=== PATIENT | male | born 1965 | race African-American/Black ===

== ENCOUNTER 2017-04-07 10:07 | Inpatient (IN) | payer OTHER ==
[2017-04-07 11:23] VITALS: BMI 19.6
--- NOTE | 2017-04-07 14:20 | HP ---
CIWA Score - CIWA Score Nausea/Vomitin Muscle Tremors: 3 Anxiety: 4-Mod. Anxious/Guarded Agitation: 2 Paroxysmal Sweats: 3 Orientation: 0-Oriented Tacttile Disturbances: 0-None Auditory Disturbances: 0-None Visual Disturbances: 0-None Headache: 2-Mild CIWA-Ar Total Score: 19 Admission ROS S - HPI Chief Complaint: "I've had 35 years of alcohol abuse." Patient is here to Detox from Alcohol. Allergies/Adverse Reactions: Allergies Allergy/AdvReac Type Severity Reaction Status Date / Time shellfish derived Allergy Severe Verified 04/07/17 11:39 History of Present Illness: Patient is a 51 YO male with long history of Alcohol use here to Detox from Alcohol. Patient had 1 previous Detox admission at [facility] in 2009. Patient had a Detox admission at [facility] in 03/2017 (Completed). Patient reports that he completed that Detox admission, however, he relapsed 1 day after discharge from the Detox. Longest period of sobriety in recent years: approx. 3 weeks (12/2016) . Exam Limitations: No Limitations - Ebola screening Have you traveled outside of the country in the last 21 days: No (N) Have you had contact with anyone from an Ebola affected area: No Have you been sick,other than usual withdrawal symptoms: No Do you have a fever: No - Review of Systems Constitutional: Diaphoresis, Loss of Appetite, Malaise, Night Sweats, Changes in sleep, Unintentional Wgt. Loss (Lost approx. 10 lbs. over last 1 month.) EENT: reports: No Symptoms Reported Respiratory: reports: No Symptoms reported Cardiac: reports: No Symptoms Reported GI: reports: Diarrhea, Nausea, Poor Appetite, Vomiting, Indigestion, Abdominal cramping : reports: No Symptoms Reported Musculoskeletal: reports: No Symptoms Reported Integumentary: reports: No Symptoms Reported Neuro: reports: Headache, Tremors, Other (Patient had a "Blackout" due to Alcohol use approx. 4 days ago, Was evaluated at ER.) Endocrine: reports: No Symptoms Reported Hematology: reports: No Symptoms Reported Psychiatric: reports: Judgement Intact, Mood/Affect Appropiate, Orientated x3, Anxious Other Systems: Reviewed and Negative Patient History - Patient Medical History Hx Anemia: No Hx Asthma: Yes (Pt is on MDI.) Hx Chronic Obstructive Pulmonary Disease (COPD): Yes Hx Cancer: Yes (Prostate, Completed round of treatment approx. 8 weeks ago.) Hx Cardiac Disorders: No Hx Congestive Heart Failure: No Hx Hypertension: No Hx Hypercholesterolemia: No Hx Pacemaker: No HX Cerebrovascular Accident: No Hx Seizures: No Hx Dementia: No Hx Diabetes: No Hx Gastrointestinal Disorders: No Hx Liver Disease: No Hx Genitourinary Disorders: No Hx Sexually Transmitted Disorders: No Hx Renal Disease (ESRD): No Hx Thyroid Disease: No Hx Human Immunodeficiency Virus (HIV): No (Last Tested approx. 90 days ago: NEGATIVE.) Hx Hepatitis C: No (Last Tested approx. 90 days ago: NEGATIVE.) Hx Depression: No (Anxiety,Klonopin, stopped under Med.Provider's guidance approx. 1 month ago) Hx Suicide Attempt: No (PATIENT DENIES CURRENT SI / HI.) Hx Bipolar Disorder: No Hx Schizophrenia: No Other Medical History: DENIES. - Patient Surgical History Past Surgical History: No Hx Neurologic Surgery: No Hx Cataract Extraction: No Hx Cardiac Surgery: No Hx Lung Surgery: No Hx Breast Surgery: No Hx Breast Biopsy: No Hx Abdominal Surgery: No Hx Appendectomy: No Hx Cholecystectomy: No Hx Genitourinary Surgery: No Hx Orthopedic Surgery: No Other Surgical History: DENIES. Anesthesia Reaction: No - PPD History Previous Implant?: Yes Documented Results: Positive w/o proof (Completed Full Course of Antibiotic Treatment approx. 32 years ago.) Implanted On Prior [facility] Admission?: No PPD to be Administered?: No - Reproductive History Patient is a Female of Child Bearing Age (11 -55 yrs old): No (PATIENT IS MALE.) - Smoking Cessation Smoking history: Current every day smoker Have you smoked in the past 12 months: Yes Aproximately how many cigarettes per day: 4 Cigars Per Day: 0 Hx Chewing Tobacco Use: No Initiated information on smoking cessation: Yes 'Breaking Loose' booklet given: 04/07/17 (GIVEN ON UNIT.) - Substance & Tx. History Hx Alcohol Use: Yes Hx Substance Use: Yes Substance Use Type: Alcohol, Cocaine Hx Substance Use Treatment: Yes (1 Detox at [facility] (2009). 1 previous detox at [facility] approx. 2 weeks ago) - Substances Abused Alcohol Route: Oral Frequency: Daily Amount used: 1 QT VODKA/ SIX BEERS (12 OZ.) Age of first use: 16 Date of Last Use: 04/07/17 Cocaine Route: Inhalation Frequency: Daily Amount used: $20 Age of first use: 43 Date of Last Use: 04/05/17 Family Disease History - Family Disease History Family Disease History: Diabetes: Father (, Prostate Ca.), Heart Disease : Mother (, Breast Ca.; HTN), CA: Father, Mother, Sister (Breast.) Admission Physical Exam [facility] - Vital Signs Vital Signs: Vital Signs - 24 hr 04/07/17 11:20 Temperature 98.0 F Pulse Rate 79 Respiratory 18 Rate Blood Pressure 118/74 - Physical General Appearance: Yes: No Apparent Distress, Nourished, Appropriately Dressed , Thin, Tremorous, Anxious HEENTM: Yes: Hearing grossly Normal, Normocephalic, Normal Voice, GUSTABO, Pharynx Normal Respiratory: Yes: Chest Non-Tender, Lungs Clear, No Respiratory Distress, No Accessory Muscle Use Neck: Yes: No masses,lesions,Nodules, Supple, Trachea in good position Breast: Yes: Breast Exam Deferred Cardiology: Yes: Regular Rhythm, Regular Rate, S1, S2 Abdominal: Yes: Normal Bowel Sounds, Non Tender, Flat, Soft Genitourinary: Yes: Within Normal Limits Back: Yes: Normal Inspection Musculoskeletal: Yes: full range of Motion, Gait Steady Extremities: Yes: Normal Capillary Refill, Normal Range of Motion, Non-Tender, Tremors Neurological: Yes: Fully Oriented, Alert, Normal Mood/Affect, Normal Response Integumentary: Yes: Normal Color, Dry, Warm Lymphatic: Yes: Within Normal Limits - Diagnostic (1) Alcohol dependence with uncomplicated withdrawal Current Visit: Yes Status: Acute (2) Cocaine dependence, uncomplicated Current Visit: Yes Status: Acute (3) Asthma Current Visit: Yes Status: Chronic Qualifiers: Asthma severity: mild Asthma persistence: intermittent Asthma complication type: uncomplicated Qualified Code(s): J45.20 - Mild intermittent asthma, uncomplicated (4) Nicotine dependence Current Visit: Yes Status: Chronic Qualifiers: Nicotine product type: cigarettes Substance use status: uncomplicated Qualified Code(s): F17.210 - Nicotine dependence, cigarettes, uncomplicated (5) History of prostate cancer Current Visit: Yes Status: Chronic Comment: Currently Undergoing Treatment. Cleared for Admission [facility] - Detox or Rehab [facility] Level of Care: Medically Managed Detox Regimen/Protocol: Valium (PATIENT REQUESTS VALIUM DETOX REGIMEN.) BHS Breath Alcohol Content Breath Alcohol Content: 0.048 Urine Drug Screen - Results Drug Screen Negative: No Urine Drug Screen Results: RASHID-Cocaine, BZO-Benzodiazepines
[2017-04-07] MEDS ORDERED: NICOTINE POLACRILEX 2 MG GUM BC PRN (15:02)
[2017-04-07] MEDS ORDERED: MENTHOL/PHENOL 1 EACH UD MM PRN (15:02)
[2017-04-07] MEDS ORDERED: MAG HYDROX/AL HYDROX/SIMETH 30 ML UNIT-DOSE CUP PO PRN (15:02)
[2017-04-07] MEDS ORDERED: diazePAM 5 MG TABLET PO PRN (15:02)
[2017-04-07] MEDS ORDERED: MAGNESIUM CITRATE 300 ML BOTTLE PO PRN (15:02)
[2017-04-07] MEDS ORDERED: LOPERAMIDE HCL 2 MG CAPSULE PO PRN (15:02)
[2017-04-07] MEDS ORDERED: P-EPHED 60MG/TRIPROLIDI 2.5MG TABLET PO PRN (15:02)
[2017-04-07] MEDS ORDERED: MAGNESIUM HYDROX 2400MG/30ML ORAL SUSPENSION 30 ML CUP PO PRN (15:02)
[2017-04-07] MEDS ORDERED: ALBUTEROL SO4 18 GM HFA INHALER IH PRN (15:06)
[2017-04-07 16:34] LABS: HEMATOCRIT 43.1 % (35.4-49); HEMOGLOBIN 14.2 GM/dL (11.7-16.9); MEAN CELL VOLUME 97.2 fl (80-96); MEAN PLT VOLUME 7.7 fl (7.5-11.1); PLATELET COUNT 241 K/MM3 (134-434); RBC 4.44 M/mm3 (4.00-5.60); WHITE BLOOD COUNT 8.5 K/mm3 (4.0-10.0)
[2017-04-07 16:41] LABS: URINE APPEARANCE CLEAR; URINE BILIRUBIN NEGATIVE (NEGATIVE); URINE BLOOD NEGATIVE (NEGATIVE); URINE COLOR YELLOW; URINE GLUCOSE (UA) NEGATIVE (NEGATIVE); URINE KETONE NEGATIVE (NEGATIVE); URINE LEUK ESTERASE NEGATIVE (NEGATIVE); URINE NITRITE NEGATIVE (NEGATIVE); URINE PROTEIN NEGATIVE (NEGATIVE)
[2017-04-07] MEDS ORDERED: diazePAM 5 MG TABLET PO ONE (17:00)
[2017-04-07 17:05] LABS: ALBUMIN 3.9 g/dl (3.4-5.0); ANION GAP 7 (8-16); BLOOD UREA NITROGEN 11 mg/dL (7-18); CALCIUM 8.8 mg/dL (8.5-10.1); CHLORIDE 104 mmol/L (98-107); CO2 29 mmol/L (21-32); GLUCOSE,RANDOM 67 mg/dL (74-106); POTASSIUM 3.6 mmol/L (3.5-5.1); SGOT/AST 10 U/L (15-37); SODIUM 140 mmol/L (136-145)
[2017-04-07 17:07] LABS: ALK PHOS 42 U/L (45-117); BILIRUBIN,TOTAL 0.4 mg/dL (0.2-1.0); SGPT/ALT 22 U/L (12-78); TOT PROT 7.8 g/dl (6.4-8.2)
[2017-04-07] MEDS: NICOTINE 21 MG/24 HOURS TOPICAL PATCH TD SCH (17:11)
--- NOTE | 2017-04-07 19:48 | CONSULT ---
[facility] Psychiatric Consult - Data Date of interview: 04/07/17 Admission source: [facility] Identifying data: Pt. is a 51 year old male, who is a and father of two. This is patient's first admission to [facility]. Pt. admitted to for detox from Alcohol and cocaine dependence. Substance Abuse History: Following information confirmed by Mr. Pitt: Smoking Cessation. Smoking history: Current every day smoker. Have you smoked in the past 12 months: Yes. Aproximately how many cigarettes per day: 4. Cigars Per Day: 0. Hx Chewing Tobacco Use: No. Initiated information on smoking cessation : Yes. 'Breaking Loose' booklet given: 04/07/17 (GIVEN ON UNIT.). - Substance & Tx. History. Hx Alcohol Use: Yes. Hx Substance Use: Yes. Substance Use Type : Alcohol, Cocaine. Hx Substance Use Treatment: Yes (1 Detox at [facility] (2009). 1 previous detox at [facility] approx. 2 weeks ago). Alcohol: Route: Oral Frequency: Daily. Amount used: 1 QT VODKA/ SIX BEERS (12 OZ.). Age of first use: 16. Date of Last Use: 04/07/17. Cocaine: Route: Inhalation Frequency : Daily. Amount used: $20 Age of first use: 43. Date of Last Use: 04/05/17 Medical History: Asthma, COPD, Prostate cancer ( in remission) Psychiatric History: Pt. denies. Pt. also denies h/o suicide attempt. Pt. states he see's a therapist ( and Son were murdered a few years ago) and his primary care physician prescribes him trazdone 50mg for sleep. Pt. denies suicidal and homicial ideation. Physical/Sexual Abuse/Trauma History: Pt. denies. Mental Status Exam - Mental Status Exam Alert and Oriented to: Time, Place, Person Cognitive Function: Fair Patient Appearance: Well Groomed Mood: Sad Affect: Mood Congruent Patient Behavior: Appropriate, Cooperative Speech Pattern: Clear, Appropriate Voice Loudness: Normal Thought Process: Goal Oriented Thought Disorder: Not Present Hallucinations: Denies Suicidal Ideation: Denies Homicidal Ideation: Denies Insight/Judgement: Poor Sleep: Poorly Appetite: Fair Muscle strength/Tone: Normal Gait/Station: Normal Psychiatric Findings - Problem List ([place] 1, 2,3) (1) Alcohol dependence with uncomplicated withdrawal Current Visit: Yes Status: Acute (2) Cocaine dependence, uncomplicated Current Visit: Yes Status: Acute (3) Nicotine dependence Current Visit: Yes Status: Chronic Qualifiers: Nicotine product type: cigarettes Substance use status: uncomplicated Qualified Code(s): F17.210 - Nicotine dependence, cigarettes, uncomplicated (4) Substance induced mood disorder Current Visit: Yes Status: Suspected - Initial Treatment Plan Initial Treatment Plan: Psychoeducation provided. Detox in progress. Trazodone 50mg qhs ordered for insomnia. Pharmacy claims reviewed. Benefits and side effects (priapism) discussed with patient. Verbal consent given. Pt. agreeable with plan. Will continue to monitor.
[2017-04-07] MEDS: THIAMINE HCL 100 MG TABLET (FP) PO SCH (22:21)
[2017-04-07] MEDS: diazePAM 5 MG TABLET PO SCH (22:21)
[2017-04-07] MEDS: traZODone HCL 50 MG TABLET (FP) PO SCH (22:21)
[2017-04-08] MEDS: diazePAM 5 MG TABLET PO SCH ×3 (06:27→22:12)
[2017-04-08] MEDS: PRENATAL VITAMINS W/ FOLIC ACID TABLET (FP) PO SCH (10:30)
[2017-04-08] MEDS: NICOTINE 21 MG/24 HOURS TOPICAL PATCH TD SCH (10:32)
--- NOTE | 2017-04-08 11:06 | PN ---
S CIWA - CIWA Score Nausea/Vomitin Muscle Tremors: 3 Anxiety: 3 Agitation: 2 Paroxysmal Sweats: 1-Minimal Palms Moist Orientation: 0-Oriented Tacttile Disturbances: 1-Very Mild Itch/Numbness Auditory Disturbances: 1-Very Mild Visual Disturbances: 0-None Headache: 2-Mild CIWA-Ar Total Score: 16 BHS Progress Note (SOAP) Subjective: alert,irritable,anxious,interrupted sleep,tremor,pain in the body,tremor Objective: 04/08/17 11:03 Vital Signs Temperature 97.7 F 04/08/17 09:44 Pulse Rate 83 04/08/17 09:44 Respiratory Rate 18 04/08/17 09:44 Blood Pressure 97/59 04/08/17 09:44 O2 Sat by Pulse Oximetry (%) ekg nsr,normal Laboratory Last Values WBC 8.5 K/mm3 (4.0-10.0) 04/07/17 15:00 RBC 4.44 M/mm3 (4.00-5.60) 04/07/17 15:00 Hgb 14.2 GM/dL (11.7-16.9) 04/07/17 15:00 Hct 43.1 % (35.4-49) 04/07/17 15:00 MCV 97.2 fl (80-96) H 04/07/17 15:00 MCH 32.0 pg (25.7-33.7) 04/07/17 15:00 MCHC 33.0 g/dl (32.0-35.9) 04/07/17 15:00 RDW 14.0 % (11.9-15.9) 04/07/17 15:00 Plt Count 241 K/MM3 (134-434) 04/07/17 15:00 MPV 7.7 fl (7.5-11.1) 04/07/17 15:00 Sodium 140 mmol/L (136-145) 04/07/17 15:00 Potassium 3.6 mmol/L (3.5-5.1) 04/07/17 15:00 Chloride 104 mmol/L (98-107) 04/07/17 15:00 Carbon Dioxide 29 mmol/L (21-32) 04/07/17 15:00 Anion Gap 7 (8-16) L 04/07/17 15:00 BUN 11 mg/dL (7-18) 04/07/17 15:00 Creatinine 1.0 mg/dL (0.7-1.3) 04/07/17 15:00 Creat Clearance w eGFR > 60 (>60) 04/07/17 15:00 Random Glucose 67 mg/dL (74-106) L 04/07/17 15:00 Calcium 8.8 mg/dL (8.5-10.1) 04/07/17 15:00 Total Bilirubin 0.4 mg/dL (0.2-1.0) 04/07/17 15:00 AST 10 U/L (15-37) L 04/07/17 15:00 ALT 22 U/L (12-78) 04/07/17 15:00 Alkaline Phosphatase 42 U/L (45-117) L 04/07/17 15:00 Total Protein 7.8 g/dl (6.4-8.2) 04/07/17 15:00 Albumin 3.9 g/dl (3.4-5.0) 04/07/17 15:00 Urine Color Yellow 04/07/17 15:12 Urine Appearance Clear 04/07/17 15:12 Urine pH 5.0 (5.0-8.0) 04/07/17 15:12 Ur Specific [place] 1.021 (1.001-1.035) 04/07/17 15:12 Urine Protein Negative (NEGATIVE) 04/07/17 15:12 Urine Glucose (UA) Negative (NEGATIVE) 04/07/17 15:12 Urine Ketones Negative (NEGATIVE) 04/07/17 15:12 Urine Blood Negative (NEGATIVE) 04/07/17 15:12 Urine Nitrite Negative (NEGATIVE) 04/07/17 15:12 Urine Bilirubin Negative (NEGATIVE) 04/07/17 15:12 Urine Urobilinogen 2.0 mg/dL (0.2-1.0) 04/07/17 15:12 Ur Leukocyte Esterase Negative (NEGATIVE) 04/07/17 15:12 RPR Titer Nonreactive (NONREACTIVE) 04/07/17 15:00 Assessment: 04/08/17 11:04 withdrawal symptom Plan: continue detox,bgm monitoring,initial glucose is 67
[2017-04-08] MEDS: guaiFENesin/D-METHORPHAN HB 10 ML UNIT-DOSE CUPS PO PRN (13:56)
[2017-04-08] MEDS: THIAMINE HCL 100 MG TABLET (FP) PO SCH (22:12)
[2017-04-08] MEDS: traZODone HCL 50 MG TABLET (FP) PO SCH (22:12)
[2017-04-09] MEDS: guaiFENesin/D-METHORPHAN HB 10 ML UNIT-DOSE CUPS PO PRN ×3 (05:24→17:43)
--- NOTE | 2017-04-09 08:57 | PN ---
[facility] CIWA - CIWA Score Nausea/Vomitin-No Nausea/No Vomiting Muscle Tremors: 3 Anxiety: 3 Agitation: 3 Paroxysmal Sweats: 1-Minimal Palms Moist Orientation: 0-Oriented Tacttile Disturbances: 0-None Auditory Disturbances: 0-None Visual Disturbances: 0-None Headache: 0-None Present CIWA-Ar Total Score: 10 S Progress Note (SOAP) Subjective: tremor anxiety sweat Objective: 04/09/17 08:56 Vital Signs Temperature 97.7 F 04/09/17 06:00 Pulse Rate 80 04/09/17 06:00 Respiratory Rate 18 04/09/17 06:00 Blood Pressure 118/58 04/09/17 06:00 O2 Sat by Pulse Oximetry (%) Laboratory Last Values WBC 8.5 K/mm3 (4.0-10.0) 04/07/17 15:00 RBC 4.44 M/mm3 (4.00-5.60) 04/07/17 15:00 Hgb 14.2 GM/dL (11.7-16.9) 04/07/17 15:00 Hct 43.1 % (35.4-49) 04/07/17 15:00 MCV 97.2 fl (80-96) H 04/07/17 15:00 MCH 32.0 pg (25.7-33.7) 04/07/17 15:00 MCHC 33.0 g/dl (32.0-35.9) 04/07/17 15:00 RDW 14.0 % (11.9-15.9) 04/07/17 15:00 Plt Count 241 K/MM3 (134-434) 04/07/17 15:00 MPV 7.7 fl (7.5-11.1) 04/07/17 15:00 Sodium 140 mmol/L (136-145) 04/07/17 15:00 Potassium 3.6 mmol/L (3.5-5.1) 04/07/17 15:00 Chloride 104 mmol/L (98-107) 04/07/17 15:00 Carbon Dioxide 29 mmol/L (21-32) 04/07/17 15:00 Anion Gap 7 (8-16) L 04/07/17 15:00 BUN 11 mg/dL (7-18) 04/07/17 15:00 Creatinine 1.0 mg/dL (0.7-1.3) 04/07/17 15:00 Creat Clearance w eGFR > 60 (>60) 04/07/17 15:00 POC Glucometer 101 UNITS (80-120) 04/09/17 05:24 Random Glucose 67 mg/dL (74-106) L 04/07/17 15:00 Calcium 8.8 mg/dL (8.5-10.1) 04/07/17 15:00 Total Bilirubin 0.4 mg/dL (0.2-1.0) 04/07/17 15:00 AST 10 U/L (15-37) L 04/07/17 15:00 ALT 22 U/L (12-78) 04/07/17 15:00 Alkaline Phosphatase 42 U/L (45-117) L 04/07/17 15:00 Total Protein 7.8 g/dl (6.4-8.2) 04/07/17 15:00 Albumin 3.9 g/dl (3.4-5.0) 04/07/17 15:00 Urine Color Yellow 04/07/17 15:12 Urine Appearance Clear 04/07/17 15:12 Urine pH 5.0 (5.0-8.0) 04/07/17 15:12 Ur Specific [place] 1.021 (1.001-1.035) 04/07/17 15:12 Urine Protein Negative (NEGATIVE) 04/07/17 15:12 Urine Glucose (UA) Negative (NEGATIVE) 04/07/17 15:12 Urine Ketones Negative (NEGATIVE) 04/07/17 15:12 Urine Blood Negative (NEGATIVE) 04/07/17 15:12 Urine Nitrite Negative (NEGATIVE) 04/07/17 15:12 Urine Bilirubin Negative (NEGATIVE) 04/07/17 15:12 Urine Urobilinogen 2.0 mg/dL (0.2-1.0) 04/07/17 15:12 Ur Leukocyte Esterase Negative (NEGATIVE) 04/07/17 15:12 RPR Titer Nonreactive (NONREACTIVE) 04/07/17 15:00 lab noted Assessment: 04/09/17 08:56 withdrawal sx Plan: continue detox
[2017-04-09] MEDS: PRENATAL VITAMINS W/ FOLIC ACID TABLET (FP) PO SCH (10:43)
[2017-04-09] MEDS: diazePAM 5 MG TABLET PO SCH ×2 (10:43→22:06)
[2017-04-09] MEDS: NICOTINE 21 MG/24 HOURS TOPICAL PATCH TD SCH (10:43)
[2017-04-09] MEDS: IBUPROFEN 400 MG TABLET (FP) PO PRN (20:35)
[2017-04-09] MEDS: THIAMINE HCL 100 MG TABLET (FP) PO SCH (22:06)
[2017-04-09] MEDS: traZODone HCL 50 MG TABLET (FP) PO SCH (22:06)
--- NOTE | 2017-04-10 09:48 | PN ---
BHS Progress Note (SOAP) Subjective: nausea, sweats, interrupted sleep, anxiety, tremors - does not like medication he is recieving Objective: 04/10/17 09:47 Vital Signs - 24 hr 04/09/17 04/09/17 04/09/17 10:00 14:23 17:01 Temperature 98.1 F 98.2 F 98.2 F Pulse Rate 81 80 89 Respiratory 18 18 18 Rate Blood Pressure 109/62 119/67 98/51 04/09/17 04/10/17 04/10/17 22:24 00:30 03:30 Temperature 98.6 F Pulse Rate 92 H Respiratory 18 18 18 Rate Blood Pressure 106/71 04/10/17 06:13 Temperature 97.4 F L Pulse Rate 76 Respiratory 18 Rate Blood Pressure 103/57 Laboratory Tests 04/07/17 04/07/17 04/07/17 15:00 15:00 15:00 WBC 8.5 RBC 4.44 Hgb 14.2 Hct 43.1 MCV 97.2 H MCH 32.0 MCHC 33.0 RDW 14.0 Plt Count 241 MPV 7.7 Sodium 140 Potassium 3.6 Chloride 104 Carbon Dioxide 29 Anion Gap 7 L BUN 11 Creatinine 1.0 Creat Clearance w eGFR > 60 POC Glucometer Random Glucose 67 L Calcium 8.8 Total Bilirubin 0.4 AST 10 L ALT 22 Alkaline Phosphatase 42 L Total Protein 7.8 Albumin 3.9 Urine Color Urine Appearance Urine pH Ur Specific [place] Urine Protein Urine Glucose (UA) Urine Ketones Urine Blood Urine Nitrite Urine Bilirubin Urine Urobilinogen Ur Leukocyte Esterase RPR Titer Nonreactive 04/07/17 04/09/17 15:12 05:24 WBC RBC Hgb Hct MCV MCH MCHC RDW Plt Count MPV Sodium Potassium Chloride Carbon Dioxide Anion Gap BUN Creatinine Creat Clearance w eGFR POC Glucometer 101 Random Glucose Calcium Total Bilirubin AST ALT Alkaline Phosphatase Total Protein Albumin Urine Color Yellow Urine Appearance Clear Urine pH 5.0 Ur Specific [place] 1.021 Urine Protein Negative Urine Glucose (UA) Negative Urine Ketones Negative Urine Blood Negative Urine Nitrite Negative Urine Bilirubin Negative Urine Urobilinogen 2.0 Ur Leukocyte Esterase Negative RPR Titer Assessment: 04/10/17 09:47 withdrawawl sx, cont detox, prn libirum ordered for today.
[2017-04-10] MEDS: diazePAM 5 MG TABLET PO SCH ×2 (10:32→22:15)
[2017-04-10] MEDS: PRENATAL VITAMINS W/ FOLIC ACID TABLET (FP) PO SCH (10:32)
[2017-04-10] MEDS: NICOTINE 21 MG/24 HOURS TOPICAL PATCH TD SCH (10:32)
[2017-04-10] MEDS ORDERED: chlordiazePOXIDE HCL 25 MG CAPSULE PO ONE (13:00)
[2017-04-10] MEDS: guaiFENesin/D-METHORPHAN HB 10 ML UNIT-DOSE CUPS PO PRN (14:21)
[2017-04-10] MEDS: ACETAMINOPHEN 325 MG TABLET (FP) PO PRN (17:37)
[2017-04-10] MEDS: traZODone HCL 50 MG TABLET (FP) PO SCH (22:15)
[2017-04-10] MEDS: THIAMINE HCL 100 MG TABLET (FP) PO SCH (22:15)
--- NOTE | 2017-04-11 01:58 | EKG ---
Test Reason : Blood Pressure : / mmHG Vent. Rate : 074 BPM Atrial Rate : 074 BPM P-R Int : 168 ms QRS Dur : 096 ms QT Int : 380 ms P-R-T Axes : 069 044 037 degrees QTc Int : 421 ms NORMAL SINUS RHYTHM NORMAL ECG NO PREVIOUS ECGS AVAILABLE Confirmed by MISTI SALAZAR, JAKE ([id number]) on 04/11/2017 1:57:48 AM Referred By: Apolonia WINCHESTER Confirmed By:JAKE CHAPPELL MD
--- NOTE | 2017-04-11 08:44 | DS ---
[facility] Detox Discharge Summary Admission Date: 04/07/17 Discharge Date: 04/11/17 - History Present History: Alcohol Dependence, Cocaine Dependence - Physical Exam Results Vital Signs: Vital Signs Temperature 98.3 F 04/11/17 06:09 Pulse Rate 68 04/11/17 06:09 Respiratory Rate 16 04/11/17 06:09 Blood Pressure 106/61 04/11/17 06:09 O2 Sat by Pulse Oximetry (%) - Treatment Hospital Course: Detox Protocol Followed, Detoxed Safely, Responded well, Discharged Condition Good, Rehab Referral Accepted - Medication Discharge Medications: Ambulatory Orders Albuterol Sulfate Inhaler - [Ventolin HFA Inhaler -] 2 inh PO Q4H PRN #1 inhaler 04/10/17 - Diagnosis (1) Alcohol dependence with uncomplicated withdrawal Current Visit: Yes Status: Chronic (2) Cocaine dependence, uncomplicated Current Visit: Yes Status: Chronic (3) Asthma Current Visit: Yes Status: Chronic Qualifiers: Asthma severity: mild Asthma persistence: intermittent Asthma complication type: uncomplicated Qualified Code(s): J45.20 - Mild intermittent asthma, uncomplicated (4) History of prostate cancer Current Visit: Yes Status: Chronic (5) Nicotine dependence Current Visit: Yes Status: Chronic Qualifiers: Nicotine product type: cigarettes Substance use status: uncomplicated Qualified Code(s): F17.210 - Nicotine dependence, cigarettes, uncomplicated (6) Substance induced mood disorder Current Visit: Yes Status: Suspected - AMA Did Patient Leave Against Medical Advice: No
[2017-04-11] MEDS: PRENATAL VITAMINS W/ FOLIC ACID TABLET (FP) PO SCH (09:50)
[2017-04-11] MEDS: NICOTINE 21 MG/24 HOURS TOPICAL PATCH TD SCH (09:50)
[2017-04-11] MEDS ORDERED: diazePAM 5 MG TABLET PO SCH (10:00)
[2017-04-11] MEDS: guaiFENesin/D-METHORPHAN HB 10 ML UNIT-DOSE CUPS PO PRN (20:40)
[2017-04-11] MEDS: ACETAMINOPHEN 325 MG TABLET (FP) PO PRN (20:40)
[2017-04-11] MEDS: THIAMINE HCL 100 MG TABLET (FP) PO SCH (21:27)
[2017-04-11] MEDS: traZODone HCL 50 MG TABLET (FP) PO SCH (21:27)
[2017-04-12] MEDS: NICOTINE 21 MG/24 HOURS TOPICAL PATCH TD SCH (10:30)
[2017-04-12] MEDS: PRENATAL VITAMINS W/ FOLIC ACID TABLET (FP) PO SCH (10:30)
--- NOTE | 2017-04-12 11:47 | HP ---
Psychiatrist Admission - Data Date of interview: 04/12/17 Admission source: 6N Identifying data: This is the first 5N inpatient rehabilitation admission for this 51 year AA/Azeri male who is unemployed on SSI, residing alone in [facility]. Medical History: Asthma,COPD, h/o Prostate CA -in remission, +ppd- treated years ago. Smokes cigarettes 5 cigarettes a day. Psychiatric History: Patient reports first psychiatric contact as a child, was diagnosed as ADHD, reports later was diagnosed anxiety and depression, treated with different medications (paxil, seroquel,klonopin,buspar, remeron, adderall) , states he see's a therapist ( and Son were murdered a few years ago) and his primary care physician prescribes him trazodone 50mg for sleep. Patient denies suicidal and homicial ideation. Physical/Sexual Abuse/Trauma History: Denies Vital Signs: Vital Signs - 24 hr 04/11/17 04/11/17 04/12/17 11:48 19:15 00:41 Temperature 97.4 F L 97.3 F L Pulse Rate 97 H 85 Respiratory 18 18 18 Rate Blood Pressure 109/64 105/70 04/12/17 04/12/17 03:30 07:12 Temperature 97.3 F L Pulse Rate 86 Respiratory 18 18 Rate Blood Pressure 124/66 Allergies/Adverse Reactions: Allergies Allergy/AdvReac Type Severity Reaction Status Date / Time shellfish derived Allergy Severe Verified 04/11/17 11:47 No Known Drug Allergies Allergy Verified 04/11/17 11:47 Concur with the findings of this exam: Yes - Substance Abuse/Tx History Hx Alcohol Use: Yes Hx Substance Use: Yes Substance Use Type: Alcohol (1qt of vodka,), Cocaine ($20 daily) Hx Substance Use Treatment: Yes ([facility]) Mental Status Exam - Mental Status Exam Alert and Oriented to: Time, Place, Person Cognitive Function: Good Patient Appearance: Well Groomed Mood: Sad, Anxious Affect: Appropriate, Mood Congruent Patient Behavior: Appropriate, Cooperative Speech Pattern: Clear, Appropriate Voice Loudness: Normal Thought Process: Intact, Goal Oriented Thought Disorder: Not Present Hallucinations: Denies Suicidal Ideation: Denies Homicidal Ideation: Denies Insight/Judgement: Fair Sleep: Poorly, Difficulty falling asleep Appetite: Good Muscle strength/Tone: Normal Psychiatric Findings - Problem List ([place] 1, 2,3) (1) Alcohol dependence Current Visit: Yes Status: Acute (2) Cocaine dependence Current Visit: Yes Status: Acute (3) MDD (major depressive disorder) Current Visit: Yes Status: Acute (4) Anxiety disorder Current Visit: Yes Status: Acute (5) Nicotine dependence Current Visit: Yes Status: Chronic Qualifiers: Nicotine product type: cigarettes Substance use status: uncomplicated Qualified Code(s): F17.210 - Nicotine dependence, cigarettes, uncomplicated - Initial Treatment Plan Initial Treatment Plan: will increase Trazodone 100 mg po hs, add Buspar 10 mg po bid(patient had a good response in the past), continue to monitor progress as needed.
[2017-04-12] MEDS: THIAMINE HCL 100 MG TABLET (FP) PO SCH (21:34)
[2017-04-12] MEDS: busPIRone HCL 10 MG TABLET (FP) PO SCH (21:34)
[2017-04-12] MEDS: traZODone HCL 100 MG TABLET (FP) PO SCH (21:34)
[2017-04-12] MEDS: ACETAMINOPHEN 325 MG TABLET (FP) PO PRN (21:35)
[2017-04-12] MEDS: guaiFENesin/D-METHORPHAN HB 10 ML UNIT-DOSE CUPS PO PRN (21:36)
[2017-04-13] MEDS: guaiFENesin/D-METHORPHAN HB 10 ML UNIT-DOSE CUPS PO PRN ×2 (06:16→22:08)
[2017-04-13] MEDS: ACETAMINOPHEN 325 MG TABLET (FP) PO PRN (09:34)
[2017-04-13] MEDS: PRENATAL VITAMINS W/ FOLIC ACID TABLET (FP) PO SCH (10:27)
[2017-04-13] MEDS: NICOTINE 21 MG/24 HOURS TOPICAL PATCH TD SCH (10:27)
[2017-04-13] MEDS: busPIRone HCL 10 MG TABLET (FP) PO SCH ×2 (10:27→22:06)
[2017-04-13] MEDS: traZODone HCL 100 MG TABLET (FP) PO SCH (22:06)
[2017-04-13] MEDS: THIAMINE HCL 100 MG TABLET (FP) PO SCH (22:06)
[2017-04-14] MEDS: busPIRone HCL 10 MG TABLET (FP) PO SCH ×2 (10:30→21:37)
[2017-04-14] MEDS: PRENATAL VITAMINS W/ FOLIC ACID TABLET (FP) PO SCH (10:30)
[2017-04-14] MEDS: NICOTINE 21 MG/24 HOURS TOPICAL PATCH TD SCH (10:31)
[2017-04-14] MEDS: guaiFENesin/D-METHORPHAN HB 10 ML UNIT-DOSE CUPS PO PRN ×2 (10:32→21:39)
[2017-04-14] MEDS: THIAMINE HCL 100 MG TABLET (FP) PO SCH (21:37)
[2017-04-14] MEDS: traZODone HCL 100 MG TABLET (FP) PO SCH (21:37)
[2017-04-15] MEDS: guaiFENesin/D-METHORPHAN HB 10 ML UNIT-DOSE CUPS PO PRN ×3 (00:30→13:19)
[2017-04-15] MEDS: ACETAMINOPHEN 325 MG TABLET (FP) PO PRN ×2 (06:48→14:48)
[2017-04-15] MEDS: NICOTINE 21 MG/24 HOURS TOPICAL PATCH TD SCH (10:36)
[2017-04-15] MEDS: busPIRone HCL 10 MG TABLET (FP) PO SCH ×2 (10:37→21:31)
[2017-04-15] MEDS: PRENATAL VITAMINS W/ FOLIC ACID TABLET (FP) PO SCH (10:37)
[2017-04-15] MEDS: IBUPROFEN 400 MG TABLET (FP) PO PRN (10:38)
[2017-04-15] MEDS: THIAMINE HCL 100 MG TABLET (FP) PO SCH (21:31)
[2017-04-15] MEDS: traZODone HCL 100 MG TABLET (FP) PO SCH (21:31)
[2017-04-16] MEDS: busPIRone HCL 10 MG TABLET (FP) PO SCH ×2 (10:10→21:34)
[2017-04-16] MEDS: PRENATAL VITAMINS W/ FOLIC ACID TABLET (FP) PO SCH (10:11)
[2017-04-16] MEDS: NICOTINE 21 MG/24 HOURS TOPICAL PATCH TD SCH (10:11)
[2017-04-16] MEDS: ACETAMINOPHEN 325 MG TABLET (FP) PO PRN (14:25)
[2017-04-16] MEDS: guaiFENesin/D-METHORPHAN HB 10 ML UNIT-DOSE CUPS PO PRN ×2 (14:26→21:35)
[2017-04-16] MEDS: THIAMINE HCL 100 MG TABLET (FP) PO SCH (21:34)
[2017-04-16] MEDS: traZODone HCL 100 MG TABLET (FP) PO SCH (21:34)
[2017-04-17] MEDS: busPIRone HCL 10 MG TABLET (FP) PO SCH ×2 (10:30→21:42)
[2017-04-17] MEDS: PRENATAL VITAMINS W/ FOLIC ACID TABLET (FP) PO SCH (10:30)
[2017-04-17] MEDS: NICOTINE 21 MG/24 HOURS TOPICAL PATCH TD SCH (10:30)
[2017-04-17] MEDS ORDERED: ALBUTEROL SO4 0.083% IH SOL 2.5 MG/3 ML VIAL.NEB. NEB ONE (13:50)
[2017-04-17] MEDS ORDERED: AZITHROMYCIN 250 MG TABLET PO ONE (14:03)
--- NOTE | 2017-04-17 14:11 | PN ---
BHS Progress Note (SOAP) Subjective: cough , greenish, h/o bullous emphysema thick phelgm Objective: 04/17/17 14:08 Vital Signs Temperature 97.2 F L 04/17/17 07:15 Pulse Rate 78 04/17/17 07:15 Respiratory Rate 16 04/17/17 07:15 Blood Pressure 109/59 04/17/17 07:15 O2 Sat by Pulse Oximetry (%) pt aox3 in nad cough rhonchi Assessment: 04/17/17 14:09 bronchitis in pt with bullous emphysema Plan: z-pack x 5 days cont b 2 agonist f/u sputum cx. increase fluids
[2017-04-17] MEDS: traZODone HCL 100 MG TABLET (FP) PO SCH (21:42)
[2017-04-17] MEDS: THIAMINE HCL 100 MG TABLET (FP) PO SCH (21:42)
[2017-04-18 09:51] LABS: BASO % 0.7 % (0-2.0); EOS % 1.9 % (0-4.5); HEMATOCRIT 42.5 % (35.4-49); HEMOGLOBIN 13.7 GM/dL (11.7-16.9); LYMPH % 27.4 % (8-40); MCH 30.9 pg (25.7-33.7); MCHC 32.3 g/dl (32.0-35.9); MEAN CELL VOLUME 95.9 fl (80-96); MEAN PLT VOLUME 7.7 fl (7.5-11.1); MONO % 11.1 % (3.8-10.2); NEUT % 58.9 % (42.8-82.8); PLATELET COUNT 251 K/MM3 (134-434); RBC 4.43 M/mm3 (4.00-5.60); RDW 13.3 % (11.9-15.9); WHITE BLOOD COUNT 7.7 K/mm3 (4.0-10.0)
[2017-04-18 09:57] LABS: ALBUMIN 3.3 g/dl (3.4-5.0); ANION GAP 9 (8-16); BILIRUBIN,TOTAL 0.6 mg/dL (0.2-1.0); BLOOD UREA NITROGEN 14 mg/dL (7-18); CALCIUM 8.4 mg/dL (8.5-10.1); CHLORIDE 105 mmol/L (98-107); CO2 26 mmol/L (21-32); CREATININE 1.1 mg/dL (0.7-1.3); GLUCOSE,RANDOM 103 mg/dL (74-106); POTASSIUM 3.7 mmol/L (3.5-5.1); SGOT/AST 9 U/L (15-37); SGPT/ALT 19 U/L (12-78); SODIUM 140 mmol/L (136-145); TOT PROT 7.3 g/dl (6.4-8.2)
[2017-04-18 09:58] LABS: ALK PHOS 42 U/L (45-117)
[2017-04-18] MEDS ORDERED: AZITHROMYCIN 250 MG TABLET PO ONE (10:00)
[2017-04-18] MEDS: busPIRone HCL 10 MG TABLET (FP) PO SCH ×2 (10:19→21:49)
[2017-04-18] MEDS: PRENATAL VITAMINS W/ FOLIC ACID TABLET (FP) PO SCH (10:19)
[2017-04-18] MEDS: NICOTINE 21 MG/24 HOURS TOPICAL PATCH TD SCH (10:19)
[2017-04-18] MEDS: AZITHROMYCIN 250 MG TABLET PO SCH (10:19)
[2017-04-18] MEDS: THIAMINE HCL 100 MG TABLET (FP) PO SCH (21:49)
[2017-04-18] MEDS: traZODone HCL 100 MG TABLET (FP) PO SCH (21:49)
[2017-04-19] MEDS: NICOTINE 21 MG/24 HOURS TOPICAL PATCH TD SCH (10:25)
[2017-04-19] MEDS: busPIRone HCL 10 MG TABLET (FP) PO SCH ×2 (10:25→21:36)
[2017-04-19] MEDS: PRENATAL VITAMINS W/ FOLIC ACID TABLET (FP) PO SCH (10:25)
[2017-04-19] MEDS: AZITHROMYCIN 250 MG TABLET PO SCH (10:26)
[2017-04-19] MEDS: THIAMINE HCL 100 MG TABLET (FP) PO SCH (21:36)
[2017-04-19] MEDS: traZODone HCL 100 MG TABLET (FP) PO SCH (21:36)
[2017-04-20] MEDS: PRENATAL VITAMINS W/ FOLIC ACID TABLET (FP) PO SCH (11:06)
[2017-04-20] MEDS: NICOTINE 21 MG/24 HOURS TOPICAL PATCH TD SCH (11:06)
[2017-04-20] MEDS: busPIRone HCL 10 MG TABLET (FP) PO SCH ×2 (11:06→21:36)
[2017-04-20] MEDS: AZITHROMYCIN 250 MG TABLET PO SCH (11:07)
[2017-04-20] MEDS: THIAMINE HCL 100 MG TABLET (FP) PO SCH (21:36)
[2017-04-20] MEDS: traZODone HCL 100 MG TABLET (FP) PO SCH (21:36)
[2017-04-21] MEDS: NICOTINE 21 MG/24 HOURS TOPICAL PATCH TD SCH (10:09)
[2017-04-21] MEDS: busPIRone HCL 10 MG TABLET (FP) PO SCH ×2 (10:09→21:31)
[2017-04-21] MEDS: PRENATAL VITAMINS W/ FOLIC ACID TABLET (FP) PO SCH (10:09)
[2017-04-21] MEDS: AZITHROMYCIN 250 MG TABLET PO SCH (10:11)
[2017-04-21] MEDS: THIAMINE HCL 100 MG TABLET (FP) PO SCH (21:31)
[2017-04-21] MEDS: traZODone HCL 100 MG TABLET (FP) PO SCH (21:31)
[2017-04-22] MEDS: busPIRone HCL 10 MG TABLET (FP) PO SCH ×2 (10:15→21:33)
[2017-04-22] MEDS: PRENATAL VITAMINS W/ FOLIC ACID TABLET (FP) PO SCH (10:15)
[2017-04-22] MEDS: NICOTINE 21 MG/24 HOURS TOPICAL PATCH TD SCH (10:16)
[2017-04-22] MEDS: THIAMINE HCL 100 MG TABLET (FP) PO SCH (21:33)
[2017-04-22] MEDS: traZODone HCL 100 MG TABLET (FP) PO SCH (21:33)
[2017-04-23] MEDS: busPIRone HCL 10 MG TABLET (FP) PO SCH ×2 (09:49→21:43)
[2017-04-23] MEDS: NICOTINE 21 MG/24 HOURS TOPICAL PATCH TD SCH (09:49)
[2017-04-23] MEDS: PRENATAL VITAMINS W/ FOLIC ACID TABLET (FP) PO SCH (09:49)
[2017-04-23] MEDS: traZODone HCL 100 MG TABLET (FP) PO SCH (21:43)
[2017-04-23] MEDS: THIAMINE HCL 100 MG TABLET (FP) PO SCH (21:43)
[2017-04-24] MEDS: PRENATAL VITAMINS W/ FOLIC ACID TABLET (FP) PO SCH (10:08)
[2017-04-24] MEDS: busPIRone HCL 10 MG TABLET (FP) PO SCH ×2 (10:08→21:33)
[2017-04-24] MEDS: NICOTINE 21 MG/24 HOURS TOPICAL PATCH TD SCH (10:08)
[2017-04-24] MEDS: THIAMINE HCL 100 MG TABLET (FP) PO SCH (21:33)
[2017-04-24] MEDS: ACETAMINOPHEN 325 MG TABLET (FP) PO PRN (21:33)
[2017-04-24] MEDS: traZODone HCL 100 MG TABLET (FP) PO SCH (21:33)
[2017-04-24] MEDS: guaiFENesin/D-METHORPHAN HB 10 ML UNIT-DOSE CUPS PO PRN (21:34)
[2017-04-25] MEDS: ACETAMINOPHEN 325 MG TABLET (FP) PO PRN ×3 (06:16→19:42)
[2017-04-25] MEDS: PRENATAL VITAMINS W/ FOLIC ACID TABLET (FP) PO SCH (10:12)
[2017-04-25] MEDS: NICOTINE 21 MG/24 HOURS TOPICAL PATCH TD SCH (10:12)
[2017-04-25] MEDS: busPIRone HCL 10 MG TABLET (FP) PO SCH ×2 (10:12→21:44)
--- NOTE | 2017-04-25 15:59 | PN ---
Psychiatric Progress Note Vital Signs: Vital Signs Period Temp Pulse Resp BP Sys/Fonseca Pulse Ox Last 24 Hr 97.2 F 68 16-16 101/52 Date of Session: 04/25/17 Chief Complaint:: discharge visit HPI: Patient is addressing alcohol, cocaine, nicotine dependence comorbid anxiety, MDD. ROS: WNL Current Medications: Active Medications Generic Name Dose Route Start Last Admin Trade Name Freq PRN Reason Stop Dose Admin Acetaminophen 650 mg 04/07/17 15:02 04/25/17 10:14 Tylenol - PO 650 mg Q4H PRN Administration FEVER OR PAIN Al Hydroxide/Mg Hydroxide 30 ml 04/07/17 15:02 Mylanta Oral Suspension - PO Q6H PRN DYSPEPSIA Albuterol Sulfate 2 puff 04/07/17 15:06 04/09/17 14:37 Ventolin Hfa Inhaler - IH 2 puff Q4H PRN Administration ASTHMA Buspirone HCl 10 mg 04/12/17 22:00 04/25/17 10:12 Buspar - PO 10 mg BID CHERYL Administration Eucalyptus/Menthol/Phenol/Sorbitol 1 each 04/07/17 15:02 Cepastat Lozenge - MM Q4H PRN SORE THROAT Guaifenesin 10 ml 04/07/17 15:02 04/24/17 21:34 Robitussin Dm - PO 10 ml Q6H PRN Administration COUGH Ibuprofen 400 mg 04/07/17 15:02 04/15/17 10:38 Motrin - PO 400 mg Q6H PRN Administration SEVERE PAIN Loperamide HCl 4 mg 04/07/17 15:02 Imodium - PO Q6H PRN DIARRHEA Magnesium Citrate 300 ml 04/07/17 15:02 Citroma - PO Q48H PRN CONSTIPATION Magnesium Hydroxide 30 ml 04/07/17 15:02 Milk Of Magnesia - PO DAILY PRN CONSTIPATION Nicotine 21 mg 04/07/17 17:00 04/25/17 10:12 Nicoderm Patch - TD 21 mg DAILY CHERYL Administration Nicotine Polacrilex 2 mg 04/07/17 15:02 Nicorette Gum - BC Q2H PRN NICOTINE REPLACEMENT RX Multivit/Folic Acid/Iron 1 tab 04/08/17 10:00 04/25/17 10:12 Vitamins (Sjr) - PO 1 tab DAILY CHERYL Administration Pseudoephedrine/Triprolidine 1 combo 04/07/17 15:02 04/15/17 00:30 Actifed - PO 1 combo TID PRN Administration NASAL CONGESTION Thiamine HCl 100 mg 04/07/17 22:00 04/24/17 21:33 Vitamin B1 - PO 100 mg HS CHERYL Administration Trazodone HCl 100 mg 04/12/17 22:00 04/24/17 21:33 Desyrel - PO 100 mg HS CHERYL Administration Current Side Effect: No Lab tests ordered: No Lab tests reviewed: Yes Provider note:: Patient will completed this treatment on 04/26/17 and meet his goals, will continue to address his issues at athe next level of care(patient reports he's going directly to [place], [place] then to [place]). Patient understands the negative outcome of his addiction and motivated to maintain his abstinence. Patient reports that Trazodone and Buspar effective, he feels better, he is hopefull and less anxious, scripts provided for 30 days. He was encouraged to utilize all supports available to prevent relapses. Patient is stable for discharge on 04/26/17. Total face to face time:: 20 Mental Status Exam - Mental Status Exam Alert and Oriented to: Time, Place, Person Cognitive Function: Good Patient Appearance: Well Groomed Mood: Hopeful Affect: Appropriate, Mood Congruent Patient Behavior: Appropriate, Cooperative Speech Pattern: Clear, Appropriate Voice Loudness: Normal Thought Process: Intact, Goal Oriented Thought Disorder: Not Present Hallucinations: Denies Suicidal Ideation: Denies Homicidal Ideation: Denies Insight/Judgement: Fair Sleep: Fair Appetite: Fair Muscle strength/Tone: Normal Gait/Station: Normal Psychiatric Treatment Plan - Problem List (2) Cocaine dependence Qualifiers: Substance use status: uncomplicated Qualified Code(s): F14.20 - Cocaine dependence, uncomplicated (5) Nicotine dependence Qualifiers: Nicotine product type: cigarettes Substance use status: uncomplicated Qualified Code(s): F17.210 - Nicotine dependence, cigarettes, uncomplicated
[2017-04-25] MEDS: THIAMINE HCL 100 MG TABLET (FP) PO SCH (21:44)
[2017-04-25] MEDS: traZODone HCL 100 MG TABLET (FP) PO SCH (21:44)
[2017-04-25] MEDS: guaiFENesin/D-METHORPHAN HB 10 ML UNIT-DOSE CUPS PO PRN (21:45)
[2017-04-26 06:49] VITALS: BP 146/68; PULSE 74; TEMP 97.9
[2017-04-26] MEDS: PRENATAL VITAMINS W/ FOLIC ACID TABLET (FP) PO SCH (09:09)
[2017-04-26] MEDS: busPIRone HCL 10 MG TABLET (FP) PO SCH (09:09)
[2017-04-26] MEDS: NICOTINE 21 MG/24 HOURS TOPICAL PATCH TD SCH (09:10)
== END 2017-04-26 09:15 | disposition home or self-care (01) | DRG 895 ==
LOC: YASAS 10:07 → Y6N 14:01 → Y5N 04-11 11:26
PROVIDERS: ADMIT Internal Medicine; ATTEND Psychiatry & Neurology Psychiatry
PROC: HZ2ZZZZ Detoxification Services for Substance Abuse Treatment (ICD-10-PCS; principal; 2017-04-07)
PROC: HZ42ZZZ Group Counseling for Substance Abuse Treatment, Cognitive-Behavioral (ICD-10-PCS; 2017-04-11)
DX: F10.230 Alcohol dependence with withdrawal, uncomplicated (principal); F14.20 Cocaine dependence, uncomplicated; F33.9 Major depressive disorder, recurrent, unspecified; F17.210 Nicotine dependence, cigarettes, uncomplicated; F41.9 Anxiety disorder, unspecified; F19.24 Other psychoactive substance dependence with psychoactive substance-induced mood disorder; J43.8 Other emphysema; J45.20 Mild intermittent asthma, uncomplicated; J20.9 Acute bronchitis, unspecified; Z85.46 Personal history of malignant neoplasm of prostate; Z91.013 Allergy to seafood
CPT/HCPCS: 36415; 71020-TC; 80053; 81003; 85025; 85027; 86593; 93005; 93010

== ENCOUNTER 2017-06-11 12:48 | Inpatient (IN) | payer OTHER ==
[2017-06-11 13:14] VITALS: BMI 18.7
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
[2017-06-11] MEDS ORDERED: IBUPROFEN 400 MG TABLET (FP) PO PRN (17:48)
[2017-06-11] MEDS ORDERED: hydrOXYzine PAMOATE 25 MG CAPSULE (FP) PO PRN (17:48)
[2017-06-11] MEDS ORDERED: LOPERAMIDE HCL 2 MG CAPSULE PO PRN (17:48)
[2017-06-11] MEDS ORDERED: P-EPHED 60MG/TRIPROLIDI 2.5MG TABLET PO PRN (17:48)
[2017-06-11] MEDS ORDERED: NICOTINE POLACRILEX 2 MG GUM BC PRN (17:48)
[2017-06-11] MEDS ORDERED: chlordiazePOXIDE HCL 25 MG CAPSULE PO PRN (17:48)
[2017-06-11] MEDS ORDERED: MENTHOL/PHENOL 1 EACH UD MM PRN (17:48)
[2017-06-11] MEDS ORDERED: MAG HYDROX/AL HYDROX/SIMETH 30 ML UNIT-DOSE CUP PO PRN (17:48)
[2017-06-11] MEDS ORDERED: MAGNESIUM HYDROX 2400MG/30ML ORAL SUSPENSION 30 ML CUP PO PRN (17:48)
[2017-06-11] MEDS ORDERED: guaiFENesin/D-METHORPHAN HB 10 ML UNIT-DOSE CUPS PO PRN (17:48)
[2017-06-11] MEDS ORDERED: chlordiazePOXIDE HCL 25 MG CAPSULE PO ONE (17:48)
[2017-06-11] MEDS ORDERED: MAGNESIUM CITRATE 300 ML BOTTLE PO PRN (17:48)
[2017-06-11] MEDS ORDERED: ALBUTEROL SO4 18 GM HFA INHALER IH PRN (17:55)
[2017-06-11] MEDS ORDERED: ALBUTEROL SO4 0.083% IH SOL 2.5 MG/3 ML VIAL.NEB. NEB PRN (17:55)
[2017-06-11] MEDS: NICOTINE 21 MG/24 HOURS TOPICAL PATCH TD SCH (19:12)
[2017-06-11] MEDS: chlordiazePOXIDE HCL 25 MG CAPSULE PO SCH (22:51)
[2017-06-11] MEDS: THIAMINE HCL 100 MG TABLET (FP) PO SCH (22:51)
[2017-06-11 23:40] LABS: URINE APPEARANCE CLOUDY; URINE BILIRUBIN NEGATIVE (NEGATIVE); URINE BLOOD NEGATIVE (NEGATIVE); URINE COLOR DKYELLOW; URINE GLUCOSE (UA) NEGATIVE (NEGATIVE); URINE KETONE NEGATIVE (NEGATIVE); URINE LEUK ESTERASE NEGATIVE (NEGATIVE); URINE NITRITE NEGATIVE (NEGATIVE); URINE PROTEIN NEGATIVE (NEGATIVE); URINE UROBILINOGEN NEGATIVE mg/dL (0.2-1.0)
[2017-06-12] MEDS: chlordiazePOXIDE HCL 25 MG CAPSULE PO SCH ×5 (05:39→23:17)
[2017-06-12 10:39] LABS: HEMATOCRIT 38.2 % (35.4-49); HEMOGLOBIN 12.5 GM/dL (11.7-16.9); MCH 31.7 pg (25.7-33.7); MCHC 32.9 g/dl (32.0-35.9); MEAN CELL VOLUME 96.5 fl (80-96); MEAN PLT VOLUME 7.6 fl (7.5-11.1); PLATELET COUNT 207 K/MM3 (134-434); RBC 3.95 M/mm3 (4.00-5.60); RDW 13.4 % (11.9-15.9); WHITE BLOOD COUNT 5.4 K/mm3 (4.0-10.0)
[2017-06-12 10:52] LABS: CHLORIDE 108 mmol/L (98-107); SODIUM 141 mmol/L (136-145)
[2017-06-12] MEDS: NICOTINE 21 MG/24 HOURS TOPICAL PATCH TD SCH (10:55)
[2017-06-12] MEDS: PRENATAL VITAMINS W/ FOLIC ACID TABLET (FP) PO SCH (10:55)
[2017-06-12 11:03] LABS: ALBUMIN 3.4 g/dl (3.4-5.0); ALK PHOS 37 U/L (45-117); ANION GAP 7 (8-16); BILIRUBIN,TOTAL 0.5 mg/dL (0.2-1.0); BLOOD UREA NITROGEN 15 mg/dL (7-18); CALCIUM 7.6 mg/dL (8.5-10.1); CO2 26 mmol/L (21-32); GLUCOSE,RANDOM 75 mg/dL (74-106); SGOT/AST 13 U/L (15-37); SGPT/ALT 22 U/L (12-78); TOT PROT 6.7 g/dl (6.4-8.2)
[2017-06-12] MEDS ORDERED: ONDANSETRON *ODT* 4 MG TABLET SL PRN (11:52)
--- NOTE | 2017-06-12 12:05 | CONSULT ---
[facility] Psychiatric Consult - Data Date of interview: 06/12/17 Admission source: [facility] Identifying data: Pt. is a 51 year old male, , Father of two and currently unemployed. This is one of multiple admissions for patient. Pt admitted to for benzodiazepine, alcohol, and cocaine dependence. Substance Abuse History: Following information confirmed with Mr. Pitt: Smoking Cessation. Smoking history: Current every day smoker. Have you smoked in the past 12 months: Yes. Aproximately how many cigarettes per day: 20. Cigars Per Day: 0. Hx Chewing Tobacco Use: No. Initiated information on smoking cessation: Yes. 'Breaking Loose' booklet given: 06/11/17. - Substance & Tx. History. Substance Use Type: Alcohol, Cocaine, Tranquilizers. - Substances Abused. Alcohol. Route: Oral. Frequency: Daily. Amount used: Chen(3 pints)/vodka(3-1/2 pints). Age of first use: 16. Date of Last Use: . Cocaine. Route: Inhalation. Frequency: 1-3 times last 30 days. Amount used: $20. Age of first use: 44. Date of Last Use: 06/07/17. Benzodiazepine (Klonopin). Route: Oral. Frequency: Daily. Age of first use: 45 (8mg/day Medical History: Prostate Cancer- Completed round of treatment approx. 8 weeks ago. Asthma Psychiatric History: Pt. denies h/o psychiatric hospitalizations, outpatient psychiatric care and suicide attempt. Pt. states his primary care physician prescribes him trazodone 100mg qhs and buspar 10mg BID. Physical/Sexual Abuse/Trauma History: Denies. Mental Status Exam - Mental Status Exam Alert and Oriented to: Time, Place, Person Cognitive Function: Good Patient Appearance: Well Groomed Mood: Hopeful Affect: Appropriate Patient Behavior: Appropriate, Cooperative Speech Pattern: Clear, Appropriate Voice Loudness: Normal Thought Process: Goal Oriented Thought Disorder: Not Present Hallucinations: Denies Homicidal Ideation: Denies Insight/Judgement: Poor Sleep: Poorly Appetite: Fair Muscle strength/Tone: Normal Gait/Station: Normal Psychiatric Findings - Problem List ([place] 1, 2,3) (1) Anxiety Current Visit: Yes Status: Chronic (2) Alcohol dependence with uncomplicated withdrawal Current Visit: Yes Status: Acute (3) Sedative, 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 Detoxification in progress. Trazodone 100mg qhs + Buspar 10mg BID ordered. Benefits and side effects ( priapism) discussed. Verbal consent given. Will continue to monitior patient.
--- NOTE | 2017-06-12 15:02 | PN ---
[facility] CIWA - CIWA Score Nausea/Vomitin Muscle Tremors: 3 Anxiety: 4-Mod. Anxious/Guarded Agitation: 2 Paroxysmal Sweats: No Perspiration Orientation: 0-Oriented Tacttile Disturbances: 3-Moderate Itch/Numb/Burn Auditory Disturbances: 0-None Visual Disturbances: 2-Mild Sensitivity Headache: 0-None Present CIWA-Ar Total Score: 17 [facility] COWS - Scale Resting Pulse: 1= ID [id number] Sweatin= Chills/Flushing Restless Observation: 1= Difficult to Sit Still Pupil Size: 0= Normal to Room Light Bone or Joint Aches: 0= None Runny Nose/ Eye Tearin= None GI Upset > 30mins: 2= Nausea/Diarrhea Tremor Observation of Outstretched Hands: 2= Slight Tremor Visible Yawning Observation: 1= 1-2x During Session Anxiety or Irritability: 2=Irritable/Anxious Goose Flesh Skin: 3=Piloerection COWS Score: 13 [facility] Progress Note (SOAP) Subjective: Nausea, Anxious, Fatigue, Tremors. Objective: PT. A & O X 3, OBSERVED AMBULATING ON UNIT. NO ACUTE DISTRESS. 06/12/17 15:01 Vital Signs Temperature 96.5 F L 06/12/17 13:56 Pulse Rate 84 06/12/17 13:56 Respiratory Rate 20 06/12/17 13:56 Blood Pressure 101/65 06/12/17 13:56 O2 Sat by Pulse Oximetry (%) Laboratory Tests 06/11/17 06/12/17 06/12/17 23:25 08:10 08:10 WBC 5.4 RBC 3.95 L Hgb 12.5 Hct 38.2 MCV 96.5 H MCH 31.7 MCHC 32.9 RDW 13.4 Plt Count 207 MPV 7.6 Sodium 141 Potassium 4.0 Chloride 108 H Carbon Dioxide 26 Anion Gap 7 L BUN 15 Creatinine 1.0 Creat Clearance w eGFR > 60 Random Glucose 75 D Calcium 7.6 L Total Bilirubin 0.5 AST 13 L D ALT 22 Alkaline Phosphatase 37 L Total Protein 6.7 Albumin 3.4 Urine Color Dkyellow Urine Appearance Cloudy Urine pH 5.0 Ur Specific [place] 1.024 Urine Protein Negative Urine Glucose (UA) Negative Urine Ketones Negative Urine Blood Negative Urine Nitrite Negative Urine Bilirubin Negative Urine Urobilinogen Negative Ur Leukocyte Esterase Negative RPR Titer 06/12/17 08:10 WBC RBC Hgb Hct MCV MCH MCHC RDW Plt Count MPV Sodium Potassium Chloride Carbon Dioxide Anion Gap BUN Creatinine Creat Clearance w eGFR Random Glucose Calcium Total Bilirubin AST ALT Alkaline Phosphatase Total Protein Albumin Urine Color Urine Appearance Urine pH Ur Specific [place] Urine Protein Urine Glucose (UA) Urine Ketones Urine Blood Urine Nitrite Urine Bilirubin Urine Urobilinogen Ur Leukocyte Esterase RPR Titer Nonreactive LABS NOTED. Assessment: 06/12/17 15:01 WITHDRAWAL SYMPTOMS. Plan: CONTINUE DETOX.
[2017-06-12] MEDS: traZODone HCL 100 MG TABLET (FP) PO SCH ×2 (22:43→23:17)
[2017-06-12] MEDS: busPIRone HCL 10 MG TABLET (FP) PO SCH (22:43)
[2017-06-12] MEDS: THIAMINE HCL 100 MG TABLET (FP) PO SCH (22:43)
--- NOTE | 2017-06-12 23:29 | EKG ---
Test Reason : Blood Pressure : / mmHG Vent. Rate : 068 BPM Atrial Rate : 068 BPM P-R Int : 150 ms QRS Dur : 088 ms QT Int : 372 ms P-R-T Axes : 074 063 051 degrees QTc Int : 395 ms NORMAL SINUS RHYTHM WITH SINUS ARRHYTHMIA NORMAL ECG WHEN COMPARED WITH ECG OF 07-APR-2017 17:23, NO SIGNIFICANT CHANGE WAS FOUND Confirmed by JAKE CHAPPELL MD ([id number]) on 06/12/2017 11:28:46 PM Referred By: Dedrick Mchugh Confirmed By:JAKE CHAPPELL MD
[2017-06-13] MEDS: chlordiazePOXIDE HCL 25 MG CAPSULE PO SCH ×3 (06:26→17:16)
[2017-06-13] MEDS: NICOTINE 21 MG/24 HOURS TOPICAL PATCH TD SCH (10:21)
[2017-06-13] MEDS: busPIRone HCL 10 MG TABLET (FP) PO SCH ×2 (10:21→23:06)
[2017-06-13] MEDS: PRENATAL VITAMINS W/ FOLIC ACID TABLET (FP) PO SCH (10:21)
--- NOTE | 2017-06-13 12:23 | PN ---
S CIWA - CIWA Score Nausea/Vomitin Muscle Tremors: 3 Anxiety: 4-Mod. Anxious/Guarded Agitation: 3 Paroxysmal Sweats: No Perspiration Orientation: 0-Oriented Tacttile Disturbances: 2-Mild Itch/Numbness/Burn Auditory Disturbances: 0-None Visual Disturbances: 1-Very Mild Sensitivity Headache: 0-None Present CIWA-Ar Total Score: 16 [facility] COWS - Scale Resting Pulse: 0= [place] 80 or Below Sweatin= Chills/Flushing Restless Observation: 1= Difficult to Sit Still Pupil Size: 0= Normal to Room Light Bone or Joint Aches: 1= Mild Discomfort Runny Nose/ Eye Tearin= None GI Upset > 30mins: 2= Nausea/Diarrhea Tremor Observation of Outstretched Hands: 2= Slight Tremor Visible Yawning Observation: 1= 1-2x During Session Anxiety or Irritability: 2=Irritable/Anxious Goose Flesh Skin: 3=Piloerection COWS Score: 13 S Progress Note (SOAP) Subjective: Nausea, Anxious, Fatigue, Tremors. Objective: PT. A & O X 3, OBSERVED AMBULATING ON UNIT. NO ACUTE DISTRESS. 06/13/17 12:24 Vital Signs Temperature 97.5 F L 06/13/17 09:25 Pulse Rate 73 06/13/17 09:25 Respiratory Rate 18 06/13/17 09:25 Blood Pressure 97/58 06/13/17 09:25 O2 Sat by Pulse Oximetry (%) Laboratory Tests 06/11/17 06/12/17 06/12/17 23:25 08:10 08:10 WBC 5.4 RBC 3.95 L Hgb 12.5 Hct 38.2 MCV 96.5 H MCH 31.7 MCHC 32.9 RDW 13.4 Plt Count 207 MPV 7.6 Sodium 141 Potassium 4.0 Chloride 108 H Carbon Dioxide 26 Anion Gap 7 L BUN 15 Creatinine 1.0 Creat Clearance w eGFR > 60 Random Glucose 75 D Calcium 7.6 L Total Bilirubin 0.5 AST 13 L D ALT 22 Alkaline Phosphatase 37 L Total Protein 6.7 Albumin 3.4 Urine Color Dkyellow Urine Appearance Cloudy Urine pH 5.0 Ur Specific [place] 1.024 Urine Protein Negative Urine Glucose (UA) Negative Urine Ketones Negative Urine Blood Negative Urine Nitrite Negative Urine Bilirubin Negative Urine Urobilinogen Negative Ur Leukocyte Esterase Negative RPR Titer 06/12/17 08:10 WBC RBC Hgb Hct MCV MCH MCHC RDW Plt Count MPV Sodium Potassium Chloride Carbon Dioxide Anion Gap BUN Creatinine Creat Clearance w eGFR Random Glucose Calcium Total Bilirubin AST ALT Alkaline Phosphatase Total Protein Albumin Urine Color Urine Appearance Urine pH Ur Specific [place] Urine Protein Urine Glucose (UA) Urine Ketones Urine Blood Urine Nitrite Urine Bilirubin Urine Urobilinogen Ur Leukocyte Esterase RPR Titer Nonreactive LABS NOTED. Assessment: 06/13/17 12:24 WITHDRAWAL SYMPTOMS. Plan: CONTINUE DETOX. INCREASE DAILY PO FLUID INTAKE.
[2017-06-13] MEDS: THIAMINE HCL 100 MG TABLET (FP) PO SCH (23:06)
[2017-06-13] MEDS: traZODone HCL 100 MG TABLET (FP) PO SCH (23:06)
[2017-06-13] MEDS: chlordiazePOXIDE 5 MG CAPSULE PO SCH (23:06)
[2017-06-14] MEDS: chlordiazePOXIDE 5 MG CAPSULE PO SCH ×3 (05:18→18:00)
[2017-06-14] MEDS: busPIRone HCL 10 MG TABLET (FP) PO SCH ×2 (10:36→22:14)
[2017-06-14] MEDS: NICOTINE 21 MG/24 HOURS TOPICAL PATCH TD SCH (10:36)
[2017-06-14] MEDS: PRENATAL VITAMINS W/ FOLIC ACID TABLET (FP) PO SCH (10:36)
--- NOTE | 2017-06-14 16:44 | PN ---
[facility] Progress Note (SOAP) Subjective: Sweating, Anxious, Fatigue. Objective: PT. A & O X 3, OBSERVED AMBULATING ON UNIT. NO ACUTE DISTRESS. 06/14/17 16:42 Vital Signs Temperature 98.5 F 06/14/17 13:25 Pulse Rate 64 06/14/17 13:25 Respiratory Rate 18 06/14/17 13:25 Blood Pressure 100/59 06/14/17 13:25 O2 Sat by Pulse Oximetry (%) Laboratory Tests 06/11/17 06/12/17 06/12/17 23:25 08:10 08:10 WBC 5.4 RBC 3.95 L Hgb 12.5 Hct 38.2 MCV 96.5 H MCH 31.7 MCHC 32.9 RDW 13.4 Plt Count 207 MPV 7.6 Sodium 141 Potassium 4.0 Chloride 108 H Carbon Dioxide 26 Anion Gap 7 L BUN 15 Creatinine 1.0 Creat Clearance w eGFR > 60 Random Glucose 75 D Calcium 7.6 L Total Bilirubin 0.5 AST 13 L D ALT 22 Alkaline Phosphatase 37 L Total Protein 6.7 Albumin 3.4 Urine Color Dkyellow Urine Appearance Cloudy Urine pH 5.0 Ur Specific [place] 1.024 Urine Protein Negative Urine Glucose (UA) Negative Urine Ketones Negative Urine Blood Negative Urine Nitrite Negative Urine Bilirubin Negative Urine Urobilinogen Negative Ur Leukocyte Esterase Negative RPR Titer 06/12/17 08:10 WBC RBC Hgb Hct MCV MCH MCHC RDW Plt Count MPV Sodium Potassium Chloride Carbon Dioxide Anion Gap BUN Creatinine Creat Clearance w eGFR Random Glucose Calcium Total Bilirubin AST ALT Alkaline Phosphatase Total Protein Albumin Urine Color Urine Appearance Urine pH Ur Specific [place] Urine Protein Urine Glucose (UA) Urine Ketones Urine Blood Urine Nitrite Urine Bilirubin Urine Urobilinogen Ur Leukocyte Esterase RPR Titer Nonreactive LABS NOTED. Assessment: 06/14/17 16:43 WITHDRAWAL SYMPTOMS. Plan: CONTINUE DETOX. INCREASE DAILY PO FLUID INTAKE.
[2017-06-14] MEDS: THIAMINE HCL 100 MG TABLET (FP) PO SCH (22:13)
[2017-06-14] MEDS: chlordiazePOXIDE HCL 10 MG CAPSULE PO SCH (22:13)
[2017-06-14] MEDS: traZODone HCL 100 MG TABLET (FP) PO SCH (22:13)
[2017-06-15] MEDS: chlordiazePOXIDE HCL 10 MG CAPSULE PO SCH ×2 (06:30→11:16)
[2017-06-15] MEDS: busPIRone HCL 10 MG TABLET (FP) PO SCH ×2 (11:16→21:49)
[2017-06-15] MEDS: NICOTINE 21 MG/24 HOURS TOPICAL PATCH TD SCH (11:16)
[2017-06-15] MEDS: PRENATAL VITAMINS W/ FOLIC ACID TABLET (FP) PO SCH (11:16)
--- NOTE | 2017-06-15 12:28 | DS ---
[facility] Summary Admission Date: 06/11/17 Discharge Date: 06/15/17 - History Present History: Alcohol Dependence, Cocaine Dependence, Sedative Dependence Additional Comments: DETOX COMPLETED, ALERT O X 3. NAD. PT REFERRED TO REHAB [address] [place] [address]. Pertinent Past History: SEE DX BELOW - Physical Exam Results Vital Signs: Vital Signs Temperature 97.2 F L 06/15/17 06:31 Pulse Rate 70 06/15/17 06:31 Respiratory Rate 18 06/15/17 06:31 Blood Pressure 107/60 06/15/17 06:31 O2 Sat by Pulse Oximetry (%) Pertinent Admission Physical Exam Findings: WITHDRAWAL SX Laboratory Last Values WBC 5.4 K/mm3 (4.0-10.0) 06/12/17 08:10 RBC 3.95 M/mm3 (4.00-5.60) L 06/12/17 08:10 Hgb 12.5 GM/dL (11.7-16.9) 06/12/17 08:10 Hct 38.2 % (35.4-49) 06/12/17 08:10 MCV 96.5 fl (80-96) H 06/12/17 08:10 MCH 31.7 pg (25.7-33.7) 06/12/17 08:10 MCHC 32.9 g/dl (32.0-35.9) 06/12/17 08:10 RDW 13.4 % (11.9-15.9) 06/12/17 08:10 Plt Count 207 K/MM3 (134-434) 06/12/17 08:10 MPV 7.6 fl (7.5-11.1) 06/12/17 08:10 Sodium 141 mmol/L (136-145) 06/12/17 08:10 Potassium 4.0 mmol/L (3.5-5.1) 06/12/17 08:10 Chloride 108 mmol/L (98-107) H 06/12/17 08:10 Carbon Dioxide 26 mmol/L (21-32) 06/12/17 08:10 Anion Gap 7 (8-16) L 06/12/17 08:10 BUN 15 mg/dL (7-18) 06/12/17 08:10 Creatinine 1.0 mg/dL (0.7-1.3) 06/12/17 08:10 Creat Clearance w eGFR > 60 (>60) 06/12/17 08:10 Random Glucose 75 mg/dL (74-106) D 06/12/17 08:10 Calcium 7.6 mg/dL (8.5-10.1) L 06/12/17 08:10 Total Bilirubin 0.5 mg/dL (0.2-1.0) 06/12/17 08:10 AST 13 U/L (15-37) L D 06/12/17 08:10 ALT 22 U/L (12-78) 06/12/17 08:10 Alkaline Phosphatase 37 U/L (45-117) L 06/12/17 08:10 Total Protein 6.7 g/dl (6.4-8.2) 06/12/17 08:10 Albumin 3.4 g/dl (3.4-5.0) 06/12/17 08:10 Urine Color Dkyellow 06/11/17 23:25 Urine Appearance Cloudy 06/11/17 23:25 Urine pH 5.0 (5.0-8.0) 06/11/17 23:25 Ur Specific Temperance 1.024 (1.001-1.035) 06/11/17 23:25 Urine Protein Negative (NEGATIVE) 06/11/17 23:25 Urine Glucose (UA) Negative (NEGATIVE) 06/11/17 23:25 Urine Ketones Negative (NEGATIVE) 06/11/17 23:25 Urine Blood Negative (NEGATIVE) 06/11/17 23:25 Urine Nitrite Negative (NEGATIVE) 06/11/17 23:25 Urine Bilirubin Negative (NEGATIVE) 06/11/17 23:25 Urine Urobilinogen Negative mg/dL (0.2-1.0) 06/11/17 23:25 Ur Leukocyte Esterase Negative (NEGATIVE) 06/11/17 23:25 RPR Titer Nonreactive (NONREACTIVE) 06/12/17 08:10 - Treatment Hospital Course: Detox Protocol Followed, Detoxed Safely, Responded well, Discharged Condition Good, Rehab Referral Accepted Patient has Accepted a Rehab Referral to: [address] [place] [address] Medication Discharge Medications: Ambulatory Orders Albuterol Sulfate Inhaler - [Ventolin HFA Inhaler -] 2 inh PO Q4H PRN #1 inhaler 04/10/17 Buspirone HCl [Buspar -] 10 mg PO BID #60 tablet 01/02/18 traZODone HCL [Desyrel -] 100 mg PO HS #30 tablet 04/25/17 - Diagnosis (1) Alcohol dependence with uncomplicated withdrawal Current Visit: Yes Status: Acute (2) Asthma Current Visit: Yes Status: Chronic Qualifiers: Asthma severity: mild Asthma persistence: intermittent Asthma complication type: uncomplicated Qualified Code(s): J45.20 - Mild intermittent asthma, uncomplicated (3) COPD (chronic obstructive pulmonary disease) Current Visit: Yes Status: Chronic (4) Cocaine dependence, uncomplicated Current Visit: Yes Status: Acute (5) History of prostate cancer Current Visit: Yes Status: Chronic (6) Nicotine dependence Current Visit: Yes Status: Acute Qualifiers: Nicotine product type: cigarettes Substance use status: in withdrawal Qualified Code(s): F17.213 - Nicotine dependence, cigarettes, with withdrawal (7) Sedative, 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 Current Visit: Yes Status: Acute - AMA Did Patient Leave Against Medical Advice: No
[2017-06-15] MEDS: traZODone HCL 100 MG TABLET (FP) PO SCH (21:49)
[2017-06-15] MEDS: THIAMINE HCL 100 MG TABLET (FP) PO SCH (21:49)
[2017-06-16] MEDS: busPIRone HCL 10 MG TABLET (FP) PO SCH ×2 (10:15→21:36)
[2017-06-16] MEDS: PRENATAL VITAMINS W/ FOLIC ACID TABLET (FP) PO SCH (10:15)
[2017-06-16] MEDS: NICOTINE 21 MG/24 HOURS TOPICAL PATCH TD SCH (10:15)
--- NOTE | 2017-06-16 13:18 | HP ---
Psychiatrist Admission - Data Date of interview: 06/16/17 Admission source: 3N Identifying data: THis us the second 5N rehabilitation admisison for this 51 year old single AA male unemployed on SSI residing in [place] with his sid'e family. Medical History: COPD, asthma,emphysema and partial prostatectomy on 09/07/15 and had chemotherapy.Smokes cigarettes 5 cigarettes a day. Physical/Sexual Abuse/Trauma History: Patient denies history of psychiatric hospitalizations, reports first psychiatric contact in his childhood, states was diagnosed as ADHD, later diagnosed with anxiety and depression, treated with different psychotropics (paxil, seroquel,klonopin,buspar, remeron, adderall), states he saw the therapist to address his loss ( and son were murdered a few years ago) and his primary care physician prescribes him trazodone 100mg for sleep and Buspar 10 mg po bid for anxiety. Patient denies suicidal and homicial ideation. States he can't sleep well and wants Trazodone to be increased to 150 mh o hs, he reports no side-effects from Trazodone. Vital Signs: Vital Signs - 24 hr 06/15/17 06/16/17 06/16/17 14:48 00:30 03:30 Temperature 98.0 F Pulse Rate 78 Respiratory 18 18 18 Rate Blood Pressure 111/53 06/16/17 07:14 Temperature 97.9 F Pulse Rate 65 Respiratory 16 Rate Blood Pressure 122/62 Allergies/Adverse Reactions: Allergies Allergy/AdvReac Type Severity Reaction Status Date / Time shellfish derived Allergy Severe Verified 06/15/17 14:51 No Known Drug Allergies Allergy Verified 06/15/17 14:51 Date of last physical exam: 06/11/17 Concur with the findings of this exam: Yes - Substance Abuse/Tx History Hx Alcohol Use: Yes Hx Substance Use: Yes Substance Use Type: Alcohol (3 pints of vodka), Cocaine ($20 daily ), Tranquilizers (klonopin 2 mg daily ) Hx Substance Use Treatment: Yes (5N) Mental Status Exam - Mental Status Exam Alert and Oriented to: Time, Place, Person Cognitive Function: Fair Patient Appearance: Well Groomed Mood: Sad, Anxious Affect: Appropriate, Mood Congruent Patient Behavior: Appropriate, Cooperative Speech Pattern: Clear, Appropriate Voice Loudness: Normal Thought Process: Goal Oriented Thought Disorder: Not Present Hallucinations: Denies Suicidal Ideation: Denies Homicidal Ideation: Denies Insight/Judgement: Fair Sleep: Difficulty falling asleep Appetite: Poor, Weight loss Muscle strength/Tone: Normal Gait/Station: Normal Psychiatric Findings - Problem List ([place] 1, 2,3) (1) Alcohol dependence Current Visit: Yes Status: Acute (2) Sedative dependence Current Visit: Yes Status: Acute (3) Substance induced mood disorder Current Visit: Yes Status: Chronic (4) Anxiety disorder Current Visit: No Status: Acute (5) Cocaine dependence Current Visit: No Status: Chronic Qualifiers: Substance use status: uncomplicated Qualified Code(s): F14.20 - Cocaine dependence, uncomplicated (6) Nicotine dependence Current Visit: Yes Status: Acute Qualifiers: Nicotine product type: cigarettes Substance use status: in withdrawal Qualified Code(s): F17.213 - Nicotine dependence, cigarettes, with withdrawal - Initial Treatment Plan Initial Treatment Plan: will continue Buspar 10 mg po bid, increase Trazodone 150 mg po hs, continue to monitor progress as needed.
[2017-06-16] MEDS: traZODone HCL 50 MG TABLET (FP) PO SCH (21:36)
[2017-06-16] MEDS: THIAMINE HCL 100 MG TABLET (FP) PO SCH (21:36)
[2017-06-17] MEDS: busPIRone HCL 10 MG TABLET (FP) PO SCH ×2 (10:24→21:39)
[2017-06-17] MEDS: NICOTINE 21 MG/24 HOURS TOPICAL PATCH TD SCH (10:24)
[2017-06-17] MEDS: PRENATAL VITAMINS W/ FOLIC ACID TABLET (FP) PO SCH (10:24)
[2017-06-17] MEDS: traZODone HCL 50 MG TABLET (FP) PO SCH (21:39)
[2017-06-17] MEDS: THIAMINE HCL 100 MG TABLET (FP) PO SCH (21:40)
[2017-06-18] MEDS: NICOTINE 21 MG/24 HOURS TOPICAL PATCH TD SCH (10:36)
[2017-06-18] MEDS: PRENATAL VITAMINS W/ FOLIC ACID TABLET (FP) PO SCH (10:36)
[2017-06-18] MEDS: busPIRone HCL 10 MG TABLET (FP) PO SCH ×2 (10:36→21:39)
[2017-06-18] MEDS: THIAMINE HCL 100 MG TABLET (FP) PO SCH (21:39)
[2017-06-18] MEDS: traZODone HCL 50 MG TABLET (FP) PO SCH (21:39)
[2017-06-19] MEDS: PRENATAL VITAMINS W/ FOLIC ACID TABLET (FP) PO SCH (10:28)
[2017-06-19] MEDS: busPIRone HCL 10 MG TABLET (FP) PO SCH ×2 (10:28→21:38)
[2017-06-19] MEDS: NICOTINE 21 MG/24 HOURS TOPICAL PATCH TD SCH (10:29)
[2017-06-19] MEDS: ACETAMINOPHEN 325 MG TABLET (FP) PO PRN (21:38)
[2017-06-19] MEDS: traZODone HCL 50 MG TABLET (FP) PO SCH (21:39)
[2017-06-19] MEDS: THIAMINE HCL 100 MG TABLET (FP) PO SCH (21:40)
[2017-06-20] MEDS: NICOTINE 21 MG/24 HOURS TOPICAL PATCH TD SCH (10:22)
[2017-06-20] MEDS: PRENATAL VITAMINS W/ FOLIC ACID TABLET (FP) PO SCH (10:22)
[2017-06-20] MEDS: busPIRone HCL 10 MG TABLET (FP) PO SCH ×2 (10:22→21:52)
[2017-06-20] MEDS: ACETAMINOPHEN 325 MG TABLET (FP) PO PRN (10:23)
[2017-06-20] MEDS ORDERED: TRIMETHOBENZAMIDE HCL 200MG/2ML INJ IM PRN (20:10)
[2017-06-20] MEDS: THIAMINE HCL 100 MG TABLET (FP) PO SCH (21:52)
[2017-06-20] MEDS: traZODone HCL 50 MG TABLET (FP) PO SCH (21:52)
[2017-06-21] MEDS: busPIRone HCL 10 MG TABLET (FP) PO SCH ×2 (10:30→21:35)
[2017-06-21] MEDS: PRENATAL VITAMINS W/ FOLIC ACID TABLET (FP) PO SCH (10:30)
[2017-06-21] MEDS: NICOTINE 21 MG/24 HOURS TOPICAL PATCH TD SCH (10:31)
[2017-06-21] MEDS: THIAMINE HCL 100 MG TABLET (FP) PO SCH (21:35)
[2017-06-21] MEDS: traZODone HCL 50 MG TABLET (FP) PO SCH (21:35)
[2017-06-22 07:09] VITALS: BP 112/64; PULSE 81; TEMP 97.7
[2017-06-22] MEDS: busPIRone HCL 10 MG TABLET (FP) PO SCH (10:22)
[2017-06-22] MEDS: NICOTINE 21 MG/24 HOURS TOPICAL PATCH TD SCH (10:22)
[2017-06-22] MEDS: PRENATAL VITAMINS W/ FOLIC ACID TABLET (FP) PO SCH (10:22)
--- NOTE | 2017-06-22 11:48 | PN ---
Psychiatric Progress Note Vital Signs: Vital Signs Period Temp Pulse Resp BP Sys/Fonseca Pulse Ox Last 24 Hr 97.7 F 81 18-18 112/64 Date of Session: 06/22/17 Chief Complaint:: discharge visit HPI: Patient is addressing alcohol, cocaine, sedative-hypnotic , nicotine dependence comobid anxiety and substance induced mood disorder. ROS: COPD, asthma, emphysema medically managed. Current Medications: Active Medications Generic Name Dose Route Start Last Admin Trade Name Freq PRN Reason Stop Dose Admin Acetaminophen 650 mg 06/11/17 17:48 06/20/17 10:23 Tylenol - PO 650 mg Q4H PRN Administration FEVER Al Hydroxide/Mg Hydroxide 30 ml 06/11/17 17:48 Mylanta Oral Suspension - PO Q6H PRN DYSPEPSIA Albuterol Sulfate 2 puff 06/11/17 17:55 Ventolin Hfa Inhaler - IH Q4H PRN SHORT OF BREATH/WHEEZING Buspirone HCl 10 mg 06/12/17 22:00 06/22/17 10:22 Buspar - PO 10 mg BID CHERYL Administration Eucalyptus/Menthol/Phenol/Sorbitol 1 each 06/11/17 17:48 Cepastat Lozenge - MM Q4H PRN SORE THROAT Guaifenesin 10 ml 06/11/17 17:48 Robitussin Dm - PO Q6H PRN COUGH Hydroxyzine Pamoate 25 mg 06/11/17 17:48 06/11/17 22:51 Vistaril - PO 25 mg Q4H PRN Administration AGITATION Ibuprofen 400 mg 06/11/17 17:48 Motrin - PO Q6H PRN PAIN LEVEL 4-6 Loperamide HCl 4 mg 06/11/17 17:48 Imodium - PO Q6H PRN DIARRHEA Magnesium Citrate 300 ml 06/11/17 17:48 Citroma - PO Q48H PRN CONSTIPATION Magnesium Hydroxide 30 ml 06/11/17 17:48 Milk Of Magnesia - PO DAILY PRN CONSTIPATION Nicotine 21 mg 06/11/17 18:00 06/22/17 10:22 Nicoderm Patch - TD 21 mg DAILY CHERYL Administration Nicotine Polacrilex 2 mg 06/11/17 17:48 Nicorette Gum - BC Q2H PRN NICOTINE REPLACEMENT RX Ondansetron HCl 4 mg 06/12/17 11:52 06/20/17 20:32 Zofran Odt - SL 4 mg Q8H PRN Administration NAUSEA AND/OR VOMITING Multivit/Folic Acid/Iron 1 tab 06/12/17 10:00 06/22/17 10:22 Vitamins (Sjr) - PO 1 tab DAILY CHERYL Administration Pseudoephedrine/Triprolidine 1 combo 06/11/17 17:48 Actifed - PO TID PRN NASAL CONGESTION Thiamine HCl 100 mg 06/11/17 22:00 06/21/17 21:35 Vitamin B1 - PO 100 mg HS CHERYL Administration Trazodone HCl 150 mg 06/16/17 22:00 06/21/17 21:35 Desyrel - PO 150 mg HS CHERYL Administration Trimethobenzamide HCl 200 mg 06/20/17 20:10 Tigan Injection - IM Q8H PRN NAUSEA Current Side Effect: No Lab tests ordered: No Lab tests reviewed: Yes Provider note:: Patient requested to be discharged today, he met his identified goals, will continue to address his issues at the next level of care. Patient focused on negative outcome of his addiction and was encouraged to utilize all supports available to prevent relapses. Patient is motivated to maintain his abstinence. He reports that Trazodone and Buspar effective, he feels better, less anxious, scripts provided for 30 days. Patient is stable for discharge. Patient was discharged early at his request. Total face to face time:: 15 Mental Status Exam - Mental Status Exam Alert and Oriented to: Time, Place, Person Cognitive Function: Good Patient Appearance: Well Groomed Mood: Hopeful Affect: Appropriate, Mood Congruent Patient Behavior: Appropriate, Cooperative Speech Pattern: Clear, Appropriate Voice Loudness: Normal Thought Process: Intact, Goal Oriented Thought Disorder: Not Present Hallucinations: Denies Suicidal Ideation: Denies Homicidal Ideation: Denies Insight/Judgement: Fair Sleep: Fair Appetite: Fair Muscle strength/Tone: Normal Psychiatric Treatment Plan - Problem List (5) Cocaine dependence Qualifiers: Substance use status: uncomplicated Qualified Code(s): F14.20 - Cocaine dependence, uncomplicated (6) Nicotine dependence Qualifiers: Nicotine product type: cigarettes Substance use status: in withdrawal Qualified Code(s): F17.213 - Nicotine dependence, cigarettes, with withdrawal
== END 2017-06-22 11:30 | disposition home or self-care (01) | DRG 895 ==
LOC: YASAS 12:48 → Y3N 16:42 → UNDOADMIN 16:42 → Y3N 18:24 → Y5N 06-15 12:36
PROVIDERS: ADMIT Internal Medicine; ATTEND Psychiatry & Neurology Psychiatry
PROC: HZ2ZZZZ Detoxification Services for Substance Abuse Treatment (ICD-10-PCS; principal; 2017-06-11)
PROC: HZ42ZZZ Group Counseling for Substance Abuse Treatment, Cognitive-Behavioral (ICD-10-PCS; 2017-06-15)
DX: F10.230 Alcohol dependence with withdrawal, uncomplicated (principal); F13.20 Sedative, hypnotic or anxiolytic dependence, uncomplicated; F14.20 Cocaine dependence, uncomplicated; F17.213 Nicotine dependence, cigarettes, with withdrawal; F19.24 Other psychoactive substance dependence with psychoactive substance-induced mood disorder; F41.9 Anxiety disorder, unspecified; J45.20 Mild intermittent asthma, uncomplicated; J43.9 Emphysema, unspecified; Z85.46 Personal history of malignant neoplasm of prostate; R76.11 Nonspecific reaction to tuberculin skin test without active tuberculosis; G47.00 Insomnia, unspecified; Z91.013 Allergy to seafood
CPT/HCPCS: 36415; 71046-TC-FY; 80053; 81003; 85027; 86593; 93005; 93010

== ENCOUNTER 2017-07-08 11:13 | Inpatient (IN) | payer OTHER ==
[2017-07-08 14:10] VITALS: BMI 18.7
--- NOTE | 2017-07-08 14:32 | HP ---
CIWA Score - CIWA Score Nausea/Vomitin-Mild Nausea/No Vomiting Muscle Tremors: 4-Moderate,w/Arms Extend Anxiety: 4-Mod. Anxious/Guarded Agitation: 1-Slight > Activity Paroxysmal Sweats: No Perspiration Orientation: 1-Uncertain about Date Tacttile Disturbances: 0-None Auditory Disturbances: 0-None Visual Disturbances: 1-Very Mild Sensitivity Headache: 2-Mild CIWA-Ar Total Score: 14 Admission ROS BHS - HPI Chief Complaint: I want to live, my chemo won't work as well if I keep drinking, I love my kids Allergies/Adverse Reactions: Allergies Allergy/AdvReac Type Severity Reaction Status Date / Time shellfish derived Allergy Severe Swelling Verified 07/08/17 14:24 No Known Drug Allergies Allergy Verified 07/08/17 14:24 History of Present Illness: 51 yo gentleman here for detox from alcohol - also using cocaine, no seizures but does have black outs. Previously in rehab here 06/22/17 - also history of detox at [facility] several month ago, Lives alone, states he started drinking after his was murdered 2010. Exam Limitations: Clinical Condition - Ebola screening Have you traveled outside of the country in the last 21 days: No (N) Have you had contact with anyone from an Ebola affected area: No Have you been sick,other than usual withdrawal symptoms: No Do you have a fever: No - Review of Systems Constitutional: Malaise, Changes in sleep, Weakness, Unintentional Wgt. Loss EENT: reports: No Symptoms Reported Respiratory: reports: SOB with Exertion Cardiac: reports: No Symptoms Reported GI: reports: Poor Appetite, Poor Fluid Intake : reports: Dysuria Musculoskeletal: reports: No Symptoms Reported Integumentary: reports: Dryness Neuro: reports: Headache Endocrine: reports: No Symptoms Reported Hematology: reports: No Symptoms Reported Psychiatric: reports: Judgement Intact, Mood/Affect Appropiate, Orientated x3, Anxious Other Systems: Reviewed and Negative Patient History - Patient Medical History Hx Anemia: No Hx Asthma: Yes Hx Chronic Obstructive Pulmonary Disease (COPD): Yes Hx Cancer: Yes (Prostate, Completed round of treatment approx. 8 weeks ago.) Hx Cardiac Disorders: No Hx Congestive Heart Failure: No Hx Hypertension: No Hx Hypercholesterolemia: No Hx Pacemaker: No HX Cerebrovascular Accident: No Hx Seizures: No Hx Dementia: No Hx Diabetes: No Hx Gastrointestinal Disorders: No Hx Liver Disease: No Hx Genitourinary Disorders: No Hx Sexually Transmitted Disorders: No Hx Renal Disease (ESRD): No Hx Thyroid Disease: No Hx Human Immunodeficiency Virus (HIV): No (Last Tested approx. 90 days ago: NEGATIVE.) Hx Hepatitis C: No (Last Tested approx. 90 days ago: NEGATIVE.) Hx Depression: No Hx Suicide Attempt: No Hx Bipolar Disorder: No Hx Schizophrenia: No Other Medical History: anxiety - Patient Surgical History Past Surgical History: Yes Hx Neurologic Surgery: No Hx Cataract Extraction: No Hx Cardiac Surgery: No Hx Lung Surgery: No Hx Breast Surgery: No Hx Breast Biopsy: No Hx Abdominal Surgery: No Hx Appendectomy: No Hx Cholecystectomy: No Hx Genitourinary Surgery: No Hx Orthopedic Surgery: No Other Surgical History: PARTIAL PROSTATECTOMY 09/07/15 Anesthesia Reaction: No - PPD History Previous Implant?: Yes Documented Results: Positive w/o proof Date: 06/12/17 (cxr done) Results: +PPD PPD to be Administered?: No - Reproductive History Patient : No - Smoking Cessation Smoking history: Current every day smoker Have you smoked in the past 12 months: Yes Aproximately how many cigarettes per day: 10 Cigars Per Day: 0 Hx Chewing Tobacco Use: No Initiated information on smoking cessation: Yes 'Breaking Loose' booklet given: 07/08/17 (give on floor) - Substance & Tx. History Hx Alcohol Use: Yes Hx Substance Use: Yes Substance Use Type: Alcohol, Cocaine Hx Substance Use Treatment: Yes (detox, in and outpatient) - Substances Abused Cocaine Route: Inhalation Frequency: 3-6 times per week Amount used: $100 Age of first use: 46 Date of Last Use: 07/07/17 ETOH Route: Oral Frequency: Daily Amount used: 2 PINT SALMA, 6PK 24OZ BEER Age of first use: 16 Date of Last Use: 07/08/17 Family Disease History - Family Disease History Family Disease History: Diabetes: Father (, Prostate Ca., hx etoh), Heart Disease: Mother (, Breast Ca.; HTN), CA: Father, Mother, Sister ( Breast., living), Other: Brother (one living hx etoh (in recovery)), Daughter ( age 21 - twins - healthy) Admission Physical Exam BHS - Vital Signs Vital Signs: Vital Signs - 24 hr 07/08/17 14:07 Temperature 98.6 F Pulse Rate 95 H Respiratory 20 Rate Blood Pressure 130/75 - Physical General Appearance: Yes: Nourished, Appropriately Dressed, Mild Distress, Thin HEENTM: Yes: Hearing grossly Normal, Normocephalic, Normal Voice, Pharynx Normal Respiratory: Yes: No Respiratory Distress Neck: Yes: No masses,lesions,Nodules, Supple Breast: Yes: Breast Exam Deferred Cardiology: Yes: Regular Rhythm, Regular Rate Abdominal: Yes: Non Tender, Flat Genitourinary: Yes: Frequency Back: Yes: Normal Inspection Musculoskeletal: Yes: full range of Motion, Gait Steady Extremities: Yes: Normal Inspection Neurological: Yes: Alert, Normal Mood/Affect, Normal Response Integumentary: Yes: Normal Color, Warm Lymphatic: Yes: Within Normal Limits - Diagnostic (1) Alcohol dependence with uncomplicated withdrawal Current Visit: Yes Status: Chronic (2) Cocaine dependence, uncomplicated Current Visit: Yes Status: Acute (3) Asthma Current Visit: Yes Status: Chronic Qualifiers: Asthma severity: mild Asthma persistence: intermittent Asthma complication type: uncomplicated Qualified Code(s): J45.20 - Mild intermittent asthma, uncomplicated (4) Nicotine dependence Current Visit: Yes Status: Acute Qualifiers: Nicotine product type: cigarettes Substance use status: in withdrawal Qualified Code(s): F17.213 - Nicotine dependence, cigarettes, with withdrawal (5) History of prostate cancer Current Visit: Yes Status: Chronic Comment: Currently Undergoing Treatment. (6) Bullous emphysema Current Visit: Yes Status: Chronic (7) PPD positive, treated Current Visit: Yes Status: Chronic Cleared for Admission [facility] - Detox or Rehab [facility] Level of Care: Medically Managed Detox Regimen/Protocol: Librium [facility] Breath Alcohol Content Breath Alcohol Content: 0 Urine Drug Screen - Results Drug Screen Negative: No Urine Drug Screen Results: RASHID-Cocaine
[2017-07-08] MEDS ORDERED: IBUPROFEN 400 MG TABLET (FP) PO PRN (14:48)
[2017-07-08] MEDS ORDERED: chlordiazePOXIDE HCL 25 MG CAPSULE PO PRN (14:48)
[2017-07-08] MEDS ORDERED: chlordiazePOXIDE HCL 25 MG CAPSULE PO ONE (14:48)
[2017-07-08] MEDS ORDERED: hydrOXYzine PAMOATE 50 MG CAPSULE (FP) PO PRN (14:48)
[2017-07-08] MEDS ORDERED: P-EPHED 60MG/TRIPROLIDI 2.5MG TABLET PO PRN (14:48)
[2017-07-08] MEDS ORDERED: MAG HYDROX/AL HYDROX/SIMETH 30 ML UNIT-DOSE CUP PO PRN (14:48)
[2017-07-08] MEDS ORDERED: LOPERAMIDE HCL 2 MG CAPSULE PO PRN (14:48)
[2017-07-08] MEDS ORDERED: MAGNESIUM CITRATE 300 ML BOTTLE PO PRN (14:48)
[2017-07-08] MEDS ORDERED: MAGNESIUM HYDROX 2400MG/30ML ORAL SUSPENSION 30 ML CUP PO PRN (14:48)
[2017-07-08] MEDS ORDERED: ALBUTEROL SO4 18 GM HFA INHALER IH PRN (15:04)
[2017-07-08] MEDS: chlordiazePOXIDE HCL 25 MG CAPSULE PO SCH ×2 (17:03→23:10)
[2017-07-08] MEDS: NICOTINE 21 MG/24 HOURS TOPICAL PATCH TD SCH (18:27)
[2017-07-08] MEDS: THIAMINE HCL 100 MG TABLET (FP) PO SCH (23:10)
[2017-07-08] MEDS: ACETAMINOPHEN 325 MG TABLET (FP) PO PRN (23:12)
[2017-07-08] MEDS: guaiFENesin/D-METHORPHAN HB 10 ML UNIT-DOSE CUPS PO PRN (23:12)
[2017-07-09] MEDS: guaiFENesin/D-METHORPHAN HB 10 ML UNIT-DOSE CUPS PO PRN ×2 (06:52→15:03)
[2017-07-09] MEDS: ACETAMINOPHEN 325 MG TABLET (FP) PO PRN ×2 (06:52→15:02)
[2017-07-09] MEDS: chlordiazePOXIDE HCL 25 MG CAPSULE PO SCH ×4 (06:52→22:19)
--- NOTE | 2017-07-09 10:11 | CONSULT ---
[facility] Psychiatric Consult - Data Date of interview: 07/09/17 Admission source: Self-referred Identifying data: Mr Plasencia is a 51 years old single Black male, unemployed on SSI , domiciled living with family seeking detox treatment for alcohol, cocaine and cannabis Substance Abuse History: Reports history of alcohol, cocaine and marijuana use. Refer to addiction counselor's note for further detailed information Medical History: Significant for asthma/emphysema, PPD+ and history of partial prostatectomy/chemotherapy for prostate cancer. Smokes cigarettes 5 cigarettes a day. Psychiatric History: Reports that his first psychiatric contact in his childhood when he was diagnosed with ADHD. Reports that he was later diagnosed with anxiety and treated with different psychotropics (paxil, seroquel,klonopin ,buspar, remeron, adderall). Told sports book writer that he saw the therapist to address his loss ( and son were murdered October 2010) and his primary care physician prescribes him trazodone 150mg for sleep and Buspar 10 mg po bid for anxiety. Patient denies history of psychiatric hospitalization or suicidal attempt. He recently saw Dr Jaramillo on 06/16/17 while in rehab in this facility and was prescribed Buspar 10 mg po BID and Trazadone 150 mg po HS Reports feeling fine but sleeping poorly at present Physical/Sexual Abuse/Trauma History: Denies history of emotional, physical or sexual abuse as well as DV relationship. No service Additional Comment: Denies criminal history Mental Status Exam - Mental Status Exam Alert and Oriented to: Time, Place, Person Cognitive Function: Fair Patient Appearance: Well Groomed Mood: Hopeful, Euthymic Patient Behavior: Cooperative Speech Pattern: Clear Voice Loudness: Normal Thought Process: Intact, Goal Oriented Hallucinations: Denies Suicidal Ideation: Denies Homicidal Ideation: Denies Insight/Judgement: Poor Sleep: Poorly Appetite: Poor Muscle strength/Tone: Normal Gait/Station: Normal Psychiatric Findings - Problem List ([place] 1, 2,3) (1) ADHD (attention deficit hyperactivity disorder) Current Visit: Yes Status: Chronic (2) Anxiety disorder Current Visit: Yes Status: Chronic (3) Alcohol dependence with uncomplicated withdrawal Current Visit: Yes Status: Acute (4) Cocaine dependence, uncomplicated Current Visit: Yes Status: Acute (5) Nicotine dependence Current Visit: Yes Status: Chronic Qualifiers: Nicotine product type: cigarettes Substance use status: in withdrawal Qualified Code(s): F17.213 - Nicotine dependence, cigarettes, with withdrawal (6) Asthma Current Visit: Yes Status: Chronic Qualifiers: Asthma severity: mild Asthma persistence: intermittent Asthma complication type: uncomplicated Qualified Code(s): J45.20 - Mild intermittent asthma, uncomplicated (7) Bullous emphysema Current Visit: Yes Status: Chronic (8) History of prostate cancer Current Visit: Yes Status: Chronic Comment: Currently Undergoing Treatment. (9) PPD positive, treated Current Visit: Yes Status: Chronic - Initial Treatment Plan Initial Treatment Plan: 1) Continue Buspar 10 mg po BID and Trazadone 150 mg po HS. 2) Continue inpatient detoxification
[2017-07-09] MEDS: PRENATAL VITAMINS W/ FOLIC ACID TABLET (FP) PO SCH (10:27)
[2017-07-09] MEDS: NICOTINE 21 MG/24 HOURS TOPICAL PATCH TD SCH (10:27)
[2017-07-09] MEDS: MENTHOL/PHENOL 1 EACH UD MM PRN (10:30)
[2017-07-09 10:51] LABS: BASO % 0.6 % (0-2.0); EOS % 3.1 % (0-4.5); HEMATOCRIT 38.1 % (35.4-49); HEMOGLOBIN 12.7 GM/dL (11.7-16.9); LYMPH % 24.6 % (8-40); MCH 32.3 pg (25.7-33.7); MCHC 33.4 g/dl (32.0-35.9); MEAN CELL VOLUME 96.7 fl (80-96); MEAN PLT VOLUME 7.9 fl (7.5-11.1); MONO % 18.3 % (3.8-10.2); NEUT % 53.4 % (42.8-82.8); PLATELET COUNT 144 K/MM3 (134-434); RBC 3.94 M/mm3 (4.00-5.60); RDW 12.9 % (11.9-15.9); WHITE BLOOD COUNT 5.2 K/mm3 (4.0-10.0)
[2017-07-09 10:59] LABS: ALBUMIN 3.2 g/dl (3.4-5.0); ANION GAP 8 (8-16); BLOOD UREA NITROGEN 12 mg/dL (7-18); CALCIUM 7.6 mg/dL (8.5-10.1); CHLORIDE 108 mmol/L (98-107); CO2 27 mmol/L (21-32); CREATININE 1.1 mg/dL (0.7-1.3); GLUCOSE,RANDOM 105 mg/dL (74-106); POTASSIUM 3.4 mmol/L (3.5-5.1); SGOT/AST 8 U/L (15-37); SGPT/ALT 13 U/L (12-78); SODIUM 143 mmol/L (136-145)
[2017-07-09 11:09] LABS: ALK PHOS 41 U/L (45-117); BILIRUBIN,TOTAL 0.3 mg/dL (0.2-1.0); TOT PROT 6.5 g/dl (6.4-8.2)
--- NOTE | 2017-07-09 13:46 | PN ---
S CIWA - CIWA Score Nausea/Vomitin-Mild Nausea/No Vomiting Muscle Tremors: 4-Moderate,w/Arms Extend Anxiety: 3 Agitation: 3 Paroxysmal Sweats: 1-Minimal Palms Moist Orientation: 0-Oriented Tacttile Disturbances: 0-None Auditory Disturbances: 0-None Visual Disturbances: 0-None Headache: 0-None Present CIWA-Ar Total Score: 12 BHS Progress Note (SOAP) Subjective: sweat tremor anxiety restlessness sleeplessness irritable Objective: 07/09/17 13:44 Vital Signs Temperature 97.7 F 07/09/17 09:57 Pulse Rate 63 07/09/17 09:57 Respiratory Rate 18 07/09/17 09:57 Blood Pressure 104/61 07/09/17 09:57 O2 Sat by Pulse Oximetry (%) Laboratory Last Values WBC 5.2 K/mm3 (4.0-10.0) 07/09/17 08:00 RBC 3.94 M/mm3 (4.00-5.60) L 07/09/17 08:00 Hgb 12.7 GM/dL (11.7-16.9) 07/09/17 08:00 Hct 38.1 % (35.4-49) 07/09/17 08:00 MCV 96.7 fl (80-96) H 07/09/17 08:00 MCH 32.3 pg (25.7-33.7) 07/09/17 08:00 MCHC 33.4 g/dl (32.0-35.9) 07/09/17 08:00 RDW 12.9 % (11.9-15.9) 07/09/17 08:00 Plt Count 144 K/MM3 (134-434) D 07/09/17 08:00 MPV 7.9 fl (7.5-11.1) 07/09/17 08:00 Neutrophils % 53.4 % (42.8-82.8) 07/09/17 08:00 Lymphocytes % 24.6 % (8-40) 07/09/17 08:00 Monocytes % 18.3 % (3.8-10.2) H 07/09/17 08:00 Eosinophils % 3.1 % (0-4.5) 07/09/17 08:00 Basophils % 0.6 % (0-2.0) 07/09/17 08:00 Sodium 143 mmol/L (136-145) 07/09/17 08:00 Potassium 3.4 mmol/L (3.5-5.1) L 07/09/17 08:00 Chloride 108 mmol/L (98-107) H 07/09/17 08:00 Carbon Dioxide 27 mmol/L (21-32) 07/09/17 08:00 Anion Gap 8 (8-16) 07/09/17 08:00 BUN 12 mg/dL (7-18) 07/09/17 08:00 Creatinine 1.1 mg/dL (0.7-1.3) 07/09/17 08:00 Creat Clearance w eGFR > 60 (>60) 07/09/17 08:00 Random Glucose 105 mg/dL (74-106) D 07/09/17 08:00 Calcium 7.6 mg/dL (8.5-10.1) L 07/09/17 08:00 Total Bilirubin 0.3 mg/dL (0.2-1.0) D 07/09/17 08:00 AST 8 U/L (15-37) L D 07/09/17 08:00 ALT 13 U/L (12-78) D 07/09/17 08:00 Alkaline Phosphatase 41 U/L (45-117) L 07/09/17 08:00 Total Protein 6.5 g/dl (6.4-8.2) 07/09/17 08:00 Albumin 3.2 g/dl (3.4-5.0) L 07/09/17 08:00 RPR Titer Nonreactive (NONREACTIVE) 07/09/17 08:00 lab noted 07/09/17 13:45 begin calcium supplement Assessment: 07/09/17 13:45 withdrawal sx Plan: continue detox
[2017-07-09] MEDS: busPIRone HCL 10 MG TABLET (FP) PO SCH ×2 (14:59→22:19)
[2017-07-09] MEDS: CALCIUM (OYSTER SHELL) 500 MG TABLET (FP) PO SCH (20:15)
[2017-07-09] MEDS ORDERED: traZODone HCL 150 MG TABLET PO SCH (22:00)
[2017-07-09] MEDS: THIAMINE HCL 100 MG TABLET (FP) PO SCH (22:19)
--- NOTE | 2017-07-10 00:11 | EKG ---
Test Reason : Blood Pressure : / mmHG Vent. Rate : 067 BPM Atrial Rate : 067 BPM P-R Int : 158 ms QRS Dur : 084 ms QT Int : 368 ms P-R-T Axes : 074 067 054 degrees QTc Int : 388 ms SINUS RHYTHM WITH MARKED SINUS ARRHYTHMIA MINIMAL VOLTAGE CRITERIA FOR LVH, MAY BE NORMAL VARIANT BORDERLINE ECG WHEN COMPARED WITH ECG OF 11-JUN-2017 18:54, NO SIGNIFICANT CHANGE WAS FOUND Confirmed by HANK BENEDICT MD ([id number]) on 07/10/2017 12:11:38 AM Referred By: Confirmed By:HANK BENEDICT MD
[2017-07-10] MEDS: chlordiazePOXIDE HCL 25 MG CAPSULE PO SCH ×2 (06:40→10:30)
[2017-07-10] MEDS: PRENATAL VITAMINS W/ FOLIC ACID TABLET (FP) PO SCH (10:30)
[2017-07-10] MEDS: busPIRone HCL 10 MG TABLET (FP) PO SCH ×2 (10:30→22:33)
[2017-07-10] MEDS: CALCIUM (OYSTER SHELL) 500 MG TABLET (FP) PO SCH (10:30)
[2017-07-10] MEDS: POTASSIUM CHLORIDE TABS 20 MEQ TABLET.ER (FP) PO SCH (10:30)
[2017-07-10] MEDS: NICOTINE 21 MG/24 HOURS TOPICAL PATCH TD SCH (10:30)
[2017-07-10] MEDS: guaiFENesin/D-METHORPHAN HB 10 ML UNIT-DOSE CUPS PO PRN (10:39)
[2017-07-10] MEDS: MENTHOL/PHENOL 1 EACH UD MM PRN (10:40)
--- NOTE | 2017-07-10 11:10 | PN ---
S CIWA - CIWA Score Nausea/Vomitin-No Nausea/No Vomiting Muscle Tremors: 3 Anxiety: 3 Agitation: 3 Paroxysmal Sweats: 1-Minimal Palms Moist Orientation: 0-Oriented Tacttile Disturbances: 0-None Auditory Disturbances: 0-None Visual Disturbances: 0-None Headache: 0-None Present CIWA-Ar Total Score: 10 BHS Progress Note (SOAP) Subjective: sweat tremor anxiety restlessness irritable c/o coughing Objective: 07/10/17 11:08 Vital Signs Temperature 96.4 F L 07/10/17 07:07 Pulse Rate 69 07/10/17 07:07 Respiratory Rate 19 07/10/17 07:07 Blood Pressure 109/53 07/10/17 07:07 O2 Sat by Pulse Oximetry (%) Laboratory Last Values WBC 5.2 K/mm3 (4.0-10.0) 07/09/17 08:00 RBC 3.94 M/mm3 (4.00-5.60) L 07/09/17 08:00 Hgb 12.7 GM/dL (11.7-16.9) 07/09/17 08:00 Hct 38.1 % (35.4-49) 07/09/17 08:00 MCV 96.7 fl (80-96) H 07/09/17 08:00 MCH 32.3 pg (25.7-33.7) 07/09/17 08:00 MCHC 33.4 g/dl (32.0-35.9) 07/09/17 08:00 RDW 12.9 % (11.9-15.9) 07/09/17 08:00 Plt Count 144 K/MM3 (134-434) D 07/09/17 08:00 MPV 7.9 fl (7.5-11.1) 07/09/17 08:00 Neutrophils % 53.4 % (42.8-82.8) 07/09/17 08:00 Lymphocytes % 24.6 % (8-40) 07/09/17 08:00 Monocytes % 18.3 % (3.8-10.2) H 07/09/17 08:00 Eosinophils % 3.1 % (0-4.5) 07/09/17 08:00 Basophils % 0.6 % (0-2.0) 07/09/17 08:00 Sodium 143 mmol/L (136-145) 07/09/17 08:00 Potassium 3.4 mmol/L (3.5-5.1) L 07/09/17 08:00 Chloride 108 mmol/L (98-107) H 07/09/17 08:00 Carbon Dioxide 27 mmol/L (21-32) 07/09/17 08:00 Anion Gap 8 (8-16) 07/09/17 08:00 BUN 12 mg/dL (7-18) 07/09/17 08:00 Creatinine 1.1 mg/dL (0.7-1.3) 07/09/17 08:00 Creat Clearance w eGFR > 60 (>60) 07/09/17 08:00 Random Glucose 105 mg/dL (74-106) D 07/09/17 08:00 Calcium 7.6 mg/dL (8.5-10.1) L 07/09/17 08:00 Total Bilirubin 0.3 mg/dL (0.2-1.0) D 07/09/17 08:00 AST 8 U/L (15-37) L D 07/09/17 08:00 ALT 13 U/L (12-78) D 07/09/17 08:00 Alkaline Phosphatase 41 U/L (45-117) L 07/09/17 08:00 Total Protein 6.5 g/dl (6.4-8.2) 07/09/17 08:00 Albumin 3.2 g/dl (3.4-5.0) L 07/09/17 08:00 RPR Titer Nonreactive (NONREACTIVE) 07/09/17 08:00 lab noted clear lungs bilaterally oropharangeal no swelling no eythema denies trouble swallowing Assessment: 07/10/17 11:09 withdrawal sx mild coughing Plan: continue detox continue coughing medication prn
[2017-07-10] MEDS: ACETAMINOPHEN 325 MG TABLET (FP) PO PRN (16:01)
[2017-07-10] MEDS: chlordiazePOXIDE 5 MG CAPSULE PO SCH ×2 (18:55→22:32)
[2017-07-10] MEDS: THIAMINE HCL 100 MG TABLET (FP) PO SCH (22:32)
[2017-07-10] MEDS: traZODone HCL 50 MG TABLET (FP) PO SCH (22:33)
[2017-07-11] MEDS: chlordiazePOXIDE 5 MG CAPSULE PO SCH ×2 (06:21→10:24)
[2017-07-11] MEDS: busPIRone HCL 10 MG TABLET (FP) PO SCH ×2 (10:24→22:31)
[2017-07-11] MEDS: NICOTINE 21 MG/24 HOURS TOPICAL PATCH TD SCH (10:24)
[2017-07-11] MEDS: POTASSIUM CHLORIDE TABS 20 MEQ TABLET.ER (FP) PO SCH (10:24)
[2017-07-11] MEDS: PRENATAL VITAMINS W/ FOLIC ACID TABLET (FP) PO SCH (10:24)
[2017-07-11] MEDS: CALCIUM (OYSTER SHELL) 500 MG TABLET (FP) PO SCH (10:24)
--- NOTE | 2017-07-11 10:45 | PN ---
BHS Progress Note (SOAP) Subjective: feeling better less sweat no tremor tolerates food and fluid well Objective: 07/11/17 10:44 Vital Signs Temperature 97.2 F L 07/11/17 09:47 Pulse Rate 70 07/11/17 09:47 Respiratory Rate 20 03 09:47 Blood Pressure 108/56 07/11/17 09:47 O2 Sat by Pulse Oximetry (%) Laboratory Last Values WBC 5.2 K/mm3 (4.0-10.0) 07/09/17 08:00 RBC 3.94 M/mm3 (4.00-5.60) L 07/09/17 08:00 Hgb 12.7 GM/dL (11.7-16.9) 07/09/17 08:00 Hct 38.1 % (35.4-49) 07/09/17 08:00 MCV 96.7 fl (80-96) H 07/09/17 08:00 MCH 32.3 pg (25.7-33.7) 07/09/17 08:00 MCHC 33.4 g/dl (32.0-35.9) 07/09/17 08:00 RDW 12.9 % (11.9-15.9) 07/09/17 08:00 Plt Count 144 K/MM3 (134-434) D 07/09/17 08:00 MPV 7.9 fl (7.5-11.1) 07/09/17 08:00 Neutrophils % 53.4 % (42.8-82.8) 07/09/17 08:00 Lymphocytes % 24.6 % (8-40) 07/09/17 08:00 Monocytes % 18.3 % (3.8-10.2) H 07/09/17 08:00 Eosinophils % 3.1 % (0-4.5) 07/09/17 08:00 Basophils % 0.6 % (0-2.0) 07/09/17 08:00 Sodium 143 mmol/L (136-145) 07/09/17 08:00 Potassium 3.4 mmol/L (3.5-5.1) L 07/09/17 08:00 Chloride 108 mmol/L (98-107) H 07/09/17 08:00 Carbon Dioxide 27 mmol/L (21-32) 07/09/17 08:00 Anion Gap 8 (8-16) 07/09/17 08:00 BUN 12 mg/dL (7-18) 07/09/17 08:00 Creatinine 1.1 mg/dL (0.7-1.3) 07/09/17 08:00 Creat Clearance w eGFR > 60 (>60) 07/09/17 08:00 Random Glucose 105 mg/dL (74-106) D 07/09/17 08:00 Calcium 7.6 mg/dL (8.5-10.1) L 07/09/17 08:00 Total Bilirubin 0.3 mg/dL (0.2-1.0) D 07/09/17 08:00 AST 8 U/L (15-37) L D 07/09/17 08:00 ALT 13 U/L (12-78) D 07/09/17 08:00 Alkaline Phosphatase 41 U/L (45-117) L 07/09/17 08:00 Total Protein 6.5 g/dl (6.4-8.2) 07/09/17 08:00 Albumin 3.2 g/dl (3.4-5.0) L 07/09/17 08:00 RPR Titer Nonreactive (NONREACTIVE) 07/09/17 08:00 Hep C Ab Diagnostic 0.2 s/co ratio (0.0-0.9) 07/09/17 08:00 lab noted Assessment: 07/11/17 10:45 mild withdrawal sx Plan: medically supervised detox encourage citric fluid and banana
[2017-07-11] MEDS: MENTHOL/PHENOL 1 EACH UD MM PRN (15:29)
[2017-07-11 15:52] LABS: URINE APPEARANCE CLEAR; URINE BILIRUBIN NEGATIVE (NEGATIVE); URINE BLOOD NEGATIVE (NEGATIVE); URINE COLOR LTYELLOW; URINE GLUCOSE (UA) NEGATIVE (NEGATIVE); URINE KETONE NEGATIVE (NEGATIVE); URINE LEUK ESTERASE NEGATIVE (NEGATIVE); URINE NITRITE NEGATIVE (NEGATIVE); URINE PROTEIN NEGATIVE (NEGATIVE); URINE UROBILINOGEN NEGATIVE mg/dL (0.2-1.0)
[2017-07-11] MEDS: chlordiazePOXIDE HCL 10 MG CAPSULE PO SCH ×2 (18:00→22:31)
[2017-07-11] MEDS: traZODone HCL 50 MG TABLET (FP) PO SCH (22:31)
[2017-07-11] MEDS: THIAMINE HCL 100 MG TABLET (FP) PO SCH (22:31)
[2017-07-12] MEDS: chlordiazePOXIDE HCL 10 MG CAPSULE PO SCH ×2 (05:29→11:06)
--- NOTE | 2017-07-12 08:44 | PN ---
MARY BETHS Progress Note Note: patient reports had history of rectum bleeding discontinue motrin
[2017-07-12 10:30] VITALS: BP 101/65; PULSE 77; TEMP 97.9
[2017-07-12] MEDS: busPIRone HCL 10 MG TABLET (FP) PO SCH (11:05)
[2017-07-12] MEDS: POTASSIUM CHLORIDE TABS 20 MEQ TABLET.ER (FP) PO SCH (11:05)
[2017-07-12] MEDS: PRENATAL VITAMINS W/ FOLIC ACID TABLET (FP) PO SCH (11:06)
[2017-07-12] MEDS: CALCIUM (OYSTER SHELL) 500 MG TABLET (FP) PO SCH (11:06)
[2017-07-12] MEDS: NICOTINE 21 MG/24 HOURS TOPICAL PATCH TD SCH (11:06)
--- NOTE | 2017-07-12 11:11 | DS ---
[facility] Detox Discharge Summary Admission Date: 07/08/17 Discharge Date: 07/12/17 - History Present History: Alcohol Dependence Additional Comments: patient is alert oriented x 3 steady gait no acute distress, no tremor slept throughout the night cardiac s1 s2 lung clear bilaterally abdomen soft non e tenderness - Physical Exam Results Vital Signs: Vital Signs Temperature 97.9 F 07/12/17 10:00 Pulse Rate 77 07/12/17 10:00 Respiratory Rate 20 07/12/17 10:00 Blood Pressure 101/65 07/12/17 10:00 O2 Sat by Pulse Oximetry (%) Pertinent Admission Physical Exam Findings: withdrawal sx Laboratory Last Values WBC 5.2 K/mm3 (4.0-10.0) 07/09/17 08:00 RBC 3.94 M/mm3 (4.00-5.60) L 07/09/17 08:00 Hgb 12.7 GM/dL (11.7-16.9) 07/09/17 08:00 Hct 38.1 % (35.4-49) 07/09/17 08:00 MCV 96.7 fl (80-96) H 07/09/17 08:00 MCH 32.3 pg (25.7-33.7) 07/09/17 08:00 MCHC 33.4 g/dl (32.0-35.9) 07/09/17 08:00 RDW 12.9 % (11.9-15.9) 07/09/17 08:00 Plt Count 144 K/MM3 (134-434) D 07/09/17 08:00 MPV 7.9 fl (7.5-11.1) 07/09/17 08:00 Neutrophils % 53.4 % (42.8-82.8) 07/09/17 08:00 Lymphocytes % 24.6 % (8-40) 07/09/17 08:00 Monocytes % 18.3 % (3.8-10.2) H 07/09/17 08:00 Eosinophils % 3.1 % (0-4.5) 07/09/17 08:00 Basophils % 0.6 % (0-2.0) 07/09/17 08:00 Sodium 143 mmol/L (136-145) 07/09/17 08:00 Potassium 3.4 mmol/L (3.5-5.1) L 07/09/17 08:00 Chloride 108 mmol/L (98-107) H 07/09/17 08:00 Carbon Dioxide 27 mmol/L (21-32) 07/09/17 08:00 Anion Gap 8 (8-16) 07/09/17 08:00 BUN 12 mg/dL (7-18) 07/09/17 08:00 Creatinine 1.1 mg/dL (0.7-1.3) 07/09/17 08:00 Creat Clearance w eGFR > 60 (>60) 07/09/17 08:00 Random Glucose 105 mg/dL (74-106) D 07/09/17 08:00 Calcium 7.6 mg/dL (8.5-10.1) L 07/09/17 08:00 Total Bilirubin 0.3 mg/dL (0.2-1.0) D 07/09/17 08:00 AST 8 U/L (15-37) L D 07/09/17 08:00 ALT 13 U/L (12-78) D 07/09/17 08:00 Alkaline Phosphatase 41 U/L (45-117) L 07/09/17 08:00 Total Protein 6.5 g/dl (6.4-8.2) 07/09/17 08:00 Albumin 3.2 g/dl (3.4-5.0) L 07/09/17 08:00 Urine Color Ltyellow 07/11/17 11:00 Urine Appearance Clear 07/11/17 11:00 Urine pH 6.0 (5.0-8.0) 07/11/17 11:00 Ur Specific [place] 1.015 (1.001-1.035) 07/11/17 11:00 Urine Protein Negative (NEGATIVE) 07/11/17 11:00 Urine Glucose (UA) Negative (NEGATIVE) 07/11/17 11:00 Urine Ketones Negative (NEGATIVE) 07/11/17 11:00 Urine Blood Negative (NEGATIVE) 07/11/17 11:00 Urine Nitrite Negative (NEGATIVE) 07/11/17 11:00 Urine Bilirubin Negative (NEGATIVE) 07/11/17 11:00 Urine Urobilinogen Negative mg/dL (0.2-1.0) 07/11/17 11:00 Ur Leukocyte Esterase Negative (NEGATIVE) 07/11/17 11:00 RPR Titer Nonreactive (NONREACTIVE) 07/09/17 08:00 Hep C Ab Diagnostic 0.2 s/co ratio (0.0-0.9) 07/09/17 08:00 lab noted - Treatment Hospital Course: Detox Protocol Followed, Detoxed Safely, Responded well, Discharged Condition Good, Rehab Referral Accepted Patient has Accepted a Rehab Referral to: [facility] - Medication Discharge Medications: Ambulatory Orders Buspirone HCl [Buspar -] 10 mg PO BID #60 tablet 07/09/17 traZODone HCL [Desyrel -] 150 mg PO HS #30 tablet 07/09/17 Albuterol Sulfate Inhaler - [Ventolin HFA Inhaler -] 2 inh PO Q4H PRN #1 inhaler 07/12/17 - Diagnosis (1) Alcohol dependence with uncomplicated withdrawal Current Visit: Yes Status: Acute (2) Asthma Current Visit: Yes Status: Chronic Qualifiers: Asthma severity: mild Asthma persistence: intermittent Asthma complication type: uncomplicated Qualified Code(s): J45.20 - Mild intermittent asthma, uncomplicated (3) Nicotine dependence Current Visit: Yes Status: Acute Qualifiers: Nicotine product type: cigarettes Substance use status: in withdrawal Qualified Code(s): F17.213 - Nicotine dependence, cigarettes, with withdrawal (4) PPD positive, treated Current Visit: Yes Status: Resolved - AMA Did Patient Leave Against Medical Advice: No
== END 2017-07-12 13:30 | disposition home or self-care (01) | DRG 897 ==
LOC: YASAS 11:13 → Y6N 14:45
PROVIDERS: ADMIT Internal Medicine; ATTEND Internal Medicine
PROC: HZ2ZZZZ Detoxification Services for Substance Abuse Treatment (ICD-10-PCS; principal; 2017-07-08)
DX: F10.230 Alcohol dependence with withdrawal, uncomplicated (principal); F14.20 Cocaine dependence, uncomplicated; F17.213 Nicotine dependence, cigarettes, with withdrawal; F90.9 Attention-deficit hyperactivity disorder, unspecified type; F41.9 Anxiety disorder, unspecified; J43.9 Emphysema, unspecified; R76.11 Nonspecific reaction to tuberculin skin test without active tuberculosis; Z85.46 Personal history of malignant neoplasm of prostate; Z90.79 Acquired absence of other genital organ(s)
CPT/HCPCS: 36415; 80053; 81003; 85025; 86593; 93005; 93010

== ENCOUNTER 2018-03-30 08:56 | Inpatient (IN) | payer OTHER ==
[2018-03-30 09:35] VITALS: BMI 18.7
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
[2018-03-30] MEDS ORDERED: MAGNESIUM CITRATE 300 ML BOTTLE PO PRN (11:22)
[2018-03-30] MEDS ORDERED: P-EPHED 60MG/TRIPROLIDI 2.5MG TABLET PO PRN (11:22)
[2018-03-30] MEDS ORDERED: MAGNESIUM HYDROX 2400MG/30ML ORAL SUSPENSION 30 ML CUP PO PRN (11:22)
[2018-03-30] MEDS ORDERED: MENTHOL/PHENOL 1 EACH UD MM PRN (11:22)
[2018-03-30] MEDS ORDERED: MAG HYDROX/AL HYDROX/SIMETH 30 ML UNIT-DOSE CUP PO PRN (11:22)
[2018-03-30] MEDS ORDERED: guaiFENesin/D-METHORPHAN HB 10 ML UNIT-DOSE CUPS PO PRN (11:22)
[2018-03-30] MEDS ORDERED: ALBUTEROL SO4 0.083% IH SOL 2.5 MG/3 ML VIAL.NEB. NEB PRN (11:24)
[2018-03-30] MEDS ORDERED: ALBUTEROL SO4 8 GM HFA INHALER IH PRN (11:24)
[2018-03-30] MEDS: chlordiazePOXIDE HCL 25 MG CAPSULE PO PRN (13:15)
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
[2018-03-30] MEDS: chlordiazePOXIDE HCL 25 MG CAPSULE PO SCH ×2 (17:21→22:15)
[2018-03-30] MEDS: ACETAMINOPHEN 325 MG TABLET (FP) PO PRN (17:22)
[2018-03-30] MEDS: IBUPROFEN 400 MG TABLET (FP) PO PRN (21:07)
[2018-03-30] MEDS: traZODone HCL 50 MG TABLET (FP) PO SCH (22:15)
[2018-03-30] MEDS: busPIRone HCL 5 MG TABLET PO SCH (22:15)
[2018-03-30] MEDS: THIAMINE HCL 100 MG TABLET (FP) PO SCH (22:15)
[2018-03-30] MEDS: MELATONIN 5 MG TABLETS PO PRN (23:47)
[2018-03-31] MEDS: busPIRone HCL 5 MG TABLET PO SCH ×3 (06:05→22:31)
[2018-03-31] MEDS: chlordiazePOXIDE HCL 25 MG CAPSULE PO SCH ×4 (06:05→22:31)
[2018-03-31] MEDS: PRENATAL VITAMINS W/ FOLIC ACID TABLET (FP) PO SCH (10:33)
[2018-03-31] MEDS: NICOTINE 21 MG/24 HOURS TOPICAL PATCH TD SCH (10:33)
[2018-03-31 11:09] LABS: HEMATOCRIT 41.9 % (35.4-49); HEMOGLOBIN 13.6 GM/dL (11.7-16.9); MCH 31.8 pg (25.7-33.7); MCHC 32.5 g/dl (32.0-35.9); MEAN CELL VOLUME 97.8 fl (80-96); MEAN PLT VOLUME 7.6 fl (7.5-11.1); PLATELET COUNT 302 K/MM3 (134-434); RBC 4.29 M/mm3 (4.00-5.60); RDW 13.8 % (11.9-15.9); WHITE BLOOD COUNT 12.3 K/mm3 (4.0-10.0)
--- NOTE | 2018-03-31 11:22 | PN ---
S CIWA - CIWA Score Nausea/Vomitin-No Nausea/No Vomiting Muscle Tremors: 4-Moderate,w/Arms Extend Anxiety: 4-Mod. Anxious/Guarded Agitation: 4-Moderately Restless Paroxysmal Sweats: 1-Minimal Palms Moist Orientation: 0-Oriented Tacttile Disturbances: 0-None Auditory Disturbances: 0-None Visual Disturbances: 0-None Headache: 0-None Present CIWA-Ar Total Score: 13 BHS Progress Note (SOAP) Subjective: C/O CHRONIC BODY ACHES, ANXIETY. Objective: 03/31/18 12:43 Vital Signs 03/31/18 03/31/18 06:18 09:51 Temperature 98.7 F 98.5 F Pulse Rate 69 86 Respiratory 16 20 Rate Blood Pressure 100/60 102/71 Laboratory Tests 03/31/18 03/31/18 03/31/18 05:35 05:35 05:35 WBC 12.3 H RBC 4.29 Hgb 13.6 Hct 41.9 MCV 97.8 H MCH 31.8 MCHC 32.5 RDW 13.8 Plt Count 302 D MPV 7.6 Sodium 136 Potassium 4.3 Chloride 103 Carbon Dioxide 22 Anion Gap 11 BUN 19 H Creatinine 1.0 Creat Clearance w eGFR > 60 Random Glucose 93 Calcium 9.0 Total Bilirubin 0.5 AST 19 ALT 30 Alkaline Phosphatase 53 Total Protein 8.9 H Albumin 3.9 RPR Titer Nonreactive Assessment: 03/31/18 12:43 WITHDRAWAL SX Plan: CONTINUE DETOX
[2018-03-31 11:58] LABS: ALBUMIN 3.9 g/dl (3.4-5.0); ALK PHOS 53 U/L (45-117); ANION GAP 11 MMOL/L (8-16); BILIRUBIN,TOTAL 0.5 mg/dL (0.2-1); BLOOD UREA NITROGEN 19 mg/dL (7-18); CHLORIDE 103 mmol/L (98-107); CO2 22 mmol/L (21-32); GLUCOSE,RANDOM 93 mg/dL (74-106); POTASSIUM 4.3 mmol/L (3.5-5.1); SGOT/AST 19 U/L (15-37); SGPT/ALT 30 U/L (13-61); SODIUM 136 mmol/L (136-145); TOT PROT 8.9 g/dl (6.4-8.2)
[2018-03-31] MEDS: THIAMINE HCL 100 MG TABLET (FP) PO SCH (22:30)
[2018-03-31] MEDS: traZODone HCL 50 MG TABLET (FP) PO SCH (22:31)
[2018-04-01] MEDS: MELATONIN 5 MG TABLETS PO PRN (00:35)
[2018-04-01] MEDS: chlordiazePOXIDE HCL 25 MG CAPSULE PO PRN (00:36)
[2018-04-01] MEDS: chlordiazePOXIDE HCL 25 MG CAPSULE PO SCH ×2 (06:10→10:16)
[2018-04-01] MEDS: busPIRone HCL 5 MG TABLET PO SCH ×3 (06:10→22:27)
[2018-04-01] MEDS: NICOTINE 21 MG/24 HOURS TOPICAL PATCH TD SCH (10:16)
[2018-04-01] MEDS: PRENATAL VITAMINS W/ FOLIC ACID TABLET (FP) PO SCH (10:16)
--- NOTE | 2018-04-01 16:21 | PN ---
S CIWA - CIWA Score Nausea/Vomitin-Mild Nausea/No Vomiting Muscle Tremors: 3 Anxiety: 3 Agitation: 3 Paroxysmal Sweats: 2 Orientation: 0-Oriented Tacttile Disturbances: 0-None Auditory Disturbances: 0-None Visual Disturbances: 0-None Headache: 1-Very Mild CIWA-Ar Total Score: 13 S Progress Note (SOAP) Subjective: Tremor, sweating Objective: 04/01/18 16:19 Last Vital Signs Temp Pulse Resp BP Pulse Ox 97.4 F L 85 18 107/68 04/01/18 14:46 04/01/18 14:46 04/01/18 14:46 04/01/18 14:46 Laboratory Tests 03/31/18 03/31/18 03/31/18 05:35 05:35 05:35 WBC 12.3 H RBC 4.29 Hgb 13.6 Hct 41.9 MCV 97.8 H MCH 31.8 MCHC 32.5 RDW 13.8 Plt Count 302 D MPV 7.6 Sodium 136 Potassium 4.3 Chloride 103 Carbon Dioxide 22 Anion Gap 11 BUN 19 H Creatinine 1.0 Creat Clearance w eGFR > 60 Random Glucose 93 Calcium 9.0 Total Bilirubin 0.5 AST 19 ALT 30 Alkaline Phosphatase 53 Total Protein 8.9 H Albumin 3.9 RPR Titer Nonreactive Labs reviewed: wbc 12.3 Assessment: 04/01/18 16:20 Withdrawal symptoms Leukocytosis noted Plan: Continue detox Leukocytosis: asymptomatic, repeat CBC
[2018-04-01] MEDS: IBUPROFEN 400 MG TABLET (FP) PO PRN (16:57)
[2018-04-01] MEDS: chlordiazePOXIDE 5 MG CAPSULE PO SCH ×2 (17:43→22:28)
[2018-04-01] MEDS: traZODone HCL 100 MG TABLET (FP) PO SCH (22:27)
[2018-04-01] MEDS: THIAMINE HCL 100 MG TABLET (FP) PO SCH (22:28)
[2018-04-02] MEDS: chlordiazePOXIDE 5 MG CAPSULE PO SCH ×2 (05:59→10:12)
[2018-04-02] MEDS: busPIRone HCL 5 MG TABLET PO SCH ×3 (06:59→22:19)
[2018-04-02] MEDS: PRENATAL VITAMINS W/ FOLIC ACID TABLET (FP) PO SCH (10:11)
[2018-04-02] MEDS: NICOTINE 21 MG/24 HOURS TOPICAL PATCH TD SCH (10:12)
[2018-04-02 10:24] LABS: BASO % 0.2 % (0-2.0); EOS % 0.7 % (0-4.5); HEMATOCRIT 35.7 % (35.4-49); HEMOGLOBIN 11.6 GM/dL (11.7-16.9); LYMPH % 14.2 % (8-40); MCHC 32.4 g/dl (32.0-35.9); MEAN CELL VOLUME 98.8 fl (80-96); MEAN PLT VOLUME 7.6 fl (7.5-11.1); MONO % 7.5 % (3.8-10.2); NEUT % 77.4 % (42.8-82.8); PLATELET COUNT 226 K/MM3 (134-434); RBC 3.62 M/mm3 (4.00-5.60); RDW 13.7 % (11.9-15.9); WHITE BLOOD COUNT 10.1 K/mm3 (4.0-10.0)
--- NOTE | 2018-04-02 12:43 | PN ---
S Progress Note (SOAP) Subjective: feeling better no tremor no gi distress social with peers in day room less sweat Objective: 04/02/18 12:42 Vital Signs Temperature 97.5 F L 04/02/18 09:03 Pulse Rate 99 H 04/02/18 09:03 Respiratory Rate 16 04/02/18 09:03 Blood Pressure 111/71 04/02/18 09:03 O2 Sat by Pulse Oximetry (%) Laboratory Last Values WBC 10.1 K/mm3 (4.0-10.0) H 04/02/18 07:00 RBC 3.62 M/mm3 (4.00-5.60) L 04/02/18 07:00 Hgb 11.6 GM/dL (11.7-16.9) L 04/02/18 07:00 Hct 35.7 % (35.4-49) 04/02/18 07:00 MCV 98.8 fl (80-96) H 04/02/18 07:00 MCH 32.0 pg (25.7-33.7) 04/02/18 07:00 MCHC 32.4 g/dl (32.0-35.9) 04/02/18 07:00 RDW 13.7 % (11.9-15.9) 04/02/18 07:00 Plt Count 226 K/MM3 (134-434) D 04/02/18 07:00 MPV 7.6 fl (7.5-11.1) 04/02/18 07:00 Absolute Neuts (auto) 7.8 K/mm3 (1.5-8.0) 04/02/18 07:00 Neutrophils % 77.4 % (42.8-82.8) D 04/02/18 07:00 Lymphocytes % 14.2 % (8-40) D 04/02/18 07:00 Monocytes % 7.5 % (3.8-10.2) 04/02/18 07:00 Eosinophils % 0.7 % (0-4.5) 04/02/18 07:00 Basophils % 0.2 % (0-2.0) 04/02/18 07:00 Nucleated RBC % 0 % (0-0) 04/02/18 07:00 Sodium 136 mmol/L (136-145) 03/31/18 05:35 Potassium 4.3 mmol/L (3.5-5.1) 03/31/18 05:35 Chloride 103 mmol/L (98-107) 03/31/18 05:35 Carbon Dioxide 22 mmol/L (21-32) 03/31/18 05:35 Anion Gap 11 MMOL/L (8-16) 03/31/18 05:35 BUN 19 mg/dL (7-18) H 03/31/18 05:35 Creatinine 1.0 mg/dL (0.55-1.3) 03/31/18 05:35 Creat Clearance w eGFR > 60 (>60) 03/31/18 05:35 Random Glucose 93 mg/dL (74-106) 03/31/18 05:35 Calcium 9.0 mg/dL (8.5-10.1) 03/31/18 05:35 Total Bilirubin 0.5 mg/dL (0.2-1) 03/31/18 05:35 AST 19 U/L (15-37) 03/31/18 05:35 ALT 30 U/L (13-61) 03/31/18 05:35 Alkaline Phosphatase 53 U/L (45-117) 03/31/18 05:35 Total Protein 8.9 g/dl (6.4-8.2) H 03/31/18 05:35 Albumin 3.9 g/dl (3.4-5.0) 03/31/18 05:35 RPR Titer Nonreactive (NONREACTIVE) 03/31/18 05:35 lab noted Assessment: 04/02/18 12:42 mild withdrawal sx Plan: medically supervised detox
[2018-04-02] MEDS: chlordiazePOXIDE HCL 10 MG CAPSULE PO SCH ×2 (17:14→22:17)
[2018-04-02] MEDS: ACETAMINOPHEN 325 MG TABLET (FP) PO PRN (21:47)
[2018-04-02] MEDS: traZODone HCL 100 MG TABLET (FP) PO SCH (22:17)
[2018-04-02] MEDS: THIAMINE HCL 100 MG TABLET (FP) PO SCH (22:17)
[2018-04-03] MEDS: busPIRone HCL 5 MG TABLET PO SCH ×3 (06:24→22:06)
[2018-04-03] MEDS: chlordiazePOXIDE HCL 10 MG CAPSULE PO SCH ×2 (06:24→10:16)
--- NOTE | 2018-04-03 08:49 | DS ---
[facility] Detox Discharge Summary Admission Date: 03/30/18 Discharge Date: 04/03/18 - History Present History: Alcohol Dependence - Physical Exam Results Vital Signs: Vital Signs Temperature 97.4 F L 04/03/18 06:25 Pulse Rate 87 04/03/18 06:25 Respiratory Rate 18 04/03/18 06:25 Blood Pressure 101/66 04/03/18 06:25 O2 Sat by Pulse Oximetry (%) - Treatment Hospital Course: Detox Protocol Followed, Detoxed Safely, Responded well, Discharged Condition Good, Rehab Referral Accepted - Medication Discharge Medications: Ambulatory Orders Buspirone HCl [Buspar -] 10 mg PO BID #60 tablet 07/09/17 Buprenorphine/Naloxone [Suboxone 8Mg/2Mg Sl Film -] 1 each SL TID 03/30/18 Albuterol Sulfate Inhaler - [Ventolin HFA Inhaler -] 2 inh PO Q4H PRN #1 inhaler 04/02/18 - AMA Did Patient Leave Against Medical Advice: No
[2018-04-03] MEDS: PRENATAL VITAMINS W/ FOLIC ACID TABLET (FP) PO SCH (10:14)
[2018-04-03] MEDS: NICOTINE 21 MG/24 HOURS TOPICAL PATCH TD SCH (10:14)
--- NOTE | 2018-04-03 11:22 | HP ---
KHURRAM SALAZAR Rehab Assess/Revision - Admission History Admitted to Rehab from: [facility] Date of Admission to Rehab: 04/03/18 - Vital signs Vital Signs: Vital Signs Period Temp Pulse Resp BP Sys/Fonseca Pulse Ox Last 24 Hr 96.7 F-100.2 F 68-124 -18 101-124/66-78 - Findings Detox History & Physical reviewed: Yes Concur with findings: Yes Comments/Additional Findings: transferred from detox to rehab admission as per protocol Inpatient Rehab Admission - Initial Determination Are CD services needed?: Yes Free of communicable disease: Yes Not in need of hospitalization: Yes - Rehab Admission Criteria Previous failed treatment: Yes Poor recovery environment: Yes Comorbidities: Yes Lacks judgement: No Patient is meeting Inpatient Rehab admission criteria:: Yes
[2018-04-03] MEDS ORDERED: ONDANSETRON *ODT* 4 MG TABLET SL PRN (14:13)
[2018-04-03] MEDS: IBUPROFEN 400 MG TABLET (FP) PO PRN (17:41)
[2018-04-03] MEDS: THIAMINE HCL 100 MG TABLET (FP) PO SCH (22:05)
[2018-04-03] MEDS: traZODone HCL 100 MG TABLET (FP) PO SCH (22:06)
[2018-04-04] MEDS: busPIRone HCL 5 MG TABLET PO SCH (06:28)
[2018-04-04 07:13] VITALS: BP 103/66; PULSE 79; TEMP 97.8
== END 2018-04-04 09:30 | disposition left against medical advice (07) | DRG 894 ==
LOC: YASAS 08:56 → Y3N 12:23 → Y3W 04-03 11:18
PROVIDERS: ATTEND Psychiatry & Neurology Psychiatry
PROC: HZ2ZZZZ Detoxification Services for Substance Abuse Treatment (ICD-10-PCS; 2018-03-30)
PROC: HZ42ZZZ Group Counseling for Substance Abuse Treatment, Cognitive-Behavioral (ICD-10-PCS; principal; 2018-04-03)
DX: F10.230 Alcohol dependence with withdrawal, uncomplicated (principal); F14.20 Cocaine dependence, uncomplicated; F17.213 Nicotine dependence, cigarettes, with withdrawal; D72.829 Elevated white blood cell count, unspecified; Z85.46 Personal history of malignant neoplasm of prostate; Z90.79 Acquired absence of other genital organ(s); Z87.09 Personal history of other diseases of the respiratory system; R26.89 Other abnormalities of gait and mobility; Z99.89 Dependence on other enabling machines and devices; Z91.013 Allergy to seafood
CPT/HCPCS: 36415; 80053; 85025; 85027; 86593

== ENCOUNTER 2018-07-02 09:09 | Inpatient (IN) | payer OTHER ==
[2018-07-02 09:41] VITALS: BMI 18.8
--- NOTE | 2018-07-02 11:35 | HP ---
CIWA Score Nausea/Vomitin Muscle Tremors: 2 Anxiety: 2 Agitation: 2 Paroxysmal Sweats: 1-Minimal Palms Moist Orientation: 0-Oriented Tacttile Disturbances: 1-Very Mild Itch/Numbness Auditory Disturbances: 1-Very Mild Visual Disturbances: 0-None Headache: 2-Mild CIWA-Ar Total Score: 13 - Admission Criteria OASAS Guidelines: Admission for Medically Managed Detox: Requires at least one of the followin. CIWA greater than 12 2. Seizures within the past 24 hours 3. Delirium tremens within the past 24 hours 4. Hallucinations within the past 24 hours 5. Acute intervention needed for co occurring medical disorder 6. Acute intervention needed for co occurring psychiatric disorder 7. Severe withdrawal that cannot be handled at a lower level of care (continued vomiting, continued diarrhea, abnormal vital signs) requiring intravenous medication and/or fluids 8. Patient presents the following: CIWA greater than 12 Admission Criteria Met: Admission criteria met Admission ROS S - HPI Chief Complaint: i nee help to stop drinking alcohol Allergies/Adverse Reactions: Allergies Allergy/AdvReac Type Severity Reaction Status Date / Time shellfish derived Allergy Severe Swelling Verified 07/02/18 10:52 No Known Drug Allergies Allergy Verified 07/02/18 10:52 History of Present Illness: this 52 years old male with alcohol dependence seeking detox,withdrawal symptom, multiple admissions but keep relapsing, last treatment in rehab at [facility] 03/30/18 to 02/02/18 nicotine dependence 5 cigarette weight loss positive ppd longest period of sobriety 14 years Exam Limitations: No Limitations - Ebola screening Have you traveled outside of the country in the last 21 days: No Have you had contact with anyone from an Ebola affected area: No Have you been sick,other than usual withdrawal symptoms: No Do you have a fever: No - Review of Systems Constitutional: Loss of Appetite, Malaise, Night Sweats, Changes in sleep, Weakness, Unintentional Wgt. Loss EENT: reports: Tearing, Nose Congestion Respiratory: reports: Other (asthma) Cardiac: reports: No Symptoms Reported GI: reports: Diarrhea, Nausea, Abdominal cramping : reports: No Symptoms Reported Musculoskeletal: reports: Back Pain, Muscle Pain Integumentary: reports: Dryness Neuro: reports: Headache, Tremors Endocrine: reports: No Symptoms Reported Hematology: reports: No Symptoms Reported Psychiatric: reports: No Sypmtoms Reported, Judgement Intact, Mood/Affect Appropiate, Orientated x3 Other Systems: Reviewed and Negative Patient History - Patient Medical History Hx Anemia: No Hx Asthma: Yes Hx Chronic Obstructive Pulmonary Disease (COPD): No Hx Cancer: Yes (Prostate, Completed round of treatment approx. 8 weeks ago.) Hx Cardiac Disorders: No Hx Congestive Heart Failure: No Hx Hypertension: No Hx Hypercholesterolemia: No Hx Pacemaker: No HX Cerebrovascular Accident: No Hx Seizures: No Hx Dementia: No Hx Diabetes: No Hx Gastrointestinal Disorders: No Hx Liver Disease: No Hx Genitourinary Disorders: No Hx Sexually Transmitted Disorders: No Hx Renal Disease (ESRD): No Hx Thyroid Disease: No Hx Human Immunodeficiency Virus (HIV): No (Last Tested approx. 90 days ago: NEGATIVE.) Hx Hepatitis C: No (Last Tested approx. 90 days ago: NEGATIVE.) Hx Depression: No Hx Suicide Attempt: No Hx Bipolar Disorder: No Hx Schizophrenia: No Other Medical History: no sucidal,no homicidal - Patient Surgical History Past Surgical History: Yes Hx Neurologic Surgery: No Hx Cataract Extraction: No Hx Cardiac Surgery: No Hx Lung Surgery: No Hx Breast Surgery: No Hx Breast Biopsy: No Hx Abdominal Surgery: No Hx Appendectomy: No Hx Cholecystectomy: No Hx Genitourinary Surgery: No Hx Orthopedic Surgery: No Other Surgical History: PARTIAL PROSTATECTOMY 09/07/15 (ca)/biopsy (malignant), lump, right side of Anesthesia Reaction: No - PPD History Previous Implant?: Yes Documented Results: Positive w/o proof Implanted On Prior [facility] Admission?: No Date: 06/12/17 Results: CXR(-)06/12/17 PPD to be Administered?: No - Smoking Cessation Smoking history: Current every day smoker Have you smoked in the past 12 months: Yes Aproximately how many cigarettes per day: 5 Cigars Per Day: 0 Hx Chewing Tobacco Use: No Initiated information on smoking cessation: Yes 'Breaking Loose' booklet given: 07/02/18 - Substance & Tx. History Hx Alcohol Use: Yes Hx Substance Use: Yes Substance Use Type: Alcohol Hx Substance Use Treatment: Yes ([facility] rehab 03/30/18 to 04/04/18) - Substances Abused Alcohol-vodka/beer Route: Oral Frequency: Daily Amount used: 3 pts./2-6 pks. Age of first use: 15 Date of Last Use: 07/02/18 Family Disease History - Family Disease History Family Disease History: Diabetes: Father (, Prostate Ca., hx etoh), Heart Disease: Mother (, Breast Ca.; HTN), CA: Father, Mother, Sister ( Breast., living), Other: Brother (one living hx etoh (in recovery)), Daughter ( age 21 - twins - healthy) Admission Physical Exam S - Vital Signs Vital Signs: Vital Signs - 24 hr 07/02/18 09:40 Temperature 96.8 F L Pulse Rate 91 H Respiratory 18 Rate Blood Pressure 98/60 - Physical General Appearance: Yes: Moderate Distress, Tremorous, Irritable, Sweating, Anxious HEENTM: Yes: Normal ENT Inspection, GUSTABO, Pharynx Normal Respiratory: Yes: Lungs Clear, Normal Breath Sounds, No Respiratory Distress Neck: Yes: Within Normal Limits, Supple, Trachea in good position Breast: Yes: Within Normal Limits Cardiology: Yes: Within Normal Limits, Regular Rhythm, Regular Rate, S1, S2 Abdominal: Yes: Within Normal Limits, Normal Bowel Sounds, Non Tender, Flat, Soft Genitourinary: Yes: Other (cancer of prostate completed treatment) Back: Yes: Muscle Spasm Extremities: Yes: Within Normal Limits, Normal Range of Motion, Tremors Neurological: Yes: mail deliverer II-XII NML intact, Fully Oriented, Alert, Motor Strength 5/5 Integumentary: Yes: Dry Lymphatic: Yes: Within Normal Limits - Diagnostic (1) Alcohol dependence with uncomplicated withdrawal Current Visit: No Status: Acute (2) Anxiety Current Visit: Yes Status: Acute (3) Insomnia Current Visit: No Status: Acute (4) ADHD (attention deficit hyperactivity disorder) Current Visit: No Status: Chronic Comment: As per self-report + records. On psychostimulant medication (according to pharmacy claims). (5) Asthma Current Visit: No Status: Chronic Qualifiers: Asthma severity: unspecified severity Asthma persistence: unspecified Asthma complication type: uncomplicated Qualified Code(s): J45.909 - Unspecified asthma, uncomplicated (6) History of prostate cancer Current Visit: No Status: Resolved Comment: Currently Undergoing Treatment. (7) Nicotine dependence Current Visit: No Status: Chronic Qualifiers: Nicotine product type: cigarettes Substance use status: in withdrawal Qualified Code(s): F17.213 - Nicotine dependence, cigarettes, with withdrawal (8) PPD positive, treated Current Visit: No Status: Resolved (9) Weight loss Current Visit: Yes Status: Acute Cleared for Admission [facility] - Detox or Rehab [facility] Level of Care: Medically Managed Detox Regimen/Protocol: Librium [facility] Breath Alcohol Content Breath Alcohol Content: 0.018 Urine Drug Screen - Results Drug Screen Negative: No Urine Drug Screen Results: BZO-Benzodiazepines Inpatient Rehab Admission - Rehab Decision to Admit Inpatient rehab admission?: No
[2018-07-02] MEDS ORDERED: MAGNESIUM HYDROX 2400MG/30ML ORAL SUSPENSION 30 ML CUP PO PRN (11:46)
[2018-07-02] MEDS ORDERED: MAGNESIUM CITRATE 300 ML BOTTLE PO PRN (11:46)
[2018-07-02] MEDS ORDERED: MELATONIN 5 MG TABLETS PO PRN (11:46)
[2018-07-02] MEDS ORDERED: IBUPROFEN 400 MG TABLET (FP) PO PRN (11:46)
[2018-07-02] MEDS ORDERED: BISMUTH SUBSALICYLATE 262 MG/15 ML BTL PO PRN (11:46)
[2018-07-02] MEDS ORDERED: MENTHOL/PHENOL 1 EACH UD MM PRN (11:46)
[2018-07-02] MEDS ORDERED: ACETAMINOPHEN 325 MG TABLET (FP) PO PRN ×2 (11:46)
[2018-07-02] MEDS ORDERED: METHOCARBAMOL 500 MG TABLET PO PRN (11:46)
[2018-07-02] MEDS ORDERED: chlordiazePOXIDE HCL 25 MG CAPSULE PO PRN (11:46)
[2018-07-02] MEDS ORDERED: hydrOXYzine PAMOATE 25 MG CAPSULE (FP) PO PRN (11:46)
[2018-07-02] MEDS ORDERED: MAG HYDROX/AL HYDROX/SIMETH 30 ML UNIT-DOSE CUP PO PRN (11:46)
[2018-07-02] MEDS ORDERED: ALBUTEROL SO4 8 GM HFA INHALER IH PRN (11:51)
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
[2018-07-02] MEDS: chlordiazePOXIDE HCL 25 MG CAPSULE PO SCH ×2 (17:33→22:28)
[2018-07-02] MEDS: THIAMINE HCL 100 MG TABLET (FP) PO SCH (22:28)
[2018-07-02] MEDS: traZODone HCL 50 MG TABLET (FP) PO SCH (22:28)
[2018-07-02] MEDS: busPIRone HCL 10 MG TABLET (FP) PO SCH (22:28)
[2018-07-03] MEDS: chlordiazePOXIDE HCL 25 MG CAPSULE PO SCH ×4 (05:29→22:15)
[2018-07-03] MEDS ORDERED: PRENATAL VITAMINS W/ FOLIC ACID TABLET (FP) PO SCH (10:00)
[2018-07-03 10:24] LABS: HEMATOCRIT 37.6 % (35.4-49); HEMOGLOBIN 12.6 GM/dL (11.7-16.9); MCH 32.6 pg (25.7-33.7); MCHC 33.5 g/dl (32.0-35.9); MEAN CELL VOLUME 97.1 fl (80-96); MEAN PLT VOLUME 8.2 fl (7.5-11.1); PLATELET COUNT 175 K/MM3 (134-434); RBC 3.87 M/mm3 (4.00-5.60); WHITE BLOOD COUNT 4.5 K/mm3 (4.0-10.0)
[2018-07-03 10:39] LABS: ALBUMIN 3.9 g/dl (3.4-5.0); ALK PHOS 49 U/L (45-117); ANION GAP 7 MMOL/L (8-16); BILIRUBIN,TOTAL 0.3 mg/dL (0.2-1); BLOOD UREA NITROGEN 10 mg/dL (7-18); CALCIUM 8.5 mg/dL (8.5-10.1); CHLORIDE 110 mmol/L (98-107); CO2 24 mmol/L (21-32); CREATININE 0.9 mg/dL (0.55-1.3); GLUCOSE,RANDOM 82 mg/dL (74-106); POTASSIUM 3.7 mmol/L (3.5-5.1); SGOT/AST 12 U/L (15-37); SGPT/ALT 18 U/L (13-61); SODIUM 141 mmol/L (136-145); TOT PROT 7.3 g/dl (6.4-8.2)
[2018-07-03] MEDS: busPIRone HCL 10 MG TABLET (FP) PO SCH ×2 (10:45→22:15)
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
[2018-07-03] MEDS: THIAMINE HCL 100 MG TABLET (FP) PO SCH (22:14)
[2018-07-03] MEDS: traZODone HCL 50 MG TABLET (FP) PO SCH (22:15)
[2018-07-04] MEDS: chlordiazePOXIDE HCL 25 MG CAPSULE PO SCH (06:06)
[2018-07-04 06:25] VITALS: BP 111/61; PULSE 57; TEMP 96.3
--- NOTE | 2018-07-04 07:39 | DS ---
[facility] Detox Discharge Summary Admission Date: 07/02/18 Discharge Date: 07/04/18 - History Additional Comments: Patient is leaving against medical advice. He reports that he has a bed for Rehab in [place] and wants to leave. Patient encouraged tro complete his detox but he refused Pertinent Past History: Alcohol withdrawal symptoms, Proststa Ca, nicotine dependence - Physical Exam Results Vital Signs: Vital Signs Temperature 96.3 F L 07/04/18 06:25 Pulse Rate 57 L 07/04/18 06:25 Respiratory Rate 18 07/04/18 06:25 Blood Pressure 111/61 07/04/18 06:25 O2 Sat by Pulse Oximetry (%) Laboratory Last Values WBC 4.5 K/mm3 (4.0-10.0) 07/03/18 06:00 RBC 3.87 M/mm3 (4.00-5.60) L 07/03/18 06:00 Hgb 12.6 GM/dL (11.7-16.9) 07/03/18 06:00 Hct 37.6 % (35.4-49) 07/03/18 06:00 MCV 97.1 fl (80-96) H 07/03/18 06:00 MCH 32.6 pg (25.7-33.7) 07/03/18 06:00 MCHC 33.5 g/dl (32.0-35.9) 07/03/18 06:00 RDW 14.0 % (11.9-15.9) 07/03/18 06:00 Plt Count 175 K/MM3 (134-434) D 07/03/18 06:00 MPV 8.2 fl (7.5-11.1) 07/03/18 06:00 Sodium 141 mmol/L (136-145) 07/03/18 06:00 Potassium 3.7 mmol/L (3.5-5.1) 07/03/18 06:00 Chloride 110 mmol/L (98-107) H 07/03/18 06:00 Carbon Dioxide 24 mmol/L (21-32) 07/03/18 06:00 Anion Gap 7 MMOL/L (8-16) L 07/03/18 06:00 BUN 10 mg/dL (7-18) 07/03/18 06:00 Creatinine 0.9 mg/dL (0.55-1.3) 07/03/18 06:00 Creat Clearance w eGFR > 60 (>60) 07/03/18 06:00 Random Glucose 82 mg/dL (74-106) 07/03/18 06:00 Calcium 8.5 mg/dL (8.5-10.1) 07/03/18 06:00 Total Bilirubin 0.3 mg/dL (0.2-1) 07/03/18 06:00 AST 12 U/L (15-37) L 07/03/18 06:00 ALT 18 U/L (13-61) 07/03/18 06:00 Alkaline Phosphatase 49 U/L (45-117) 07/03/18 06:00 Total Protein 7.3 g/dl (6.4-8.2) 07/03/18 06:00 Albumin 3.9 g/dl (3.4-5.0) 07/03/18 06:00 RPR Titer Nonreactive (NONREACTIVE) 07/03/18 06:00 Pertinent Admission Physical Exam Findings: Alcohol withdrawal symptoms - Medication Discharge Medications: Ambulatory Orders Buspirone HCl [Buspar -] 10 mg PO BID #60 tablet 07/09/17 Albuterol Sulfate Inhaler - [Ventolin HFA Inhaler -] 2 inh PO Q4H PRN #1 inhaler 04/02/18 - Diagnosis (1) Anxiety Current Visit: Yes Status: Chronic (2) Sedative, 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 Current Visit: Yes Status: Chronic (3) Anxiety Current Visit: Yes Status: Chronic (4) Asthma Current Visit: Yes Status: Chronic Qualifiers: Asthma severity: unspecified severity Asthma persistence: unspecified Asthma complication type: uncomplicated Qualified Code(s): J45.909 - Unspecified asthma, uncomplicated (5) COPD (chronic obstructive pulmonary disease) Current Visit: Yes Status: Chronic Qualifiers: COPD type: unspecified COPD Qualified Code(s): J44.9 - Chronic obstructive pulmonary disease, unspecified (6) Cocaine dependence, uncomplicated Current Visit: Yes Status: Chronic (7) MDD (major depressive disorder) Current Visit: Yes Status: Chronic (8) Nicotine dependence Current Visit: Yes Status: Chronic Qualifiers: Nicotine product type: cigarettes Substance use status: in withdrawal Qualified Code(s): F17.213 - Nicotine dependence, cigarettes, with withdrawal (9) Alcohol related seizure Current Visit: Yes Status: Resolved (10) History of prostate cancer Current Visit: Yes Status: Resolved (11) PPD positive, treated Current Visit: Yes Status: Resolved - AMA Did Patient Leave Against Medical Advice: Yes
[2018-07-04] MEDS ORDERED: chlordiazePOXIDE HCL 10 MG CAPSULE PO PRN (17:00)
[2018-07-04] MEDS ORDERED: chlordiazePOXIDE HCL 10 MG CAPSULE PO SCH (17:00)
[2018-07-05] MEDS ORDERED: chlordiazePOXIDE HCL 10 MG CAPSULE PO SCH (17:00)
== END 2018-07-04 06:45 | disposition left against medical advice (07) | DRG 894 ==
LOC: YASAS 09:09 → Y6N 12:00 → Y3N 07-03 13:57
PROVIDERS: ADMIT Surgery; ATTEND Surgery
PROC: HZ2ZZZZ Detoxification Services for Substance Abuse Treatment (ICD-10-PCS; principal; 2018-07-02)
DX: F10.230 Alcohol dependence with withdrawal, uncomplicated (principal); F13.20 Sedative, hypnotic or anxiolytic dependence, uncomplicated; F14.20 Cocaine dependence, uncomplicated; F19.282 Other psychoactive substance dependence with psychoactive substance-induced sleep disorder; Z68.1 Body mass index [BMI] 19.9 or less, adult; F17.213 Nicotine dependence, cigarettes, with withdrawal; F41.9 Anxiety disorder, unspecified; F32.9 Major depressive disorder, single episode, unspecified; F90.9 Attention-deficit hyperactivity disorder, unspecified type; J43.9 Emphysema, unspecified; R76.11 Nonspecific reaction to tuberculin skin test without active tuberculosis; R63.4 Abnormal weight loss; Z91.013 Allergy to seafood; Z86.69 Personal history of other diseases of the nervous system and sense organs; Z85.46 Personal history of malignant neoplasm of prostate
CPT/HCPCS: 36415; 80053; 85027; 86593

== ENCOUNTER 2018-07-19 09:53 | Inpatient (IN) | payer OTHER ==
[2018-07-19 10:21] VITALS: BMI 18.3
--- NOTE | 2018-07-19 12:41 | HP ---
CIWA Score Nausea/Vomitin-Mild Nausea/No Vomiting Muscle Tremors: None Anxiety: 2 Agitation: 1-Slight > Activity Paroxysmal Sweats: No Perspiration Orientation: 0-Oriented Tacttile Disturbances: 0-None Auditory Disturbances: 0-None Visual Disturbances: 2-Mild Sensitivity Headache: 0-None Present CIWA-Ar Total Score: 6 - Admission Criteria OASAS Guidelines: Admission for Medically Managed Detox: Requires at least one of the followin. CIWA greater than 12 2. Seizures within the past 24 hours 3. Delirium tremens within the past 24 hours 4. Hallucinations within the past 24 hours 5. Acute intervention needed for co occurring medical disorder 6. Acute intervention needed for co occurring psychiatric disorder 7. Severe withdrawal that cannot be handled at a lower level of care (continued vomiting, continued diarrhea, abnormal vital signs) requiring intravenous medication and/or fluids 8. Admission ROS [facility] Allergies/Adverse Reactions: Allergies Allergy/AdvReac Type Severity Reaction Status Date / Time shellfish derived Allergy Severe Swelling Verified 07/19/18 14:00 No Known Drug Allergies Allergy Verified 07/19/18 14:00 History of Present Illness: 52 y.o. male with cocaine and alcohol dependence , reports 2 -3 pints vodka/ day , latest use 45 minutes ago went to the corner store and got a beer , current RAKEL 0.007 , reports he starts drinking in the mornings , first age of use 15 , progressively worsened since 2010 relapse after family murdered 2010, prior sobriety x 22 years. Current symptoms as above. cocaine : 25 $ day PMHx: asthma ( since childhood, intubated as a child ), metastatic prostate cancer, R femur , R hip , lymph node , had chemotherapy completed x 11 week course , goes to [facility] , next appt April 2018 missed , planning to go August 19 , has tx starting 08/25/18 . PSHx: left inguinal hernia , partial prostatectomy 2015 Allergies : shellfish meds : Buspar , DENIES ANY OTHER MEDS " I DON'T TAKE ANYTHING, JUST THE BUSPAR " SHX : lives w/ twin daughter , unemployed SSD for prostate cancer Search Terms: danyelle palomino, 1965 Search Date: 07/19/2018 12:44:06 PM The Drug Utilization Report below displays all of the controlled substance prescriptions, if any, that your patient has filled in the last twelve months. The information displayed on this report is compiled from pharmacy submissions to the Department, and accurately reflects the information as submitted by the pharmacies. This report was requested by: Anna Aguilera | Reference #: [id number] Others' Prescriptions Patient Name: Danyelle Pitt Date: 1965 Address: [address] [place] [address] Sex: Male Rx Written Rx Dispensed Drug Quantity Days Supply Prescriber Name 07/04/2018 07/05/2018 suboxone 8 mg-2 mg sl film 90 30 Kenya Garcia MD 07/05/2018 07/05/2018 clonazepam 2 mg tablet 60 30 Kenya Garcia MD 06/12/2018 06/12/2018 suboxone 8 mg-2 mg sl film 90 30 Kenya Garcia MD 06/12/2018 06/12/2018 clonazepam 2 mg tablet 60 30 Kenya Garcia MD 05/16/2018 05/16/2018 clonazepam 2 mg tablet 60 30 Kenya Garcia MD 05/16/2018 05/16/2018 suboxone 8 mg-2 mg sl film 90 30 Kenya Garcia MD 05/02/2018 05/04/2018 dextroamp-amphetamin 20 mg tab 30 15 Kelley Nolana 03/29/2018 03/29/2018 clonazepam 2 mg tablet 60 30 Kenya Garcia MD 03/29/2018 03/29/2018 suboxone 8 mg-2 mg sl film 90 30 Kenya Garcia MD 02/27/2018 02/27/2018 suboxone 8 mg-2 mg sl film 90 30 Kenya Garcia MD 02/27/2018 02/27/2018 clonazepam 2 mg tablet 60 30 Kenya Garcia MD 01/30/2018 01/30/2018 suboxone 8 mg-2 mg sl film 90 30 Kenya Garcia MD 01/30/2018 01/30/2018 clonazepam 2 mg tablet 60 30 Kenya Garcia MD 01/02/2018 01/02/2018 suboxone 8 mg-2 mg sl film 90 30 Kenya Garcia MD 01/02/2018 01/02/2018 clonazepam 2 mg tablet 60 30 Kenya Garcia MD 11/28/2017 11/28/2017 suboxone 8 mg-2 mg sl film 90 30 Kenya Garcia MD 11/28/2017 11/28/2017 clonazepam 2 mg tablet 60 30 Kenya Garcia MD 10/31/2017 10/31/2017 clonazepam 2 mg tablet 60 30 Kenya Garcia MD 10/31/2017 10/31/2017 suboxone 8 mg-2 mg sl film 90 30 Kenya Garcia MD Patient Name: Danyelle Pitt Date: 1965 Address: [address] [place] [address] [place] [address] Sex: Male Rx Written Rx Dispensed Drug Quantity Days Supply Prescriber Name 06/27/2018 06/27/2018 dextroamp-amphetamin 20 mg tab 60 30 [facility] Patient Name: Danyelle Pitt Date: 1965 Address: [address] [facility] [address] [place] [address] Sex: Male Rx Written Rx Dispensed Drug Quantity Days Supply Prescriber Name 05/30/2018 05/30/2018 dextroamp-amphetamin 20 mg tab 60 30 Nina Hannah 03/12/2018 03/16/2018 dextroamp-amphetamin 20 mg tab 60 30 Mahato , Tristan S 02/13/2018 02/13/2018 dextroamp-amphetamin 20 mg tab 60 30 Mahato , Tristan S 01/17/2018 01/17/2018 dextroamp-amphetamin 20 mg tab 60 30 Cassidy Cantu) 12/29/2017 12/29/2017 dextroamp-amphetamin 20 mg tab 42 21 Mahato , Tristan 12/11/2017 12/11/2017 dextroamp-amphetamin 20 mg tab 42 21 Melvi Tapia MD Patient Name: Danyelle Pitt Date: 1965 Address: [address] [place] [id number] Sex: Male Rx Written Rx Dispensed Drug Quantity Days Supply Prescriber Name 04/30/2018 05/01/2018 buprenorphine-naloxone 8-2 mg sl film 45 15 NolanHortensia blackmancia 04/30/2018 05/01/2018 dextroamp-amphetamin 20 mg tab 30 15 Nolan, Perla Patient Name: Danyelle Pitt Date: 1965 Address: [address] [address] Sex: Male Rx Written Rx Dispensed Drug Quantity Days Supply Prescriber Name 11/13/2017 11/13/2017 dextroamp-amphetamin 20 mg tab 60 30 Melvi Tapia MD Patient Name: Danyelle Pitt Date: 1965 Address: [address] [place] [address] Sex: Male Rx Written Rx Dispensed Drug Quantity Days Supply Prescriber Name 10/10/2017 10/11/2017 dextroamp-amphetamin 20 mg tab 60 30 John Bedolla MD 10/02/2017 10/02/2017 clonazepam 2 mg tablet 60 30 John Bedolla MD 10/02/2017 10/02/2017 suboxone 8 mg-2 mg sl film 90 30 John Bedolla MD 09/13/2017 09/14/2017 dextroamp-amphetamin 20 mg tab 60 30 John Bedolla MD Patient Name: Danyelle Pitt Date: 1965 Address: [address] [place] [id number] Sex: Male Rx Written Rx Dispensed Drug Quantity Days Supply Prescriber Name 09/07/2017 09/07/2017 clonazepam 2 mg tablet 60 30 Kenya Garcia MD 09/07/2017 09/07/2017 suboxone 8 mg-2 mg sl film 90 30 Kenya Garcia MD 08/01/2017 08/01/2017 clonazepam 2 mg tablet 60 30 Kenya Garcia MD 08/01/2017 08/01/2017 suboxone 8 mg-2 mg sl film 90 30 Kenya Garcia MD * - Drugs marked with an asterisk are compound drugs. If the compound drug is made up of more than one controlled substance, then each controlled substance will be a separate row in the table. Exam Limitations: No Limitations - Ebola screening Have you traveled outside of the country in the last 21 days: No Have you had contact with anyone from an Ebola affected area: No Have you been sick,other than usual withdrawal symptoms: No - Review of Systems Constitutional: See HPI, Unintentional Wgt. Loss EENT: reports: See HPI Respiratory: reports: No Symptoms reported Cardiac: reports: No Symptoms Reported GI: reports: Nausea : reports: No Symptoms Reported Musculoskeletal: reports: No Symptoms Reported Integumentary: reports: No Symptoms Reported Neuro: reports: No Symptoms reported Endocrine: reports: No Symptoms Reported Psychiatric: reports: Orientated x3 Patient History - Patient Medical History Hx Anemia: No Hx Asthma: Yes Hx Chronic Obstructive Pulmonary Disease (COPD): No Hx Cancer: Yes (Prostate, Completed round of treatment approx. 8 weeks ago.) Hx Cardiac Disorders: No Hx Congestive Heart Failure: No Hx Hypertension: No Hx Hypercholesterolemia: No Hx Pacemaker: No HX Cerebrovascular Accident: No Hx Seizures: No Hx Dementia: No Hx Diabetes: No Hx Gastrointestinal Disorders: No Hx Liver Disease: No Hx Genitourinary Disorders: No Hx Sexually Transmitted Disorders: No Hx Renal Disease (ESRD): No Hx Thyroid Disease: No Hx Human Immunodeficiency Virus (HIV): No (Last Tested approx. 90 days ago: NEGATIVE.) Hx Hepatitis C: No (Last Tested approx. 90 days ago: NEGATIVE.) Hx Depression: No Hx Suicide Attempt: No Hx Bipolar Disorder: No Hx Schizophrenia: No - Patient Surgical History Past Surgical History: Yes Hx Neurologic Surgery: No Hx Cataract Extraction: No Hx Cardiac Surgery: No Hx Lung Surgery: No Hx Breast Surgery: No Hx Breast Biopsy: No Hx Abdominal Surgery: No Hx Appendectomy: No Hx Cholecystectomy: No Hx Genitourinary Surgery: No Hx Orthopedic Surgery: No Other Surgical History: PARTIAL PROSTATECTOMY 09/07/15 (ca)/biopsy (malignant), lump, right side of Anesthesia Reaction: No - PPD History Date: 06/12/17 Results: CXR(-)06/12/17 - Smoking Cessation Smoking history: Current every day smoker Have you smoked in the past 12 months: Yes Aproximately how many cigarettes per day: 5 Cigars Per Day: 0 Hx Chewing Tobacco Use: No Initiated information on smoking cessation: No - Substances Abused Alcohol Route: Oral Frequency: Daily Amount used: 3 pts. dorcas/rum/vodka, 2 six packs beer (24 oz cans) Age of first use: 15 Date of Last Use: 07/19/18 Family Disease History - Family Disease History Family Disease History: Diabetes: Father (, Prostate Ca., hx etoh), Heart Disease: Mother (, Breast Ca.; HTN), CA: Father, Mother, Sister ( Breast., living), Other: Brother (one living hx etoh (in recovery)), Daughter ( age 21 - twins - healthy) Admission Physical Exam S - Vital Signs Vital Signs: Vital Signs - 24 hr 07/19/18 10:19 Temperature 96.9 F L Pulse Rate 87 Respiratory 18 Rate Blood Pressure 100/60 - Physical General Appearance: Yes: No Apparent Distress, Thin HEENTM: Yes: EOMI, Hearing grossly Normal, Normocephalic, Normal Voice Respiratory: Yes: Chest Non-Tender, Lungs Clear, Normal Breath Sounds Neck: Yes: No masses,lesions,Nodules, Trachea in good position Cardiology: Yes: Regular Rhythm, Regular Rate, S1, S2 Abdominal: Yes: Normal Bowel Sounds, Non Tender, Soft Genitourinary: Yes: Within Normal Limits Back: Yes: Normal Inspection Musculoskeletal: Yes: full range of Motion, Gait Steady Extremities: Yes: Normal Range of Motion, Non-Tender Neurological: Yes: Motor Strength 5/5, Normal Mood/Affect Integumentary: Yes: Warm - Diagnostic (1) Cocaine use disorder Current Visit: Yes Status: Chronic (2) Alcohol dependence Current Visit: Yes Status: Acute Qualifiers: Substance use status: uncomplicated Qualified Code(s): F10.20 - Alcohol dependence, uncomplicated (3) Nicotine dependence Current Visit: Yes Status: Chronic Qualifiers: Nicotine product type: cigarettes [facility] Breath Alcohol Content Breath Alcohol Content: 0.007 Urine Drug Screen - Results Drug Screen Negative: No Urine Drug Screen Results: RASHID-Cocaine, BZO-Benzodiazepines Inpatient Rehab Admission - Rehab Decision to Admit Inpatient rehab admission?: Yes - Initial Determination Are CD services needed?: Yes Free of communicable disease: Yes Not in need of hospitalization: Yes - Rehab Admission Criteria Previous failed treatment: Yes Poor recovery environment: Yes Comorbidities: Yes Lacks judgement: Yes Patient is meeting Inpatient Rehab admission criteria:: Yes
[2018-07-19] MEDS ORDERED: MAG HYDROX/AL HYDROX/SIMETH 30 ML UNIT-DOSE CUP PO PRN (12:50)
[2018-07-19] MEDS ORDERED: NICOTINE POLACRILEX 2 MG GUM BC PRN (12:50)
[2018-07-19] MEDS ORDERED: IBUPROFEN 400 MG TABLET (FP) PO PRN (12:50)
[2018-07-19] MEDS ORDERED: MAGNESIUM CITRATE 300 ML BOTTLE PO PRN (12:50)
[2018-07-19] MEDS ORDERED: ACETAMINOPHEN 325 MG TABLET (FP) PO PRN (12:50)
[2018-07-19] MEDS ORDERED: MENTHOL/PHENOL 1 EACH UD MM PRN (12:50)
[2018-07-19] MEDS ORDERED: MAGNESIUM HYDROX 2400MG/30ML ORAL SUSPENSION 30 ML CUP PO PRN (12:50)
[2018-07-19] MEDS ORDERED: guaiFENesin 200 MG/10 ML 10 ML UNIT-DOSE CUPS PO PRN (12:50)
[2018-07-19] MEDS ORDERED: P-EPHED 60MG/TRIPROLIDI 2.5MG TABLET PO PRN (12:50)
[2018-07-19] MEDS ORDERED: LOPERAMIDE HCL 2 MG CAPSULE PO PRN (12:50)
[2018-07-19] MEDS ORDERED: hydrOXYzine PAMOATE 25 MG CAPSULE (FP) PO PRN (12:50)
[2018-07-19] MEDS ORDERED: ALBUTEROL SO4 0.083% IH SOL 2.5 MG/3 ML VIAL.NEB. NEB PRN (12:51)
[2018-07-19] MEDS ORDERED: NICOTINE 14 MG/24 HOURS TOPICAL PATCH TD SCH (13:00)
[2018-07-19] MEDS: NICOTINE 21 MG/24 HOURS TOPICAL PATCH TD SCH (18:01)
--- NOTE | 2018-07-19 18:01 | CONSULT ---
[facility] Psychiatric Consult - Data Date of interview: 07/19/18 Admission source: [facility] Identifying data: Patient is a 52 year old male, father of three (one ), unemployed, domiciled, and is suppported by [employer] [facility] (father was a ) . This is one of multiple admissions for patient. Patient admitted to for alcohol and cocaine dependence. Substance Abuse History: Reports history of alcohol and cocaine use. Medical History: Significant for bronchial asthma(childhood), emphysema, history of treatment for PPD+,partial prostatectomy in 2016 for cancer along with recent chemotherapy(metastases to right femur, right hip, submandibular lymphadenopathy) and left inguinal herniorraphy Psychiatric History: Patient's first psychiatric contact was at 10 years of age when he was diagnosed with ADHD and treated with psychostimulants. In 2010, following the murder of his and son, he was diagnosed with MDD and anxiety and started on medications. Througout the years he has been tried on several psychotropic medications that include but not limited to Paroxetine, Quetiapine , Clonazepam, Mirtazapine, Buspirone and Trazodone. Mr. Pitt denies h/o psychiatric hospitalizations and suicide attempts. He is currently receiving outpatient psychiatric care +psychotherapy at [facility] and is prescribed buspar 10mg BID + Trazodone 50mg HS + Klonopin 2mg BID (he last took klonopin four days ago. States he is weaning himself off and is fine without it) + Suboxone 8-2mg +Adderall 20mg BID (reports taking adderall it as needed. states he does not need it while in rehab). At present he reports stable mood but has difficulty sleeping. Physical/Sexual Abuse/Trauma History: Severe trauma : + son murdered in 2010 Mental Status Exam - Mental Status Exam Alert and Oriented to: Time, Place, Person Cognitive Function: Good Patient Appearance: Well Groomed Mood: Sad Affect: Appropriate Patient Behavior: Appropriate, Cooperative Speech Pattern: Clear, Appropriate Voice Loudness: Normal Thought Process: Intact, Goal Oriented Thought Disorder: Not Present Hallucinations: Denies Suicidal Ideation: Denies Homicidal Ideation: Denies Insight/Judgement: Poor Sleep: Poorly Appetite: Fair Muscle strength/Tone: Normal Gait/Station: Normal Psychiatric Findings - Problem List ([place] 1, 2,3) (1) Alcohol dependence with uncomplicated withdrawal Current Visit: Yes Status: Acute (2) Substance-induced sleep disorder Current Visit: Yes Status: Acute (3) ADHD (attention deficit hyperactivity disorder) Current Visit: No Status: Chronic (4) MDD (major depressive disorder) Current Visit: Yes Status: Chronic (5) Cocaine use disorder Current Visit: Yes Status: Chronic - Initial Treatment Plan Initial Treatment Plan: Psychoeducation provided. Detoxification in progress. Will order Buspar 10mg BID + Trazodone 50mg HS. Benefits and side effects discussed. Verbal consent given.
[2018-07-19] MEDS: busPIRone HCL 10 MG TABLET (FP) PO SCH (21:27)
[2018-07-19] MEDS: traZODone HCL 50 MG TABLET (FP) PO SCH (21:27)
[2018-07-19] MEDS: THIAMINE HCL 100 MG TABLET (FP) PO SCH (21:27)
[2018-07-19] MEDS ORDERED: MELATONIN 5 MG TABLETS PO PRN (22:00)
[2018-07-20] MEDS: PRENATAL VITAMINS W/ FOLIC ACID TABLET (FP) PO SCH (10:34)
[2018-07-20] MEDS: NICOTINE 21 MG/24 HOURS TOPICAL PATCH TD SCH (10:35)
[2018-07-20] MEDS: busPIRone HCL 10 MG TABLET (FP) PO SCH ×2 (10:35→21:22)
--- NOTE | 2018-07-20 16:33 | PN ---
[facility] Progress Note Note: C/O PAIN AND BUMP ON LEFT NOSTRIL. Vital Signs (72 hours) 07/19/18 07/20/18 07/20/18 10:19 00:30 06:38 Temperature 96.9 F L 98.2 F Pulse Rate 87 70 Respiratory 18 18 18 Rate Blood Pressure 100/60 103/57 L Laboratory Tests 07/19/18 15:00 HIV 1&2 Antibody Screen Negative HIV P24 Antigen Negative NOSE EXAM:REDNESS AND A SMALL BUMP ON UPPER WALL OF LEFT NOSTRIL. PLAN:BACITRACIN OINTMENT TO LEFT NOSTRIL BID WARM COMPRESS TO AFFECTED NOSTRIL BID.
[2018-07-20] MEDS: THIAMINE HCL 100 MG TABLET (FP) PO SCH (21:22)
[2018-07-20] MEDS: traZODone HCL 50 MG TABLET (FP) PO SCH (21:22)
[2018-07-20] MEDS: BACITRACIN 0.9 GM PACKET TP SCH (21:22)
[2018-07-21 00:06] LABS: EPI CELLS 1.4 /HPF (0-5); URINE APPEARANCE CLEAR; URINE BACTERIA 1.7 /hpf (NEGATIVE); URINE BILIRUBIN NEGATIVE (NEGATIVE); URINE CASTS 1 /hpf (0-8); URINE GLUCOSE (UA) NEGATIVE (NEGATIVE); URINE KETONE TRACE (NEGATIVE); URINE LEUK ESTERASE TRACE (NEGATIVE); URINE NITRITE NEGATIVE (NEGATIVE); URINE PROTEIN NEGATIVE (NEGATIVE); URINE RBC 2 /hpf (0-4); URINE WBC 2 /hpf (0-5)
[2018-07-21] MEDS: NICOTINE 21 MG/24 HOURS TOPICAL PATCH TD SCH (09:48)
[2018-07-21] MEDS: BACITRACIN 0.9 GM PACKET TP SCH ×2 (09:48→21:59)
[2018-07-21] MEDS: busPIRone HCL 10 MG TABLET (FP) PO SCH ×2 (09:48→21:59)
[2018-07-21] MEDS: PRENATAL VITAMINS W/ FOLIC ACID TABLET (FP) PO SCH (09:48)
[2018-07-21] MEDS: THIAMINE HCL 100 MG TABLET (FP) PO SCH (21:59)
[2018-07-21] MEDS: traZODone HCL 50 MG TABLET (FP) PO SCH (21:59)
[2018-07-22] MEDS: busPIRone HCL 10 MG TABLET (FP) PO SCH ×2 (09:51→21:28)
[2018-07-22] MEDS: NICOTINE 21 MG/24 HOURS TOPICAL PATCH TD SCH (09:52)
[2018-07-22] MEDS: PRENATAL VITAMINS W/ FOLIC ACID TABLET (FP) PO SCH (09:52)
[2018-07-22] MEDS: BACITRACIN 0.9 GM PACKET TP SCH ×2 (09:52→21:28)
[2018-07-22] MEDS: THIAMINE HCL 100 MG TABLET (FP) PO SCH (21:28)
[2018-07-22] MEDS: traZODone HCL 50 MG TABLET (FP) PO SCH (21:28)
[2018-07-23] MEDS: BACITRACIN 0.9 GM PACKET TP SCH ×2 (10:31→21:18)
[2018-07-23] MEDS: NICOTINE 21 MG/24 HOURS TOPICAL PATCH TD SCH (10:31)
[2018-07-23] MEDS: PRENATAL VITAMINS W/ FOLIC ACID TABLET (FP) PO SCH (10:31)
[2018-07-23] MEDS: busPIRone HCL 10 MG TABLET (FP) PO SCH ×2 (10:31→21:18)
[2018-07-23] MEDS: traZODone HCL 50 MG TABLET (FP) PO SCH (21:18)
[2018-07-23] MEDS: THIAMINE HCL 100 MG TABLET (FP) PO SCH (21:18)
[2018-07-24] MEDS: BACITRACIN 0.9 GM PACKET TP SCH ×2 (10:27→21:32)
[2018-07-24] MEDS: PRENATAL VITAMINS W/ FOLIC ACID TABLET (FP) PO SCH (10:27)
[2018-07-24] MEDS: busPIRone HCL 10 MG TABLET (FP) PO SCH ×2 (10:27→21:32)
[2018-07-24] MEDS: NICOTINE 21 MG/24 HOURS TOPICAL PATCH TD SCH (10:27)
--- NOTE | 2018-07-24 14:50 | PN ---
[facility] Progress Note Note: Patient is scheduled for discharge tomorrow. Script for 30 days supply of medications(Buspar, Trazadone) will be electronically transmitted to [facility] at [address] [place] [id number]
[2018-07-24] MEDS: THIAMINE HCL 100 MG TABLET (FP) PO SCH (21:32)
[2018-07-24] MEDS: traZODone HCL 50 MG TABLET (FP) PO SCH (21:32)
[2018-07-25 07:00] VITALS: BP 131/65; PULSE 68; TEMP 97.4
--- NOTE | 2018-07-25 10:53 | PN ---
[facility] Progress Note Note: PT COMPLETED REHAB AND DISCHARGED TODAY. PT HAS BEEN REFERRED TO Jazmin CRUZ [facility] FOR AFTERCARE. PT REPORTS HE HAS A COMPREHENSIVE MEDICAL TEAM AT [facility] [place], [place]. PT REPORTS HE HAS APPOINTMENT DATE TODAY 07/25/18 FOR A MEDICAL FOLLOW UP. Home Medications Medication Instructions Recorded Albuterol Sulfate Inhaler - 2 inh PO Q4H PRN #1 inhaler 04/02/18 [Ventolin HFA Inhaler -] Buspirone HCl [Buspar -] 10 mg PO BID #60 tablet 07/24/18 traZODone HCL [Trazodone HCl] 50 mg PO HS #30 tablet 07/24/18 Vital Signs - 24 hr 07/25/18 07/25/18 07/25/18 00:30 03:30 07:00 Temperature 97.4 F L Pulse Rate 68 Respiratory 18 18 18 Rate Blood Pressure 131/65 Laboratory Tests 07/19/18 07/19/18 15:00 20:42 Urine Color Urine Appearance Clear Urine pH 6.0 Ur Specific [place] 1.025 Urine Protein Negative Urine Glucose (UA) Negative Urine Ketones Trace H Urine Blood Negative Urine Nitrite Negative Urine Bilirubin Negative Urine Urobilinogen 1.0 Ur Leukocyte Esterase Trace Urine WBC (Auto) 2 Urine RBC (Auto) 2 Urine Casts (Auto) 1 U Epithel Cells (Auto) 1.4 Urine Bacteria (Auto) 1.7 HIV 1&2 Antibody Screen Negative HIV P24 Antigen Negative MEDICALLY STABLE PLAN;FOLLOW UP WITH CD AFTERCARE RECOMMENDATION ON 07/25/18 AT 11:00 A.M FOLLOW UP WITH MEDICAL MANAGEMENT WITH PCP TODAY SCHEDULED. 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
== END 2018-07-25 07:10 | disposition home or self-care (01) | DRG 895 ==
LOC: YASAS 09:53 → Y5N 14:27
PROVIDERS: ADMIT Neuromusculoskeletal Medicine & OMM; ATTEND Neuromusculoskeletal Medicine & OMM
PROC: HZ42ZZZ Group Counseling for Substance Abuse Treatment, Cognitive-Behavioral (ICD-10-PCS; principal; 2018-07-20)
DX: F10.20 Alcohol dependence, uncomplicated (principal); F13.20 Sedative, hypnotic or anxiolytic dependence, uncomplicated; F14.20 Cocaine dependence, uncomplicated; Z68.1 Body mass index [BMI] 19.9 or less, adult; F17.210 Nicotine dependence, cigarettes, uncomplicated; J44.9 Chronic obstructive pulmonary disease, unspecified; J45.909 Unspecified asthma, uncomplicated; R63.4 Abnormal weight loss; Z85.46 Personal history of malignant neoplasm of prostate; Z86.69 Personal history of other diseases of the nervous system and sense organs
CPT/HCPCS: 36415; 81003; 87389

== ENCOUNTER 2018-12-21 08:37 | Inpatient (IN) | payer OTHER ==
[2018-12-21 09:27] VITALS: BMI 19.1
--- NOTE | 2018-12-21 10:57 | HP ---
CIWA Score Nausea/Vomitin-Mild Nausea/No Vomiting Muscle Tremors: 2 Anxiety: 2 Agitation: 1-Slight > Activity Paroxysmal Sweats: No Perspiration Orientation: 0-Oriented Tacttile Disturbances: 0-None Auditory Disturbances: 0-None Visual Disturbances: 2-Mild Sensitivity Headache: 0-None Present CIWA-Ar Total Score: 8 - Admission Criteria OASAS Guidelines: Admission for Medically Managed Detox: Requires at least one of the followin. CIWA greater than 12 2. Seizures within the past 24 hours 3. Delirium tremens within the past 24 hours 4. Hallucinations within the past 24 hours 5. Acute intervention needed for co occurring medical disorder 6. Acute intervention needed for co occurring psychiatric disorder 7. Severe withdrawal that cannot be handled at a lower level of care (continued vomiting, continued diarrhea, abnormal vital signs) requiring intravenous medication and/or fluids 8. Admission ROS [facility] Allergies/Adverse Reactions: Allergies Allergy/AdvReac Type Severity Reaction Status Date / Time shellfish derived Allergy Severe Swelling Verified 12/21/18 09:21 No Known Drug Allergies Allergy Verified 12/21/18 09:21 History of Present Illness: 52 y.o. male with cocaine and alcohol dependence , reports relapse October 2018 around the anniversary of the of his and son , currently dorcas 1/2 pint - 3 pints /day , latest use this morning to stop tremors , current RAKEL 0.000 , reports he starts drinking in the mornings, every other day or every day first age of use 15 , progressively worsened since 2010 relapse after family murdered 2010, prior sobriety x 22 years. Current symptoms as above. GOes to [facility] outpt in [place] 2 x/week and counselling 1 x/week , did not disclose etoh relapse . cocaine : 1/2 gram / day PMHx: asthma ( since childhood, intubated as a child ), metastatic prostate cancer, R femur , R hip , lymph node , had chemotherapy completed x 11 week course , goes to [facility] , next appt January 10, 2019 , for right lymph node enlargement . PSHx: left inguinal hernia, partial prostatectomy 2015 Allergies : shellfish meds : Buspar ( anxiety ) , DENIES ANY OTHER MEDS " I DON'T TAKE ANYTHING, JUST THE BUSPAR " SHX : lives w/ and twin daughters age 23 , unemployed SSD for prostate cancer . Legal : denies . This report was requested by: Anna Aguilera | Reference #: [id number] Others' Prescriptions Patient Name: Amando Pitt Date: 1965 Address: [address] [address] Sex: Male Rx Written Rx Dispensed Drug Quantity Days Supply Prescriber Name 12/03/2018 12/20/2018 dextroamp-amphetamin 20 mg tab 60 30 BunRudy de león MD 12/03/2018 12/06/2018 clonazepam 1 mg tablet 90 30 BunRudy de león MD 11/28/2018 11/28/2018 suboxone 8 mg-2 mg sl film 90 30 Tirso Chery (AURY) 11/08/2018 11/22/2018 dextroamp-amphetamin 20 mg tab 60 30 SimpsonGenet patel MD 11/08/2018 11/08/2018 clonazepam 1 mg tablet 90 30 SimpsonGenet daigle MD 10/31/2018 10/31/2018 suboxone 8 mg-2 mg sl film 90 30 Colantonio , Miguel Angel 10/11/2018 10/22/2018 dextroamp-amphetamin 20 mg tab 60 30 Simpson Genet MD 10/11/2018 10/11/2018 clonazepam 1 mg tablet 90 30 SimpsonGenet daigle MD 09/13/2018 09/24/2018 dextroamp-amphetamin 20 mg tab 60 30 SimpsonGenet daigle MD 09/13/2018 09/13/2018 clonazepam 1 mg tablet 90 30 SimpsonGenet daigle MD 08/29/2018 08/29/2018 buprenorphine-naloxone 8-2 mg sl film 90 30 Colantonio, Miguel Angel 08/01/2018 08/01/2018 buprenorphine-naloxone 8-2 mg sl film 90 30 Kenya Garcia MD 08/01/2018 08/01/2018 clonazepam 2 mg tablet 60 30 Kenya Garcia MD 07/04/2018 07/05/2018 suboxone 8 mg-2 mg sl film 90 30 Kenya Garcia MD 07/05/2018 07/05/2018 clonazepam 2 mg tablet 60 30 Kenya Garcia MD 06/12/2018 06/12/2018 suboxone 8 mg-2 mg sl film 90 30 Kenya Garcia MD 06/12/2018 06/12/2018 clonazepam 2 mg tablet 60 30 Kenya Garcia MD 05/16/2018 05/16/2018 clonazepam 2 mg tablet 60 30 Kenya Garcia MD 05/16/2018 05/16/2018 suboxone 8 mg-2 mg sl film 90 30 Kenya Garcia MD 05/02/2018 05/04/2018 dextroamp-amphetamin 20 mg tab 30 15 Perla Nolan 03/29/2018 03/29/2018 clonazepam 2 mg tablet 60 30 Kenya Garcia MD 03/29/2018 03/29/2018 suboxone 8 mg-2 mg sl film 90 30 Kenya Garcia MD 02/27/2018 02/27/2018 suboxone 8 mg-2 mg sl film 90 30 Kenya Garcia MD 02/27/2018 02/27/2018 clonazepam 2 mg tablet 60 30 Kenya Garcia MD 01/30/2018 01/30/2018 suboxone 8 mg-2 mg sl film 90 30 Kenya Garcia MD 01/30/2018 01/30/2018 clonazepam 2 mg tablet 60 30 Kenya Garcia MD 01/02/2018 01/02/2018 suboxone 8 mg-2 mg sl film 90 30 Kenya Garcia MD 01/02/2018 01/02/2018 clonazepam 2 mg tablet 60 30 Kenya Garcia MD Patient Name: Amando Pitt Date: 1965 Address: [address] [place] [address] Sex: Male Rx Written Rx Dispensed Drug Quantity Days Supply Prescriber Name 09/27/2018 10/01/2018 suboxone 8 mg-2 mg sl film 90 30 Issa Choudhary MD Patient Name: Amando Pitt Date: 1965 Address: [address] [place] [address] Sex: Male Rx Written Rx Dispensed Drug Quantity Days Supply Prescriber Name 08/27/2018 08/27/2018 dextroamp-amphetamin 20 mg tab 60 30 [facility] 07/27/2018 07/27/2018 dextroamp-amphetamin 20 mg tab 60 30 [facility] 06/27/2018 06/27/2018 dextroamp-amphetamin 20 mg tab 60 30 [facility] Patient Name: Amando Pitt Date: 1965 Address: [address] [facility] [address] [place], [place] [id number] Sex: Male Rx Written Rx Dispensed Drug Quantity Days Supply Prescriber Name 05/30/2018 05/30/2018 dextroamp-amphetamin 20 mg tab 60 30 Nina Hannah 03/12/2018 03/16/2018 dextroamp-amphetamin 20 mg tab 60 30 Tristan Gonzalez S 02/13/2018 02/13/2018 dextroamp-amphetamin 20 mg tab 60 30 Maggieato , Tristan S 01/17/2018 01/17/2018 dextroamp-amphetamin 20 mg tab 60 30 Cassidy Cantu () 12/29/2017 12/29/2017 dextroamp-amphetamin 20 mg tab 42 21 Tristan Gonzalez Patient Name: Amando Pitt Date: 1965 Address: [address] [place] [address] Sex: Male Rx Written Rx Dispensed Drug Quantity Days Supply Prescriber Name 04/30/2018 05/01/2018 buprenorphine-naloxone 8-2 mg sl film 45 15 Nolan, Perla 04/30/2018 05/01/2018 dextroamp-amphetamin 20 mg tab 30 15 Nolan, Perla Exam Limitations: Clinical Condition - Ebola screening Have you traveled outside of the country in the last 21 days: No (N) Have you had contact with anyone from an Ebola affected area: No Do you have a fever: No - Review of Systems Constitutional: Loss of Appetite EENT: reports: See HPI, Other (lymph node enlaregement - per pt has appt @ [facility] 01/10/19 ,) Respiratory: reports: No Symptoms reported Cardiac: reports: No Symptoms Reported GI: reports: Nausea, Poor Appetite : reports: No Symptoms Reported Musculoskeletal: reports: No Symptoms Reported Integumentary: reports: No Symptoms Reported Neuro: reports: Headache Endocrine: reports: No Symptoms Reported Psychiatric: reports: Orientated x3 Patient History - Patient Medical History Hx Anemia: No Hx Asthma: Yes Hx Chronic Obstructive Pulmonary Disease (COPD): No Hx Cancer: Yes (Prostate, Completed round of treatment approx. 8 weeks ago.) Hx Cardiac Disorders: No Hx Congestive Heart Failure: No Hx Hypertension: No Hx Hypercholesterolemia: No Hx Pacemaker: No HX Cerebrovascular Accident: No Hx Seizures: No Hx Dementia: No Hx Diabetes: No Hx Gastrointestinal Disorders: No Hx Liver Disease: No Hx Genitourinary Disorders: No Hx Sexually Transmitted Disorders: No Hx Renal Disease (ESRD): No Hx Thyroid Disease: No Hx Human Immunodeficiency Virus (HIV): No (Last Tested approx. 90 days ago: NEGATIVE.) Hx Hepatitis C: No (Last Tested approx. 90 days ago: NEGATIVE.) Hx Depression: No Hx Suicide Attempt: No Hx Bipolar Disorder: No Hx Schizophrenia: No - Patient Surgical History Past Surgical History: Yes Hx Neurologic Surgery: No Hx Cataract Extraction: No Hx Cardiac Surgery: No Hx Lung Surgery: No Hx Breast Surgery: No Hx Breast Biopsy: No Hx Abdominal Surgery: No Hx Appendectomy: No Hx Cholecystectomy: No Hx Genitourinary Surgery: No Hx Orthopedic Surgery: No Other Surgical History: PARTIAL PROSTATECTOMY 09/07/15 (ca)/biopsy (malignant), lump, right side of Anesthesia Reaction: No - PPD History Date: 06/12/17 Results: CXR(-)06/12/17 - Smoking Cessation Smoking history: Current every day smoker Have you smoked in the past 12 months: Yes Aproximately how many cigarettes per day: 5 Cigars Per Day: 0 Hx Chewing Tobacco Use: No Initiated information on smoking cessation: No - Substances abused Alcohol Substance route: Oral Frequency: Daily Amount used: 2 pint of dorcas, 6 pack of beer Age of first use: 16 Date of last use: 12/21/18 Family Disease History - Family Disease History Family Disease History: Diabetes: Father (, Prostate Ca., hx etoh), Heart Disease: Mother (, Breast Ca.; HTN), CA: Father, Mother, Sister ( Breast., living), Other: Brother (one living hx etoh (in recovery)), Daughter ( age 21 - twins - healthy) Admission Physical Exam BHS - Vital Signs Vital Signs: Vital Signs - 24 hr 12/21/18 09:17 Temperature 98.4 F Pulse Rate 102 H Respiratory 18 Rate Blood Pressure 125/75 - Physical General Appearance: Yes: Alcohol on Breath, Intoxicated HEENTM: Yes: EOMI, Hearing grossly Normal, Normocephalic, Normal Voice Respiratory: Yes: Lungs Clear, No Respiratory Distress, No Accessory Muscle Use Neck: Yes: No masses,lesions,Nodules, Trachea in good position Cardiology: Yes: Regular Rhythm, Regular Rate, S1, S2, Tachycardia Abdominal: Yes: Non Tender, Soft Musculoskeletal: Yes: Gait Steady Extremities: Yes: Normal Range of Motion, Non-Tender, Tremors Neurological: Yes: Fully Oriented, Alert, Motor Strength 5/5 Integumentary: Yes: Warm - Diagnostic (1) Alcohol dependence with uncomplicated withdrawal Current Visit: Yes Status: Acute (2) Cocaine dependence Current Visit: Yes Status: Chronic Qualifiers: Substance use status: uncomplicated Qualified Code(s): F14.20 - Cocaine dependence, uncomplicated (3) Nicotine dependence Current Visit: Yes Status: Chronic Qualifiers: Nicotine product type: cigarettes Substance use status: uncomplicated Qualified Code(s): F17.210 - Nicotine dependence, cigarettes, uncomplicated Urine Drug Screen - Control Is test valid?: Yes Inpatient Rehab Admission - Rehab Decision to Admit Inpatient rehab admission?: No
[2018-12-21] MEDS ORDERED: MAG HYDROX/AL HYDROX/SIMETH 30 ML UNIT-DOSE CUP PO PRN (11:21)
[2018-12-21] MEDS ORDERED: MAGNESIUM HYDROX 2400MG/30ML ORAL SUSPENSION 30 ML CUP PO PRN (11:21)
[2018-12-21] MEDS ORDERED: ACETAMINOPHEN 325 MG TABLET (FP) PO PRN ×2 (11:21)
[2018-12-21] MEDS ORDERED: MENTHOL/PHENOL 1 EACH UD MM PRN (11:21)
[2018-12-21] MEDS ORDERED: MELATONIN 5 MG TABLETS PO PRN (11:21)
[2018-12-21] MEDS ORDERED: BISMUTH SUBSALICYLATE 262 MG/15 ML BTL PO PRN (11:21)
[2018-12-21] MEDS ORDERED: NICOTINE POLACRILEX 2 MG GUM BUC PRN (11:21)
[2018-12-21] MEDS ORDERED: MAGNESIUM CITRATE 300 ML BOTTLE PO PRN (11:21)
[2018-12-21] MEDS ORDERED: hydrOXYzine PAMOATE 25 MG CAPSULE (FP) PO PRN (11:21)
[2018-12-21] MEDS ORDERED: IBUPROFEN 400 MG TABLET (FP) PO PRN (11:21)
[2018-12-21] MEDS ORDERED: ALBUTEROL SO4 0.083% IH SOL 2.5 MG/3 ML VIAL.NEB. NEB PRN (11:22)
[2018-12-21] MEDS ORDERED: ALBUTEROL SO4 8 GM HFA INHALER IH PRN ×2 (11:22→20:05)
[2018-12-21] MEDS ORDERED: diazePAM 5 MG TABLET PO PRN (11:25)
[2018-12-21] MEDS: diazePAM 5 MG TABLET PO SCH ×2 (13:30→22:38)
[2018-12-21] MEDS: THIAMINE HCL 100 MG TABLET (FP) PO SCH (22:38)
[2018-12-22] MEDS: diazePAM 5 MG TABLET PO SCH ×3 (05:52→22:06)
[2018-12-22 09:35] LABS: HEMOGLOBIN 13.7 GM/dL (11.7-16.9); MCH 33.3 pg (25.7-33.7); MCHC 33.6 g/dl (32.0-35.9); RDW 13.1 % (11.9-15.9)
[2018-12-22 09:36] LABS: ALBUMIN 3.7 g/dl (3.4-5.0); BILIRUBIN,TOTAL 0.4 mg/dL (0.2-1); BLOOD UREA NITROGEN 13.4 mg/dL (7-18); CREATININE 0.9 mg/dL (0.55-1.3); POTASSIUM 4.1 mmol/L (3.5-5.1); TOT PROT 7.6 g/dl (6.4-8.2)
[2018-12-22 10:26] LABS: HEMATOCRIT 40.8 % (35.4-49); MEAN CELL VOLUME 99.3 fl (80-96); MEAN PLT VOLUME 7.7 fl (7.5-11.1); PLATELET COUNT 245 K/MM3 (134-434); RBC 4.11 M/mm3 (4.00-5.60)
[2018-12-22] MEDS: PRENATAL VITAMINS W/ FOLIC ACID TABLET (FP) PO SCH (10:28)
--- NOTE | 2018-12-22 13:14 | PN ---
S CIWA - CIWA Score Nausea/Vomitin-Mild Nausea/No Vomiting Muscle Tremors: 3 Anxiety: 4-Mod. Anxious/Guarded Agitation: 3 Paroxysmal Sweats: 2 Orientation: 0-Oriented Tacttile Disturbances: 0-None Auditory Disturbances: 0-None Visual Disturbances: 0-None Headache: 0-None Present CIWA-Ar Total Score: 13 BHS Progress Note (SOAP) Subjective: Anxiety, sweats, nausea, no vomiting. Objective: 12/22/18 13:10 Vital Signs - 24 hr 12/21/18 12/21/18 12/21/18 13:48 17:44 21:40 Temperature 97.2 F L 98.7 F 98.0 F Pulse Rate 94 H 80 90 Respiratory 18 16 16 Rate Blood Pressure 123/77 108/62 110/64 12/22/18 12/22/18 12/22/18 00:30 05:56 09:26 Temperature 97.1 F L 98.4 F Pulse Rate 53 L 99 H Respiratory 18 18 18 Rate Blood Pressure 98/62 111/76 Laboratory Tests 12/22/18 12/22/18 12/22/18 07:30 07:30 07:30 WBC 7.0 RBC 4.11 Hgb 13.7 Hct 40.8 MCV 99.3 H MCH 33.3 MCHC 33.6 RDW 13.1 Plt Count 245 D MPV 7.7 Sodium 143 Potassium 4.1 Chloride 110 H Carbon Dioxide 27 Anion Gap 6 L BUN 13.4 Creatinine 0.9 Est GFR (CKD-EPI)AfAm 114.21 Est GFR (CKD-EPI)NonAf 98.54 Random Glucose 78 Calcium 9.0 Total Bilirubin 0.4 AST 29 ALT 31 Alkaline Phosphatase 47 Total Protein 7.6 Albumin 3.7 RPR Titer Nonreactive Assessment: 12/22/18 13:11 withdrawal sx Plan: continue valium detox taper zofran odt sl as directed increase po fluids as tolerated
[2018-12-22] MEDS ORDERED: ONDANSETRON *ODT* 4 MG TABLET SL PRN (15:56)
--- NOTE | 2018-12-22 17:56 | CONSULT ---
[facility] Psychiatric Consult - Data Date of interview: 12/22/18 Admission source: [facility] Identifying data: Multiple attempts made by this data analyst report writer to engage with this patient for the psychiatric evaluation (on request). Mr Pitt was approached in the dining room by . Explained the purpose of encounter. Patient promised that he will come to office. Never showed up. Examination NOT performed due to patient's uncooperativeness. Nursing staff is aware (called several times/no show).
[2018-12-22] MEDS: THIAMINE HCL 100 MG TABLET (FP) PO SCH (22:05)
[2018-12-23] MEDS ORDERED: diazePAM 5 MG TABLET PO SCH (06:00)
[2018-12-23 06:15] VITALS: BP 107/67; PULSE 67; TEMP 97.3
[2018-12-23] MEDS: PRENATAL VITAMINS W/ FOLIC ACID TABLET (FP) PO SCH (09:44)
--- NOTE | 2018-12-23 15:01 | DS ---
[facility] Detox Discharge Summary Admission Date: 12/21/18 Discharge Date: 12/23/18 - History Present History: Alcohol Dependence Additional Comments: 52 years old male multiple patient [facility] admission since 2017 was admitted on 12/21/18 for alcohol withdrawal sx doing well with valium detox regimen no complication through out the detox staty feelong better toda requests one day early discharged that he wants to return to [facility] where he going to x 4 months with good sucess Pertinent Past History: asthma nicotine - Physical Exam Results Vital Signs: Vital Signs Temperature 97.3 F L 12/23/18 06:15 Pulse Rate 67 12/23/18 06:15 Respiratory Rate 18 12/23/18 06:15 Blood Pressure 107/67 12/23/18 06:15 O2 Sat by Pulse Oximetry (%) Pertinent Admission Physical Exam Findings: alcohol withdrawal sx Laboratory Last Values WBC 7.0 K/mm3 (4.0-10.0) 12/22/18 07:30 RBC 4.11 M/mm3 (4.00-5.60) 12/22/18 07:30 Hgb 13.7 GM/dL (11.7-16.9) 12/22/18 07:30 Hct 40.8 % (35.4-49) 12/22/18 07:30 MCV 99.3 fl (80-96) H 12/22/18 07:30 MCH 33.3 pg (25.7-33.7) 12/22/18 07:30 MCHC 33.6 g/dl (32.0-35.9) 12/22/18 07:30 RDW 13.1 % (11.9-15.9) 12/22/18 07:30 Plt Count 245 K/MM3 (134-434) D 12/22/18 07:30 MPV 7.7 fl (7.5-11.1) 12/22/18 07:30 Sodium 143 mmol/L (136-145) 12/22/18 07:30 Potassium 4.1 mmol/L (3.5-5.1) 12/22/18 07:30 Chloride 110 mmol/L (98-107) H 12/22/18 07:30 Carbon Dioxide 27 mmol/L (21-32) 12/22/18 07:30 Anion Gap 6 MMOL/L (8-16) L 12/22/18 07:30 BUN 13.4 mg/dL (7-18) 12/22/18 07:30 Creatinine 0.9 mg/dL (0.55-1.3) 12/22/18 07:30 Est GFR (CKD-EPI)AfAm 114.21 12/22/18 07:30 Est GFR (CKD-EPI)NonAf 98.54 12/22/18 07:30 Random Glucose 78 mg/dL (74-106) 12/22/18 07:30 Calcium 9.0 mg/dL (8.5-10.1) 12/22/18 07:30 Total Bilirubin 0.4 mg/dL (0.2-1) 12/22/18 07:30 AST 29 U/L (15-37) 12/22/18 07:30 ALT 31 U/L (13-61) 12/22/18 07:30 Alkaline Phosphatase 47 U/L (45-117) 12/22/18 07:30 Total Protein 7.6 g/dl (6.4-8.2) 12/22/18 07:30 Albumin 3.7 g/dl (3.4-5.0) 12/22/18 07:30 RPR Titer Nonreactive (NONREACTIVE) 12/22/18 07:30 Vital Signs Temperature 97.3 F L 12/23/18 06:15 Pulse Rate 67 12/23/18 06:15 Respiratory Rate 18 12/23/18 06:15 Blood Pressure 107/67 12/23/18 06:15 O2 Sat by Pulse Oximetry (%) - Treatment Hospital Course: Detox Protocol Followed, Detoxed Safely, Responded well, Discharged Condition Good, Rehab Referral Accepted Patient has Accepted a Rehab Referral to: [facility] - Medication Discharge Medications: Ambulatory Orders Albuterol Sulfate Inhaler - [Ventolin HFA Inhaler -] 2 inh PO Q4H PRN #1 inhaler 04/02/18 Buspirone HCl [Buspar -] 10 mg PO BID #60 tablet 07/24/18 traZODone HCL [Trazodone HCl] 50 mg PO HS #30 tablet 07/24/18 - Diagnosis (1) Alcohol dependence with uncomplicated withdrawal Status: Acute (2) Asthma Status: Chronic Qualifiers: Asthma severity: mild Asthma persistence: intermittent Asthma complication type: with status asthmaticus Qualified Code(s): J45.22 - Mild intermittent asthma with status asthmaticus (3) Nicotine dependence Status: Acute Qualifiers: Nicotine product type: cigarettes Substance use status: in withdrawal Qualified Code(s): F17.213 - Nicotine dependence, cigarettes, with withdrawal (4) Substance induced mood disorder Status: Suspected (5) PPD positive, treated Status: Resolved (6) Weight loss Status: Acute - AMA Did Patient Leave Against Medical Advice: No CIWA Score - CIWA Score Nausea/Vomitin-No Nausea/No Vomiting Muscle Tremors: 2 Anxiety: 3 Agitation: 2 Paroxysmal Sweats: 1-Minimal Palms Moist Orientation: 0-Oriented Tacttile Disturbances: 0-None Auditory Disturbances: 0-None Visual Disturbances: 0-None Headache: 0-None Present CIWA-Ar Total Score: 8
[2018-12-24] MEDS ORDERED: diazePAM 5 MG TABLET PO ONE (06:00)
== END 2018-12-23 09:20 | disposition home or self-care (01) | DRG 897 ==
LOC: YASAS 08:37 → Y3N 11:44
PROVIDERS: ADMIT Surgery; ATTEND Surgery
PROC: HZ2ZZZZ Detoxification Services for Substance Abuse Treatment (ICD-10-PCS; principal; 2018-12-21)
DX: F10.230 Alcohol dependence with withdrawal, uncomplicated (principal); F14.20 Cocaine dependence, uncomplicated; F17.210 Nicotine dependence, cigarettes, uncomplicated; F41.9 Anxiety disorder, unspecified; J45.909 Unspecified asthma, uncomplicated; Z85.46 Personal history of malignant neoplasm of prostate
CPT/HCPCS: 36415; 80053; 85027; 86593

== ENCOUNTER 2019-03-27 08:30 | Inpatient (IN) | payer OTHER ==
[2019-03-27 09:00] VITALS: BMI 19.6
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
[2019-03-27] MEDS ORDERED: MAGNESIUM CITRATE 300 ML BOTTLE PO PRN (09:33)
[2019-03-27] MEDS ORDERED: BISMUTH SUBSALICYLATE 262 MG/15 ML BTL PO PRN (09:33)
[2019-03-27] MEDS ORDERED: IBUPROFEN 400 MG TABLET (FP) PO PRN (09:33)
[2019-03-27] MEDS ORDERED: MAGNESIUM HYDROX 2400MG/30ML ORAL SUSPENSION 30 ML CUP PO PRN (09:33)
[2019-03-27] MEDS ORDERED: ACETAMINOPHEN 325 MG TABLET (FP) PO PRN ×2 (09:33)
[2019-03-27] MEDS ORDERED: MENTHOL/PHENOL 1 EACH UD MM PRN (09:33)
[2019-03-27] MEDS ORDERED: LORazepam 1 MG TABLET PO PRN (09:33)
[2019-03-27] MEDS ORDERED: METHOCARBAMOL 500 MG TABLET PO PRN (09:33)
[2019-03-27] MEDS ORDERED: hydrOXYzine PAMOATE 25 MG CAPSULE (FP) PO PRN (09:33)
[2019-03-27] MEDS ORDERED: MELATONIN 5 MG TABLETS PO PRN (09:33)
[2019-03-27] MEDS ORDERED: MAG HYDROX/AL HYDROX/SIMETH 30 ML UNIT-DOSE CUP PO PRN (09:33)
[2019-03-27] MEDS ORDERED: ALBUTEROL SO4 8 GM HFA INHALER IH PRN (09:35)
[2019-03-27] MEDS: LORazepam 2 MG TABLET PO SCH ×3 (11:44→22:20)
[2019-03-27] MEDS: PRENATAL VITAMINS W/ FOLIC ACID TABLET (FP) PO SCH (11:44)
[2019-03-27] MEDS: busPIRone HCL 10 MG TABLET (FP) PO SCH ×2 (11:44→22:20)
[2019-03-27] MEDS: NICOTINE 21 MG/24 HOURS TOPICAL PATCH TD SCH (11:47)
[2019-03-27 17:44] LABS: HEMATOCRIT 39.4 % (35.4-49); MCH 32.4 pg (25.7-33.7); MCHC 33.1 g/dl (32.0-35.9); MEAN CELL VOLUME 98.1 fl (80-96); MEAN PLT VOLUME 7.4 fl (7.5-11.1); PLATELET COUNT 247 K/MM3 (134-434); RBC 4.02 M/mm3 (4.00-5.60); RDW 13.6 % (11.9-15.9)
[2019-03-27 18:05] LABS: ALBUMIN 3.8 g/dl (3.4-5.0); BILIRUBIN,TOTAL 0.6 mg/dL (0.2-1); BLOOD UREA NITROGEN 6.9 mg/dL (7-18); CALCIUM 8.6 mg/dL (8.5-10.1); POTASSIUM 3.5 mmol/L (3.5-5.1); TOT PROT 7.8 g/dl (6.4-8.2)
[2019-03-27] MEDS: THIAMINE HCL 100 MG TABLET (FP) PO SCH (22:19)
[2019-03-27] MEDS: traZODone HCL 50 MG TABLET (FP) PO SCH (22:20)
[2019-03-28] MEDS: LORazepam 2 MG TABLET PO SCH ×4 (06:02→22:24)
[2019-03-28] MEDS: PRENATAL VITAMINS W/ FOLIC ACID TABLET (FP) PO SCH (10:04)
[2019-03-28] MEDS: busPIRone HCL 10 MG TABLET (FP) PO SCH ×2 (10:04→23:07)
[2019-03-28] MEDS: NICOTINE 21 MG/24 HOURS TOPICAL PATCH TD SCH (10:05)
--- NOTE | 2019-03-28 11:43 | PN ---
S CIWA - CIWA Score Nausea/Vomitin-Mild Nausea/No Vomiting Muscle Tremors: 4-Moderate,w/Arms Extend Anxiety: 3 Agitation: 2 Paroxysmal Sweats: 2 Orientation: 0-Oriented Tacttile Disturbances: 1-Very Mild Itch/Numbness Auditory Disturbances: 0-None Visual Disturbances: 0-None Headache: 0-None Present CIWA-Ar Total Score: 13 [facility] Progress Note (SOAP) Subjective: 53 years old male admitted on 03/27/19 for alcohol withdrawal sx management treated with ativan detox reginen ate breakfast no trouble chewing swallowing resting on bed feeling tired Objective: 03/28/19 11:42 Vital Signs Temperature 97.6 F 03/28/19 09:07 Pulse Rate 81 03/28/19 09:07 Respiratory Rate 18 03/28/19 09:07 Blood Pressure 95/61 03/28/19 09:07 O2 Sat by Pulse Oximetry (%) Laboratory Last Values WBC 6.0 K/mm3 (4.0-10.0) 03/27/19 09:47 RBC 4.02 M/mm3 (4.00-5.60) 03/27/19 09:47 Hgb 13.0 GM/dL (11.7-16.9) 03/27/19 09:47 Hct 39.4 % (35.4-49) 03/27/19 09:47 MCV 98.1 fl (80-96) H 03/27/19 09:47 MCH 32.4 pg (25.7-33.7) 03/27/19 09:47 MCHC 33.1 g/dl (32.0-35.9) 03/27/19 09:47 RDW 13.6 % (11.9-15.9) 03/27/19 09:47 Plt Count 247 K/MM3 (134-434) 03/27/19 09:47 MPV 7.4 fl (7.5-11.1) L 03/27/19 09:47 Sodium 137 mmol/L (136-145) 03/27/19 09:47 Potassium 3.5 mmol/L (3.5-5.1) 03/27/19 09:47 Chloride 104 mmol/L (98-107) 03/27/19 09:47 Carbon Dioxide 26 mmol/L (21-32) 03/27/19 09:47 Anion Gap 8 MMOL/L (8-16) 03/27/19 09:47 BUN 6.9 mg/dL (7-18) L 03/27/19 09:47 Creatinine 1.0 mg/dL (0.55-1.3) 03/27/19 09:47 Est GFR (CKD-EPI)AfAm 99.85 03/27/19 09:47 Est GFR (CKD-EPI)NonAf 86.15 03/27/19 09:47 Random Glucose 67 mg/dL (74-106) L 03/27/19 09:47 Calcium 8.6 mg/dL (8.5-10.1) 03/27/19 09:47 Total Bilirubin 0.6 mg/dL (0.2-1) 03/27/19 09:47 AST 17 U/L (15-37) 03/27/19 09:47 ALT 24 U/L (13-61) 03/27/19 09:47 Alkaline Phosphatase 45 U/L (45-117) 03/27/19 09:47 Total Protein 7.8 g/dl (6.4-8.2) 03/27/19 09:47 Albumin 3.8 g/dl (3.4-5.0) 03/27/19 09:47 RPR Titer Nonreactive (NONREACTIVE) 03/27/19 09:47 lab noted Assessment: 03/28/19 11:43 alcohol withdrawal sx Plan: ativan detox regimen
--- NOTE | 2019-03-28 14:03 | CONSULT ---
[facility] Psychiatric Consult - Data Date of interview: 03/28/19 Admission source: [facility] Substance Abuse History: Doctor Of Veterinary Medicine approached patient bedside for psychiatric consultation. Patient in bed, fatigue and slightly sedated. Patient stated, " Not right now. Maybe another time." Psychiatric consultation refused.
[2019-03-28] MEDS: traZODone HCL 50 MG TABLET (FP) PO SCH (23:07)
[2019-03-28] MEDS: THIAMINE HCL 100 MG TABLET (FP) PO SCH (23:07)
[2019-03-29] MEDS: LORazepam 1 MG TABLET PO SCH ×2 (06:13→10:10)
[2019-03-29 09:19] VITALS: BP 106/66; PULSE 67; TEMP 96.4
[2019-03-29] MEDS: PRENATAL VITAMINS W/ FOLIC ACID TABLET (FP) PO SCH (10:10)
[2019-03-29] MEDS: NICOTINE 21 MG/24 HOURS TOPICAL PATCH TD SCH (10:10)
[2019-03-29] MEDS: busPIRone HCL 10 MG TABLET (FP) PO SCH (10:10)
--- NOTE | 2019-03-29 21:50 | PN ---
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 CASE CONFERENCE HELD AND PROFESSOR OF COMMUNICATION AND WRITING MADE AWARE (SEE NURSES NOTE). PATIENT STABLE. DENIES SI/HI, PATIENT WAS PROVIDED REFERRAL TO OUTPATIENT IF WORSENING SYMPTOMS ARE PRESENT TO SEEK MEDICAL ATTENTION. PATIENT WAS GIVEN HIS PROPERTY AND ESCORTED OF THE UNIT BY SECURITY. Vital Signs Temperature 96.4 F L 03/29/19 09:18 Pulse Rate 67 03/29/19 09:18 Respiratory Rate 18 03/29/19 09:18 Blood Pressure 106/66 03/29/19 09:18 O2 Sat by Pulse Oximetry (%) Laboratory Last Values WBC 6.0 K/mm3 (4.0-10.0) 03/27/19 09:47 RBC 4.02 M/mm3 (4.00-5.60) 03/27/19 09:47 Hgb 13.0 GM/dL (11.7-16.9) 03/27/19 09:47 Hct 39.4 % (35.4-49) 03/27/19 09:47 MCV 98.1 fl (80-96) H 03/27/19 09:47 MCH 32.4 pg (25.7-33.7) 03/27/19 09:47 MCHC 33.1 g/dl (32.0-35.9) 03/27/19 09:47 RDW 13.6 % (11.9-15.9) 03/27/19 09:47 Plt Count 247 K/MM3 (134-434) 03/27/19 09:47 MPV 7.4 fl (7.5-11.1) L 03/27/19 09:47 Sodium 137 mmol/L (136-145) 03/27/19 09:47 Potassium 3.5 mmol/L (3.5-5.1) 03/27/19 09:47 Chloride 104 mmol/L (98-107) 03/27/19 09:47 Carbon Dioxide 26 mmol/L (21-32) 03/27/19 09:47 Anion Gap 8 MMOL/L (8-16) 03/27/19 09:47 BUN 6.9 mg/dL (7-18) L 03/27/19 09:47 Creatinine 1.0 mg/dL (0.55-1.3) 03/27/19 09:47 Est GFR (CKD-EPI)AfAm 99.85 03/27/19 09:47 Est GFR (CKD-EPI)NonAf 86.15 03/27/19 09:47 Random Glucose 67 mg/dL (74-106) L 03/27/19 09:47 Calcium 8.6 mg/dL (8.5-10.1) 03/27/19 09:47 Total Bilirubin 0.6 mg/dL (0.2-1) 03/27/19 09:47 AST 17 U/L (15-37) 03/27/19 09:47 ALT 24 U/L (13-61) 03/27/19 09:47 Alkaline Phosphatase 45 U/L (45-117) 03/27/19 09:47 Total Protein 7.8 g/dl (6.4-8.2) 03/27/19 09:47 Albumin 3.8 g/dl (3.4-5.0) 03/27/19 09:47 RPR Titer Nonreactive (NONREACTIVE) 03/27/19 09:47
--- NOTE | 2019-03-29 21:56 | DS ---
[facility] Detox Discharge Summary Admission Date: 03/27/19 Discharge Date: 03/29/19 - History Present History: Alcohol Dependence Additional Comments: PATIENT ADMINISTRATIVELY DISCHARGE AT 11:59AM D/T BEHAVIOR, NO SO/HI . PATIENT GIVEN REFERRAL TO OUTPATIENT , IF WORSENING SYMPTOMS TO FOLLOW UP WITH LOCAL ED , Pertinent Past History: AOX3 NO ACUTE DISTRESS NO ADVENTITIOUS BREATH SOUNDS FULL ROM NO GAIT DISTURBANCE NO EDEMA OR ERYTHEMA - Physical Exam Results Vital Signs: Vital Signs Temperature 96.4 F L 03/29/19 09:18 Pulse Rate 67 03/29/19 09:18 Respiratory Rate 18 03/29/19 09:18 Blood Pressure 106/66 03/29/19 09:18 O2 Sat by Pulse Oximetry (%) Pertinent Admission Physical Exam Findings: Vital Signs Temp 96.4 F L 03/29/19 09:18 Pulse 67 03/29/19 09:18 Resp 18 03/29/19 09:18 BP 106/66 03/29/19 09:18 Pulse Ox Intake & Output 03/28/19 03/29/19 03/29/19 23:59 11:59 23:59 Other: Voiding Method Toilet Toilet Laboratory Last Values WBC 6.0 K/mm3 (4.0-10.0) 03/27/19 09:47 RBC 4.02 M/mm3 (4.00-5.60) 03/27/19 09:47 Hgb 13.0 GM/dL (11.7-16.9) 03/27/19 09:47 Hct 39.4 % (35.4-49) 03/27/19 09:47 MCV 98.1 fl (80-96) H 03/27/19 09:47 MCH 32.4 pg (25.7-33.7) 03/27/19 09:47 MCHC 33.1 g/dl (32.0-35.9) 03/27/19 09:47 RDW 13.6 % (11.9-15.9) 03/27/19 09:47 Plt Count 247 K/MM3 (134-434) 03/27/19 09:47 MPV 7.4 fl (7.5-11.1) L 03/27/19 09:47 Sodium 137 mmol/L (136-145) 03/27/19 09:47 Potassium 3.5 mmol/L (3.5-5.1) 03/27/19 09:47 Chloride 104 mmol/L (98-107) 03/27/19 09:47 Carbon Dioxide 26 mmol/L (21-32) 03/27/19 09:47 Anion Gap 8 MMOL/L (8-16) 03/27/19 09:47 BUN 6.9 mg/dL (7-18) L 03/27/19 09:47 Creatinine 1.0 mg/dL (0.55-1.3) 03/27/19 09:47 Est GFR (CKD-EPI)AfAm 99.85 03/27/19 09:47 Est GFR (CKD-EPI)NonAf 86.15 03/27/19 09:47 Random Glucose 67 mg/dL (74-106) L 03/27/19 09:47 Calcium 8.6 mg/dL (8.5-10.1) 03/27/19 09:47 Total Bilirubin 0.6 mg/dL (0.2-1) 03/27/19 09:47 AST 17 U/L (15-37) 03/27/19 09:47 ALT 24 U/L (13-61) 03/27/19 09:47 Alkaline Phosphatase 45 U/L (45-117) 03/27/19 09:47 Total Protein 7.8 g/dl (6.4-8.2) 03/27/19 09:47 Albumin 3.8 g/dl (3.4-5.0) 03/27/19 09:47 RPR Titer Nonreactive (NONREACTIVE) 03/27/19 09:47 - Treatment Hospital Course: Detox Protocol Followed, Responded well, Discharged Condition Good Patient has Accepted a Rehab Referral to: OUTPATIENT - Medication Discharge Medications: Ambulatory Orders Albuterol Sulfate Inhaler - [Ventolin HFA Inhaler -] 2 inh PO Q4H PRN #1 inhaler 04/02/18 Buspirone HCl [Buspar -] 10 mg PO BID #60 tablet 07/24/18 traZODone HCL [Trazodone HCl] 50 mg PO HS #30 tablet 07/24/18 Buprenorphine/Naloxone [Suboxone 8Mg/2Mg Sl Film -] 8 mg SL TID PRN MDD 24MG 08/10 - Diagnosis (1) Alcohol dependence with uncomplicated withdrawal Status: Acute (2) COPD (chronic obstructive pulmonary disease) Status: Chronic Qualifiers: COPD type: unspecified COPD Qualified Code(s): J44.9 - Chronic obstructive pulmonary disease, unspecified (3) Cocaine dependence Status: Chronic Qualifiers: Substance use status: uncomplicated Qualified Code(s): F14.20 - Cocaine dependence, uncomplicated (4) PPD positive, treated Status: Resolved - AMA Did Patient Leave Against Medical Advice: No (ADMINISTRATIVE D/C)
[2019-03-30] MEDS ORDERED: LORazepam 0.5 MG TABLET PO PRN
[2019-03-30] MEDS ORDERED: LORazepam 0.5 MG TABLET PO SCH (05:00)
[2019-03-31] MEDS ORDERED: LORazepam 0.5 MG TABLET PO ONE (05:00)
== END 2019-03-29 11:59 | disposition left against medical advice (07) | DRG 897 ==
LOC: YASAS 08:30 → Y3N 09:59
PROVIDERS: ADMIT Allergy & Immunology; ATTEND Allergy & Immunology
PROC: HZ2ZZZZ Detoxification Services for Substance Abuse Treatment (ICD-10-PCS; principal; 2019-03-27)
DX: F10.230 Alcohol dependence with withdrawal, uncomplicated (principal); F14.20 Cocaine dependence, uncomplicated; F17.210 Nicotine dependence, cigarettes, uncomplicated; F90.9 Attention-deficit hyperactivity disorder, unspecified type; J44.9 Chronic obstructive pulmonary disease, unspecified; G47.00 Insomnia, unspecified; R76.11 Nonspecific reaction to tuberculin skin test without active tuberculosis; Z85.46 Personal history of malignant neoplasm of prostate; Z90.79 Acquired absence of other genital organ(s); Z91.013 Allergy to seafood
CPT/HCPCS: 36415; 71046-TC-FY; 80053; 85027; 86593

== ENCOUNTER 2019-05-16 08:20 | Inpatient (IN) | payer OTHER ==
[2019-05-16 09:04] VITALS: BMI 19.6
--- NOTE | 2019-05-16 13:21 | HP ---
"CIWA Score Nausea/Vomitin Muscle Tremors: 1-None Visible, but [place] Anxiety: 3 Agitation: 2 Paroxysmal Sweats: 2 Orientation: 0-Oriented Tacttile Disturbances: 0-None Auditory Disturbances: 0-None Visual Disturbances: 2-Mild Sensitivity Headache: 0-None Present CIWA-Ar Total Score: 12 - Admission Criteria OASAS Guidelines: Admission for Medically Managed Detox: Requires at least one of the followin. CIWA greater than 12 2. Seizures within the past 24 hours 3. Delirium tremens within the past 24 hours 4. Hallucinations within the past 24 hours 5. Acute intervention needed for co occurring medical disorder 6. Acute intervention needed for co occurring psychiatric disorder 7. Severe withdrawal that cannot be handled at a lower level of care (continued vomiting, continued diarrhea, abnormal vital signs) requiring intravenous medication and/or fluids 8. 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 male with cocaine and alcohol dependence , reports 2 pints vodka/day & 6-pk of 24 oz beer /day and mixed drinks , reports he starts drinking in the mornings , first age of use 15 , progressively worsened since 2010 relapse after family murdered 2010, prior sobriety x 22 years. cocaine : 20 $ - 40 $ / month via inhalation , denies daily use PMHx: asthma ( since childhood, intubated as a child ), metastatic prostate cancer, R femur , R hip , lymph nodeplanning excision , chemotherapy scheduled for May , goes to [facility] , next appt May 2019 . PSHx: left inguinal hernia , partial prostatectomy 2015 Allergies : shellfish meds : proventil, Buspar, trazodone , megestrol Pt did not self-disclose meds listed below. SHX : unemployed, SSD for prostate cancer This report was requested by: Anna Aguilera | Reference #: [id number] Others' Prescriptions Patient Name: Amando Pitt Date: 1965 Address: [address] [address] Sex: Male Rx Written Rx Dispensed Drug Quantity Days Supply Prescriber Name 05/14/2019 05/14/2019 clonazepam 1 mg tablet 60 30 Angelita Thomas 05/14/2019 05/14/2019 suboxone 8 mg-2 mg sl film 90 30 WilliamAngelita liao 05/14/2019 05/14/2019 dextroamp-amphetamin 20 mg tab 90 30 Angelita Thomas 04/08/2019 04/15/2019 dextroamp-amphetamin 20 mg tab 90 30 Angelita Thomas 04/08/2019 04/15/2019 suboxone 8 mg-2 mg sl film 90 30 Angelita Thomas 04/08/2019 04/08/2019 clonazepam 1 mg tablet 90 30 WilliamAngelita liao 03/18/2019 03/20/2019 suboxone 8 mg-2 mg sl film 90 30 Angelita Thomas 03/18/2019 03/20/2019 dextroamp-amphetamin 20 mg tab 90 30 Angelita Thomas 02/18/2019 02/27/2019 clonazepam 1 mg tablet 90 30 Shahzad Sheikh MD 02/22/2019 02/23/2019 suboxone 8 mg-2 mg sl film 90 30 Angelita Thomas 01/28/2019 02/15/2019 dextroamp-amphetamin 20 mg tab 60 30 Shahzad Sheikh MD 01/28/2019 01/28/2019 clonazepam 1 mg tablet 90 30 Shahzad Sheikh MD 01/25/2019 01/25/2019 suboxone 8 mg-2 mg sl film 30 10 Tirso Chery (AURY) 12/31/2018 01/19/2019 dextroamp-amphetamin 20 mg tab 60 30 Shahzad Sheikh MD 12/31/2018 01/04/2019 clonazepam 1 mg tablet 90 30 Shahzad Sheikh MD 12/26/2018 12/26/2018 suboxone 8 mg-2 mg sl film 90 30 Colantonio , Miguel Angel 12/03/2018 12/20/2018 dextroamp-amphetamin 20 mg tab 60 30 Bunt, Rudy Barraza MD 12/03/2018 12/06/2018 clonazepam 1 mg tablet 90 30 BuntRudy MD 11/28/2018 11/28/2018 suboxone 8 mg-2 mg sl film 90 30 Chery Tirso (PA) 11/08/2018 11/22/2018 dextroamp-amphetamin 20 mg tab 60 30 Genet Simpson MD 11/08/2018 11/08/2018 clonazepam 1 mg tablet 90 30 SimpsonGenet daigel MD 10/31/2018 10/31/2018 suboxone 8 mg-2 mg sl film 90 30 Colantonio , Miguel Angel 10/11/2018 10/22/2018 dextroamp-amphetamin 20 mg tab 60 30 Genet Simpson MD 10/11/2018 10/11/2018 clonazepam 1 mg tablet 90 30 SimpsonGenet MD 09/13/2018 09/24/2018 dextroamp-amphetamin 20 mg tab 60 30 Genet Simpson MD 09/13/2018 09/13/2018 clonazepam 1 mg tablet 90 30 SimpsonGenet MD 08/29/2018 08/29/2018 buprenorphine-naloxone 8-2 mg sl film 90 30 Colantonio, Miguel Angel 08/01/2018 08/01/2018 buprenorphine-naloxone 8-2 mg sl film 90 30 Kenya Garcia MD 08/01/2018 08/01/2018 clonazepam 2 mg tablet 60 30 Kenya Garcia MD 07/04/2018 07/05/2018 suboxone 8 mg-2 mg sl film 90 30 Kenya Garcia MD 07/05/2018 07/05/2018 clonazepam 2 mg tablet 60 30 Kenay Garcia MD 06/12/2018 06/12/2018 suboxone 8 mg-2 mg sl film 90 30 Kenya Garcia MD 06/12/2018 06/12/2018 clonazepam 2 mg tablet 60 30 Kenya Garcia MD Patient Name: Amando Pitt Date: 1965 Address: [address] [place] [address] Sex: Male Rx Written Rx Dispensed Drug Quantity Days Supply Prescriber Name 02/05/2019 02/05/2019 buprenorphine-naloxone 8-2 mg sl film 60 20 Issa Choudhary MD 09/27/2018 10/01/2018 suboxone 8 mg-2 mg sl film 90 30 Issa Choudhary MD Patient Name: Amando Pitt Date: 1965 Address: [address] [place] [address] Sex: Male Rx Written Rx Dispensed Drug Quantity Days Supply Prescriber Name 08/27/2018 08/27/2018 dextroamp-amphetamin 20 mg tab 60 30 [facility] 07/27/2018 07/27/2018 dextroamp-amphetamin 20 mg tab 60 30 [facility] 06/27/2018 06/27/2018 dextroamp-amphetamin 20 mg tab 60 30 [facility] Patient Name: Amando Pitt Date: 1965 Address: [address] [place] [address] Sex: Male Rx Written Rx Dispensed Drug Quantity Days Supply Prescriber Name 05/30/2018 05/30/2018 dextroamp-amphetamin 20 mg tab 60 30 Nina Hannah Exam Limitations: No Limitations - Ebola screening Have you traveled outside of the country in the last 21 days: No Have you had contact with anyone from an Ebola affected area: No - Review of Systems Constitutional: Loss of Appetite, Malaise EENT: reports: Hearing Loss (deaf in the left ear since 2017), Other ( glasses , denies dysphagia) Respiratory: reports: No Symptoms reported Cardiac: reports: No Symptoms Reported GI: reports: Diarrhea, Nausea, Poor Appetite : reports: No Symptoms Reported Musculoskeletal: reports: No Symptoms Reported Integumentary: reports: No Symptoms Reported Neuro: reports: See HPI, Other (h/o migraine SEN since 2017) Endocrine: reports: No Symptoms Reported Hematology: reports: Lymph Node Abnormalities (known right anterior neck , known , plan for removal /cxt @ [place]) Psychiatric: reports: Orientated x3, Anxious Patient History - Patient Medical History Hx Anemia: No Hx Asthma: Yes Hx Chronic Obstructive Pulmonary Disease (COPD): No Hx Cancer: Yes (Prostate, Completed round of treatment approx. 8 weeks ago.) Hx Cardiac Disorders: No Hx Congestive Heart Failure: No Hx Hypertension: No Hx Hypercholesterolemia: No Hx Pacemaker: No HX Cerebrovascular Accident: No Hx Seizures: No Hx Dementia: No Hx Diabetes: No Hx Gastrointestinal Disorders: No Hx Liver Disease: No Hx Genitourinary Disorders: No Hx Sexually Transmitted Disorders: No Hx Renal Disease (ESRD): No Hx Thyroid Disease: No Hx Human Immunodeficiency Virus (HIV): No (Last Tested approx. 90 days ago: NEGATIVE.) Hx Hepatitis C: No (Last Tested approx. 90 days ago: NEGATIVE.) Hx Depression: No Hx Suicide Attempt: No Hx Bipolar Disorder: No Hx Schizophrenia: No - Patient Surgical History Past Surgical History: Yes Hx Neurologic Surgery: No Hx Cataract Extraction: No Hx Cardiac Surgery: No Hx Lung Surgery: No Hx Breast Surgery: No Hx Breast Biopsy: No Hx Abdominal Surgery: No Hx Appendectomy: No Hx Cholecystectomy: No Hx Genitourinary Surgery: No Hx Orthopedic Surgery: No Other Surgical History: PARTIAL PROSTATECTOMY 09/07/15 (ca)/biopsy (malignant), lump, right side of Anesthesia Reaction: No - PPD History Date: 06/12/17 Results: CXR(-)06/12/17 - Smoking Cessation Smoking history: Current every day smoker Have you smoked in the past 12 months: Yes Aproximately how many cigarettes per day: 5 Cigars Per Day: 0 Hx Chewing Tobacco Use: No Initiated information on smoking cessation: Yes 'Breaking Loose' booklet given: 05/16/19 - Substances abused Alcohol Substance route: Oral Frequency: Daily Amount used: 1 PINT SALMA/VODKA Age of first use: 47 Date of last use: 05/16/19 Cocaine Substance route: Inhalation Frequency: 1-3 times last 30 days Amount used: $20 Age of first use: 47 Date of last use: 05/15/19 Admission Physical Exam BHS - Vital Signs Vital Signs: Vital Signs - 24 hr 05/16/19 09:00 Temperature 98.1 F Pulse Rate 92 H Respiratory 18 Rate Blood Pressure 120/66 - Physical General Appearance: Yes: Mild Distress HEENTM: Yes: EOMI, Normocephalic, Normal Voice, Hearing Decreased (known left ear hearing loss) Respiratory: Yes: Chest Non-Tender, Lungs Clear, Normal Breath Sounds, No Respiratory Distress, No Accessory Muscle Use Neck: Yes: No masses,lesions,Nodules, Trachea in good position Cardiology: Yes: Regular Rhythm, Regular Rate, S1, S2 Abdominal: Yes: Non Tender, Soft Musculoskeletal: Yes: full range of Motion, Gait Steady Extremities: Yes: Normal Range of Motion, Non-Tender Neurological: Yes: Fully Oriented, Alert, Motor Strength 5/5, Depressed Affect Integumentary: Yes: Warm - Diagnostic (1) Alcohol dependence with uncomplicated withdrawal Current Visit: Yes Status: Chronic (2) Nicotine dependence Current Visit: Yes Status: Chronic Qualifiers: Nicotine product type: cigarettes (3) Cocaine use disorder Current Visit: Yes Status: Chronic Breathalyzer - Breathalyzer Breathalyzer: 0 Urine Drug Screen - Test Device Lot number: [id number] Expiration date: 11/21/20 - Control Is test valid?: Yes - Results Drug screen NEGATIVE: No Urine drug screen results: RASHID-Cocaine Inpatient Rehab Admission - Rehab Decision to Admit Inpatient rehab admission?: No"
[2019-05-16] MEDS ORDERED: MENTHOL/PHENOL 1 EACH UD MM PRN (13:40)
[2019-05-16] MEDS ORDERED: MAGNESIUM CITRATE 300 ML BOTTLE PO PRN (13:40)
[2019-05-16] MEDS ORDERED: hydrOXYzine PAMOATE 25 MG CAPSULE (FP) PO PRN (13:40)
[2019-05-16] MEDS ORDERED: METHOCARBAMOL 500 MG TABLET PO PRN (13:40)
[2019-05-16] MEDS ORDERED: IBUPROFEN 400 MG TABLET (FP) PO PRN (13:40)
[2019-05-16] MEDS ORDERED: BISMUTH SUBSALICYLATE 524 MG/30 ML UD PO PRN (13:40)
[2019-05-16] MEDS ORDERED: NICOTINE POLACRILEX 2 MG GUM BUC PRN (13:40)
[2019-05-16] MEDS ORDERED: MAGNESIUM HYDROX 2400MG/30ML ORAL SUSPENSION 30 ML CUP PO PRN (13:40)
[2019-05-16] MEDS ORDERED: ACETAMINOPHEN 325 MG TABLET (FP) PO PRN (13:40)
[2019-05-16] MEDS ORDERED: MAG HYDROX/AL HYDROX/SIMETH 30 ML UNIT-DOSE CUP PO PRN (13:40)
[2019-05-16] MEDS ORDERED: chlordiazePOXIDE HCL 10 MG CAPSULE PO PRN (13:44)
[2019-05-16] MEDS: chlordiazePOXIDE HCL 25 MG CAPSULE PO SCH ×2 (15:32→22:06)
[2019-05-16] MEDS: NICOTINE 21 MG/24 HOURS TOPICAL PATCH TD SCH (15:33)
[2019-05-16 17:02] LABS: HEMATOCRIT 37.5 % (35.4-49); HEMOGLOBIN 12.4 GM/dL (11.7-16.9); MCH 32.2 pg (25.7-33.7); MCHC 33.1 g/dl (32.0-35.9); MEAN CELL VOLUME 97.2 fl (80-96); MEAN PLT VOLUME 7.7 fl (7.5-11.1); PLATELET COUNT 260 K/MM3 (134-434); RBC 3.86 M/mm3 (4.00-5.60); RDW 13.6 % (11.9-15.9); WHITE BLOOD COUNT 7.2 K/mm3 (4.0-10.0)
[2019-05-16 17:40] LABS: ALBUMIN 3.8 g/dl (3.4-5.0); BILIRUBIN,TOTAL 0.8 mg/dL (0.2-1); BLOOD UREA NITROGEN 12.8 mg/dL (7-18); CALCIUM 9.2 mg/dL (8.5-10.1); POTASSIUM 3.7 mmol/L (3.5-5.1); TOT PROT 7.9 g/dl (6.4-8.2)
[2019-05-16] MEDS ORDERED: MEGESTROL ACETATE 40 MG TABLET PO SCH (18:00)
[2019-05-16] MEDS: traZODone HCL 50 MG TABLET (FP) PO SCH (22:06)
[2019-05-16] MEDS: THIAMINE HCL 100 MG TABLET (FP) PO SCH (22:06)
[2019-05-16] MEDS: ALBUTEROL SO4 8 GM HFA INHALER IH PRN (22:37)
[2019-05-17] MEDS: chlordiazePOXIDE HCL 25 MG CAPSULE PO SCH ×3 (06:41→22:10)
--- NOTE | 2019-05-17 10:30 | CONSULT ---
[facility] Psychiatric Consult - Data Date of interview: 05/17/19 Psychiatric History: Patient approached at bedside. Told loan underwriter:" Why do I have to talk to you. There is no reason for me to talk to you"
[2019-05-17] MEDS: PRENATAL VITAMINS W/ FOLIC ACID TABLET (FP) PO SCH (11:10)
[2019-05-17] MEDS: NICOTINE 21 MG/24 HOURS TOPICAL PATCH TD SCH (11:11)
--- NOTE | 2019-05-17 11:41 | PN ---
S CIWA - CIWA Score Nausea/Vomitin-No Nausea/No Vomiting Muscle Tremors: 3 Anxiety: 2 Agitation: 2 Paroxysmal Sweats: 2 Orientation: 0-Oriented Tacttile Disturbances: 0-None Auditory Disturbances: 0-None Visual Disturbances: 0-None Headache: 0-None Present CIWA-Ar Total Score: 9 S Progress Note (SOAP) Subjective: sweats restless body aches interrupted sleep Objective: 05/17/19 11:41 Vital Signs Temperature 98.2 F 05/17/19 09:44 Pulse Rate 89 05/17/19 09:44 Respiratory Rate 18 05/17/19 09:44 Blood Pressure 100/63 05/17/19 09:44 O2 Sat by Pulse Oximetry (%) Laboratory Tests 05/16/19 05/16/19 13:50 13:50 WBC 7.2 RBC 3.86 L Hgb 12.4 Hct 37.5 MCV 97.2 H MCH 32.2 MCHC 33.1 RDW 13.6 Plt Count 260 MPV 7.7 Sodium 136 Potassium 3.7 Chloride 103 Carbon Dioxide 26 Anion Gap 8 BUN 12.8 Creatinine 1.0 Est GFR (CKD-EPI)AfAm 99.85 Est GFR (CKD-EPI)NonAf 86.15 Random Glucose 92 Calcium 9.2 Total Bilirubin 0.8 AST 24 ALT 29 Alkaline Phosphatase 50 Total Protein 7.9 Albumin 3.8 aaox3 ambulating no acute distress Assessment: 05/17/19 12:28 withdrawals Plan: continue detox
[2019-05-17] MEDS: MEGESTROL ACETATE 40 MG TABLET PO SCH ×2 (17:05→23:42)
[2019-05-17] MEDS: ALBUTEROL SO4 8 GM HFA INHALER IH PRN (21:08)
[2019-05-17] MEDS: THIAMINE HCL 100 MG TABLET (FP) PO SCH (22:10)
[2019-05-17] MEDS: traZODone HCL 50 MG TABLET (FP) PO SCH (22:47)
[2019-05-18] MEDS: chlordiazePOXIDE HCL 10 MG CAPSULE PO SCH ×3 (06:04→22:06)
[2019-05-18] MEDS: MEGESTROL ACETATE 40 MG TABLET PO SCH ×4 (06:50→23:18)
[2019-05-18] MEDS: PRENATAL VITAMINS W/ FOLIC ACID TABLET (FP) PO SCH (10:21)
[2019-05-18] MEDS: NICOTINE 21 MG/24 HOURS TOPICAL PATCH TD SCH (10:22)
--- NOTE | 2019-05-18 14:22 | PN ---
S CIWA - CIWA Score Nausea/Vomitin-No Nausea/No Vomiting Muscle Tremors: None Anxiety: 2 Agitation: 2 Paroxysmal Sweats: 2 Orientation: 0-Oriented Tacttile Disturbances: 1-Very Mild Itch/Numbness Auditory Disturbances: 0-None Visual Disturbances: 0-None Headache: 0-None Present CIWA-Ar Total Score: 7 BHS Progress Note (SOAP) Subjective: Sweating, Interrupted Sleep, Poor Appetite. Patient reports that withdrawal symptoms are improving since time of Detox admission. Objective: PATIENT A & O X 3, OBSERVED AMBULATING ON DETOX UNIT UNASSISTED. IN NO ACUTE DISTRESS. 05/18/19 14:24 Vital Signs Temperature 98.4 F 05/18/19 10:00 Pulse Rate 89 05/18/19 10:00 Respiratory Rate 19 05/18/19 10:00 Blood Pressure 107/69 05/18/19 10:00 O2 Sat by Pulse Oximetry (%) Laboratory Tests 05/16/19 05/16/19 13:50 13:50 WBC 7.2 RBC 3.86 L Hgb 12.4 Hct 37.5 MCV 97.2 H MCH 32.2 MCHC 33.1 RDW 13.6 Plt Count 260 MPV 7.7 Sodium 136 Potassium 3.7 Chloride 103 Carbon Dioxide 26 Anion Gap 8 BUN 12.8 Creatinine 1.0 Est GFR (CKD-EPI)AfAm 99.85 Est GFR (CKD-EPI)NonAf 86.15 Random Glucose 92 Calcium 9.2 Total Bilirubin 0.8 AST 24 ALT 29 Alkaline Phosphatase 50 Total Protein 7.9 Albumin 3.8 LABS NOTED. Assessment: 05/18/19 14:25 WITHDRAWAL SYMPTOMS. Plan: CONTINUE DETOX. PATIENT SCHEDULED FOR D/C FROM DETOX UNIT TOMORROW.
[2019-05-18] MEDS: THIAMINE HCL 100 MG TABLET (FP) PO SCH (22:06)
[2019-05-18] MEDS: traZODone HCL 50 MG TABLET (FP) PO SCH (22:06)
[2019-05-19] MEDS ORDERED: chlordiazePOXIDE HCL 10 MG CAPSULE PO ONE (05:00)
[2019-05-19] MEDS: MEGESTROL ACETATE 40 MG TABLET PO SCH ×4 (06:30→23:21)
[2019-05-19] MEDS: NICOTINE 21 MG/24 HOURS TOPICAL PATCH TD SCH (10:26)
[2019-05-19] MEDS: PRENATAL VITAMINS W/ FOLIC ACID TABLET (FP) PO SCH (10:26)
--- NOTE | 2019-05-19 11:46 | PN ---
S CIWA - CIWA Score Nausea/Vomitin-No Nausea/No Vomiting Muscle Tremors: None Anxiety: 2 Agitation: 1-Slight > Activity Paroxysmal Sweats: 2 Orientation: 0-Oriented Tacttile Disturbances: 0-None Auditory Disturbances: 0-None Visual Disturbances: 0-None Headache: 0-None Present CIWA-Ar Total Score: 5 S Progress Note (SOAP) Subjective: Agitated; patient scheduled for discharge today but wants to be admitted to inpatient rehab stating he's afraid of relapse if goes home today instead of rehab. Objective: 05/19/19 11:41 Last Vital Signs Temp Pulse Resp BP Pulse Ox 97.9 F 82 18 107/62 05/19/19 09:50 05/19/19 09:50 05/19/19 09:50 05/19/19 09:50 Laboratory Tests 05/16/19 05/16/19 13:50 13:50 WBC 7.2 RBC 3.86 L Hgb 12.4 Hct 37.5 MCV 97.2 H MCH 32.2 MCHC 33.1 RDW 13.6 Plt Count 260 MPV 7.7 Sodium 136 Potassium 3.7 Chloride 103 Carbon Dioxide 26 Anion Gap 8 BUN 12.8 Creatinine 1.0 Est GFR (CKD-EPI)AfAm 99.85 Est GFR (CKD-EPI)NonAf 86.15 Random Glucose 92 Calcium 9.2 Total Bilirubin 0.8 AST 24 ALT 29 Alkaline Phosphatase 50 Total Protein 7.9 Albumin 3.8 Labs reviewed Assessment: 05/19/19 11:44 Withdrawal sxs Plan: Continue detox Encouraged PO water intake Discharge rescheduled to tomorrow, patient requesting inpatient admission to [facility] rehab as per Counselor and patient. Patient is at high risk for relapse if discharged today.
[2019-05-19] MEDS: ALBUTEROL SO4 8 GM HFA INHALER IH PRN (13:30)
[2019-05-19] MEDS: traZODone HCL 50 MG TABLET (FP) PO SCH (22:35)
[2019-05-19] MEDS: THIAMINE HCL 100 MG TABLET (FP) PO SCH (22:35)
[2019-05-20] MEDS: MEGESTROL ACETATE 40 MG TABLET PO SCH ×3 (06:24→19:00)
[2019-05-20] MEDS: PRENATAL VITAMINS W/ FOLIC ACID TABLET (FP) PO SCH (10:45)
[2019-05-20] MEDS: NICOTINE 21 MG/24 HOURS TOPICAL PATCH TD SCH (10:46)
--- NOTE | 2019-05-20 18:36 | PN ---
[facility] Progress Note Note: Psychiatry Attending's note : Called by on duty nurse to re-enter order for trazodone. Patient is admitted today to [address] [place] [address]. Medication verified and confirmed. Met with Mr Pitt. Informed of risk of priapism. Verbal consent secured from the patient. Trazodone 100 mg po hs. Re-ordered for continuity of care.
[2019-05-20] MEDS: traZODone HCL 100 MG TABLET (FP) PO SCH (22:14)
[2019-05-20] MEDS: THIAMINE HCL 100 MG TABLET (FP) PO SCH (22:14)
[2019-05-21] MEDS: MEGESTROL ACETATE 40 MG TABLET PO SCH ×4 (00:25→17:22)
[2019-05-21] MEDS: NICOTINE 21 MG/24 HOURS TOPICAL PATCH TD SCH (10:18)
[2019-05-21] MEDS: PRENATAL VITAMINS W/ FOLIC ACID TABLET (FP) PO SCH (10:18)
[2019-05-21] MEDS: ACETAMINOPHEN 325 MG TABLET (FP) PO PRN (15:49)
[2019-05-21] MEDS: MELATONIN 5 MG TABLETS PO PRN (21:16)
[2019-05-21] MEDS: THIAMINE HCL 100 MG TABLET (FP) PO SCH (21:16)
[2019-05-21] MEDS: traZODone HCL 100 MG TABLET (FP) PO SCH (21:16)
[2019-05-22] MEDS: MEGESTROL ACETATE 40 MG TABLET PO SCH ×4 (00:58→17:24)
[2019-05-22] MEDS: PRENATAL VITAMINS W/ FOLIC ACID TABLET (FP) PO SCH (10:25)
[2019-05-22] MEDS: NICOTINE 21 MG/24 HOURS TOPICAL PATCH TD SCH (10:25)
[2019-05-22] MEDS: THIAMINE HCL 100 MG TABLET (FP) PO SCH (21:27)
[2019-05-22] MEDS: MELATONIN 5 MG TABLETS PO PRN (21:27)
[2019-05-22] MEDS: traZODone HCL 100 MG TABLET (FP) PO SCH (21:27)
[2019-05-23] MEDS: MEGESTROL ACETATE 40 MG TABLET PO SCH ×4 (00:03→18:30)
[2019-05-23 06:53] VITALS: BP 126/70; PULSE 85; TEMP 98.1
[2019-05-23] MEDS: NICOTINE 21 MG/24 HOURS TOPICAL PATCH TD SCH (09:59)
[2019-05-23] MEDS: PRENATAL VITAMINS W/ FOLIC ACID TABLET (FP) PO SCH (09:59)
[2019-05-23] MEDS: ACETAMINOPHEN 325 MG TABLET (FP) PO PRN ×2 (12:03→19:48)
--- NOTE | 2019-05-23 12:23 | PN ---
[facility] Progress Note Note: S:Patient to be discharged tomorrow. PMHx: 52 y.o. male with cocaine and alcohol dependence; reports 2 pints vodka/day & 6 -pk of 24 oz beer /day and mixed drinks,reports he starts drinking in the mornings. first age of use 15;progressively worsened since 2010 relapse after family murdered 2010, prior sobriety x 22 years. cocaine : 20 $ - 40 $ / month via inhalation , denies daily use PMHx: asthma ( since childhood, intubated as a child ), metastatic prostate cancer, R femur , R hip , Right lymph node excision , chemotherapy scheduled for May , goes to [facility] , next appt May 2019 . PSHx: left inguinal hernia , partial prostatectomy 2015 Allergies : shellfish meds : proventil, Buspar, trazodone , megestrol COURSE: Patient attended groups, had 1:1 with counselor, was seen by psychiatric service. He had no significant medical issues while in rehab. O:P/E: General: no apparent distress HEENTM: normocephalic, PERRLA Lungs: clear Heart: s1 s2 ABD: +BS Neuro: CN 2-12 intact Lymph: one palpable lymph node, right submandibular A: Medically stable for discharge; Cocaine dependence, ETOH use P: Patient will go to [facility] for cancer treatment, aftercare at [facility]. Medications prescribed and transmitted to pharmacy Encouraged patient to keep aftercare appointment.
--- NOTE | 2019-05-23 14:00 | PN ---
[facility] Progress Note Note: Patient is scheduled for discharge tomorrow. Script for 30 days supply of Trazadone 100 mg/hs will be electronically transmitted to [facility] at [address] [place] [id number]
[2019-05-23] MEDS: THIAMINE HCL 100 MG TABLET (FP) PO SCH (21:21)
[2019-05-23] MEDS: MELATONIN 5 MG TABLETS PO PRN (21:21)
[2019-05-23] MEDS: traZODone HCL 100 MG TABLET (FP) PO SCH (21:21)
[2019-05-24] MEDS: MEGESTROL ACETATE 40 MG TABLET PO SCH ×2 (05:55)
--- NOTE | 2019-05-24 10:03 | DS ---
[facility] Discharge Summary - [facility] Discharge Summary Admission Date: 05/16/19 Discharge Date: 05/24/19 - History Present History: Alcohol dependence, Cocaine dependence - Discharge Physical Exam Vital Signs: Vital Signs Temperature 98.1 F 05/23/19 06:52 Pulse Rate 85 05/23/19 06:52 Respiratory Rate 18 05/24/19 03:30 Blood Pressure 126/70 05/23/19 06:52 O2 Sat by Pulse Oximetry (%) - Medication Discharge Medications: Ambulatory Orders Buspirone HCl [Buspar -] 10 mg PO BID #60 tablet 07/24/18 Buprenorphine/Naloxone [Suboxone 8Mg/2Mg Sl Film -] 8 mg SL TID PRN MDD 24MG 08/10 traZODone HCL [Trazodone HCl] 100 mg PO HS 05/16/19 Albuterol Sulfate Inhaler - [Ventolin HFA Inhaler -] 2 inh PO Q4H PRN #1 inhaler 05/23/19 Megestrol Acetate 40 mg PO Q6H #90 tablet 05/23/19 Nicotine Patch [Nicoderm Patch -] 21 mg TD DAILY #30 patch 05/23/19 traZODone HCL [Desyrel -] 100 mg PO HS #30 tablet 05/23/19 - Medication-Assisted Treatment (MAT) Medication-Assisted Treatment (MAT): No MAT Follow-up Referral: Patient discharged from unit at 6:00am prior to writers arrival. Aftercare arranged for [facility]. - Discharge Instructions Diet, activity, other medical instructions: Diet: reg as tolerated Activity: ad iris as tolerated Other medical instructions: to follow up with [facility] for cancer treatment, aftercare at [facility] - Follow-up Referral Minutes to complete discharge: 30 - AMA Did Patient Leave Against Medical Advice: No
== END 2019-05-24 06:35 | disposition home or self-care (01) | DRG 895 ==
LOC: YASAS 08:20 → Y6N 14:31 → Y3W 05-20 17:08
PROVIDERS: ADMIT Allergy & Immunology; ATTEND Allergy & Immunology
PROC: HZ42ZZZ Group Counseling for Substance Abuse Treatment, Cognitive-Behavioral (ICD-10-PCS; principal; 2019-05-16)
DX: F10.20 Alcohol dependence, uncomplicated (principal); F14.20 Cocaine dependence, uncomplicated; C79.51 Secondary malignant neoplasm of bone; F17.210 Nicotine dependence, cigarettes, uncomplicated; J45.909 Unspecified asthma, uncomplicated; K40.90 Unilateral inguinal hernia, without obstruction or gangrene, not specified as recurrent; C61 Malignant neoplasm of prostate
CPT/HCPCS: 36415; 80053; 85027; J8999

== ENCOUNTER 2019-07-10 10:07 | Inpatient (IN) | payer OTHER ==
--- NOTE | 2019-07-10 10:51 | BHS.RME ---
Substance Use & Tx History - Substance Use History Alcohol Substance amount: 2 pints vodka Frequency of use: Daily Substance route: Oral Date of Last Use: 07/10/19 (2am) Nicotine Substance amount: 5 ciggs Frequency of use: Daily Substance route: Smoking Date of Last Use: 07/10/19 Cocaine (Powder) Substance amount: $20 Frequency of use: Daily Substance route: Inhalation (ex: sniffing or snorting) Date of Last Use: 07/08/19 Physical/Psych/Mental Status - Behavior General Behavior: Increased activity (restlessness, agitation) Eye Contact: Normal - Cooperativeness Cooperativeness: Cooperative - Thinking Thought Processes: Tight, Logical, Goal Directed - Physical Health Problems Is patient presently having any pain?: No Does patient presently have any injuries (include location): No Does patient currently have a fever: No Is patient : No CIWA Nausea/Vomitin-Mild Nausea/No Vomiting Muscle Tremors: 2 Anxiety: 3 Agitation: 2 Paroxysmal Sweats: 1-Minimal Palms Moist Orientation: 0-Oriented Tacttile Disturbances: 0-None Auditory Disturbances: 0-None Visual Disturbances: 0-None Headache: 2-Mild (not yet in full withdrawals due to drinking 2AM but low alcohol content drink today) CIWA-Ar Total Score: 11
--- NOTE | 2019-07-10 11:10 | HP ---
CIWA Score Nausea/Vomitin Muscle Tremors: 2 Anxiety: 3 Agitation: 2 Paroxysmal Sweats: 1-Minimal Palms Moist Orientation: 0-Oriented Tacttile Disturbances: 1-Very Mild Itch/Numbness Auditory Disturbances: 0-None Visual Disturbances: 0-None Headache: 2-Mild (not yet in full withdrawals due to drinking 2AM but low alco hol content drink today) CIWA-Ar Total Score: 13 - Admission Criteria OASAS Guidelines: Admission for Medically Managed Detox: Requires at least one of the followin. CIWA greater than 12 2. Seizures within the past 24 hours 3. Delirium tremens within the past 24 hours 4. Hallucinations within the past 24 hours 5. Acute intervention needed for co occurring medical disorder 6. Acute intervention needed for co occurring psychiatric disorder 7. Severe withdrawal that cannot be handled at a lower level of care (continued vomiting, continued diarrhea, abnormal vital signs) requiring intravenous medication and/or fluids 8. 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 Pulmonary: Yes: COPD Psych: Yes: Anxiety, Depression (insomnia) Musculoskeletal: Yes: Chronic low back pain Additional Past Medical History: cancer of prostate in 2013 had surgery,chemo recurred 2016 completed chemo at [facility] - Past Surgical History Past Surgical History: Yes: Hernia Repair Additional Past Surgical History: left inguinal hernia at age of 11 yeras old partial prostatectomy in 2014 s/p surgery and chemotherapy - Smoking History Smoking history: Current every day smoker Have you smoked in the past 12 months: Yes Aproximately how many cigarettes per day: 5 - Alcohol/Substance Use Hx Alcohol Use: Yes History of Substance Use: reports: Cocaine - Social History Usual Living Arrangement: Yes: With Spouse ADL: Independent 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 History of Recent Travel: No Admission ROS S - HPI Chief Complaint: i need help to stop drinking alcohol Allergies/Adverse Reactions: Allergies Allergy/AdvReac Type Severity Reaction Status Date / Time shellfish derived Allergy Severe Swelling Verified 05/16/19 08:55 No Known Drug Allergies Allergy Verified 05/16/19 08:55 History of Present Illness: this 53 years old male with alcohol dependence seeking detox from alcohol,last detox [facility] 03/27/19 to 03/29/19,rehab 05/16/19 to 05/24/19 but relapsing denied seizure syncope positive eye medical officer psychiatry ,has to drink when get up in the [place] weight loss carcinoma of prostate had partial prostatectomy in 2013 and chemotherapy recurrent with metastasis to lymph of right neck and left axilla in 2016 comp leted chemotherapy at [facility] left inguinal hernia at age of [age] years old nicotine dependence longest sobriety 22 years copd ,anxiety,depression,insomnia plan to go to rehab after detox Exam Limitations: No Limitations - Ebola screening Have you traveled outside of the country in the last 21 days: No Have you had contact with anyone from an Ebola affected area: No Have you been sick,other than usual withdrawal symptoms: No Do you have a fever: No - Review of Systems Constitutional: Loss of Appetite, Malaise, Night Sweats, Changes in sleep, Weakness, Unintentional Wgt. Loss EENT: reports: Nose Congestion Respiratory: reports: Other (copd) Cardiac: reports: No Symptoms Reported GI: reports: Nausea, Poor Appetite, Poor Fluid Intake, Abdominal cramping : reports: Other (carcinoma of prostate) Musculoskeletal: reports: Back Pain, Muscle Pain Integumentary: reports: Dryness Neuro: reports: Tremors Endocrine: reports: No Symptoms Reported Hematology: reports: No Symptoms Reported Psychiatric: reports: No Sypmtoms Reported, Judgement Intact, Mood/Affect Appropiate, Orientated x3, Depressed (insomnia) Patient History - Patient Medical History Hx Anemia: No Hx Asthma: Yes Hx Chronic Obstructive Pulmonary Disease (COPD): No Hx Cancer: Yes (Prostate, Completed round of treatment approx. 8 weeks ago.) Hx Cardiac Disorders: No Hx Congestive Heart Failure: No Hx Hypertension: No Hx Hypercholesterolemia: No Hx Pacemaker: No HX Cerebrovascular Accident: No Hx Seizures: No Hx Dementia: No Hx Diabetes: No Hx Gastrointestinal Disorders: No Hx Liver Disease: No Hx Genitourinary Disorders: No Hx Sexually Transmitted Disorders: No Hx Renal Disease (ESRD): No Hx Thyroid Disease: No Hx Human Immunodeficiency Virus (HIV): No (Last Tested approx. 90 days ago: NEGATIVE.) Hx Hepatitis C: No (Last Tested approx. 90 days ago: NEGATIVE.) Hx Depression: Yes Hx Suicide Attempt: No Hx Bipolar Disorder: No Hx Schizophrenia: No Other Medical History: anxiety,insomnia,no suicidal,no homicidal - Patient Surgical History Past Surgical History: Yes Hx Neurologic Surgery: No Hx Cataract Extraction: No Hx Cardiac Surgery: No Hx Lung Surgery: No Hx Breast Surgery: No Hx Breast Biopsy: No Hx Abdominal Surgery: No Hx Appendectomy: No Hx Cholecystectomy: No Hx Genitourinary Surgery: Yes (partial prostatectomy,biopsy of lymph node of neck) Hx Orthopedic Surgery: No Other Surgical History: PARTIAL PROSTATECTOMY 09/07/15 ([facility])/biopsy (malignant), lump, right side of Anesthesia Reaction: No - PPD History Documented Results: Positive w/proof Implanted On Prior [facility] Admission?: No Date: 03/27/19 Results: CXR(-)03/27/19 PPD to be Administered?: No - Smoking Cessation Smoking history: Current every day smoker Have you smoked in the past 12 months: Yes Aproximately how many cigarettes per day: 5 Cigars Per Day: 0 Hx Chewing Tobacco Use: No Initiated information on smoking cessation: Yes 'Breaking Loose' booklet given: 07/10/19 - Substance & Tx. History Hx Alcohol Use: Yes Hx Substance Use: No Substance Use Type: Alcohol Hx Substance Use Treatment: Yes ([facility] 03/27/19 to 03/29/19,05/16/2019 to 05/24/2019) - Substances abused Alcohol Substance route: Oral Frequency: Daily Amount used: 2 pints of vodka/4 of 24 ozs of beer Age of first use: 16 Date of last use: 07/10/19 Admission Physical Exam BHS - Vital Signs Vital Signs: Vital Signs Temperature 97.0 F L 07/11/19 08:58 Pulse Rate 72 07/11/19 08:58 Respiratory Rate 18 07/11/19 08:58 Blood Pressure 102/61 07/11/19 08:58 O2 Sat by Pulse Oximetry (%) 95 07/11/19 06:12 - Physical General Appearance: Yes: Moderate Distress, Tremorous, Irritable, Sweating, Anxious HEENTM: Yes: Normal ENT Inspection, GUSTABO, Pharynx Normal, Other (enlarement of lymph node of right neck) Respiratory: Yes: Lungs Clear, Normal Breath Sounds, No Respiratory Distress Neck: Yes: Within Normal Limits, Supple, Trachea in good position Breast: Yes: Within Normal Limits Cardiology: Yes: Within Normal Limits, Regular Rhythm, Regular Rate, S1, S2 Abdominal: Yes: Within Normal Limits, Normal Bowel Sounds, Non Tender, Flat, Soft Genitourinary: Yes: Within Normal Limits (history of cancer of prostate) Back: Yes: Muscle Spasm Musculoskeletal: Yes: Back pain, Muscle Pain Extremities: Yes: Tremors 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, Fully Oriented, Alert, Motor Strength 5/5 Integumentary: Yes: Dry Lymphatic: Yes: Adenopathy (right neck and left axilla) - Diagnostic (1) Alcohol dependence with uncomplicated withdrawal Current Visit: Yes Status: Acute (2) Insomnia Current Visit: No Status: Acute (3) Weight loss Current Visit: No Status: Acute (4) ADHD (attention deficit hyperactivity disorder) Current Visit: No Status: Chronic (5) COPD (chronic obstructive pulmonary disease) Current Visit: No Status: Chronic Qualifiers: COPD type: unspecified COPD Qualified Code(s): J44.9 - Chronic obstructive pulmonary disease, unspecified (6) History of prostate cancer Current Visit: No Status: Resolved Comment: Currently Undergoing Treatment. (7) PPD positive, treated Current Visit: No Status: Resolved Cleared for Admission S - Detox or Rehab [facility] Level of Care: Medically Managed Detox Regimen/Protocol: Librium Breathalyzer - Breathalyzer Breathalyzer: 0 Urine Drug Screen - Test Device Lot number: [id number] Expiration date: 11/21/20 - Control Is test valid?: Yes - Results Drug screen NEGATIVE: No Urine drug screen results: RASHID-Cocaine Inpatient Rehab Admission - Rehab Decision to Admit Inpatient rehab admission?: No
[2019-07-10] MEDS ORDERED: ACETAMINOPHEN 325 MG TABLET (FP) PO PRN ×2 (11:40)
[2019-07-10] MEDS ORDERED: METHOCARBAMOL 500 MG TABLET PO PRN (11:40)
[2019-07-10] MEDS ORDERED: NICOTINE POLACRILEX 2 MG GUM BUC PRN (11:40)
[2019-07-10] MEDS ORDERED: BISMUTH SUBSALICYLATE 524 MG/30 ML UD PO PRN (11:40)
[2019-07-10] MEDS ORDERED: MAGNESIUM HYDROX 2400MG/30ML ORAL SUSPENSION 30 ML CUP PO PRN (11:40)
[2019-07-10] MEDS ORDERED: IBUPROFEN 400 MG TABLET (FP) PO PRN (11:40)
[2019-07-10] MEDS ORDERED: MAGNESIUM CITRATE 300 ML BOTTLE PO PRN (11:40)
[2019-07-10] MEDS ORDERED: ONDANSETRON *ODT* 4 MG TABLET SL ONE (11:40)
[2019-07-10] MEDS ORDERED: chlordiazePOXIDE HCL 25 MG CAPSULE PO PRN (11:40)
[2019-07-10] MEDS ORDERED: MAG HYDROX/AL HYDROX/SIMETH 30 ML UNIT-DOSE CUP PO PRN (11:40)
[2019-07-10] MEDS ORDERED: MENTHOL/PHENOL 1 EACH UD MM PRN (11:40)
[2019-07-10 12:26] VITALS: BMI 19.6
[2019-07-10] MEDS: NICOTINE 14 MG/24 HOURS TOPICAL PATCH TD SCH (13:07)
[2019-07-10] MEDS: hydrOXYzine PAMOATE 25 MG CAPSULE (FP) PO SCH ×3 (14:14→22:24)
[2019-07-10] MEDS: TIOTROPIUM BROMIDE 2.5 MCG (SPIRIVA) RESPIMAT INHALER IH SCH (15:10)
[2019-07-10 15:11] LABS: HEMATOCRIT 40.6 % (35.4-49); HEMOGLOBIN 13.7 GM/dL (11.7-16.9); MCHC 33.6 g/dl (32.0-35.9); MEAN CELL VOLUME 98.1 fl (80-96); MEAN PLT VOLUME 7.8 fl (7.5-11.1); PLATELET COUNT 271 K/MM3 (134-434); RBC 4.14 M/mm3 (4.00-5.60); RDW 13.8 % (11.9-15.9); WHITE BLOOD COUNT 10.6 K/mm3 (4.0-10.0)
[2019-07-10 15:30] LABS: ALBUMIN 4.1 g/dl (3.4-5.0); BILIRUBIN,TOTAL 0.7 mg/dL (0.2-1); BLOOD UREA NITROGEN 14.1 mg/dL (7-18); POTASSIUM 4.2 mmol/L (3.5-5.1); TOT PROT 8.4 g/dl (6.4-8.2)
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
[2019-07-10] MEDS: chlordiazePOXIDE HCL 25 MG CAPSULE PO SCH ×2 (18:17→22:23)
[2019-07-10] MEDS: MELATONIN 5 MG TABLETS PO SCH (22:22)
[2019-07-10] MEDS: traZODone HCL 100 MG TABLET (FP) PO SCH (22:23)
[2019-07-10] MEDS: busPIRone HCL 10 MG TABLET (FP) PO SCH (22:24)
[2019-07-10] MEDS: THIAMINE HCL 100 MG TABLET (FP) PO SCH (22:24)
[2019-07-11] MEDS ORDERED: BUPRENORPHINE/NALOXONE 8 MG/2 MG FILM PACKET SL PRN (06:00)
[2019-07-11] MEDS: chlordiazePOXIDE HCL 25 MG CAPSULE PO SCH ×4 (06:42→23:04)
[2019-07-11] MEDS: hydrOXYzine PAMOATE 25 MG CAPSULE (FP) PO SCH ×5 (06:42→23:04)
--- NOTE | 2019-07-11 10:24 | PN ---
S CIWA - CIWA Score Nausea/Vomitin-No Nausea/No Vomiting Muscle Tremors: 2 Anxiety: 3 Agitation: 1-Slight > Activity Paroxysmal Sweats: 2 Orientation: 0-Oriented Tacttile Disturbances: 0-None Auditory Disturbances: 0-None Visual Disturbances: 2-Mild Sensitivity Headache: 0-None Present CIWA-Ar Total Score: 10 BHS Progress Note (SOAP) Subjective: Others' Prescriptions Patient Name: Amando Pitt Date: 1965 Address: [address] [place] [address] [address] [address] Sex: Male Rx Written Rx Dispensed Drug Quantity Days Supply Prescriber Name Payment Method Dispenser clonazepam 1 mg tablet 60 30 Angelita Thomas Medicaid [facility] dextroamp-amphetamin 20 mg tab 90 30 Angelita Thomas Insurance [facility] buprenorphine-naloxone 8-2 mg sl film 90 30 Angelita Thomas [facility] dextroamp-amphetamin 20 mg tab 90 30 Angelita Thomas [facility] buprenorphine-naloxone 8-2 mg sl film 90 30 Angelita Thomas [facility] clonazepam 1 mg tablet 60 30 Angelita Thomas [facility] clonazepam 1 mg tablet 60 30 Angelita Thomas [facility] suboxone 8 mg-2 mg sl film 90 30 Angelita Thomas [facility] dextroamp-amphetamin 20 mg tab 90 30 Angelita Thomas [facility] dextroamp-amphetamin 20 mg tab 90 30 Angelita Thomas [facility] suboxone 8 mg-2 mg sl film 90 30 Angelita Thomas [facility] clonazepam 1 mg tablet 90 30 Angelita Thomas [facility] suboxone 8 mg-2 mg sl film 90 30 Angelita Thomas [facility] dextroamp-amphetamin 20 mg tab 90 30 Angelita Thomas [facility] clonazepam 1 mg tablet 90 30 Shahzad Sheikh MD Insurance [facility] suboxone 8 mg-2 mg sl film 90 30 Angelita Thomas [facility] dextroamp-amphetamin 20 mg tab 60 30 Shahzad Sheikh MD Insurance [facility] clonazepam 1 mg tablet 90 30 Shahzad Sheikh MD Insurance [facility] suboxone 8 mg-2 mg sl film 30 10 Tirso Chery ([place]) Insurance [facility] dextroamp-amphetamin 20 mg tab 60 30 Shahzad Sheikh MD Insurance [facility] clonazepam 1 mg tablet 90 30 Shahzad Sheikh MD Insurance [facility] suboxone 8 mg-2 mg sl film 90 30 Colantonio, Miguel Angel [facility] dextroamp-amphetamin 20 mg tab 60 30 Rudy Santiago MD Insurance [facility] clonazepam 1 mg tablet 90 30 Rudy Santiago MD Insurance [facility] suboxone 8 mg-2 mg sl film 90 30 Tirso Chery [place] Medicaid [facility] dextroamp-amphetamin 20 mg tab 60 30 Genet Simpson MD Medicaid [facility] clonazepam 1 mg tablet 90 30 Genet Simpson MD Medicaid [facility] suboxone 8 mg-2 mg sl film 90 30 Colantonio, Miguel Angel Medicaid [facility] dextroamp-amphetamin 20 mg tab 60 30 Genet Simpson MD Medicaid [facility] clonazepam 1 mg tablet 90 30 Genet Simpson MD Insurance [facility] dextroamp-amphetamin 20 mg tab 60 30 Genet Simpson MD Medicaid [facility] clonazepam 1 mg tablet 90 30 Genet Simpson MD Insurance [facility] buprenorphine-naloxone 8-2 mg sl film 90 30 Miguel Angel Schroeder Medicaid [facility] buprenorphine-naloxone 8-2 mg sl film 90 30 Kenya Garcia MD Medicaid [facility] clonazepam 2 mg tablet 60 30 Kenya Garcia MD Medicaid [facility] Date: 1965 Address: [place] [address] Sex: Male Rx Written Rx Dispensed Drug Quantity Days Supply Prescriber Name Payment Method Dispenser chlordiazepoxide 25 mg capsule 8 2 Claude Wiggins ([place]) Insurance [facility] Date: 1965 Address: [address] [place] [address] Sex: Male Rx Written Rx Dispensed Drug Quantity Days Supply Prescriber Name Payment Method Dispenser buprenorphine-naloxone 8-2 mg sl film 60 20 Issa Choudhary MD Insurance [facility] I suboxone 8 mg-2 mg sl film 90 30 Issa Choudhary MD Insurance [facility] Sabrina Date: 1965 Address: [address] [place] [address] Sex: Male Rx Written Rx Dispensed Drug Quantity Days Supply Prescriber Name Payment Method Dispenser dextroamp-amphetamin 20 mg tab 60 30 [id number] dextroamp-amphetamin 20 mg tab 60 30 [facility] Insurance [facility][id number] 53 years old male admitted on 07/10/19 for alcohol withdrawal sx management treating with librium detox regiment reports taking suboxone 8-2mg sl tid klonopin 1mg po bid adderall 20mg tid resume suboxone with psychiatric referral Objective: 07/11/19 10:34 Vital Signs Temperature 97.0 F L 07/11/19 08:58 Pulse Rate 72 07/11/19 08:58 Respiratory Rate 18 07/11/19 08:58 Blood Pressure 102/61 07/11/19 08:58 O2 Sat by Pulse Oximetry (%) 95 07/11/19 06:12 Laboratory Last Values WBC 10.6 K/mm3 (4.0-10.0) H 07/10/19 11:45 RBC 4.14 M/mm3 (4.00-5.60) 07/10/19 11:45 Hgb 13.7 GM/dL (11.7-16.9) 07/10/19 11:45 Hct 40.6 % (35.4-49) 07/10/19 11:45 MCV 98.1 fl (80-96) H 07/10/19 11:45 MCH 33.0 pg (25.7-33.7) 07/10/19 11:45 MCHC 33.6 g/dl (32.0-35.9) 07/10/19 11:45 RDW 13.8 % (11.9-15.9) 07/10/19 11:45 Plt Count 271 K/MM3 (134-434) 07/10/19 11:45 MPV 7.8 fl (7.5-11.1) 07/10/19 11:45 Sodium 141 mmol/L (136-145) 07/10/19 11:45 Potassium 4.2 mmol/L (3.5-5.1) 07/10/19 11:45 Chloride 108 mmol/L (98-107) H 07/10/19 11:45 Carbon Dioxide 26 mmol/L (21-32) 07/10/19 11:45 Anion Gap 7 MMOL/L (8-16) L 07/10/19 11:45 BUN 14.1 mg/dL (7-18) 07/10/19 11:45 Creatinine 1.0 mg/dL (0.55-1.3) 07/10/19 11:45 Est GFR (CKD-EPI)AfAm 99.85 07/10/19 11:45 Est GFR (CKD-EPI)NonAf 86.15 07/10/19 11:45 Random Glucose 99 mg/dL (74-106) 07/10/19 11:45 Calcium 9.0 mg/dL (8.5-10.1) 07/10/19 11:45 Total Bilirubin 0.7 mg/dL (0.2-1) 07/10/19 11:45 AST 30 U/L (15-37) 07/10/19 11:45 ALT 28 U/L (13-61) 07/10/19 11:45 Alkaline Phosphatase 47 U/L (45-117) 07/10/19 11:45 Total Protein 8.4 g/dl (6.4-8.2) H 07/10/19 11:45 Albumin 4.1 g/dl (3.4-5.0) 07/10/19 11:45 lab noted Assessment: 07/11/19 10:34 alcohol withdrawal Plan: librium regiment
[2019-07-11] MEDS: busPIRone HCL 10 MG TABLET (FP) PO SCH ×2 (10:25→23:03)
[2019-07-11] MEDS: PRENATAL VITAMINS W/ FOLIC ACID TABLET (FP) PO SCH (10:26)
[2019-07-11] MEDS: NICOTINE 7 MG/24 HOURS TOPICAL PATCH TD SCH (10:26)
[2019-07-11] MEDS: NICOTINE 14 MG/24 HOURS TOPICAL PATCH TD SCH (10:28)
[2019-07-11] MEDS: TIOTROPIUM BROMIDE 2.5 MCG (SPIRIVA) RESPIMAT INHALER IH SCH (10:29)
[2019-07-11] MEDS: BUPRENORPHINE/NALOXONE 8 MG/2 MG FILM PACKET SL SCH ×2 (14:11→23:04)
[2019-07-11 17:38] LABS: URINE APPEARANCE CLEAR; URINE BILIRUBIN NEGATIVE (NEGATIVE); URINE COLOR YELLOW; URINE GLUCOSE (UA) NEGATIVE (NEGATIVE); URINE KETONE TRACE (NEGATIVE); URINE LEUK ESTERASE NEGATIVE (NEGATIVE); URINE NITRITE NEGATIVE (NEGATIVE); URINE PROTEIN NEGATIVE (NEGATIVE)
[2019-07-11] MEDS: traZODone HCL 100 MG TABLET (FP) PO SCH (23:03)
[2019-07-11] MEDS: MELATONIN 5 MG TABLETS PO SCH (23:03)
[2019-07-11] MEDS: THIAMINE HCL 100 MG TABLET (FP) PO SCH (23:04)
[2019-07-12] MEDS: hydrOXYzine PAMOATE 25 MG CAPSULE (FP) PO SCH ×5 (06:40→22:26)
[2019-07-12] MEDS: chlordiazePOXIDE HCL 25 MG CAPSULE PO SCH ×5 (06:40→22:26)
[2019-07-12] MEDS: BUPRENORPHINE/NALOXONE 8 MG/2 MG FILM PACKET SL SCH ×3 (07:06→22:26)
[2019-07-12] MEDS: PRENATAL VITAMINS W/ FOLIC ACID TABLET (FP) PO SCH (10:59)
[2019-07-12] MEDS: TIOTROPIUM BROMIDE 2.5 MCG (SPIRIVA) RESPIMAT INHALER IH SCH (10:59)
[2019-07-12] MEDS: busPIRone HCL 10 MG TABLET (FP) PO SCH ×2 (10:59→22:26)
[2019-07-12] MEDS: NICOTINE 7 MG/24 HOURS TOPICAL PATCH TD SCH (10:59)
[2019-07-12] MEDS: NICOTINE 14 MG/24 HOURS TOPICAL PATCH TD SCH (11:00)
[2019-07-12] MEDS ORDERED: chlordiazePOXIDE HCL 25 MG CAPSULE PO PRN (13:20)
--- NOTE | 2019-07-12 13:31 | PN ---
S CIWA - CIWA Score Nausea/Vomitin-No Nausea/No Vomiting Muscle Tremors: 1-None Visible, but [place] Anxiety: 1-Mildly Anxious Agitation: 2 Paroxysmal Sweats: No Perspiration Orientation: 0-Oriented Tacttile Disturbances: 0-None Auditory Disturbances: 0-None Visual Disturbances: 0-None Headache: 0-None Present CIWA-Ar Total Score: 4 BHS Progress Note (SOAP) Subjective: Pt complains that the Librium when solubilized tastes bad Objective: 07/12/19 13:28 Laboratory Tests 07/10/19 07/10/19 07/10/19 10:32 11:45 11:45 WBC 10.6 H RBC 4.14 Hgb 13.7 Hct 40.6 MCV 98.1 H MCH 33.0 MCHC 33.6 RDW 13.8 Plt Count 271 MPV 7.8 Sodium 141 Potassium 4.2 Chloride 108 H Carbon Dioxide 26 Anion Gap 7 L BUN 14.1 Creatinine 1.0 Est GFR (CKD-EPI)AfAm 99.85 Est GFR (CKD-EPI)NonAf 86.15 Random Glucose 99 Calcium 9.0 Total Bilirubin 0.7 AST 30 ALT 28 Alkaline Phosphatase 47 Total Protein 8.4 H Albumin 4.1 Urine Color Yellow Urine Appearance Clear Urine pH 7.0 Ur Specific [place] 1.028 Urine Protein Negative Urine Glucose (UA) Negative Urine Ketones Trace H Urine Blood Negative Urine Nitrite Negative Urine Bilirubin Negative Urine Urobilinogen 1.0 Ur Leukocyte Esterase Negative RPR Titer 07/10/19 11:45 WBC RBC Hgb Hct MCV MCH MCHC RDW Plt Count MPV Sodium Potassium Chloride Carbon Dioxide Anion Gap BUN Creatinine Est GFR (CKD-EPI)AfAm Est GFR (CKD-EPI)NonAf Random Glucose Calcium Total Bilirubin AST ALT Alkaline Phosphatase Total Protein Albumin Urine Color Urine Appearance Urine pH Ur Specific [place] Urine Protein Urine Glucose (UA) Urine Ketones Urine Blood Urine Nitrite Urine Bilirubin Urine Urobilinogen Ur Leukocyte Esterase RPR Titer Nonreactive Vital Signs - 24 hr 07/11/19 07/12/19 07/12/19 21:12 03:39 08:12 Temperature 97.0 F L 97.8 F Pulse Rate 90 57 L Respiratory 18 18 18 Rate Blood Pressure 113/73 92/58 L O2 Sat by Pulse 97 Oximetry (%) 07/12/19 08:32 Temperature 97.6 F Pulse Rate 97 H Respiratory 18 Rate Blood Pressure 109/67 O2 Sat by Pulse Oximetry (%) PE Gnl: WDWN, in no distress Mental status: normal Gait: steady coordination: nl Assessment: 07/12/19 13:29 1. Alcohol use disorder 2. on Suboxone, refuses stating he wants it prn for pain 3. Hx of cancer Plan: 1. Librium detox protocol, will change orders to reflect pt is able to take whole pill of Librium
[2019-07-12] MEDS: MELATONIN 5 MG TABLETS PO SCH (22:26)
[2019-07-12] MEDS: THIAMINE HCL 100 MG TABLET (FP) PO SCH (22:26)
[2019-07-12] MEDS: traZODone HCL 100 MG TABLET (FP) PO SCH (22:26)
[2019-07-13] MEDS ORDERED: chlordiazePOXIDE HCL 10 MG CAPSULE PO PRN ×2
[2019-07-13] MEDS: chlordiazePOXIDE HCL 10 MG CAPSULE PO SCH ×4 (06:24→22:21)
[2019-07-13] MEDS: chlordiazePOXIDE HCL 25 MG CAPSULE PO SCH (06:27)
[2019-07-13] MEDS: hydrOXYzine PAMOATE 25 MG CAPSULE (FP) PO SCH ×5 (06:27→22:21)
[2019-07-13] MEDS: BUPRENORPHINE/NALOXONE 8 MG/2 MG FILM PACKET SL SCH ×3 (06:27→22:20)
--- NOTE | 2019-07-13 10:11 | PN ---
S CIWA - CIWA Score Nausea/Vomitin-No Nausea/No Vomiting Muscle Tremors: None Anxiety: 3 Agitation: 0-Normal Activity Paroxysmal Sweats: 3 Orientation: 0-Oriented Tacttile Disturbances: 0-None Auditory Disturbances: 0-None Visual Disturbances: 0-None Headache: 0-None Present CIWA-Ar Total Score: 6 BHS Progress Note (SOAP) Subjective: c/o sweats, anxiety, and headache. Objective: 07/13/19 10:12 Vital Signs 07/13/19 07/13/19 07/13/19 03:30 06:21 08:50 Temperature 98.1 F 97.9 F Pulse Rate 51 L 69 Respiratory 16 18 16 Rate Blood Pressure 99/56 L 92/66 O2 Sat by Pulse 95 Oximetry (%) Laboratory Last Values WBC 10.6 K/mm3 (4.0-10.0) H 07/10/19 11:45 RBC 4.14 M/mm3 (4.00-5.60) 07/10/19 11:45 Hgb 13.7 GM/dL (11.7-16.9) 07/10/19 11:45 Hct 40.6 % (35.4-49) 07/10/19 11:45 MCV 98.1 fl (80-96) H 07/10/19 11:45 MCH 33.0 pg (25.7-33.7) 07/10/19 11:45 MCHC 33.6 g/dl (32.0-35.9) 07/10/19 11:45 RDW 13.8 % (11.9-15.9) 07/10/19 11:45 Plt Count 271 K/MM3 (134-434) 07/10/19 11:45 MPV 7.8 fl (7.5-11.1) 07/10/19 11:45 Sodium 141 mmol/L (136-145) 07/10/19 11:45 Potassium 4.2 mmol/L (3.5-5.1) 07/10/19 11:45 Chloride 108 mmol/L (98-107) H 07/10/19 11:45 Carbon Dioxide 26 mmol/L (21-32) 07/10/19 11:45 Anion Gap 7 MMOL/L (8-16) L 07/10/19 11:45 BUN 14.1 mg/dL (7-18) 07/10/19 11:45 Creatinine 1.0 mg/dL (0.55-1.3) 07/10/19 11:45 Est GFR (CKD-EPI)AfAm 99.85 07/10/19 11:45 Est GFR (CKD-EPI)NonAf 86.15 07/10/19 11:45 Random Glucose 99 mg/dL (74-106) 07/10/19 11:45 Calcium 9.0 mg/dL (8.5-10.1) 07/10/19 11:45 Total Bilirubin 0.7 mg/dL (0.2-1) 07/10/19 11:45 AST 30 U/L (15-37) 07/10/19 11:45 ALT 28 U/L (13-61) 07/10/19 11:45 Alkaline Phosphatase 47 U/L (45-117) 07/10/19 11:45 Total Protein 8.4 g/dl (6.4-8.2) H 07/10/19 11:45 Albumin 4.1 g/dl (3.4-5.0) 07/10/19 11:45 Urine Color Yellow 07/10/19 10:32 Urine Appearance Clear 07/10/19 10:32 Urine pH 7.0 (5.0-8.0) 07/10/19 10:32 Ur Specific [place] 1.028 (1.010-1.035) 07/10/19 10:32 Urine Protein Negative (NEGATIVE) 07/10/19 10:32 Urine Glucose (UA) Negative (NEGATIVE) 07/10/19 10:32 Urine Ketones Trace (NEGATIVE) H 07/10/19 10:32 Urine Blood Negative (NEGATIVE) 07/10/19 10:32 Urine Nitrite Negative (NEGATIVE) 07/10/19 10:32 Urine Bilirubin Negative (NEGATIVE) 07/10/19 10:32 Urine Urobilinogen 1.0 mg/dL (0.2-1.0) 07/10/19 10:32 Ur Leukocyte Esterase Negative (NEGATIVE) 07/10/19 10:32 RPR Titer Nonreactive (NONREACTIVE) 07/10/19 11:45 Labs noted. Assessment: 07/13/19 10:13 AOX3, in no acute respiratory distress. Full ROM, ambulating in the unit. Withdrawal symptoms. Plan: continue detox.
[2019-07-13] MEDS: PRENATAL VITAMINS W/ FOLIC ACID TABLET (FP) PO SCH (10:24)
[2019-07-13] MEDS: busPIRone HCL 10 MG TABLET (FP) PO SCH ×2 (10:24→22:20)
[2019-07-13] MEDS: TIOTROPIUM BROMIDE 2.5 MCG (SPIRIVA) RESPIMAT INHALER IH SCH (10:25)
[2019-07-13] MEDS: NICOTINE 14 MG/24 HOURS TOPICAL PATCH TD SCH (10:26)
[2019-07-13] MEDS: NICOTINE 7 MG/24 HOURS TOPICAL PATCH TD SCH (10:53)
[2019-07-13] MEDS: traZODone HCL 100 MG TABLET (FP) PO SCH (22:20)
[2019-07-13] MEDS: MELATONIN 5 MG TABLETS PO SCH (22:20)
[2019-07-13] MEDS: THIAMINE HCL 100 MG TABLET (FP) PO SCH (22:21)
[2019-07-14] MEDS ORDERED: chlordiazePOXIDE HCL 10 MG CAPSULE PO SCH (05:00)
[2019-07-14] MEDS: chlordiazePOXIDE HCL 10 MG CAPSULE PO SCH ×2 (07:01→18:52)
[2019-07-14] MEDS: BUPRENORPHINE/NALOXONE 8 MG/2 MG FILM PACKET SL SCH ×3 (07:02→22:18)
[2019-07-14] MEDS: hydrOXYzine PAMOATE 25 MG CAPSULE (FP) PO SCH ×5 (07:02→22:18)
[2019-07-14] MEDS: PRENATAL VITAMINS W/ FOLIC ACID TABLET (FP) PO SCH (12:30)
[2019-07-14] MEDS: busPIRone HCL 10 MG TABLET (FP) PO SCH ×2 (12:30→22:18)
[2019-07-14] MEDS: NICOTINE 14 MG/24 HOURS TOPICAL PATCH TD SCH (12:31)
[2019-07-14] MEDS: TIOTROPIUM BROMIDE 2.5 MCG (SPIRIVA) RESPIMAT INHALER IH SCH (12:32)
[2019-07-14] MEDS: NICOTINE 7 MG/24 HOURS TOPICAL PATCH TD SCH (12:32)
--- NOTE | 2019-07-14 12:35 | PN ---
[facility] CIWA - CIWA Score Nausea/Vomitin-No Nausea/No Vomiting Muscle Tremors: 2 Anxiety: 2 Agitation: 0-Normal Activity Paroxysmal Sweats: 1-Minimal Palms Moist Orientation: 0-Oriented Tacttile Disturbances: 0-None Auditory Disturbances: 0-None Visual Disturbances: 0-None Headache: 0-None Present CIWA-Ar Total Score: 5 S Progress Note (SOAP) Subjective: 53 years old male admitted on 07/12/19 for alcohol withdrawal sx management treating with librium detox regiment feeling better today less tremor mild anxious no sweating Objective: 07/14/19 12:36 Vital Signs Temperature 97.8 F 07/14/19 08:33 Pulse Rate 87 07/14/19 08:33 Respiratory Rate 18 07/14/19 08:33 Blood Pressure 95/67 07/14/19 08:33 O2 Sat by Pulse Oximetry (%) 97 07/13/19 20:23 Laboratory Last Values WBC 10.6 K/mm3 (4.0-10.0) H 07/10/19 11:45 RBC 4.14 M/mm3 (4.00-5.60) 07/10/19 11:45 Hgb 13.7 GM/dL (11.7-16.9) 07/10/19 11:45 Hct 40.6 % (35.4-49) 07/10/19 11:45 MCV 98.1 fl (80-96) H 07/10/19 11:45 MCH 33.0 pg (25.7-33.7) 07/10/19 11:45 MCHC 33.6 g/dl (32.0-35.9) 07/10/19 11:45 RDW 13.8 % (11.9-15.9) 07/10/19 11:45 Plt Count 271 K/MM3 (134-434) 07/10/19 11:45 MPV 7.8 fl (7.5-11.1) 07/10/19 11:45 Sodium 141 mmol/L (136-145) 07/10/19 11:45 Potassium 4.2 mmol/L (3.5-5.1) 07/10/19 11:45 Chloride 108 mmol/L (98-107) H 07/10/19 11:45 Carbon Dioxide 26 mmol/L (21-32) 07/10/19 11:45 Anion Gap 7 MMOL/L (8-16) L 07/10/19 11:45 BUN 14.1 mg/dL (7-18) 07/10/19 11:45 Creatinine 1.0 mg/dL (0.55-1.3) 07/10/19 11:45 Est GFR (CKD-EPI)AfAm 99.85 07/10/19 11:45 Est GFR (CKD-EPI)NonAf 86.15 07/10/19 11:45 Random Glucose 99 mg/dL (74-106) 07/10/19 11:45 Calcium 9.0 mg/dL (8.5-10.1) 07/10/19 11:45 Total Bilirubin 0.7 mg/dL (0.2-1) 07/10/19 11:45 AST 30 U/L (15-37) 07/10/19 11:45 ALT 28 U/L (13-61) 07/10/19 11:45 Alkaline Phosphatase 47 U/L (45-117) 07/10/19 11:45 Total Protein 8.4 g/dl (6.4-8.2) H 07/10/19 11:45 Albumin 4.1 g/dl (3.4-5.0) 07/10/19 11:45 Urine Color Yellow 07/10/19 10:32 Urine Appearance Clear 07/10/19 10:32 Urine pH 7.0 (5.0-8.0) 07/10/19 10:32 Ur Specific [place] 1.028 (1.010-1.035) 07/10/19 10:32 Urine Protein Negative (NEGATIVE) 07/10/19 10:32 Urine Glucose (UA) Negative (NEGATIVE) 07/10/19 10:32 Urine Ketones Trace (NEGATIVE) H 07/10/19 10:32 Urine Blood Negative (NEGATIVE) 07/10/19 10:32 Urine Nitrite Negative (NEGATIVE) 07/10/19 10:32 Urine Bilirubin Negative (NEGATIVE) 07/10/19 10:32 Urine Urobilinogen 1.0 mg/dL (0.2-1.0) 07/10/19 10:32 Ur Leukocyte Esterase Negative (NEGATIVE) 07/10/19 10:32 RPR Titer Nonreactive (NONREACTIVE) 07/10/19 11:45 lab noted Assessment: 07/14/19 12:36 alcohol withdrawal Plan: librium regiment
[2019-07-14] MEDS: traZODone HCL 100 MG TABLET (FP) PO SCH (22:17)
[2019-07-14] MEDS: THIAMINE HCL 100 MG TABLET (FP) PO SCH (22:18)
[2019-07-14] MEDS: MELATONIN 5 MG TABLETS PO SCH (22:18)
[2019-07-15] MEDS ORDERED: chlordiazePOXIDE HCL 10 MG CAPSULE PO ONE ×2 (05:00)
[2019-07-15] MEDS: hydrOXYzine PAMOATE 25 MG CAPSULE (FP) PO SCH ×5 (07:38→22:19)
[2019-07-15] MEDS: BUPRENORPHINE/NALOXONE 8 MG/2 MG FILM PACKET SL SCH ×3 (07:38→22:19)
--- NOTE | 2019-07-15 08:56 | PN ---
S CIWA - CIWA Score Nausea/Vomitin-Mild Nausea/No Vomiting Muscle Tremors: 2 Anxiety: 2 Agitation: 2 Paroxysmal Sweats: No Perspiration Orientation: 0-Oriented Tacttile Disturbances: 1-Very Mild Itch/Numbness Auditory Disturbances: 0-None Visual Disturbances: 0-None Headache: 1-Very Mild CIWA-Ar Total Score: 9 BHS Progress Note (SOAP) Subjective: alert,irritable,anxious,interrupted sleep,ambulation with cane,dizziness on ambulation,mild wheezing Objective: 07/15/19 08:55 Vital Signs Temperature 97.0 F L 07/14/19 20:44 Pulse Rate 73 07/14/19 20:44 Respiratory Rate 18 07/15/19 03:30 Blood Pressure 108/67 07/14/19 20:44 O2 Sat by Pulse Oximetry (%) 100 07/14/19 20:44 Assessment: 07/15/19 08:55 withdrawal symptom Plan: receiving librium 10 mgs this morning,will observe patient breathing with vital signs monitoring, duoneb nebulizer treatment prn q 6 hrs,possible discharge in am
[2019-07-15] MEDS ORDERED: ALBUTEROL SO4 2.5/IPRATROPIUM 0.5 INH SOL 3 ML VIAL.NEB. NEB PRN (09:03)
[2019-07-15] MEDS ORDERED: ALBUTEROL SO4 0.083% IH SOL 2.5 MG/3 ML VIAL.NEB. NEB PRN (09:10)
--- NOTE | 2019-07-15 09:12 | PN ---
BHS Progress Note Note: to give albuterol nebulizer prn q 6 hrs for expiratory wheezing,close monitoring
[2019-07-15] MEDS: PRENATAL VITAMINS W/ FOLIC ACID TABLET (FP) PO SCH (10:26)
[2019-07-15] MEDS: busPIRone HCL 10 MG TABLET (FP) PO SCH ×2 (10:26→22:19)
[2019-07-15] MEDS: NICOTINE 14 MG/24 HOURS TOPICAL PATCH TD SCH (10:26)
[2019-07-15] MEDS: NICOTINE 7 MG/24 HOURS TOPICAL PATCH TD SCH (10:27)
[2019-07-15] MEDS: TIOTROPIUM BROMIDE 2.5 MCG (SPIRIVA) RESPIMAT INHALER IH SCH (10:27)
[2019-07-15 21:52] VITALS: TEMP 97.2
[2019-07-15] MEDS: traZODone HCL 100 MG TABLET (FP) PO SCH (22:18)
[2019-07-15] MEDS: THIAMINE HCL 100 MG TABLET (FP) PO SCH (22:19)
[2019-07-15] MEDS: MELATONIN 5 MG TABLETS PO SCH (22:19)
[2019-07-16] MEDS: hydrOXYzine PAMOATE 25 MG CAPSULE (FP) PO SCH ×2 (07:30→10:40)
[2019-07-16] MEDS: BUPRENORPHINE/NALOXONE 8 MG/2 MG FILM PACKET SL SCH (07:30)
[2019-07-16 09:58] VITALS: BP 101/64; PULSE 82
[2019-07-16] MEDS: busPIRone HCL 10 MG TABLET (FP) PO SCH (10:38)
[2019-07-16] MEDS: PRENATAL VITAMINS W/ FOLIC ACID TABLET (FP) PO SCH (10:39)
[2019-07-16] MEDS: TIOTROPIUM BROMIDE 2.5 MCG (SPIRIVA) RESPIMAT INHALER IH SCH (10:39)
[2019-07-16] MEDS: NICOTINE 7 MG/24 HOURS TOPICAL PATCH TD SCH (10:39)
[2019-07-16] MEDS: NICOTINE 14 MG/24 HOURS TOPICAL PATCH TD SCH (10:39)
--- NOTE | 2019-07-16 15:13 | DS ---
[facility] Detox Discharge Summary Admission Date: 07/10/19 Discharge Date: 07/16/19 - History Present History: Alcohol Dependence Additional Comments: 53 years old male admitted on 07/10/19 for alcohol withdrawal sx management treated with librium detox regiment Mr Pitt has completed the librium regiment and is tolerated well seen by psychiatrist resume trazodone alert oriented x 3 speech clearly coherently steady gait [id number] grossly intact skin warm and dry Pertinent Past History: tme for discharge 34 minutes - Physical Exam Results Vital Signs: Vital Signs Temperature 97.2 F L 07/16/19 09:39 Pulse Rate 82 07/16/19 09:39 Respiratory Rate 18 07/16/19 09:39 Blood Pressure 101/64 07/16/19 09:39 O2 Sat by Pulse Oximetry (%) 97 07/15/19 20:50 Pertinent Admission Physical Exam Findings: alcohol withdrawal Laboratory Last Values WBC 10.6 K/mm3 (4.0-10.0) H 07/10/19 11:45 RBC 4.14 M/mm3 (4.00-5.60) 07/10/19 11:45 Hgb 13.7 GM/dL (11.7-16.9) 07/10/19 11:45 Hct 40.6 % (35.4-49) 07/10/19 11:45 MCV 98.1 fl (80-96) H 07/10/19 11:45 MCH 33.0 pg (25.7-33.7) 07/10/19 11:45 MCHC 33.6 g/dl (32.0-35.9) 07/10/19 11:45 RDW 13.8 % (11.9-15.9) 07/10/19 11:45 Plt Count 271 K/MM3 (134-434) 07/10/19 11:45 MPV 7.8 fl (7.5-11.1) 07/10/19 11:45 Sodium 141 mmol/L (136-145) 07/10/19 11:45 Potassium 4.2 mmol/L (3.5-5.1) 07/10/19 11:45 Chloride 108 mmol/L (98-107) H 07/10/19 11:45 Carbon Dioxide 26 mmol/L (21-32) 07/10/19 11:45 Anion Gap 7 MMOL/L (8-16) L 07/10/19 11:45 BUN 14.1 mg/dL (7-18) 07/10/19 11:45 Creatinine 1.0 mg/dL (0.55-1.3) 07/10/19 11:45 Est GFR (CKD-EPI)AfAm 99.85 07/10/19 11:45 Est GFR (CKD-EPI)NonAf 86.15 07/10/19 11:45 Random Glucose 99 mg/dL (74-106) 07/10/19 11:45 Calcium 9.0 mg/dL (8.5-10.1) 07/10/19 11:45 Total Bilirubin 0.7 mg/dL (0.2-1) 07/10/19 11:45 AST 30 U/L (15-37) 07/10/19 11:45 ALT 28 U/L (13-61) 07/10/19 11:45 Alkaline Phosphatase 47 U/L (45-117) 07/10/19 11:45 Total Protein 8.4 g/dl (6.4-8.2) H 07/10/19 11:45 Albumin 4.1 g/dl (3.4-5.0) 07/10/19 11:45 Urine Color Yellow 07/10/19 10:32 Urine Appearance Clear 07/10/19 10:32 Urine pH 7.0 (5.0-8.0) 07/10/19 10:32 Ur Specific [place] 1.028 (1.010-1.035) 07/10/19 10:32 Urine Protein Negative (NEGATIVE) 07/10/19 10:32 Urine Glucose (UA) Negative (NEGATIVE) 07/10/19 10:32 Urine Ketones Trace (NEGATIVE) H 07/10/19 10:32 Urine Blood Negative (NEGATIVE) 07/10/19 10:32 Urine Nitrite Negative (NEGATIVE) 07/10/19 10:32 Urine Bilirubin Negative (NEGATIVE) 07/10/19 10:32 Urine Urobilinogen 1.0 mg/dL (0.2-1.0) 07/10/19 10:32 Ur Leukocyte Esterase Negative (NEGATIVE) 07/10/19 10:32 RPR Titer Nonreactive (NONREACTIVE) 07/10/19 11:45 lab noted - Treatment Hospital Course: Detox Protocol Followed, Detoxed Safely, Responded well, Discharged Condition Good, Rehab Referral Accepted Patient has Accepted a Rehab Referral to: [facility] - Medication Discharge Medications: Ambulatory Orders Buspirone HCl [Buspar -] 10 mg PO BID #60 tablet 07/24/18 Buprenorphine/Naloxone [Suboxone 8Mg/2Mg Sl Film -] 8 mg SL TID PRN MDD 24MG 03/27/19 traZODone HCL [Trazodone HCl] 100 mg PO HS 05/16/19 Albuterol Sulfate Inhaler - [Ventolin HFA Inhaler -] 2 inh PO Q4H PRN #1 inhaler 05/23/19 Megestrol Acetate 40 mg PO Q6H #90 tablet 05/23/19 Nicotine Patch [Nicoderm Patch -] 21 mg TD DAILY #30 patch 05/23/19 traZODone HCL [Desyrel -] 100 mg PO HS #30 tablet 05/23/19 Tiotropium [place] [Spiriva] 18 mcg IH DAILY 07/10/19 - Diagnosis (1) Alcohol dependence with uncomplicated withdrawal Status: Acute (2) Weight loss Status: Chronic (3) COPD (chronic obstructive pulmonary disease) Status: Chronic Qualifiers: COPD type: emphysema (4) Nicotine dependence Status: Acute Qualifiers: Nicotine product type: cigarettes Substance use status: in withdrawal Qualified Code(s): F17.213 - Nicotine dependence, cigarettes, with withdrawal (5) Substance induced mood disorder Status: Suspected (6) PPD positive, treated Status: Resolved - AMA Did Patient Leave Against Medical Advice: No CIWA Score - CIWA Score Nausea/Vomitin-No Nausea/No Vomiting Muscle Tremors: 1-None Visible, but [place] Anxiety: 1-Mildly Anxious Agitation: 1-Slight > Activity Paroxysmal Sweats: No Perspiration Orientation: 0-Oriented Tacttile Disturbances: 0-None Auditory Disturbances: 0-None Visual Disturbances: 0-None Headache: 1-Very Mild CIWA-Ar Total Score: 4
== END 2019-07-16 09:15 | disposition home or self-care (01) | DRG 897 ==
LOC: YASAS 10:07 → Y3N 11:54
PROVIDERS: ADMIT Allergy & Immunology; ATTEND Allergy & Immunology
PROC: HZ2ZZZZ Detoxification Services for Substance Abuse Treatment (ICD-10-PCS; principal; 2019-07-10)
DX: F10.230 Alcohol dependence with withdrawal, uncomplicated (principal); F14.20 Cocaine dependence, uncomplicated; F33.9 Major depressive disorder, recurrent, unspecified; Z68.1 Body mass index [BMI] 19.9 or less, adult; F17.213 Nicotine dependence, cigarettes, with withdrawal; F19.24 Other psychoactive substance dependence with psychoactive substance-induced mood disorder; F90.9 Attention-deficit hyperactivity disorder, unspecified type; F43.10 Post-traumatic stress disorder, unspecified; F41.8 Other specified anxiety disorders; J43.8 Other emphysema; G47.00 Insomnia, unspecified; M54.5 Low back pain; G89.29 Other chronic pain; R63.4 Abnormal weight loss; R76.11 Nonspecific reaction to tuberculin skin test without active tuberculosis; Z85.46 Personal history of malignant neoplasm of prostate; Z85.830 Personal history of malignant neoplasm of bone; Z91.013 Allergy to seafood
CPT/HCPCS: 36415; 80053; 81003; 85027; 86593; Q0162

== ENCOUNTER 2019-11-08 08:09 | Inpatient (IN) | payer OTHER ==
--- NOTE | 2019-11-08 08:34 | BHS.RME ---
Substance Use & Tx History - Substance Use History Alcohol Substance amount: 3 pints vodka + beers Frequency of use: Daily Substance route: Oral Date of Last Use: 11/08/19 (1:30AM) Cocaine- Powder Substance amount: $20 Frequency of use: Daily Substance route: Inhalation (ex: sniffing or snorting) Date of Last Use: 11/07/19 Physical/Psych/Mental Status - Behavior General Behavior: Increased activity (restlessness, agitation) Eye Contact: Normal - Cooperativeness Cooperativeness: Cooperative - Thinking Thought Processes: Tight, Logical, Goal Directed - Physical Health Problems Is patient presently having any pain?: No Does patient presently have any injuries (include location): No Does patient currently have a fever: No Is patient : No CIWA Nausea/Vomitin Muscle Tremors: 3 Anxiety: 3 Agitation: 3 Paroxysmal Sweats: 4-Forehead w/Sweat Beads Orientation: 0-Oriented Tacttile Disturbances: 0-None Auditory Disturbances: 0-None Visual Disturbances: 0-None Headache: 5-Severe CIWA-Ar Total Score: 21
--- NOTE | 2019-11-08 08:38 | HP ---
CIWA Score Nausea/Vomitin Muscle Tremors: 3 Anxiety: 3 Agitation: 3 Paroxysmal Sweats: 4-Forehead w/Sweat Beads Orientation: 0-Oriented Tacttile Disturbances: 0-None Auditory Disturbances: 0-None Visual Disturbances: 0-None Headache: 5-Severe CIWA-Ar Total Score: 21 - Admission Criteria OASAS Guidelines: Admission for Medically Managed Detox: Requires at least one of the followin. CIWA greater than 12 2. Seizures within the past 24 hours 3. Delirium tremens within the past 24 hours 4. Hallucinations within the past 24 hours 5. Acute intervention needed for co occurring medical disorder 6. Acute intervention needed for co occurring psychiatric disorder 7. Severe withdrawal that cannot be handled at a lower level of care (continued vomiting, continued diarrhea, abnormal vital signs) requiring intravenous medication and/or fluids 8. Admitting History and Physical - Admission Chief Complaint: " I have to stop drinking." History of Present Illness: 53 yo returns post-discharge from [facility] ED after alcohol withdrawal symptoms stablized in ED and then transferred to [facility] to continue detox due to a Left Hydrocoele which was removed. He also had PE and treated with anticoagulation and discharged on Lovenox. He immediately relapsed after being discharged from [facility]. Patient has had metastatic Prostate Cancer which he has not followed up with. Alcohol use since age 16. Restarted drinking about 1 month ago and now continues to drink 3 pints vodka + six pack beer daily, last drank early this morning at 1:30AM and passed out, has had multiple blackouts. Denies seizures. Cocaine use since began at age 45. Currently uses $20 - nasally, 1x/mth PMHx: COPD, Asthma, Prostate ca, DVT (2 yrs ago and not on meds) MHHx: Anxiety. Denies thoughts of harming self or others. SHx: Domiciles. Unemployed on Disability. He meets criteria for detox due to multiple medical problems and high risk for relapse due to his medical prognosis of metastatic Prostate Cancer. 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 Pulmonary: Yes: COPD Psych: Yes: Anxiety, Depression (insomnia) Musculoskeletal: Yes: Chronic low back pain - Past Surgical History Past Surgical History: Yes: Hernia Repair Additional Past Surgical History: Left Hydrocoele removal - Smoking History Smoking history: Current every day smoker Have you smoked in the past 12 months: Yes Aproximately how many cigarettes per day: 3 - Alcohol/Substance Use Hx Alcohol Use: Yes History of Substance Use: reports: Cocaine - Social History Usual Living Arrangement: Yes: With Spouse Do you think of yourself as: Straight/Heterosexual ADL: Independent 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 History of Recent Travel: No Admission ROS BHS - HPI Allergies/Adverse Reactions: Allergies Allergy/AdvReac Type Severity Reaction Status Date / Time shellfish derived Allergy Severe Swelling Verified 10/07/19 15:44 No Known Drug Allergies Allergy Verified 10/07/19 15:44 Exam Limitations: No Limitations - Ebola screening Have you traveled outside of the country in the last 21 days: No Have you had contact with anyone from an Ebola affected area: No Have you been sick,other than usual withdrawal symptoms: No Do you have a fever: No - Review of Systems Constitutional: Chills, Diaphoresis, Unintentional Wgt. Loss EENT: reports: No Symptoms Reported Respiratory: reports: No Symptoms reported Cardiac: reports: No Symptoms Reported GI: reports: No Symptoms Reported : reports: No Symptoms Reported Musculoskeletal: reports: No Symptoms Reported Integumentary: reports: No Symptoms Reported Neuro: reports: No Symptoms reported Endocrine: reports: No Symptoms Reported Hematology: reports: No Symptoms Reported Psychiatric: reports: Judgement Intact, Mood/Affect Appropiate, Orientated x3, Agitated, Anxious Other Systems: Reviewed and Negative Patient History - Patient Medical History Hx Anemia: No Hx Asthma: Yes Hx Chronic Obstructive Pulmonary Disease (COPD): Yes Hx Cancer: Yes (Prostate, Completed round of treatment 3 weeks ago @ [facility]) Hx Cardiac Disorders: No Hx Congestive Heart Failure: No Hx Hypertension: No Hx Hypercholesterolemia: No Hx Pacemaker: No HX Cerebrovascular Accident: No Hx Seizures: No Hx Dementia: No Hx Diabetes: No Hx Gastrointestinal Disorders: No Hx Liver Disease: No Hx Genitourinary Disorders: No Hx Sexually Transmitted Disorders: No Hx Renal Disease (ESRD): No Hx Thyroid Disease: No Hx Human Immunodeficiency Virus (HIV): No (Last Tested approx. 90 days ago: NEGATIVE.) Hx Hepatitis C: No (Last Tested approx. 90 days ago: NEGATIVE.) Hx Depression: No Hx Suicide Attempt: No Hx Bipolar Disorder: No Hx Schizophrenia: No - Patient Surgical History Past Surgical History: Yes Hx Neurologic Surgery: No Hx Cataract Extraction: No Hx Cardiac Surgery: No Hx Lung Surgery: No Hx Breast Surgery: No Hx Breast Biopsy: No Hx Abdominal Surgery: No Hx Appendectomy: No Hx Cholecystectomy: No Hx Genitourinary Surgery: Yes (partial prostatectomy,biopsy of lymph node of neck) Hx Orthopedic Surgery: No Other Surgical History: PARTIAL PROSTATECTOMY 09/07/15 (ca)/biopsy (malignant), lump, right side of Anesthesia Reaction: No - PPD History Previous Implant?: Yes Documented Results: Positive w/proof Date: 03/27/19 Results: positive PPD to be Administered?: No - Smoking Cessation Smoking history: Current every day smoker Have you smoked in the past 12 months: Yes Aproximately how many cigarettes per day: 3 Cigars Per Day: 0 Hx Chewing Tobacco Use: No Initiated information on smoking cessation: Yes 'Breaking Loose' booklet given: 11/08/19 - Substances abused Alcohol Substance route: Oral Frequency: Daily Amount used: 3 pints vodka Age of first use: 16 Date of last use: 11/08/19 (1:30AM) Cocaine Substance route: Inhalation Frequency: Daily Amount used: $20 Age of first use: 45 Date of last use: 11/07/19 Admission Physical Exam BHS - Physical General Appearance: Yes: Appropriately Dressed, Moderate Distress, Thin, Tremorous, Sweating, Anxious HEENTM: Yes: EOMI, Hearing grossly Normal, Normal ENT Inspection, Normocephalic, Normal Voice, GUSTABO, Pharynx Normal, Tm's normal, Other (right mass under right jaw) Respiratory: Yes: Chest Non-Tender, Lungs Clear, Normal Breath Sounds, No Respiratory Distress, No Accessory Muscle Use Neck: Yes: No masses,lesions,Nodules, Trachea in good position, Mass Breast: Yes: Within Normal Limits Cardiology: Yes: Regular Rhythm, Regular Rate, S1, S2 Abdominal: Yes: Normal Bowel Sounds, Non Tender, Flat, Soft Genitourinary: Yes: Within Normal Limits Back: Yes: Normal Inspection Musculoskeletal: Yes: full range of Motion, Gait Steady, Pelvis Stable Extremities: Yes: Normal Capillary Refill, Normal Inspection, Normal Range of Motion, Non-Tender Neurological: Yes: free lance model II-XII NML intact, Fully Oriented, Alert, Motor Strength 5/5, Normal Mood/Affect, Normal Response Integumentary: Yes: Normal Color, Dry, Warm Lymphatic: Yes: Within Normal Limits - Diagnostic (1) Metastatic malignant neoplasm to prostate Current Visit: Yes Status: Acute (2) Alcohol dependence with uncomplicated withdrawal Current Visit: Yes Status: Acute (3) Cocaine dependence, uncomplicated Current Visit: No Status: Acute (4) Insomnia Current Visit: Yes Status: Acute (5) ADHD (attention deficit hyperactivity disorder) Current Visit: Yes Status: Chronic (6) Anxiety disorder Current Visit: Yes Status: Chronic (7) History of positive PPD Current Visit: Yes Status: Chronic Comment: Last CXR @ [facility] 03/27/19 (8) Nicotine dependence Current Visit: Yes Status: Chronic Qualifiers: Nicotine product type: cigarettes Substance use status: uncomplicated Qualified Code(s): F17.210 - Nicotine dependence, cigarettes, uncomplicated Comment: Down to 2 cigarettes/day (9) Underweight Current Visit: Yes Status: Chronic (10) Weight loss Current Visit: Yes Status: Chronic Cleared for Admission S - Detox or Rehab [facility] Level of Care: Medically Managed Detox Regimen/Protocol: Librium Claeared for Rehab Admission: No Screened but not Admitted - Documentation of Visit Screened but not Admitted: No Breathalyzer - Breathalyzer Breathalyzer: 0 (due to drinking 1:30AM only one beer) Urine Drug Screen - Test Device Lot number: [id number] Expiration date: 12/22/20 - Control Is test valid?: Yes - Results Drug screen NEGATIVE: No Urine drug screen results: RASHID-Cocaine, BZO-Benzodiazepines Inpatient Rehab Admission - Rehab Decision to Admit Inpatient rehab admission?: No
[2019-11-08 09:17] VITALS: BMI 19.8
[2019-11-08] MEDS ORDERED: MENTHOL/PHENOL 1 EACH UD MM PRN (09:21)
[2019-11-08] MEDS ORDERED: MAGNESIUM HYDROX 2400MG/30ML ORAL SUSPENSION 30 ML CUP PO PRN (09:21)
[2019-11-08] MEDS ORDERED: ACETAMINOPHEN 325 MG TABLET (FP) PO PRN ×3 (09:21→10:12)
[2019-11-08] MEDS ORDERED: METHOCARBAMOL 500 MG TABLET PO PRN (09:21)
[2019-11-08] MEDS ORDERED: MAGNESIUM CITRATE 300 ML BOTTLE PO PRN (09:21)
[2019-11-08] MEDS ORDERED: IBUPROFEN 400 MG TABLET (FP) PO PRN (09:21)
[2019-11-08] MEDS ORDERED: MAG HYDROX/AL HYDROX/SIMETH 30 ML UNIT-DOSE CUP PO PRN (09:21)
[2019-11-08] MEDS ORDERED: chlordiazePOXIDE HCL 25 MG CAPSULE PO PRN (09:21)
[2019-11-08] MEDS ORDERED: NICOTINE POLACRILEX 2 MG GUM BUC PRN (09:21)
[2019-11-08] MEDS ORDERED: ONDANSETRON *ODT* 4 MG TABLET SL ONE (09:21)
[2019-11-08] MEDS ORDERED: BISMUTH SUBSALICYLATE 524 MG/30 ML UD PO PRN (09:21)
[2019-11-08] MEDS ORDERED: ALBUTEROL SO4 2.5/IPRATROPIUM 0.5 INH SOL 3 ML VIAL.NEB. NEB PRN (09:23)
[2019-11-08] MEDS ORDERED: ALBUTEROL SO4 0.083% IH SOL 2.5 MG/3 ML VIAL.NEB. NEB PRN (09:23)
[2019-11-08] MEDS ORDERED: chlordiazePOXIDE HCL 25 MG CAPSULE PO SCH (11:00)
--- NOTE | 2019-11-08 12:01 | CONSULT ---
[facility] Psychiatric Consult - Data Date of interview: 11/08/19 Admission source: Self-referred Identifying data: Mr Pitt is a 53 years old Black male, father of 2 children, unemployed receving SSD, domiciled living with spouse seeking detox treatment for alcohol and cocaine Substance Abuse History: Reports history of alcohol and cocaine use. Refer to addiction counselor's summary for further information Medical History: Significant for bronchial asthma/COPD, chornic low back pain, history of treatment for PPD+, deep venous thrombosis, left inguinal hernia repair and partial prostatectomy for prostate cancer. Smokes 3 cigarettes daily Psychiatric History: Patient is known for multiple previous admissions to this facility. His first psychiatric contact was at age 10 when he was diagnosed with ADHD and treated with psychostimulants. He reports taking medication till age 14. In 2010, following the murder of his and son, he was diagnosed with MDD, PTSD and anxiety and started on medications. Througout the years he has been tried on several psychotropic medications that include but not limited to Paroxetine, Quetiapine, Clonazepam, Mirtazapine, Buspirone and Trazodone. He de nies previous psychiatric hospitalization and suicide attempt. During his most recent admission to this facilty in September 2019, he was seen by press writer and he was prescribed Buspar 15 mg/bid and Trazadone 100 mg/hs. Reports that he now sees a psychiatrist at [facility] and he is prescribed Buspar 15 mg/bid and Trazadone 100 mg/hsHe reported that he was seeing both a therapist and a psychiatrist at [facility] and he is prescribed Adderal 20 mg/bid, Buspar 15 mg/tid, Trazodone 100 mg/hs. At present, denies experiencing depressive symptoms, S/H ideations. However, he is very irritable, uncoperative reports sleeping poorly. Requests resumption of Trazadone and Buspar Physical/Sexual Abuse/Trauma History: Denies history of abuse as a child or DV relationship as an adult. However, he has endured traumatic life event. his and son were both murdered in 2010 Mental Status Exam - Mental Status Exam Alert and Oriented to: Time, Place, Person Cognitive Function: Fair Patient Appearance: Disheveled Mood: Irritable Affect: Appropriate Patient Behavior: Uncooperative Speech Pattern: Clear Voice Loudness: Normal Thought Process: Intact, Goal Oriented Suicidal Ideation: Denies Homicidal Ideation: Denies Insight/Judgement: Poor Sleep: Poorly Appetite: Good Muscle strength/Tone: Normal Gait/Station: Normal Psychiatric Findings - Problem List ([place] 1, 2,3) (1) ADHD (attention deficit hyperactivity disorder) Current Visit: Yes Status: Chronic (2) History of posttraumatic stress disorder (PTSD) Current Visit: No Status: Chronic Comment: As per history. (3) MDD (major depressive disorder) Current Visit: No Status: Chronic (4) Substance induced mood disorder Current Visit: Yes Status: Acute (5) Substance-induced sleep disorder Current Visit: No Status: Acute (6) Alcohol dependence with uncomplicated withdrawal Current Visit: Yes Status: Acute (7) Cocaine dependence, uncomplicated Current Visit: No Status: Acute (8) Nicotine dependence Current Visit: Yes Status: Chronic Qualifiers: Nicotine product type: cigarettes Substance use status: uncomplicated Qualified Code(s): F17.210 - Nicotine dependence, cigarettes, uncomplicated Comment: Down to 2 cigarettes/day (9) History of positive PPD Current Visit: Yes Status: Resolved Comment: Last CXR @ [facility] 03/27/19 (10) Asthma Current Visit: No Status: Chronic Qualifiers: Asthma severity: mild Asthma persistence: intermittent Asthma complication type: with status asthmaticus Qualified Code(s): J45.22 - Mild intermittent asthma with status asthmaticus (11) COPD (chronic obstructive pulmonary disease) Current Visit: No Status: Chronic Qualifiers: COPD type: unspecified COPD Qualified Code(s): J44.9 - Chronic obstructive pulmonary disease, unspecified (12) Chronic low back pain Current Visit: Yes Status: Chronic (13) Metastatic malignant neoplasm to prostate Current Visit: Yes Status: Resolved (14) DVT (deep venous thrombosis) Current Visit: Yes Status: Resolved (15) GERD (gastroesophageal reflux disease) Current Visit: Yes Status: Chronic - Initial Treatment Plan Initial Treatment Plan: 1) Resume Buspar 15 mg po BID and Trazadone 100 mg po HS. 2) Continue inpatient detoxification
[2019-11-08] MEDS: PRENATAL VITAMINS W/ FOLIC ACID TABLET (FP) PO SCH (13:02)
[2019-11-08] MEDS: NICOTINE 7 MG/24 HOURS TOPICAL PATCH TD SCH (13:02)
[2019-11-08] MEDS: PANTOPRAZOLE 20 MG TABLET PO SCH (13:02)
[2019-11-08] MEDS: hydrOXYzine PAMOATE 25 MG CAPSULE (FP) PO SCH ×4 (13:03→23:10)
[2019-11-08 14:58] LABS: HEMATOCRIT 38.6 % (35.4-49); HEMOGLOBIN 12.5 GM/dL (11.7-16.9); MCH 32.4 pg (25.7-33.7); MCHC 32.5 g/dl (32.0-35.9); MEAN CELL VOLUME 99.7 fl (80-96); PLATELET COUNT 246 K/MM3 (134-434); RBC 3.87 M/mm3 (4.00-5.60); RDW 13.8 % (11.9-15.9); WHITE BLOOD COUNT 8.9 K/mm3 (4.0-10.0)
[2019-11-08 15:10] LABS: ALBUMIN 3.5 g/dl (3.4-5.0); BILIRUBIN,TOTAL 0.7 mg/dL (0.2-1); BLOOD UREA NITROGEN 11.5 mg/dL (7-18); CALCIUM 8.8 mg/dL (8.5-10.1); POTASSIUM 3.5 mmol/L (3.5-5.1); TOT PROT 7.3 g/dl (6.4-8.2)
[2019-11-08] MEDS: chlordiazePOXIDE HCL 25 MG CAPSULE PO SCH ×2 (17:55→23:11)
[2019-11-08] MEDS ORDERED: MELATONIN 5 MG TABLETS PO SCH (22:00)
[2019-11-08] MEDS ORDERED: THIAMINE HCL 100 MG TABLET (FP) PO SCH (22:00)
[2019-11-08] MEDS ORDERED: traZODone HCL 100 MG TABLET (FP) PO SCH (22:00)
[2019-11-08] MEDS: APIXABAN 5 MG TABLET PO SCH (23:10)
[2019-11-09] MEDS: chlordiazePOXIDE HCL 25 MG CAPSULE PO SCH ×2 (06:37→11:13)
[2019-11-09] MEDS: hydrOXYzine PAMOATE 25 MG CAPSULE (FP) PO SCH ×2 (06:37→11:13)
[2019-11-09 09:44] VITALS: BP 129/79; PULSE 71; TEMP 97.3
[2019-11-09] MEDS ORDERED: TIOTROPIUM BROMIDE 2.5 MCG (SPIRIVA) RESPIMAT INHALER IH SCH (10:00)
[2019-11-09] MEDS: PRENATAL VITAMINS W/ FOLIC ACID TABLET (FP) PO SCH (11:12)
[2019-11-09] MEDS: APIXABAN 5 MG TABLET PO SCH (11:12)
[2019-11-09] MEDS: NICOTINE 7 MG/24 HOURS TOPICAL PATCH TD SCH (11:12)
[2019-11-09] MEDS: PANTOPRAZOLE 20 MG TABLET PO SCH (11:13)
--- NOTE | 2019-11-09 11:56 | PN ---
[facility] CIWA - CIWA Score Nausea/Vomitin-No Nausea/No Vomiting Muscle Tremors: 2 Anxiety: 3 Agitation: 2 Paroxysmal Sweats: 1-Minimal Palms Moist Orientation: 0-Oriented Tacttile Disturbances: 0-None Auditory Disturbances: 2-Mild Harshness/Frighten Visual Disturbances: 2-Mild Sensitivity Headache: 0-None Present CIWA-Ar Total Score: 12 BHS Progress Note (SOAP) Subjective: Complaints of tremors, anxiety, sweats and agitation. Objective: 11/09/19 11:54 Vital Signs 11/09/19 11/09/19 05:07 09:03 Temperature 97.7 F 97.3 F L Pulse Rate 60 71 Respiratory 20 18 Rate Blood Pressure 127/74 129/79 O2 Sat by Pulse 97 99 Oximetry (%) Laboratory Last Values WBC 8.9 K/mm3 (4.0-10.0) 11/08/19 09:15 RBC 3.87 M/mm3 (4.00-5.60) L 11/08/19 09:15 Hgb 12.5 GM/dL (11.7-16.9) 11/08/19 09:15 Hct 38.6 % (35.4-49) 11/08/19 09:15 MCV 99.7 fl (80-96) H 11/08/19 09:15 MCH 32.4 pg (25.7-33.7) 11/08/19 09:15 MCHC 32.5 g/dl (32.0-35.9) 11/08/19 09:15 RDW 13.8 % (11.9-15.9) 11/08/19 09:15 Plt Count 246 K/MM3 (134-434) 11/08/19 09:15 MPV 8.0 fl (7.5-11.1) 11/08/19 09:15 Sodium 143 mmol/L (136-145) 11/08/19 09:15 Potassium 3.5 mmol/L (3.5-5.1) 11/08/19 09:15 Chloride 108 mmol/L (98-107) H 11/08/19 09:15 Carbon Dioxide 26 mmol/L (21-32) 11/08/19 09:15 Anion Gap 10 MMOL/L (8-16) 11/08/19 09:15 BUN 11.5 mg/dL (7-18) 11/08/19 09:15 Creatinine 1.0 mg/dL (0.55-1.3) 11/08/19 09:15 Est GFR (CKD-EPI)AfAm 99.85 11/08/19 09:15 Est GFR (CKD-EPI)NonAf 86.15 11/08/19 09:15 Random Glucose 83 mg/dL (74-106) 11/08/19 09:15 Calcium 8.8 mg/dL (8.5-10.1) 11/08/19 09:15 Total Bilirubin 0.7 mg/dL (0.2-1) 11/08/19 09:15 AST 26 U/L (15-37) 11/08/19 09:15 ALT 50 U/L (13-61) 11/08/19 09:15 Alkaline Phosphatase 49 U/L (45-117) 11/08/19 09:15 Total Protein 7.3 g/dl (6.4-8.2) 11/08/19 09:15 Albumin 3.5 g/dl (3.4-5.0) 11/08/19 09:15 Syphilis Serology Non-reactive (NONREACTIVE) 11/08/19 09:15 Labs noted. Assessment: 11/09/19 11:54 Alert and oriented x 3, in no acute respiratory distress. Full ROM, ambulating in the unit without assistance. Withdrawal symptoms. Plan: Left AMA
--- NOTE | 2019-11-09 12:01 | DS ---
[facility] Detox Discharge Summary Admission Date: 11/08/19 Discharge Date: 11/09/19 (Pt left AMA) - History Present History: Alcohol Dependence Additional Comments: Alert and oriented x 3, in no acute respiratory distress. Full ROM, ambulating in the unit without assistance. Withdrawal symptoms. Signed AMA, Stating "I just want to leave". Pertinent Past History: History of COPD, Asthma, Prostate CA, DVT, anxiety and depression. - Physical Exam Results Vital Signs: Vital Signs Temperature 97.3 F L 11/09/19 09:03 Pulse Rate 71 11/09/19 09:03 Respiratory Rate 18 11/09/19 09:03 Blood Pressure 129/79 11/09/19 09:03 O2 Sat by Pulse Oximetry (%) 99 11/09/19 09:03 Vital Signs 11/09/19 11/09/19 05:07 09:03 Temperature 97.7 F 97.3 F L Pulse Rate 60 71 Respiratory 20 18 Rate Blood Pressure 127/74 129/79 O2 Sat by Pulse 97 99 Oximetry (%) Laboratory Last Values WBC 8.9 K/mm3 (4.0-10.0) 11/08/19 09:15 RBC 3.87 M/mm3 (4.00-5.60) L 11/08/19 09:15 Hgb 12.5 GM/dL (11.7-16.9) 11/08/19 09:15 Hct 38.6 % (35.4-49) 11/08/19 09:15 MCV 99.7 fl (80-96) H 11/08/19 09:15 MCH 32.4 pg (25.7-33.7) 11/08/19 09:15 MCHC 32.5 g/dl (32.0-35.9) 11/08/19 09:15 RDW 13.8 % (11.9-15.9) 11/08/19 09:15 Plt Count 246 K/MM3 (134-434) 11/08/19 09:15 MPV 8.0 fl (7.5-11.1) 11/08/19 09:15 Sodium 143 mmol/L (136-145) 11/08/19 09:15 Potassium 3.5 mmol/L (3.5-5.1) 11/08/19 09:15 Chloride 108 mmol/L (98-107) H 11/08/19 09:15 Carbon Dioxide 26 mmol/L (21-32) 11/08/19 09:15 Anion Gap 10 MMOL/L (8-16) 11/08/19 09:15 BUN 11.5 mg/dL (7-18) 11/08/19 09:15 Creatinine 1.0 mg/dL (0.55-1.3) 11/08/19 09:15 Est GFR (CKD-EPI)AfAm 99.85 11/08/19 09:15 Est GFR (CKD-EPI)NonAf 86.15 11/08/19 09:15 Random Glucose 83 mg/dL (74-106) 11/08/19 09:15 Calcium 8.8 mg/dL (8.5-10.1) 11/08/19 09:15 Total Bilirubin 0.7 mg/dL (0.2-1) 11/08/19 09:15 AST 26 U/L (15-37) 11/08/19 09:15 ALT 50 U/L (13-61) 11/08/19 09:15 Alkaline Phosphatase 49 U/L (45-117) 11/08/19 09:15 Total Protein 7.3 g/dl (6.4-8.2) 11/08/19 09:15 Albumin 3.5 g/dl (3.4-5.0) 11/08/19 09:15 Syphilis Serology Non-reactive (NONREACTIVE) 11/08/19 09:15 Labs noted. Pertinent Admission Physical Exam Findings: Withdrawal symptoms. - Medication Discharge Medications: Ambulatory Orders Albuterol 0.083% Nebulizer Lakia [Ventolin 0.083% Nebulizer Soln -] 1 amp NEB Q6H PRN amp 10/10/19 Pantoprazole Sodium [Protonix -] 20 mg PO DAILY tablet.ec 10/10/19 Acetaminophen [Tylenol .Regular Strength -] 650 mg PO Q6H PRN #120 tablet 10/15/19 Albuterol 2.5/Ipratropium 0.5 [Duoneb -] 1 amp NEB RQID PRN #30 amp 10/15/19 Buspirone HCl [Buspar -] 15 mg PO BID #60 tablet 10/15/19 Ipratropium Burton [Atrovent Hfa] 12.9 gm IH PRN #1 inhaler 10/15/19 Nicotine Patch [Nicoderm Patch -] 21 mg TD DAILY #30 patch 10/15/19 traZODone HCL [Desyrel -] 100 mg PO HS #30 tablet 10/15/19 Albuterol Sulfate Inhaler - [Ventolin HFA Inhaler -] 2 puff IH Q4H PRN 11/08/19 Apixaban [Eliquis] 5 mg PO BID 11/08/19 - Diagnosis (1) Alcohol dependence with uncomplicated withdrawal Current Visit: Yes Status: Acute (2) Alcohol dependence Current Visit: No Status: Chronic Qualifiers: Substance use status: uncomplicated Qualified Code(s): F10.20 - Alcohol dependence, uncomplicated (3) Asthma Current Visit: No Status: Chronic Qualifiers: Asthma severity: mild Asthma persistence: intermittent Asthma complication type: with status asthmaticus Qualified Code(s): J45.22 - Mild intermittent asthma with status asthmaticus (4) COPD (chronic obstructive pulmonary disease) Current Visit: No Status: Chronic Qualifiers: COPD type: unspecified COPD Qualified Code(s): J44.9 - Chronic obstructive pulmonary disease, unspecified (5) Chronic low back pain Current Visit: Yes Status: Chronic (6) DVT (deep venous thrombosis) Current Visit: Yes Status: Resolved (7) Metastatic malignant neoplasm to prostate Current Visit: Yes Status: Resolved - AMA Did Patient Leave Against Medical Advice: Yes
[2019-11-10] MEDS ORDERED: chlordiazePOXIDE HCL 25 MG CAPSULE PO SCH (05:00)
[2019-11-11] MEDS ORDERED: chlordiazePOXIDE HCL 10 MG CAPSULE PO PRN
[2019-11-11] MEDS ORDERED: chlordiazePOXIDE HCL 10 MG CAPSULE PO SCH (05:00)
[2019-11-12] MEDS ORDERED: chlordiazePOXIDE HCL 10 MG CAPSULE PO SCH (05:00)
[2019-11-13] MEDS ORDERED: chlordiazePOXIDE HCL 10 MG CAPSULE PO ONE (05:00)
== END 2019-11-09 11:25 | disposition left against medical advice (07) | DRG 894 ==
LOC: YASAS 08:09 → Y5N DETOX 10:53 → Y6N 13:10
PROVIDERS: ADMIT Allergy & Immunology; ATTEND Allergy & Immunology
PROC: HZ2ZZZZ Detoxification Services for Substance Abuse Treatment (ICD-10-PCS; principal; 2019-11-08)
DX: F10.230 Alcohol dependence with withdrawal, uncomplicated (principal); F19.282 Other psychoactive substance dependence with psychoactive substance-induced sleep disorder; J45.22 Mild intermittent asthma with status asthmaticus; Z68.1 Body mass index [BMI] 19.9 or less, adult; F14.10 Cocaine abuse, uncomplicated; F17.210 Nicotine dependence, cigarettes, uncomplicated; F41.8 Other specified anxiety disorders; F32.9 Major depressive disorder, single episode, unspecified; F90.9 Attention-deficit hyperactivity disorder, unspecified type; F19.24 Other psychoactive substance dependence with psychoactive substance-induced mood disorder; J44.9 Chronic obstructive pulmonary disease, unspecified; M54.5 Low back pain; G89.29 Other chronic pain; R63.6 Underweight; Z85.46 Personal history of malignant neoplasm of prostate; Z86.718 Personal history of other venous thrombosis and embolism; Z79.01 Long term (current) use of anticoagulants; Z86.711 Personal history of pulmonary embolism; Z91.013 Allergy to seafood; Z90.79 Acquired absence of other genital organ(s); Z98.890 Other specified postprocedural states
CPT/HCPCS: 36415; 80053; 85027; 86780; Q0162; U0003

== ENCOUNTER 2020-01-12 13:51 | Inpatient (IN) | payer OTHER ==
--- OUTSIDE RECORDS SUMMARY | 2020-01-12 13:55 | XMS ---
:1965 Author Organization [facility] Care Team Providers Name Role Phone OUTREACH, ANA Unavailable Unavailable MARK GRAVES Unavailable Unavailable MIGUEL TANNER Unavailable Unavailable Re-disclosure Warning The records that you are about to access may contain information from federally- assisted alcohol or drug abuse programs. If such information is present, then the following federally mandated warning applies: This information has been disclosed to you from records protected by federal confidentiality rules (42 CFR part 2). The federal rules prohibit you from making any further disclosure of this information unless further disclosure is expressly permitted by the written consent of the person to whom it pertains or as otherwise permitted by 42 CFR part 2. A general authorization for the release of medical or other information is NOT sufficient for this purpose. The Federal rules restrict any use of the information to criminally investigate or prosecute any alcohol or drug abuse patient.The records that you are about to access may contain highly sensitive health information, the redisclosure of which is protected by Article 27-F of the [place] State Public Health law. If you continue you may haveaccess to information: Regarding HIV / AIDS; Provided by facilities licensed or operated by the [facility] Office of Mental Health; or Provided by the [facility] Office for People With Developmental Disabilities. If such information is present, then the following [facility] mandated warning applies: This information has been disclosed to you from confidential records which are protected by state law. State law prohibits you from making any further disclosure of this information without the specific written consent of the person to whom it pertains, or as otherwise permitted by law. Any unauthorized further disclosure in violation of state law may result in a fine or long term sentence or both. A general authorization for the release of medical or other information is NOT sufficient authorization for further disclosure. Encounters Encounter Providers Location Date Indications Data Source(s ) Outpatient Attender: MARK 10/10/2019 [facility] Manuel GRAVES 01:04:48 PM Family [facility] EDT Patient admitted. Outpatient Attender: ANA 09/04/2019 10:01:12 AM [facility] EDT [facility] Patient admitted. Outpatient Attender: ANA 08/27/2019 09:24:08 AM [facility] EDT [facility] Patient admitted. Outpatient Attender: MIGUEL TANNER 08/22/2019 10:20:19 AM [facility] Patient admitted. Insurance Providers Payer name Policy type Policy ID Covered Covered democrat's Policy P faby / Coverage democrat ID relationship to [place] Inf ormation type [place] MEDICARE [id number] SP [id number] MEDICAID [id number] SP [id number] MEDICAID [place] [id number] Self [id number] MEDICARE [id number] SP [id number] A Problems, Conditions, and Diagnoses Code Display Name Description Problem Type Effective Dates Data Source(s) Z76.5 Drug-seeking Drug-seeking [id number] 02/29/2016 [facility] [place] behavior behavior 12:00:00 AM EST [facility] Discharge Hospital Discharge Diagnosis 0 [facility] [place] [facility] 01:04:48 PM EDT [facility] Emergency Room Emergency Room Diagnosis 09/04/2019 The In stitute Visit Follow Up Visit Follow Up 10:01:12 AM EDT For [facility] Transitional Care Transitional Care Diagnosis 08/22/2019 The [place] Management Management 10:20:19 AM EDT [facility] Results ID Date Data Source [id number] 11/08/2019 10:10:00 AM EDT [facility] Name Value Range Interpretation Description Data Sup porting Code Source(s) Document(s ) SARS [facility] coronavirus 2 RNA This lab was ordered by [facility] and reported by [facility]. ID Date Data Source [id number] 10/31/2019 06:57:00 AM EDT [facility] Name Value Range Interpretation Code Description Data Anabell rce(s) Supporting Document(s ) SARS-CoV-2 [facility] , RNA This lab was ordered by [facility] and reported by [facility]. ID Date Data Source [id number] 10/07/2019 01:25:00 PM EDT [facility] Name Value Range Interpretation Description Data Sup porting Code Source(s) Document(s ) SARS [facility] CORONAVIRUS 2 RNA This lab was ordered by [facility] and reported by [facility]. ID Date Data Source [id number] 10/03/2019 11:00:00 AM EDT [facility] Name Value Range Interpretation Code Description Data Anabell rce(s) Supporting Document(s ) SARS-COV-2 [facility] PCR This lab was ordered by [facility] and re ported by [facility]. ID Date Data Source [id number] 08/08/2019 12:00:00 AM EDT [facility] Name Value Range Interpretation Code Description Data Anabell rce(s) Supporting Document(s ) 2019-nCoV [facility] RNA XXX ROVERTO+probe- Imp This lab [facility] and reported by [facility]. Procedure Social History Code Duration Value Status Description Data Source(s ) Sex assigned at Not on file Not on file [facility] Tobacco smoking status NHIS Unknown if ever smoked [facility] Sex assigned at Not on file Not on file [facility] Sex assigned at Not on file Not on file [facility] Sex assigned at Not on file Not on file [facility]
--- NOTE | 2020-01-12 15:19 | BHS.RME ---
Substance Use & Tx History - Substance Use History Alcohol Substance amount: 3 pints, 2 - 6 packs 24oz cans Frequency of use: Daily Substance route: Oral Date of Last Use: 01/12/20 Cocaine- Powder Substance amount: $40 Frequency of use: Daily Substance route: Inhalation (ex: sniffing or snorting) Date of Last Use: 01/11/20 - Last Treatment Date of last treatment: 11/08/19 Where was last treatment: Detox Physical/Psych/Mental Status - Behavior General Behavior: Increased activity (restlessness, agitation) Eye Contact: Normal Other Behaviors: Mannerisms - Cooperativeness Cooperativeness: Cooperative - Thinking Thought Processes: Logical Thought content: Future oriented - Physical Health Problems Is patient presently having any pain?: Yes (abd) Does patient presently have any injuries (include location): No Does patient currently have a fever: No CIWA Nausea/Vomitin Muscle Tremors: 2 Anxiety: 2 Agitation: 2 Paroxysmal Sweats: 2 Orientation: 0-Oriented Tacttile Disturbances: 2-Mild Itch/Numbness/Burn Auditory Disturbances: 0-None Visual Disturbances: 1-Very Mild Sensitivity Headache: 2-Mild CIWA-Ar Total Score: 15
--- NOTE | 2020-01-12 15:26 | HP ---
CIWA Score Nausea/Vomitin Muscle Tremors: 2 Anxiety: 2 Agitation: 2 Paroxysmal Sweats: 2 Orientation: 0-Oriented Tacttile Disturbances: 2-Mild Itch/Numbness/Burn Auditory Disturbances: 0-None Visual Disturbances: 1-Very Mild Sensitivity Headache: 2-Mild CIWA-Ar Total Score: 15 - Admission Criteria OASAS Guidelines: Admission for Medically Managed Detox: Requires at least one of the followin. CIWA greater than 12 2. Seizures within the past 24 hours 3. Delirium tremens within the past 24 hours 4. Hallucinations within the past 24 hours 5. Acute intervention needed for co occurring medical disorder 6. Acute intervention needed for co occurring psychiatric disorder 7. Severe withdrawal that cannot be handled at a lower level of care (continued vomiting, continued diarrhea, abnormal vital signs) requiring intravenous medication and/or fluids 8. 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 Chief Complaint: I am tired of using Allergies/Adverse Reactions: Allergies Allergy/AdvReac Type Severity Reaction Status Date / Time shellfish derived Allergy Severe Swelling Verified 01/12/20 15:30 No Known Drug Allergies Allergy Verified 01/12/20 15:30 History of Present Illness: Patient presents for detox from alcohol. He reports one time use of heroin last night accounting for positive opiates in UDS. His last treatment was in October of this year. Exam Limitations: No Limitations - Ebola screening Have you traveled outside of the country in the last 21 days: No Have you had contact with anyone from an Ebola affected area: No Have you been sick,other than usual withdrawal symptoms: No Do you have a fever: No - Review of Systems Constitutional: Chills, Changes in sleep, Weight Stable EENT: reports: Blurred Vision, Recent change in vision Respiratory: reports: No Symptoms reported Cardiac: reports: No Symptoms Reported GI: reports: Nausea, Poor Fluid Intake, Indigestion, Abdominal cramping : reports: No Symptoms Reported Musculoskeletal: reports: Muscle Pain, Muscle Weakness Integumentary: reports: Sweating (in the palms) Neuro: reports: Headache, Numbness, Tremors Endocrine: reports: No Symptoms Reported Psychiatric: reports: Anxious, other (ADHD) Other Systems: Reviewed and Negative Patient History - Patient Medical History Hx Anemia: No Hx Asthma: Yes Hx Chronic Obstructive Pulmonary Disease (COPD): Yes Hx Cancer: Yes (Prostate, Completed round of treatment months ago @ [facility]) Hx Cardiac Disorders: No Hx Congestive Heart Failure: No Hx Hypertension: No Hx Hypercholesterolemia: No Hx Pacemaker: No HX Cerebrovascular Accident: No Hx Seizures: No Hx Dementia: No Hx Diabetes: No Hx Gastrointestinal Disorders: No Hx Liver Disease: No Hx Genitourinary Disorders: No Hx Sexually Transmitted Disorders: No Hx Renal Disease (ESRD): No Hx Thyroid Disease: No Hx Human Immunodeficiency Virus (HIV): No Hx Hepatitis C: No Hx Depression: Yes Hx Suicide Attempt: No Hx Bipolar Disorder: No Hx Schizophrenia: No - Patient Surgical History Past Surgical History: Yes Hx Neurologic Surgery: No Hx Cataract Extraction: No Hx Cardiac Surgery: No Hx Lung Surgery: No Hx Breast Surgery: No Hx Breast Biopsy: No Hx Abdominal Surgery: No Hx Appendectomy: No Hx Cholecystectomy: No Hx Genitourinary Surgery: Yes (partial prostatectomy,biopsy of lymph node of neck) Hx Orthopedic Surgery: No Other Surgical History: PARTIAL PROSTATECTOMY 09/07/15 (ca)/biopsy (malignant), lump, right side of Anesthesia Reaction: No - PPD History Date: 03/27/19 (positive) Results: cxr 10/06/19 PPD to be Administered?: No - Smoking Cessation Smoking history: Current every day smoker Have you smoked in the past 12 months: Yes Aproximately how many cigarettes per day: 20 Cigars Per Day: 0 Hx Chewing Tobacco Use: No Initiated information on smoking cessation: Yes 'Breaking Loose' booklet given: 01/12/20 - Substances abused Alcohol Substance route: Oral Frequency: Daily Amount used: dorcas- 3 pts/ 2 6 PACKS BEERS Age of first use: 16 Date of last use: 01/12/20 Heroin Substance route: Inhalation Frequency: 1-3 times last 30 days Amount used: 1 bag Age of first use: 54 Date of last use: 01/11/20 Cocaine Substance route: Inhalation Frequency: Daily Admission Physical Exam [facility] - Physical General Appearance: Yes: No Apparent Distress HEENTM: Yes: Hearing grossly Normal, Normocephalic, Normal Voice Respiratory: Yes: Chest Non-Tender, Lungs Clear, Normal Breath Sounds, No Respiratory Distress, No Accessory Muscle Use Neck: Yes: No masses,lesions,Nodules, Supple Breast: Yes: Breast Exam Deferred Cardiology: Yes: Regular Rhythm, Regular Rate, S1, S2 Abdominal: Yes: Normal Bowel Sounds, Non Tender, Soft Genitourinary: Yes: Within Normal Limits Back: Yes: Normal Inspection Musculoskeletal: Yes: full range of Motion, Muscle Pain, Muscle weakness, Other (left upper gilbert dry scab) Extremities: Yes: Tremors Neurological: Yes: director 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 II-XII NML intact, Fully Oriented, Alert, Normal Mood/Affect Integumentary: Yes: Normal Color, Cold Lymphatic: Yes: Within Normal Limits - Diagnostic (1) Alcohol dependence with uncomplicated withdrawal Current Visit: Yes Status: Acute (2) Cocaine dependence, uncomplicated Current Visit: Yes Status: Chronic (3) Asthma Current Visit: No Status: Chronic Qualifiers: Asthma severity: mild Asthma persistence: intermittent Asthma complication type: uncomplicated Qualified Code(s): J45.20 - Mild intermittent asthma, uncomplicated (4) COPD (chronic obstructive pulmonary disease) Current Visit: Yes Status: Chronic Qualifiers: COPD type: chronic bronchitis (5) Chronic low back pain Current Visit: Yes Status: Chronic Qualifiers: Back pain laterality: bilateral Sciatica presence: without sciatica Qualified Code(s): M54.5 - Low back pain; G89.29 - Other chronic pain (6) Metastatic malignant neoplasm to prostate Current Visit: Yes Status: Resolved Cleared for Admission [facility] - Detox or Rehab [facility] Level of Care: Medically Managed Detox Regimen/Protocol: Librium Claeared for Rehab Admission: No Breathalyzer - Breathalyzer Breathalyzer: 0 Urine Drug Screen - Test Device Lot number: [id number] Expiration date: 07/30/21 - Control Is test valid?: Yes - Results Drug screen NEGATIVE: No Urine drug screen results: RASHID-Cocaine, MTD-Methadone, BZO-Benzodiazepines Inpatient Rehab Admission - Rehab Decision to Admit Inpatient rehab admission?: No
[2020-01-12 15:30] VITALS: BMI 19.5
[2020-01-12] MEDS ORDERED: MAGNESIUM HYDROX 2400MG/30ML ORAL SUSPENSION 30 ML CUP PO PRN (15:39)
[2020-01-12] MEDS ORDERED: NICOTINE POLACRILEX 2 MG GUM BUC PRN (15:39)
[2020-01-12] MEDS ORDERED: METHOCARBAMOL 500 MG TABLET PO PRN (15:39)
[2020-01-12] MEDS ORDERED: BISMUTH SUBSALICYLATE 524 MG/30 ML UD PO PRN (15:39)
[2020-01-12] MEDS ORDERED: MENTHOL/PHENOL 1 EACH UD MM PRN (15:39)
[2020-01-12] MEDS ORDERED: ACETAMINOPHEN 325 MG TABLET (FP) PO PRN ×2 (15:39)
[2020-01-12] MEDS ORDERED: MAG HYDROX/AL HYDROX/SIMETH 30 ML UNIT-DOSE CUP PO PRN (15:39)
[2020-01-12] MEDS ORDERED: ONDANSETRON *ODT* 4 MG TABLET SL PRN (15:39)
[2020-01-12] MEDS ORDERED: chlordiazePOXIDE HCL 25 MG CAPSULE PO PRN (15:39)
[2020-01-12] MEDS ORDERED: hydrOXYzine PAMOATE 25 MG CAPSULE (FP) PO PRN (15:39)
[2020-01-12] MEDS ORDERED: IBUPROFEN 400 MG TABLET (FP) PO PRN (15:39)
[2020-01-12] MEDS ORDERED: MAGNESIUM CITRATE 300 ML BOTTLE PO PRN (15:39)
[2020-01-12] MEDS ORDERED: ALBUTEROL SO4 HFA INHALER IH PRN (15:41)
--- OUTSIDE RECORDS SUMMARY | 2020-01-12 15:53 | XMS ---
[...] is protected by Article 27-F of the [place] State Public Health law. If you continue you may haveaccess to information: Regarding HIV / AIDS; Provided by facilities licensed or operated by the [facility] Office of Mental Health; or Provided by the [facility] Office for People With Developmental Disabilities. If such information is present, then the following [facility] mandated warning applies: This information has been [...] law may result in a fine or alf sentence or both. A general authorization for the release of medical or other information is NOT sufficient authorization for further disclosure. Encounters Encounter Providers Location Date Indications Data Source(s ) Outpatient Attender: MARK 10/10/2019 The [facility] Manuel GRAVES 01:04:48 PM Family [facility] EDT Patient admitted. Outpatient Attender: ANA 09/04/2019 10:01:12 AM The [facility] EDT [facility] Patient admitted. Outpatient Attender: ANA 08/27/2019 09:24:08 AM The [facility] EDT [facility] Patient admitted. Outpatient Attender: MIGUEL TANNER 08/22/2019 10:20:[address] [facility]. Insurance Providers Payer name Policy type Policy ID Covered Covered constitution party's Policy P faby / Coverage constitution party ID relationship to [place] [facility] or[facility] type [place] MEDICARE [id number] SP [id number] MEDICAID [id number] SP [id number] [place]ICAID [place] [id number] Self [id number] MEDICARE [id number] SP [id number] A Problems, Conditions, and Diagnoses Code Display Name Description Problem Type Effective Dates Data Source(s) Z76.5 Drug-seeking Drug-seeking [id number] 02/29/2016 The [facility] [place] behavior behavior 12:00:00 AM EST For [facility] y Health Hospital Discharge Hospital Discharge Diagnosis 0 [facility] [place] [facility] Out[facility] 01:04:48 PM EDT For [facility] y Health Emergency Room Emergency Room Diagnosis 09/04/2019 The In stitute Visit Follow Up Visit Follow Up 10:01:12 AM EDT For [facility] Transitional Care Transitional Care Diagnosis 08/22/2019 The [place] [facility] Management 10:20:19 AM EDT For [facility] y [facility] Health Results ID Date Data Source [id number] 11/08/2019 10:10:00 AM EDT [facility] Name Value Range Interpretation Description Data Sup porting Code Source(s) Document(s ) SARS [facility] coronavirus 2 RNA This lab was ordered by [facility] and reported by [facility]. ID Date Data Source [id number] 10/31/2019 06:57:00 AM EDT [facility] Name Value Range Interpretation Code Description Data Anabell rce(s) Supporting Document(s ) SARS-CoV-2 [facility] , RNA This lab was ordered by [facility] and reported by [facility]. ID Date Data Source [id number] 10/07/2019 01:25:00 PM EDT [facility] Name Value Range Interpretation Description Data Sup porting Code Source(s) Document(s ) SARS [facility] CORONAVIRUS 2 RNA This lab was ordered by [facility] and reported by [facility]. ID Date Data Source [id number] 10/03/2019 11:00:00 AM EDT [facility] Name Value Range Interpretation Code Description Data Anabell rce(s) Supporting Document(s ) SARS-COV-2 [facility] PCR This lab was ordered by [facility] and re ported by [facility]. ID Date Data Source [id number] 08/08/2019 12:00:00 AM EDT [facility] Name Value Range Interpretation Code Description Data Anabell rce(s) Supporting Document(s ) 2019-nCoV [facility] RNA XXX ROVERTO+probe- Imp This lab was ordered by [facility] and reported by [facility]. Procedure Social History Code Duration Value Status Description Data Source(s ) Sex assigned at Not on file Not on file [facility] Tobacco smoking status NHIS Unknown if ever smoked [facility] Sex assigned at Not on file Not on file [facility] Sex assigned at Not on file Not on file [facility] Sex assigned at Not on file Not on file [facility]
[2020-01-12] MEDS: NICOTINE 21 MG/24 HOURS TOPICAL PATCH TD SCH (17:59)
[2020-01-12] MEDS: chlordiazePOXIDE HCL 25 MG CAPSULE PO SCH ×2 (18:04→22:27)
[2020-01-12] MEDS ORDERED: traZODone HCL 50 MG TABLET (FP) PO ONE (22:00)
[2020-01-12] MEDS: MELATONIN 5 MG TABLETS PO SCH (22:23)
[2020-01-12] MEDS: THIAMINE HCL 100 MG TABLET (FP) PO SCH (22:23)
[2020-01-13] MEDS: chlordiazePOXIDE HCL 25 MG CAPSULE PO SCH ×4 (08:15→22:24)
--- NOTE | 2020-01-13 09:26 | PN ---
[facility] CIWA - CIWA Score Nausea/Vomitin-Mild Nausea/No Vomiting Muscle Tremors: 2 Anxiety: 2 Agitation: 2 Paroxysmal Sweats: 1-Minimal Palms Moist Orientation: 0-Oriented Tacttile Disturbances: 1-Very Mild Itch/Numbness Auditory Disturbances: 0-None Visual Disturbances: 0-None Headache: 2-Mild CIWA-Ar Total Score: 11 S Progress Note (SOAP) Subjective: alert,irritable,anxious,interrupted sleep,tremor,aching pain Objective: 01/13/20 13:41 Vital Signs Temperature 97.1 F L 01/13/20 12:50 Pulse Rate 82 01/13/20 12:50 Respiratory Rate 18 01/13/20 12:50 Blood Pressure 104/66 01/13/20 12:50 O2 Sat by Pulse Oximetry (%) 96 01/13/20 12:50 Laboratory Last Values WBC 6.2 K/mm3 (4.0-10.0) 01/13/20 08:30 RBC 3.94 M/mm3 (4.00-5.60) L 01/13/20 08:30 Hgb 13.3 GM/dL (11.7-16.9) 01/13/20 08:30 Hct 38.9 % (35.4-49) 01/13/20 08:30 MCV 98.8 fl (80-96) H 01/13/20 08:30 MCH 33.7 pg (25.7-33.7) 01/13/20 08:30 MCHC 34.1 g/dl (32.0-35.9) 01/13/20 08:30 RDW 13.4 % (11.9-15.9) 01/13/20 08:30 Plt Count 209 K/MM3 (134-434) 01/13/20 08:30 MPV 9.0 fl (7.5-11.1) D 01/13/20 08:30 Sodium 143 mmol/L (136-145) 01/13/20 08:30 Potassium 3.6 mmol/L (3.5-5.1) 01/13/20 08:30 Chloride 110 mmol/L (98-107) H 01/13/20 08:30 Carbon Dioxide 28 mmol/L (21-32) 01/13/20 08:30 Anion Gap 5 MMOL/L (8-16) L 01/13/20 08:30 BUN 7.9 mg/dL (7-18) 01/13/20 08:30 Creatinine 1.1 mg/dL (0.55-1.3) 01/13/20 08:30 Est GFR (CKD-EPI)AfAm 88.36 01/13/20 08:30 Est GFR (CKD-EPI)NonAf 76.24 01/13/20 08:30 Random Glucose 95 mg/dL (74-106) 01/13/20 08:30 Calcium 8.2 mg/dL (8.5-10.1) L 01/13/20 08:30 Total Bilirubin 0.7 mg/dL (0.2-1) 01/13/20 08:30 AST 15 U/L (15-37) 01/13/20 08:30 ALT 23 U/L (13-61) 01/13/20 08:30 Alkaline Phosphatase 58 U/L (45-117) 01/13/20 08:30 Total Protein 6.1 g/dl (6.4-8.2) L 01/13/20 08:30 Albumin 2.9 g/dl (3.4-5.0) L 01/13/20 08:30 Syphilis Serology Non-reactive (NONREACTIVE) 01/12/20 08:30 Assessment: 01/13/20 13:42 withdrawal symptom Plan: continue detox librium regimen
[2020-01-13] MEDS: PRENATAL VITAMINS W/ FOLIC ACID TABLET (FP) PO SCH (10:36)
[2020-01-13] MEDS: NICOTINE 21 MG/24 HOURS TOPICAL PATCH TD SCH (10:37)
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
[2020-01-13 12:26] LABS: HEMATOCRIT 38.9 % (35.4-49); HEMOGLOBIN 13.3 GM/dL (11.7-16.9); MCH 33.7 pg (25.7-33.7); MCHC 34.1 g/dl (32.0-35.9); MEAN CELL VOLUME 98.8 fl (80-96); PLATELET COUNT 209 K/MM3 (134-434); RBC 3.94 M/mm3 (4.00-5.60); RDW 13.4 % (11.9-15.9); WHITE BLOOD COUNT 6.2 K/mm3 (4.0-10.0)
[2020-01-13 12:56] LABS: ALBUMIN 2.9 g/dl (3.4-5.0); BILIRUBIN,TOTAL 0.7 mg/dL (0.2-1); BLOOD UREA NITROGEN 7.9 mg/dL (7-18); CALCIUM 8.2 mg/dL (8.5-10.1); CREATININE 1.1 mg/dL (0.55-1.3); POTASSIUM 3.6 mmol/L (3.5-5.1); TOT PROT 6.1 g/dl (6.4-8.2)
[2020-01-13] MEDS: PANTOPRAZOLE 20 MG TABLET PO SCH (14:55)
[2020-01-13] MEDS: THIAMINE HCL 100 MG TABLET (FP) PO SCH (22:23)
[2020-01-13] MEDS: traZODone HCL 100 MG TABLET (FP) PO SCH (22:24)
[2020-01-13] MEDS: MELATONIN 5 MG TABLETS PO SCH (22:24)
[2020-01-14] MEDS: chlordiazePOXIDE HCL 25 MG CAPSULE PO SCH ×4 (07:16→22:30)
[2020-01-14] MEDS: PRENATAL VITAMINS W/ FOLIC ACID TABLET (FP) PO SCH (11:27)
[2020-01-14] MEDS: PANTOPRAZOLE 20 MG TABLET PO SCH (11:27)
[2020-01-14] MEDS: NICOTINE 21 MG/24 HOURS TOPICAL PATCH TD SCH (11:27)
--- NOTE | 2020-01-14 15:01 | PN ---
[facility] CIWA - CIWA Score Nausea/Vomitin-Mild Nausea/No Vomiting Muscle Tremors: 2 Anxiety: 2 Agitation: 2 Paroxysmal Sweats: No Perspiration Orientation: 0-Oriented Tacttile Disturbances: 1-Very Mild Itch/Numbness Auditory Disturbances: 0-None Visual Disturbances: 0-None Headache: 1-Very Mild CIWA-Ar Total Score: 9 S Progress Note (SOAP) Subjective: alert,irritable,anxious,interrupted sleep,aching pain, Objective: 01/14/20 14:59 Vital Signs Temperature 97.3 F L 01/14/20 12:53 Pulse Rate 85 01/14/20 12:53 Respiratory Rate 20 01/14/20 12:53 Blood Pressure 110/82 01/14/20 12:53 O2 Sat by Pulse Oximetry (%) 99 01/14/20 12:53 01/14/20 14:59 Laboratory Last Values WBC 6.2 K/mm3 (4.0-10.0) 01/13/20 08:30 RBC 3.94 M/mm3 (4.00-5.60) L 01/13/20 08:30 Hgb 13.3 GM/dL (11.7-16.9) 01/13/20 08:30 Hct 38.9 % (35.4-49) 01/13/20 08:30 MCV 98.8 fl (80-96) H 01/13/20 08:30 MCH 33.7 pg (25.7-33.7) 01/13/20 08:30 MCHC 34.1 g/dl (32.0-35.9) 01/13/20 08:30 RDW 13.4 % (11.9-15.9) 01/13/20 08:30 Plt Count 209 K/MM3 (134-434) 01/13/20 08:30 MPV 9.0 fl (7.5-11.1) D 01/13/20 08:30 Sodium 143 mmol/L (136-145) 01/13/20 08:30 Potassium 3.6 mmol/L (3.5-5.1) 01/13/20 08:30 Chloride 110 mmol/L (98-107) H 01/13/20 08:30 Carbon Dioxide 28 mmol/L (21-32) 01/13/20 08:30 Anion Gap 5 MMOL/L (8-16) L 01/13/20 08:30 BUN 7.9 mg/dL (7-18) 01/13/20 08:30 Creatinine 1.1 mg/dL (0.55-1.3) 01/13/20 08:30 Est GFR (CKD-EPI)AfAm 88.36 01/13/20 08:30 Est GFR (CKD-EPI)NonAf 76.24 01/13/20 08:30 Random Glucose 95 mg/dL (74-106) 01/13/20 08:30 Calcium 8.2 mg/dL (8.5-10.1) L 01/13/20 08:30 Total Bilirubin 0.7 mg/dL (0.2-1) 01/13/20 08:30 AST 15 U/L (15-37) 01/13/20 08:30 ALT 23 U/L (13-61) 01/13/20 08:30 Alkaline Phosphatase 58 U/L (45-117) 01/13/20 08:30 Total Protein 6.1 g/dl (6.4-8.2) L 01/13/20 08:30 Albumin 2.9 g/dl (3.4-5.0) L 01/13/20 08:30 Syphilis Serology Non-reactive (NONREACTIVE) 01/12/20 08:30 Assessment: 01/14/20 15:00 withdrawal symptom Plan: continue detox librium regimen,psychiatric reevaluation for medication
[2020-01-14] MEDS: traZODone HCL 100 MG TABLET (FP) PO SCH (22:29)
[2020-01-14] MEDS: THIAMINE HCL 100 MG TABLET (FP) PO SCH (22:30)
[2020-01-14] MEDS: MELATONIN 5 MG TABLETS PO SCH (22:30)
[2020-01-15] MEDS ORDERED: chlordiazePOXIDE HCL 10 MG CAPSULE PO PRN
[2020-01-15] MEDS ORDERED: chlordiazePOXIDE HCL 10 MG CAPSULE PO SCH (05:00)
--- NOTE | 2020-01-15 08:44 | PN ---
[facility] CIWA - CIWA Score Nausea/Vomitin-No Nausea/No Vomiting Muscle Tremors: None Anxiety: 1-Mildly Anxious Agitation: 0-Normal Activity Paroxysmal Sweats: No Perspiration Orientation: 0-Oriented Tacttile Disturbances: 0-None Auditory Disturbances: 0-None Visual Disturbances: 0-None Headache: 0-None Present CIWA-Ar Total Score: 1 S Progress Note (SOAP) Subjective: alert,no complaint Objective: 01/15/20 09:59 Vital Signs Temperature 97.3 F L 01/15/20 08:49 Pulse Rate 79 01/15/20 08:49 Respiratory Rate 18 01/15/20 08:49 Blood Pressure 101/72 01/15/20 08:49 O2 Sat by Pulse Oximetry (%) 99 01/14/20 12:53 Assessment: 01/15/20 10:00 no withdrawal symptom Plan: stable for discharge today,declined rehab,history of neuropathy on neurontin 600 mgs po bid ordered,follow up with after care program as arrangement,denied rehab
[2020-01-15 09:11] VITALS: BP 101/72; PULSE 79; TEMP 97.3
--- NOTE | 2020-01-15 09:57 | DS ---
[facility] Detox Discharge Summary Admission Date: 01/12/20 Discharge Date: 01/15/20 - History Present History: Alcohol Dependence, Cocaine Dependence Additional Comments: alert,oriented x 3 ambulation on the unit lung clear on auscultation bilaterally abdomen soft,no pain,no tenderness no edema of extremities stable for discharge,no withdrawal symptom patient declined rehab has a safe place to stay with his ,follow up with after care program as arrangement out patient [facility] out patient program denied rehab left unit in stable condition total time spending on discharge 35 minutes Pertinent Past History: copd metastatic carcinoma of prostate depression ptsd neuropathy chronic low back pain - Physical Exam Results Vital Signs: Vital Signs Temperature 97.3 F L 01/15/20 08:49 Pulse Rate 79 01/15/20 08:49 Respiratory Rate 18 01/15/20 08:49 Blood Pressure 101/72 01/15/20 08:49 O2 Sat by Pulse Oximetry (%) 99 01/14/20 12:53 Pertinent Admission Physical Exam Findings: withdrawal signs and symptom Laboratory Last Values WBC 6.2 K/mm3 (4.0-10.0) 01/13/20 08:30 RBC 3.94 M/mm3 (4.00-5.60) L 01/13/20 08:30 Hgb 13.3 GM/dL (11.7-16.9) 01/13/20 08:30 Hct 38.9 % (35.4-49) 01/13/20 08:30 MCV 98.8 fl (80-96) H 01/13/20 08:30 MCH 33.7 pg (25.7-33.7) 01/13/20 08:30 MCHC 34.1 g/dl (32.0-35.9) 01/13/20 08:30 RDW 13.4 % (11.9-15.9) 01/13/20 08:30 Plt Count 209 K/MM3 (134-434) 01/13/20 08:30 MPV 9.0 fl (7.5-11.1) D 01/13/20 08:30 Sodium 143 mmol/L (136-145) 01/13/20 08:30 Potassium 3.6 mmol/L (3.5-5.1) 01/13/20 08:30 Chloride 110 mmol/L (98-107) H 01/13/20 08:30 Carbon Dioxide 28 mmol/L (21-32) 01/13/20 08:30 Anion Gap 5 MMOL/L (8-16) L 01/13/20 08:30 BUN 7.9 mg/dL (7-18) 01/13/20 08:30 Creatinine 1.1 mg/dL (0.55-1.3) 01/13/20 08:30 Est GFR (CKD-EPI)AfAm 88.36 01/13/20 08:30 Est GFR (CKD-EPI)NonAf 76.24 01/13/20 08:30 Random Glucose 95 mg/dL (74-106) 01/13/20 08:30 Calcium 8.2 mg/dL (8.5-10.1) L 01/13/20 08:30 Total Bilirubin 0.7 mg/dL (0.2-1) 01/13/20 08:30 AST 15 U/L (15-37) 01/13/20 08:30 ALT 23 U/L (13-61) 01/13/20 08:30 Alkaline Phosphatase 58 U/L (45-117) 01/13/20 08:30 Total Protein 6.1 g/dl (6.4-8.2) L 01/13/20 08:30 Albumin 2.9 g/dl (3.4-5.0) L 01/13/20 08:30 Syphilis Serology Non-reactive (NONREACTIVE) 01/12/20 08:30 Vital Signs Temperature 97.3 F L 01/15/20 08:49 Pulse Rate 79 01/15/20 08:49 Respiratory Rate 18 01/15/20 08:49 Blood Pressure 101/72 01/15/20 08:49 O2 Sat by Pulse Oximetry (%) 99 01/14/20 12:53 - Treatment Hospital Course: Detox Protocol Followed, Detoxed Safely, Responded well, Dis charged Condition Good, Rehab Referral Accepted - Medication Discharge Medications: Ambulatory Orders Pantoprazole Sodium [Protonix -] 20 mg PO DAILY tablet.ec 10/10/19 Buspirone HCl [Buspar -] 15 mg PO BID #60 tablet 10/15/19 traZODone HCL [Desyrel -] 100 mg PO HS #30 tablet 10/15/19 Albuterol Sulfate Inhaler - [Ventolin HFA Inhaler -] 2 puff IH Q4H PRN 11/08/19 - Diagnosis (1) Neuropathy Current Visit: Yes Status: Acute (2) Alcohol dependence with uncomplicated withdrawal Current Visit: Yes Status: Acute (3) Cocaine dependence, uncomplicated Current Visit: Yes Status: Acute (4) COPD (chronic obstructive pulmonary disease) Current Visit: Yes Status: Chronic Qualifiers: COPD type: chronic bronchitis (5) Chronic low back pain Current Visit: Yes Status: Chronic Qualifiers: Back pain laterality: bilateral Sciatica presence: without sciatica Qualified Code(s): M54.5 - Low back pain; G89.29 - Other chronic pain (6) Nicotine dependence Current Visit: Yes Status: Chronic (7) PTSD (post-traumatic stress disorder) Current Visit: Yes Status: Chronic (8) Metastatic malignant neoplasm to prostate Current Visit: Yes Status: Resolved - AMA Did Patient Leave Against Medical Advice: No
[2020-01-15] MEDS ORDERED: GABAPENTIN 300 MG CAPSULE PO SCH (10:15)
[2020-01-15] MEDS: NICOTINE 21 MG/24 HOURS TOPICAL PATCH TD SCH (10:38)
[2020-01-15] MEDS: PRENATAL VITAMINS W/ FOLIC ACID TABLET (FP) PO SCH (10:38)
[2020-01-15] MEDS: PANTOPRAZOLE 20 MG TABLET PO SCH (10:38)
[2020-01-16] MEDS ORDERED: chlordiazePOXIDE HCL 10 MG CAPSULE PO SCH (05:00)
[2020-01-17] MEDS ORDERED: chlordiazePOXIDE HCL 10 MG CAPSULE PO ONE (05:00)
== END 2020-01-15 10:45 | disposition home or self-care (01) | DRG 897 ==
LOC: YASAS 13:51 → Y6N 15:49 → Y3N 16:55
PROVIDERS: ADMIT Allergy & Immunology; ATTEND Allergy & Immunology
PROC: HZ2ZZZZ Detoxification Services for Substance Abuse Treatment (ICD-10-PCS; principal; 2020-01-12)
DX: F10.230 Alcohol dependence with withdrawal, uncomplicated (principal); F14.20 Cocaine dependence, uncomplicated; F19.280 Other psychoactive substance dependence with psychoactive substance-induced anxiety disorder; F19.282 Other psychoactive substance dependence with psychoactive substance-induced sleep disorder; F11.10 Opioid abuse, uncomplicated; F17.210 Nicotine dependence, cigarettes, uncomplicated; F41.9 Anxiety disorder, unspecified; F32.9 Major depressive disorder, single episode, unspecified; F43.10 Post-traumatic stress disorder, unspecified; J42 Unspecified chronic bronchitis; G62.9 Polyneuropathy, unspecified; M54.5 Low back pain; G89.29 Other chronic pain; J45.909 Unspecified asthma, uncomplicated; Z85.46 Personal history of malignant neoplasm of prostate; Z86.718 Personal history of other venous thrombosis and embolism; Z90.79 Acquired absence of other genital organ(s)
CPT/HCPCS: 36415; 80053; 85027; 86780; U0003

== ENCOUNTER 2020-06-22 15:46 | Inpatient (IN) | payer OTHER ==
[2020-06-22 19:07] VITALS: BMI 18.4
[2020-06-22] MEDS ORDERED: DICYCLOMINE HCL 10 MG CAPSULE PO PRN (20:45)
[2020-06-22] MEDS ORDERED: MAGNESIUM CITRATE 300 ML BOTTLE PO PRN (20:45)
[2020-06-22] MEDS ORDERED: ONDANSETRON *ODT* 4 MG TABLET SL PRN (20:45)
[2020-06-22] MEDS ORDERED: LORazepam 1 MG TABLET PO PRN (20:45)
[2020-06-22] MEDS ORDERED: MAG HYDROX/AL HYDROX/SIMETH 30 ML UNIT-DOSE CUP PO PRN (20:45)
[2020-06-22] MEDS ORDERED: MAGNESIUM HYDROX 2400MG/30ML ORAL SUSPENSION 30 ML CUP PO PRN (20:45)
[2020-06-22] MEDS ORDERED: guaiFENesin 200 MG/10 ML 10 ML UNIT-DOSE CUPS PO PRN (20:45)
[2020-06-22] MEDS ORDERED: P-EPHED 60MG/TRIPROLIDI 2.5MG TABLET PO PRN (20:45)
[2020-06-22] MEDS ORDERED: BISMUTH SUBSALICYLATE 524 MG/30 ML UD PO PRN (20:45)
[2020-06-22] MEDS ORDERED: ACETAMINOPHEN 325 MG TABLET (FP) PO PRN ×2 (20:45)
[2020-06-22] MEDS ORDERED: MENTHOL/PHENOL 1 EACH UD MM PRN (20:45)
[2020-06-22] MEDS ORDERED: IBUPROFEN 400 MG TABLET (FP) PO PRN (20:45)
[2020-06-22] MEDS ORDERED: METHOCARBAMOL 500 MG TABLET PO PRN (20:45)
[2020-06-22] MEDS ORDERED: NICOTINE POLACRILEX 2 MG GUM BUC PRN (20:45)
[2020-06-22] MEDS: MELATONIN 5 MG TABLETS PO SCH (22:39)
[2020-06-22] MEDS: LORazepam 1 MG TABLET PO SCH (22:39)
[2020-06-22] MEDS: THIAMINE HCL 100 MG TABLET (FP) PO SCH (22:39)
[2020-06-23] MEDS: LORazepam 1 MG TABLET PO SCH ×4 (05:40→22:03)
[2020-06-23] MEDS ORDERED: PRENATAL VITAMINS W/ FOLIC ACID TABLET (FP) PO SCH (10:00)
[2020-06-23] MEDS ORDERED: NICOTINE 21 MG/24 HOURS TOPICAL PATCH TD SCH (10:00)
[2020-06-23 10:37] LABS: POTASSIUM 4.1 mmol/L (3.5-5.1)
[2020-06-23 10:39] LABS: CALCIUM 8.5 mg/dL (8.5-10.1)
[2020-06-23 10:40] LABS: ALBUMIN 3.1 g/dl (3.4-5.0); BLOOD UREA NITROGEN 16.2 mg/dL (7-18); HEMATOCRIT 37.8 % (35.4-49); HEMOGLOBIN 12.8 GM/dL (11.7-16.9); MCH 33.4 pg (25.7-33.7); MCHC 33.8 g/dl (32.0-35.9); MEAN CELL VOLUME 98.8 fl (80-96); MEAN PLT VOLUME 7.6 fl (7.5-11.1); PLATELET COUNT 212 K/MM3 (134-434); RBC 3.83 M/mm3 (4.00-5.60); RDW 13.3 % (11.9-15.9); WHITE BLOOD COUNT 4.9 K/mm3 (4.0-10.0)
[2020-06-23 10:45] LABS: BILIRUBIN,TOTAL 0.9 mg/dL (0.2-1); TOT PROT 6.8 g/dl (6.4-8.2)
[2020-06-23] MEDS ORDERED: ALBUTEROL SO4 HFA INHALER IH PRN (13:14)
[2020-06-23] MEDS ORDERED: APIXABAN 5 MG TABLET PO SCH (22:00)
[2020-06-23] MEDS ORDERED: GABAPENTIN 300 MG CAPSULE PO SCH (22:00)
[2020-06-23] MEDS ORDERED: MEGESTROL ACETATE 40 MG TABLET PO SCH (22:00)
[2020-06-23] MEDS ORDERED: traZODone HCL 100 MG TABLET (FP) PO SCH (22:00)
[2020-06-23] MEDS: THIAMINE HCL 100 MG TABLET (FP) PO SCH (22:02)
[2020-06-23] MEDS: MELATONIN 5 MG TABLETS PO SCH (22:29)
[2020-06-24] MEDS ORDERED: LORazepam 1 MG TABLET PO SCH (05:00)
[2020-06-24 09:26] VITALS: BP 99/73; PULSE 74; TEMP 98.6
[2020-06-24] MEDS ORDERED: PANTOPRAZOLE 20 MG TABLET PO SCH (10:00)
[2020-06-25] MEDS ORDERED: LORazepam 0.5 MG TABLET PO PRN
[2020-06-25] MEDS ORDERED: LORazepam 0.5 MG TABLET PO SCH (05:00)
[2020-06-26] MEDS ORDERED: LORazepam 0.5 MG TABLET PO ONE (05:00)
== END 2020-06-24 09:49 | disposition home or self-care (01) | DRG 897 ==
LOC: YASAS 15:46 → Y6N 20:07
PROVIDERS: ADMIT Allergy & Immunology; ATTEND Allergy & Immunology
PROC: HZ2ZZZZ Detoxification Services for Substance Abuse Treatment (ICD-10-PCS; principal; 2020-06-22)
DX: F10.230 Alcohol dependence with withdrawal, uncomplicated (principal); F14.20 Cocaine dependence, uncomplicated; F19.282 Other psychoactive substance dependence with psychoactive substance-induced sleep disorder; F19.280 Other psychoactive substance dependence with psychoactive substance-induced anxiety disorder; Z68.1 Body mass index [BMI] 19.9 or less, adult; F17.210 Nicotine dependence, cigarettes, uncomplicated; F19.24 Other psychoactive substance dependence with psychoactive substance-induced mood disorder; F90.9 Attention-deficit hyperactivity disorder, unspecified type; G62.9 Polyneuropathy, unspecified; J44.9 Chronic obstructive pulmonary disease, unspecified; K21.9 Gastro-esophageal reflux disease without esophagitis; M54.5 Low back pain; G89.29 Other chronic pain; R63.4 Abnormal weight loss; Z86.718 Personal history of other venous thrombosis and embolism; Z86.711 Personal history of pulmonary embolism; Z79.01 Long term (current) use of anticoagulants; Z98.890 Other specified postprocedural states; Z91.013 Allergy to seafood
CPT/HCPCS: 36415; 80053; 85027; 86780; C9803; J8999; U0003

== ENCOUNTER 2020-08-15 01:50 | Inpatient (IN) | payer OTHER ==
[2020-08-15] MEDS ORDERED: NICOTINE POLACRILEX 2 MG GUM BUC PRN (02:21)
[2020-08-15] MEDS ORDERED: chlordiazePOXIDE HCL 25 MG CAPSULE PO PRN (02:21)
[2020-08-15] MEDS ORDERED: MAGNESIUM HYDROX 2400MG/30ML ORAL SUSPENSION 30 ML CUP PO PRN (02:21)
[2020-08-15] MEDS ORDERED: MAG HYDROX/AL HYDROX/SIMETH 30 ML UNIT-DOSE CUP PO PRN (02:21)
[2020-08-15] MEDS ORDERED: ONDANSETRON *ODT* 4 MG TABLET SL PRN (02:21)
[2020-08-15] MEDS ORDERED: MAGNESIUM CITRATE 300 ML BOTTLE PO PRN (02:21)
[2020-08-15] MEDS ORDERED: ACETAMINOPHEN 325 MG TABLET (FP) PO PRN ×2 (02:21)
[2020-08-15] MEDS ORDERED: METHOCARBAMOL 500 MG TABLET PO PRN (02:21)
[2020-08-15] MEDS ORDERED: IBUPROFEN 400 MG TABLET (FP) PO PRN (02:21)
[2020-08-15] MEDS ORDERED: MENTHOL/PHENOL 1 EACH UD MM PRN (02:21)
[2020-08-15] MEDS ORDERED: BISMUTH SUBSALICYLATE 524 MG/30 ML UD PO PRN (02:21)
[2020-08-15 05:34] VITALS: BMI 18.6
[2020-08-15] MEDS ORDERED: chlordiazePOXIDE HCL 25 MG CAPSULE ONE (05:41)
[2020-08-15] MEDS: chlordiazePOXIDE HCL 25 MG CAPSULE PO SCH ×4 (05:42→22:17)
[2020-08-15 10:58] LABS: HEMATOCRIT 38.1 % (35.4-49); HEMOGLOBIN 12.8 GM/dL (11.7-16.9); MCH 33.9 pg (25.7-33.7); MCHC 33.6 g/dl (32.0-35.9); MEAN CELL VOLUME 100.9 fl (80-96); MEAN PLT VOLUME 7.8 fl (7.5-11.1); PLATELET COUNT 232 K/MM3 (134-434); RBC 3.78 M/mm3 (4.00-5.60); RDW 13.9 % (11.9-15.9); WHITE BLOOD COUNT 6.4 K/mm3 (4.0-10.0)
[2020-08-15] MEDS: NICOTINE 14 MG/24 HOURS TOPICAL PATCH TD SCH (11:07)
[2020-08-15] MEDS: PRENATAL VITAMINS W/ FOLIC ACID TABLET (FP) PO SCH (11:07)
[2020-08-15 11:16] LABS: ALBUMIN 3.4 g/dl (3.4-5.0); BLOOD UREA NITROGEN 12.9 mg/dL (7-18)
[2020-08-15 11:21] LABS: BILIRUBIN,TOTAL 0.5 mg/dL (0.2-1)
[2020-08-15 11:33] LABS: CALCIUM 8.6 mg/dL (8.5-10.1)
[2020-08-15] MEDS: THIAMINE HCL 100 MG TABLET (FP) PO SCH (22:17)
[2020-08-15] MEDS: traZODone HCL 100 MG TABLET (FP) PO SCH (22:17)
[2020-08-15] MEDS: MELATONIN 5 MG TABLETS PO SCH (22:18)
[2020-08-16] MEDS: chlordiazePOXIDE HCL 25 MG CAPSULE PO SCH ×4 (06:36→22:23)
[2020-08-16] MEDS: NICOTINE 14 MG/24 HOURS TOPICAL PATCH TD SCH (10:23)
[2020-08-16] MEDS: PRENATAL VITAMINS W/ FOLIC ACID TABLET (FP) PO SCH (10:23)
[2020-08-16] MEDS ORDERED: ALBUTEROL SO4 HFA INHALER IH PRN (11:56)
[2020-08-16] MEDS ORDERED: PANTOPRAZOLE 20 MG TABLET PO SCH (12:00)
[2020-08-16] MEDS: APIXABAN 5 MG TABLET PO SCH ×2 (14:08→22:32)
[2020-08-16] MEDS: MEGESTROL ACETATE 40 MG TABLET PO SCH ×2 (15:32→22:23)
[2020-08-16 20:39] VITALS: PULSE 69
[2020-08-16] MEDS: traZODone HCL 100 MG TABLET (FP) PO SCH (22:22)
[2020-08-16] MEDS: MELATONIN 5 MG TABLETS PO SCH (22:32)
[2020-08-16] MEDS: THIAMINE HCL 100 MG TABLET (FP) PO SCH (22:33)
[2020-08-17] MEDS ORDERED: chlordiazePOXIDE HCL 10 MG CAPSULE PO PRN
[2020-08-17] MEDS ORDERED: chlordiazePOXIDE HCL 10 MG CAPSULE PO SCH (05:00)
[2020-08-17 06:14] VITALS: BP 102/71; TEMP 96.8
[2020-08-18] MEDS ORDERED: chlordiazePOXIDE HCL 10 MG CAPSULE PO SCH (05:00)
[2020-08-19] MEDS ORDERED: chlordiazePOXIDE HCL 10 MG CAPSULE PO ONE (05:00)
== END 2020-08-17 08:50 | disposition left against medical advice (07) | DRG 894 ==
LOC: YASAS 01:50 → Y3N 09:35 → Y6N 21:02
PROVIDERS: ADMIT Allergy & Immunology; ATTEND Allergy & Immunology
PROC: HZ2ZZZZ Detoxification Services for Substance Abuse Treatment (ICD-10-PCS; principal; 2020-08-15)
DX: F10.230 Alcohol dependence with withdrawal, uncomplicated (principal); F14.20 Cocaine dependence, uncomplicated; F19.282 Other psychoactive substance dependence with psychoactive substance-induced sleep disorder; F17.210 Nicotine dependence, cigarettes, uncomplicated; F19.24 Other psychoactive substance dependence with psychoactive substance-induced mood disorder; F43.10 Post-traumatic stress disorder, unspecified; F32.9 Major depressive disorder, single episode, unspecified; J45.20 Mild intermittent asthma, uncomplicated; J43.9 Emphysema, unspecified; H91.92 Unspecified hearing loss, left ear; K21.9 Gastro-esophageal reflux disease without esophagitis; M54.5 Low back pain; G89.29 Other chronic pain; Z86.11 Personal history of tuberculosis; Z85.46 Personal history of malignant neoplasm of prostate; Z86.711 Personal history of pulmonary embolism; Z79.01 Long term (current) use of anticoagulants; Z86.718 Personal history of other venous thrombosis and embolism; Z90.79 Acquired absence of other genital organ(s); Z98.890 Other specified postprocedural states
CPT/HCPCS: 36415; 80053; 85027; 86780; 93005; 93010; C9803; J8999; U0003; U0005

== ENCOUNTER 2020-09-25 13:48 | Inpatient (IN) | payer OTHER ==
[2020-09-25 15:40] VITALS: BMI 18.7
[2020-09-25] MEDS ORDERED: MAGNESIUM HYDROX 2400MG/30ML ORAL SUSPENSION 30 ML CUP PO PRN (17:34)
[2020-09-25] MEDS ORDERED: ACETAMINOPHEN 325 MG TABLET (FP) PO PRN ×2 (17:34)
[2020-09-25] MEDS ORDERED: MAG HYDROX/AL HYDROX/SIMETH 30 ML UNIT-DOSE CUP PO PRN (17:34)
[2020-09-25] MEDS ORDERED: hydrOXYzine PAMOATE 25 MG CAPSULE (FP) PO PRN (17:34)
[2020-09-25] MEDS ORDERED: MENTHOL/PHENOL 1 EACH UD MM PRN (17:34)
[2020-09-25] MEDS ORDERED: METHOCARBAMOL 500 MG TABLET PO PRN (17:34)
[2020-09-25] MEDS ORDERED: IBUPROFEN 400 MG TABLET (FP) PO PRN (17:34)
[2020-09-25] MEDS ORDERED: MAGNESIUM CITRATE 300 ML BOTTLE PO PRN (17:34)
[2020-09-25] MEDS ORDERED: ONDANSETRON *ODT* 4 MG TABLET SL PRN (17:34)
[2020-09-25] MEDS ORDERED: BISMUTH SUBSALICYLATE 524 MG/30 ML PO PRN (17:34)
[2020-09-25] MEDS ORDERED: diazePAM 5 MG TABLET PO PRN (17:38)
[2020-09-25] MEDS: diazePAM 5 MG TABLET PO SCH ×2 (19:24→22:52)
[2020-09-25] MEDS: THIAMINE HCL 100 MG TABLET (FP) PO SCH (22:52)
[2020-09-25] MEDS: MELATONIN 5 MG TABLETS PO SCH (22:52)
[2020-09-26] MEDS: diazePAM 5 MG TABLET PO SCH ×4 (06:04→22:39)
[2020-09-26] MEDS: NICOTINE 7 MG/24 HOURS TOPICAL PATCH TD SCH (10:42)
[2020-09-26] MEDS: PRENATAL VITAMINS W/ FOLIC ACID TABLET (FP) PO SCH (10:42)
[2020-09-26 11:17] LABS: HEMATOCRIT 38.8 % (35.4-49); HEMOGLOBIN 13.1 GM/dL (11.7-16.9); MCH 33.6 pg (25.7-33.7); MCHC 33.7 g/dl (32.0-35.9); MEAN CELL VOLUME 99.6 fl (80-96); MEAN PLT VOLUME 8.1 fl (7.5-11.1); PLATELET COUNT 195 K/MM3 (134-434); RDW 13.1 % (11.9-15.9); WHITE BLOOD COUNT 5.4 K/mm3 (4.0-10.0)
[2020-09-26 11:41] LABS: ALBUMIN 3.3 g/dl (3.4-5.0); BLOOD UREA NITROGEN 10.9 mg/dL (7-18); CALCIUM 8.8 mg/dL (8.5-10.1)
[2020-09-26 11:44] LABS: CREATININE 0.9 mg/dL (0.55-1.3)
[2020-09-26 11:47] LABS: BILIRUBIN,TOTAL 0.9 mg/dL (0.2-1); TOT PROT 6.9 g/dl (6.4-8.2)
[2020-09-26] MEDS: THIAMINE HCL 100 MG TABLET (FP) PO SCH (22:39)
[2020-09-26] MEDS: MELATONIN 5 MG TABLETS PO SCH (22:39)
[2020-09-27] MEDS: diazePAM 5 MG TABLET PO SCH ×2 (07:33→17:53)
[2020-09-27] MEDS: PRENATAL VITAMINS W/ FOLIC ACID TABLET (FP) PO SCH (09:58)
[2020-09-27] MEDS: NICOTINE 7 MG/24 HOURS TOPICAL PATCH TD SCH (09:59)
[2020-09-27] MEDS: MELATONIN 5 MG TABLETS PO SCH (23:13)
[2020-09-27] MEDS: THIAMINE HCL 100 MG TABLET (FP) PO SCH (23:14)
[2020-09-28] MEDS ORDERED: diazePAM 5 MG TABLET PO ONE (06:00)
[2020-09-28 08:42] VITALS: BP 124/64; PULSE 86; TEMP 97.2
[2020-09-28] MEDS: PRENATAL VITAMINS W/ FOLIC ACID TABLET (FP) PO SCH (08:59)
[2020-09-28] MEDS: NICOTINE 7 MG/24 HOURS TOPICAL PATCH TD SCH (08:59)
== END 2020-09-28 08:58 | disposition home or self-care (01) | DRG 897 ==
LOC: YASAS 13:48 → Y3N 17:48
PROVIDERS: ADMIT Allergy & Immunology; ATTEND Allergy & Immunology
PROC: HZ2ZZZZ Detoxification Services for Substance Abuse Treatment (ICD-10-PCS; principal; 2020-09-25)
DX: F10.230 Alcohol dependence with withdrawal, uncomplicated (principal); F14.20 Cocaine dependence, uncomplicated; F13.20 Sedative, hypnotic or anxiolytic dependence, uncomplicated; F19.282 Other psychoactive substance dependence with psychoactive substance-induced sleep disorder; F19.280 Other psychoactive substance dependence with psychoactive substance-induced anxiety disorder; Z68.1 Body mass index [BMI] 19.9 or less, adult; F17.213 Nicotine dependence, cigarettes, with withdrawal; F19.24 Other psychoactive substance dependence with psychoactive substance-induced mood disorder; F90.9 Attention-deficit hyperactivity disorder, unspecified type; F43.10 Post-traumatic stress disorder, unspecified; G47.00 Insomnia, unspecified; J45.20 Mild intermittent asthma, uncomplicated; J43.9 Emphysema, unspecified; K21.9 Gastro-esophageal reflux disease without esophagitis; H91.92 Unspecified hearing loss, left ear; R63.6 Underweight; M54.5 Low back pain; G89.29 Other chronic pain; Z86.16 Personal history of COVID-19; Z51.81 Encounter for therapeutic drug level monitoring; Z91.013 Allergy to seafood; Z86.711 Personal history of pulmonary embolism; Z86.718 Personal history of other venous thrombosis and embolism; Z85.46 Personal history of malignant neoplasm of prostate; Z85.89 Personal history of malignant neoplasm of other organs and systems
CPT/HCPCS: 36415; 80053; 85027; 86780; C9803; U0003; U0005

== ENCOUNTER 2020-10-30 12:06 | Inpatient (IN) | payer OTHER ==
[2020-10-30] MEDS ORDERED: ONDANSETRON *ODT* 4 MG TABLET SL PRN (13:27)
[2020-10-30] MEDS ORDERED: MENTHOL/PHENOL 1 EACH UD MM PRN (13:27)
[2020-10-30] MEDS ORDERED: MAGNESIUM HYDROX 2400MG/30ML ORAL SUSPENSION 30 ML CUP PO PRN (13:27)
[2020-10-30] MEDS ORDERED: MAGNESIUM CITRATE 300 ML BOTTLE PO PRN (13:27)
[2020-10-30] MEDS ORDERED: ACETAMINOPHEN 325 MG TABLET (FP) PO PRN ×2 (13:27)
[2020-10-30] MEDS ORDERED: BISMUTH SUBSALICYLATE 524 MG/30 ML PO PRN (13:27)
[2020-10-30] MEDS ORDERED: MAG HYDROX/AL HYDROX/SIMETH 30 ML UNIT-DOSE CUP PO PRN (13:27)
[2020-10-30] MEDS ORDERED: LORazepam 1 MG TABLET PO PRN (13:27)
[2020-10-30] MEDS ORDERED: NICOTINE POLACRILEX 2 MG GUM BUC PRN (13:27)
[2020-10-30] MEDS ORDERED: IBUPROFEN 400 MG TABLET (FP) PO PRN (13:27)
[2020-10-30] MEDS ORDERED: METHOCARBAMOL 500 MG TABLET PO PRN (13:27)
[2020-10-30] MEDS ORDERED: ALBUTEROL SO4 HFA INHALER IH PRN (13:31)
[2020-10-30 16:25] LABS: HEMATOCRIT 38.5 % (35.4-49); MCHC 33.7 g/dl (32.0-35.9); MEAN CELL VOLUME 97.6 fl (80-96); MEAN PLT VOLUME 7.5 fl (7.5-11.1); PLATELET COUNT 249 10^3/uL (134-434); RBC 3.95 M/mm3 (4.00-5.60); RDW 13.5 % (11.9-15.9); WHITE BLOOD COUNT 7.6 K/mm3 (4.0-10.0)
[2020-10-30 16:31] LABS: CALCIUM 8.7 mg/dL (8.5-10.1)
[2020-10-30 16:32] LABS: ALBUMIN 3.9 g/dl (3.4-5.0); BLOOD UREA NITROGEN 16.3 mg/dL (7-18)
[2020-10-30 16:36] LABS: BILIRUBIN,TOTAL 0.5 mg/dL (0.2-1)
[2020-10-30 16:37] LABS: TOT PROT 7.7 g/dl (6.4-8.2)
[2020-10-30] MEDS: MEGESTROL ACETATE 40 MG TABLET PO SCH (17:51)
[2020-10-30] MEDS: hydrOXYzine PAMOATE 25 MG CAPSULE (FP) PO SCH ×3 (17:51→22:26)
[2020-10-30] MEDS: LORazepam 2 MG TABLET PO SCH ×2 (17:51→22:27)
[2020-10-30] MEDS: PRENATAL VITAMINS W/ FOLIC ACID TABLET (FP) PO SCH (17:53)
[2020-10-30] MEDS: NICOTINE 14 MG/24 HOURS TOPICAL PATCH TD SCH (17:54)
[2020-10-30] MEDS: THIAMINE HCL 100 MG TABLET (FP) PO SCH (22:26)
[2020-10-30] MEDS: traZODone HCL 100 MG TABLET (FP) PO SCH (22:26)
[2020-10-30] MEDS: MELATONIN 5 MG TABLETS PO SCH (22:28)
[2020-10-31] MEDS: MEGESTROL ACETATE 40 MG TABLET PO SCH ×2 (07:17→17:57)
[2020-10-31] MEDS: LORazepam 2 MG TABLET PO SCH ×4 (07:23→22:21)
[2020-10-31] MEDS: hydrOXYzine PAMOATE 25 MG CAPSULE (FP) PO SCH ×5 (07:24→22:22)
[2020-10-31] MEDS: PRENATAL VITAMINS W/ FOLIC ACID TABLET (FP) PO SCH (11:16)
[2020-10-31] MEDS: NICOTINE 14 MG/24 HOURS TOPICAL PATCH TD SCH (11:16)
[2020-10-31] MEDS: THIAMINE HCL 100 MG TABLET (FP) PO SCH (22:21)
[2020-10-31] MEDS: MELATONIN 5 MG TABLETS PO SCH (22:22)
[2020-10-31] MEDS: traZODone HCL 100 MG TABLET (FP) PO SCH (22:22)
[2020-11-01] MEDS: LORazepam 1 MG TABLET PO SCH ×2 (06:06→10:10)
[2020-11-01] MEDS: hydrOXYzine PAMOATE 25 MG CAPSULE (FP) PO SCH ×2 (06:06→10:10)
[2020-11-01] MEDS: MEGESTROL ACETATE 40 MG TABLET PO SCH (06:59)
[2020-11-01] MEDS: PRENATAL VITAMINS W/ FOLIC ACID TABLET (FP) PO SCH (10:09)
[2020-11-01] MEDS: NICOTINE 14 MG/24 HOURS TOPICAL PATCH TD SCH (10:09)
[2020-11-01 11:32] VITALS: BP 107/54; PULSE 93; TEMP 98
[2020-11-02] MEDS ORDERED: LORazepam 0.5 MG TABLET PO PRN
[2020-11-02] MEDS ORDERED: LORazepam 0.5 MG TABLET PO SCH (05:00)
[2020-11-03] MEDS ORDERED: LORazepam 0.5 MG TABLET PO ONE (05:00)
== END 2020-11-01 11:45 | disposition left against medical advice (07) | DRG 894 ==
LOC: YASAS 12:06 → Y6N 13:54
PROVIDERS: ADMIT Allergy & Immunology; ATTEND Allergy & Immunology
PROC: HZ2ZZZZ Detoxification Services for Substance Abuse Treatment (ICD-10-PCS; principal; 2020-10-30)
DX: F10.230 Alcohol dependence with withdrawal, uncomplicated (principal); F19.282 Other psychoactive substance dependence with psychoactive substance-induced sleep disorder; C79.89 Secondary malignant neoplasm of other specified sites; Z68.1 Body mass index [BMI] 19.9 or less, adult; F14.10 Cocaine abuse, uncomplicated; F17.213 Nicotine dependence, cigarettes, with withdrawal; F19.24 Other psychoactive substance dependence with psychoactive substance-induced mood disorder; F32.9 Major depressive disorder, single episode, unspecified; G62.9 Polyneuropathy, unspecified; J45.20 Mild intermittent asthma, uncomplicated; J43.9 Emphysema, unspecified; H90.12 Conductive hearing loss, unilateral, left ear, with unrestricted hearing on the contralateral side; M10.072 Idiopathic gout, left ankle and foot; M10.071 Idiopathic gout, right ankle and foot; R59.0 Localized enlarged lymph nodes; Z85.46 Personal history of malignant neoplasm of prostate; Z98.890 Other specified postprocedural states; R63.4 Abnormal weight loss; Z91.013 Allergy to seafood; Z86.59 Personal history of other mental and behavioral disorders; Z86.11 Personal history of tuberculosis
CPT/HCPCS: 36415; 80053; 85027; 86780; C9803; J8999; U0003; U0005

== ENCOUNTER 2021-01-01 12:39 | Inpatient (IN) | payer OTHER ==
[2021-01-01 14:10] VITALS: BMI 18.6
[2021-01-01] MEDS ORDERED: NICOTINE POLACRILEX 2 MG GUM BUC PRN (17:58)
[2021-01-01] MEDS ORDERED: ACETAMINOPHEN 325 MG TABLET (FP) PO PRN (17:58)
[2021-01-01] MEDS ORDERED: METHOCARBAMOL 500 MG TABLET PO PRN (17:58)
[2021-01-01] MEDS ORDERED: ONDANSETRON *ODT* 4 MG TABLET SL PRN (17:58)
[2021-01-01] MEDS ORDERED: hydrOXYzine PAMOATE 25 MG CAPSULE (FP) PO PRN (17:58)
[2021-01-01] MEDS ORDERED: MENTHOL/PHENOL 1 EACH UD MM PRN (17:58)
[2021-01-01] MEDS ORDERED: MAGNESIUM CITRATE 300 ML BOTTLE PO PRN (17:58)
[2021-01-01] MEDS ORDERED: IBUPROFEN 400 MG TABLET (FP) PO PRN (17:58)
[2021-01-01] MEDS ORDERED: MAGNESIUM HYDROX 2400MG/30ML ORAL SUSPENSION 30 ML CUP PO PRN (17:58)
[2021-01-01] MEDS ORDERED: BISMUTH SUBSALICYLATE 524 MG/30 ML PO PRN (17:58)
[2021-01-01] MEDS ORDERED: MAG HYDROX/AL HYDROX/SIMETH 30 ML UNIT-DOSE CUP PO PRN (17:58)
[2021-01-01] MEDS ORDERED: diazePAM 5 MG TABLET PO PRN (18:07)
[2021-01-01] MEDS: diazePAM 5 MG TABLET PO SCH (23:29)
[2021-01-01] MEDS: MELATONIN 5 MG TABLETS PO SCH (23:29)
[2021-01-01] MEDS: THIAMINE HCL 100 MG TABLET (FP) PO SCH (23:29)
[2021-01-02] MEDS: diazePAM 5 MG TABLET PO SCH ×4 (08:09→23:33)
[2021-01-02] MEDS: PRENATAL VITAMINS W/ FOLIC ACID TABLET (FP) PO SCH (11:21)
[2021-01-02] MEDS: MELATONIN 5 MG TABLETS PO SCH (23:33)
[2021-01-02] MEDS: THIAMINE HCL 100 MG TABLET (FP) PO SCH (23:33)
[2021-01-03] MEDS: diazePAM 5 MG TABLET PO SCH ×2 (07:05→14:19)
[2021-01-03] MEDS: PRENATAL VITAMINS W/ FOLIC ACID TABLET (FP) PO SCH (10:36)
[2021-01-03] MEDS: ACETAMINOPHEN 325 MG TABLET (FP) PO PRN ×2 (10:37→18:54)
[2021-01-04] MEDS: MELATONIN 5 MG TABLETS PO SCH ×2 (00:02→22:44)
[2021-01-04] MEDS: THIAMINE HCL 100 MG TABLET (FP) PO SCH ×2 (00:03→22:44)
[2021-01-04] MEDS: diazePAM 5 MG TABLET PO SCH ×3 (00:04→18:19)
[2021-01-04] MEDS: PRENATAL VITAMINS W/ FOLIC ACID TABLET (FP) PO SCH (10:14)
[2021-01-04] MEDS: MEGESTROL ACETATE 40 MG TABLET PO SCH ×3 (15:51→22:43)
[2021-01-04 16:12] LABS: BASO % 0.5 % (0-2.0); EOS % 2.4 % (0-4.5); HEMOGLOBIN 14.2 GM/dL (11.7-16.9); LYMPH % 22.2 % (8-40); MCH 33.5 pg (25.7-33.7); MCHC 33.7 g/dl (32.0-35.9); MEAN CELL VOLUME 99.4 fl (80-96); MEAN PLT VOLUME 7.5 fl (7.5-11.1); MONO % 13.7 % (3.8-10.2); NEUT % 61.2 % (42.8-82.8); PLATELET COUNT 253 10^3/uL (134-434); RBC 4.22 M/mm3 (4.00-5.60); RDW 13.3 % (11.9-15.9); WHITE BLOOD COUNT 6.2 K/mm3 (4.0-10.0)
[2021-01-04 16:33] LABS: ALBUMIN 3.8 g/dl (3.4-5.0); BLOOD UREA NITROGEN 10.2 mg/dL (7-18); CALCIUM 9.3 mg/dL (8.5-10.1)
[2021-01-04 16:37] LABS: CREATININE 0.9 mg/dL (0.55-1.3)
[2021-01-04 16:39] LABS: BILIRUBIN,TOTAL 0.4 mg/dL (0.2-1); TOT PROT 8.2 g/dl (6.4-8.2)
[2021-01-05] MEDS ORDERED: diazePAM 5 MG TABLET PO ONE (06:00)
[2021-01-05] MEDS ORDERED: ALBUTEROL SO4 HFA INHALER IH PRN (10:05)
[2021-01-05] MEDS: PRENATAL VITAMINS W/ FOLIC ACID TABLET (FP) PO SCH (10:43)
[2021-01-05] MEDS: MEGESTROL ACETATE 40 MG TABLET PO SCH ×2 (10:43→23:05)
[2021-01-05] MEDS: THIAMINE HCL 100 MG TABLET (FP) PO SCH (23:05)
[2021-01-05] MEDS: MELATONIN 5 MG TABLETS PO SCH (23:05)
[2021-01-06] MEDS: MEGESTROL ACETATE 40 MG TABLET PO SCH ×2 (09:46→21:15)
[2021-01-06] MEDS: PRENATAL VITAMINS W/ FOLIC ACID TABLET (FP) PO SCH (09:46)
[2021-01-06] MEDS: traZODone HCL 100 MG TABLET (FP) PO SCH (21:15)
[2021-01-06] MEDS: THIAMINE HCL 100 MG TABLET (FP) PO SCH (21:16)
[2021-01-07] MEDS: MEGESTROL ACETATE 40 MG TABLET PO SCH ×2 (10:10→21:29)
[2021-01-07] MEDS: PRENATAL VITAMINS W/ FOLIC ACID TABLET (FP) PO SCH (10:10)
[2021-01-07] MEDS ORDERED: PT OWN MED DRAWER 7, Y5N ONE ×3 (10:28→19:45)
[2021-01-07] MEDS: THIAMINE HCL 100 MG TABLET (FP) PO SCH (21:29)
[2021-01-07] MEDS: traZODone HCL 100 MG TABLET (FP) PO SCH (21:29)
[2021-01-08] MEDS ORDERED: PT OWN MED DRAWER 7, Y5N ONE ×3 (09:01→19:11)
[2021-01-08] MEDS: MEGESTROL ACETATE 40 MG TABLET PO SCH ×2 (10:03→21:19)
[2021-01-08] MEDS: PRENATAL VITAMINS W/ FOLIC ACID TABLET (FP) PO SCH (10:03)
[2021-01-08] MEDS: THIAMINE HCL 100 MG TABLET (FP) PO SCH (21:19)
[2021-01-08] MEDS: traZODone HCL 100 MG TABLET (FP) PO SCH (21:19)
[2021-01-09] MEDS ORDERED: PT OWN MED DRAWER 7, Y5N ONE ×2 (08:08→19:20)
[2021-01-09] MEDS: PRENATAL VITAMINS W/ FOLIC ACID TABLET (FP) PO SCH (09:15)
[2021-01-09] MEDS: MEGESTROL ACETATE 40 MG TABLET PO SCH ×2 (09:15→21:12)
[2021-01-09] MEDS: ASPIRIN COATED 81 MG TABLET.EC PO SCH (09:15)
[2021-01-09] MEDS: THIAMINE HCL 100 MG TABLET (FP) PO SCH (21:11)
[2021-01-09] MEDS: traZODone HCL 100 MG TABLET (FP) PO SCH (21:11)
[2021-01-10] MEDS ORDERED: PT OWN MED DRAWER 7, Y5N ONE (08:08)
[2021-01-10] MEDS: PRENATAL VITAMINS W/ FOLIC ACID TABLET (FP) PO SCH (09:29)
[2021-01-10] MEDS: ASPIRIN COATED 81 MG TABLET.EC PO SCH (09:29)
[2021-01-10] MEDS: MEGESTROL ACETATE 40 MG TABLET PO SCH ×2 (09:29→21:35)
[2021-01-10] MEDS: THIAMINE HCL 100 MG TABLET (FP) PO SCH (21:35)
[2021-01-10] MEDS: traZODone HCL 100 MG TABLET (FP) PO SCH (21:35)
[2021-01-11] MEDS: ASPIRIN COATED 81 MG TABLET.EC PO SCH (10:00)
[2021-01-11] MEDS: PRENATAL VITAMINS W/ FOLIC ACID TABLET (FP) PO SCH (10:00)
[2021-01-11] MEDS: MEGESTROL ACETATE 40 MG TABLET PO SCH ×2 (10:01→21:43)
[2021-01-11] MEDS ORDERED: PT OWN MED DRAWER 7, Y5N ONE (20:11)
[2021-01-11] MEDS: traZODone HCL 100 MG TABLET (FP) PO SCH (21:43)
[2021-01-11] MEDS: THIAMINE HCL 100 MG TABLET (FP) PO SCH (21:43)
[2021-01-12] MEDS ORDERED: PT OWN MED DRAWER 7, Y5N ONE (08:18)
[2021-01-12] MEDS: MEGESTROL ACETATE 40 MG TABLET PO SCH ×2 (09:41→21:15)
[2021-01-12] MEDS: ASPIRIN COATED 81 MG TABLET.EC PO SCH (09:41)
[2021-01-12] MEDS: PRENATAL VITAMINS W/ FOLIC ACID TABLET (FP) PO SCH (09:41)
[2021-01-12] MEDS: THIAMINE HCL 100 MG TABLET (FP) PO SCH (21:15)
[2021-01-12] MEDS: traZODone HCL 100 MG TABLET (FP) PO SCH (21:15)
[2021-01-13] MEDS ORDERED: PT OWN MED DRAWER 7, Y5N ONE ×2 (08:48→20:30)
[2021-01-13] MEDS: MEGESTROL ACETATE 40 MG TABLET PO SCH ×2 (09:57→21:38)
[2021-01-13] MEDS: PRENATAL VITAMINS W/ FOLIC ACID TABLET (FP) PO SCH (09:57)
[2021-01-13] MEDS: ASPIRIN COATED 81 MG TABLET.EC PO SCH (09:58)
[2021-01-13] MEDS: traZODone HCL 100 MG TABLET (FP) PO SCH (21:38)
[2021-01-13] MEDS: THIAMINE HCL 100 MG TABLET (FP) PO SCH (21:38)
[2021-01-14] MEDS: ASPIRIN COATED 81 MG TABLET.EC PO SCH (09:53)
[2021-01-14] MEDS: PRENATAL VITAMINS W/ FOLIC ACID TABLET (FP) PO SCH (09:54)
[2021-01-14] MEDS: MEGESTROL ACETATE 40 MG TABLET PO SCH ×2 (09:54→22:33)
[2021-01-14] MEDS: traZODone HCL 100 MG TABLET (FP) PO SCH (22:31)
[2021-01-14] MEDS: THIAMINE HCL 100 MG TABLET (FP) PO SCH (22:33)
[2021-01-15] MEDS: ASPIRIN COATED 81 MG TABLET.EC PO SCH (09:47)
[2021-01-15] MEDS: MEGESTROL ACETATE 40 MG TABLET PO SCH ×2 (09:48→21:59)
[2021-01-15] MEDS: PRENATAL VITAMINS W/ FOLIC ACID TABLET (FP) PO SCH (09:48)
[2021-01-15] MEDS ORDERED: PT OWN MED DRAWER 7, Y5N ONE (19:31)
[2021-01-15] MEDS: THIAMINE HCL 100 MG TABLET (FP) PO SCH (21:59)
[2021-01-15] MEDS: traZODone HCL 100 MG TABLET (FP) PO SCH (22:00)
[2021-01-16] MEDS: ASPIRIN COATED 81 MG TABLET.EC PO SCH (09:48)
[2021-01-16] MEDS: MEGESTROL ACETATE 40 MG TABLET PO SCH ×2 (09:48→21:24)
[2021-01-16] MEDS: PRENATAL VITAMINS W/ FOLIC ACID TABLET (FP) PO SCH (09:48)
[2021-01-16] MEDS ORDERED: PT OWN MED DRAWER 7, Y5N ONE (19:39)
[2021-01-16] MEDS: THIAMINE HCL 100 MG TABLET (FP) PO SCH (21:23)
[2021-01-16] MEDS: traZODone HCL 100 MG TABLET (FP) PO SCH (21:23)
[2021-01-17] MEDS: PRENATAL VITAMINS W/ FOLIC ACID TABLET (FP) PO SCH (10:03)
[2021-01-17] MEDS: ASPIRIN COATED 81 MG TABLET.EC PO SCH (10:03)
[2021-01-17] MEDS: MEGESTROL ACETATE 40 MG TABLET PO SCH ×2 (10:04→22:39)
[2021-01-17] MEDS: traZODone HCL 100 MG TABLET (FP) PO SCH (22:39)
[2021-01-17] MEDS: THIAMINE HCL 100 MG TABLET (FP) PO SCH (22:39)
[2021-01-18] MEDS: ASPIRIN COATED 81 MG TABLET.EC PO SCH (09:29)
[2021-01-18] MEDS: MEGESTROL ACETATE 40 MG TABLET PO SCH ×2 (09:29→21:40)
[2021-01-18] MEDS: PRENATAL VITAMINS W/ FOLIC ACID TABLET (FP) PO SCH (09:30)
[2021-01-18] MEDS: THIAMINE HCL 100 MG TABLET (FP) PO SCH (21:40)
[2021-01-18] MEDS: traZODone HCL 100 MG TABLET (FP) PO SCH (21:40)
[2021-01-19] MEDS: PRENATAL VITAMINS W/ FOLIC ACID TABLET (FP) PO SCH (09:31)
[2021-01-19] MEDS: ASPIRIN COATED 81 MG TABLET.EC PO SCH (09:31)
[2021-01-19] MEDS: MEGESTROL ACETATE 40 MG TABLET PO SCH ×2 (09:32→21:38)
[2021-01-19] MEDS ORDERED: PT OWN MED DRAWER 7, Y5N ONE (19:13)
[2021-01-19] MEDS: THIAMINE HCL 100 MG TABLET (FP) PO SCH (21:38)
[2021-01-19] MEDS: traZODone HCL 100 MG TABLET (FP) PO SCH (21:38)
[2021-01-20 06:40] VITALS: BP 117/68; PULSE 79; TEMP 97.3
[2021-01-20] MEDS: ASPIRIN COATED 81 MG TABLET.EC PO SCH (09:04)
[2021-01-20] MEDS: PRENATAL VITAMINS W/ FOLIC ACID TABLET (FP) PO SCH (09:05)
[2021-01-20] MEDS: MEGESTROL ACETATE 40 MG TABLET PO SCH (09:05)
== END 2021-01-20 09:05 | disposition home or self-care (01) | DRG 895 ==
LOC: YASAS 12:39 → Y3N 20:13 → Y3E 01-05 17:30
PROVIDERS: ADMIT Allergy & Immunology; ATTEND Allergy & Immunology
PROC: HZ2ZZZZ Detoxification Services for Substance Abuse Treatment (ICD-10-PCS; 2021-01-01)
PROC: HZ42ZZZ Group Counseling for Substance Abuse Treatment, Cognitive-Behavioral (ICD-10-PCS; principal; 2021-01-05)
DX: F10.20 Alcohol dependence, uncomplicated (principal); F14.20 Cocaine dependence, uncomplicated; Z68.1 Body mass index [BMI] 19.9 or less, adult; C77.9 Secondary and unspecified malignant neoplasm of lymph node, unspecified; F17.210 Nicotine dependence, cigarettes, uncomplicated; F19.24 Other psychoactive substance dependence with psychoactive substance-induced mood disorder; F41.9 Anxiety disorder, unspecified; F32.9 Major depressive disorder, single episode, unspecified; C61 Malignant neoplasm of prostate; G47.9 Sleep disorder, unspecified; J43.9 Emphysema, unspecified; K21.9 Gastro-esophageal reflux disease without esophagitis; M54.5 Low back pain; G89.29 Other chronic pain; R63.4 Abnormal weight loss; Z86.11 Personal history of tuberculosis; Z86.711 Personal history of pulmonary embolism
CPT/HCPCS: 36415; 80053; 85025; 86780; C9803; J8999; U0003; U0005

== ENCOUNTER 2021-03-09 11:15 | Inpatient (IN) | payer OTHER ==
[2021-03-09] MEDS ORDERED: METHOCARBAMOL 500 MG TABLET PO PRN (12:49)
[2021-03-09] MEDS ORDERED: IBUPROFEN 400 MG TABLET (FP) PO PRN (12:49)
[2021-03-09] MEDS ORDERED: BISMUTH SUBSALICYLATE 262 MG/15 ML BTL PO PRN (12:49)
[2021-03-09] MEDS ORDERED: MAGNESIUM CITRATE 300 ML BOTTLE PO PRN (12:49)
[2021-03-09] MEDS ORDERED: NICOTINE 10 MG CARTRIDGE (INHALER) IH PRN (12:49)
[2021-03-09] MEDS ORDERED: diazePAM 5 MG TABLET PO PRN (12:49)
[2021-03-09] MEDS ORDERED: MAGNESIUM HYDROX 2400MG/30ML ORAL SUSPENSION 30 ML CUP PO PRN (12:49)
[2021-03-09] MEDS ORDERED: MENTHOL/PHENOL 1 EACH UD MM PRN (12:49)
[2021-03-09] MEDS ORDERED: ONDANSETRON *ODT* 4 MG TABLET SL PRN (12:49)
[2021-03-09] MEDS ORDERED: MAG HYDROX/AL HYDROX/SIMETH 30 ML UNIT-DOSE CUP PO PRN (12:49)
[2021-03-09] MEDS ORDERED: ACETAMINOPHEN 325 MG TABLET (FP) PO PRN ×2 (12:49)
[2021-03-09] MEDS ORDERED: ALBUTEROL SO4 HFA INHALER IH PRN (12:55)
[2021-03-09] MEDS: hydrOXYzine PAMOATE 25 MG CAPSULE (FP) PO SCH ×3 (13:59→22:24)
[2021-03-09 16:07] LABS: HEMATOCRIT 38.7 % (35.4-49); HEMOGLOBIN 13.2 GM/dL (11.7-16.9); MCH 33.6 pg (25.7-33.7); MCHC 34.2 g/dl (32.0-35.9); MEAN CELL VOLUME 98.5 fl (80-96); MEAN PLT VOLUME 7.3 fl (7.5-11.1); PLATELET COUNT 307 10^3/uL (134-434); RBC 3.93 M/mm3 (4.00-5.60); WHITE BLOOD COUNT 6.6 K/mm3 (4.0-10.0)
[2021-03-09 16:08] LABS: ALBUMIN 3.9 g/dl (3.4-5.0); CALCIUM 9.1 mg/dL (8.5-10.1)
[2021-03-09 16:09] LABS: BLOOD UREA NITROGEN 15.5 mg/dL (7-18)
[2021-03-09 16:12] LABS: CREATININE 1.2 mg/dL (0.55-1.3)
[2021-03-09 16:13] LABS: BILIRUBIN,TOTAL 0.7 mg/dL (0.2-1); TOT PROT 8.2 g/dl (6.4-8.2)
[2021-03-09] MEDS: diazePAM 5 MG TABLET PO SCH ×2 (20:02→22:22)
[2021-03-09] MEDS ORDERED: MELATONIN 5 MG TABLETS PO SCH (22:00)
[2021-03-09] MEDS: THIAMINE HCL 100 MG TABLET (FP) PO SCH (22:20)
[2021-03-09] MEDS: traZODone HCL 100 MG TABLET (FP) PO SCH (22:20)
[2021-03-09] MEDS: GABAPENTIN 300 MG CAPSULE PO SCH (22:20)
[2021-03-09] MEDS: MEGESTROL ACETATE 40 MG TABLET PO SCH (22:21)
[2021-03-10] MEDS: diazePAM 5 MG TABLET PO SCH ×4 (05:28→22:47)
[2021-03-10] MEDS: hydrOXYzine PAMOATE 25 MG CAPSULE (FP) PO SCH ×5 (06:29→23:26)
[2021-03-10] MEDS ORDERED: POTASSIUM CHLORIDE ORAL LIQUID 20 MEQ/15 ML PO ONE (11:30)
[2021-03-10] MEDS: GABAPENTIN 300 MG CAPSULE PO SCH ×2 (12:18→23:27)
[2021-03-10] MEDS: MEGESTROL ACETATE 40 MG TABLET PO SCH ×2 (12:19→22:45)
[2021-03-10] MEDS: PRENATAL VITAMINS W/ FOLIC ACID TABLET (FP) PO SCH (12:19)
[2021-03-10] MEDS: traZODone HCL 100 MG TABLET (FP) PO SCH (22:47)
[2021-03-10] MEDS: THIAMINE HCL 100 MG TABLET (FP) PO SCH (23:26)
[2021-03-11] MEDS: diazePAM 5 MG TABLET PO SCH ×3 (05:33→22:14)
[2021-03-11] MEDS: hydrOXYzine PAMOATE 25 MG CAPSULE (FP) PO SCH ×4 (05:34→18:07)
[2021-03-11] MEDS: PRENATAL VITAMINS W/ FOLIC ACID TABLET (FP) PO SCH (10:42)
[2021-03-11] MEDS: GABAPENTIN 300 MG CAPSULE PO SCH ×2 (10:42→22:14)
[2021-03-11] MEDS: MEGESTROL ACETATE 40 MG TABLET PO SCH (10:42)
[2021-03-11] MEDS ORDERED: POTASSIUM CHLORIDE TABS 20 MEQ TABLET.ER (FP) PO ONE (10:52)
[2021-03-11] MEDS: traZODone HCL 100 MG TABLET (FP) PO SCH (22:14)
[2021-03-12] MEDS: diazePAM 5 MG TABLET PO SCH ×2 (05:50→18:10)
[2021-03-12] MEDS: hydrOXYzine PAMOATE 25 MG CAPSULE (FP) PO SCH ×3 (06:28→22:46)
[2021-03-12] MEDS: PRENATAL VITAMINS W/ FOLIC ACID TABLET (FP) PO SCH (10:54)
[2021-03-12] MEDS: GABAPENTIN 300 MG CAPSULE PO SCH ×2 (10:54→22:46)
[2021-03-12] MEDS: MEGESTROL ACETATE 40 MG TABLET PO SCH ×2 (10:56→22:46)
[2021-03-12 20:04] VITALS: TEMP 98.2
[2021-03-12] MEDS: THIAMINE HCL 100 MG TABLET (FP) PO SCH (22:46)
[2021-03-12] MEDS: traZODone HCL 100 MG TABLET (FP) PO SCH (22:46)
[2021-03-13] MEDS: THIAMINE HCL 100 MG TABLET (FP) PO SCH (01:13)
[2021-03-13] MEDS ORDERED: diazePAM 5 MG TABLET PO ONE (06:00)
[2021-03-13] MEDS: hydrOXYzine PAMOATE 25 MG CAPSULE (FP) PO SCH ×2 (06:36→10:43)
[2021-03-13 09:27] VITALS: BP 115/51; PULSE 100
[2021-03-13] MEDS: GABAPENTIN 300 MG CAPSULE PO SCH (10:43)
[2021-03-13] MEDS: MEGESTROL ACETATE 40 MG TABLET PO SCH (10:43)
[2021-03-13] MEDS: PRENATAL VITAMINS W/ FOLIC ACID TABLET (FP) PO SCH (10:43)
== END 2021-03-13 12:55 | disposition home or self-care (01) | DRG 897 ==
LOC: YASAS 11:15 → Y6N 12:55
PROVIDERS: ADMIT Allergy & Immunology; ATTEND Allergy & Immunology
PROC: HZ2ZZZZ Detoxification Services for Substance Abuse Treatment (ICD-10-PCS; principal; 2021-03-09)
DX: F10.230 Alcohol dependence with withdrawal, uncomplicated (principal); F14.20 Cocaine dependence, uncomplicated; F19.282 Other psychoactive substance dependence with psychoactive substance-induced sleep disorder; F17.210 Nicotine dependence, cigarettes, uncomplicated; F32.A Depression, unspecified; F43.10 Post-traumatic stress disorder, unspecified; F90.9 Attention-deficit hyperactivity disorder, unspecified type; G62.9 Polyneuropathy, unspecified; E87.6 Hypokalemia; J43.9 Emphysema, unspecified; J45.20 Mild intermittent asthma, uncomplicated; M54.50 Low back pain, unspecified; G89.29 Other chronic pain; R74.01 Elevation of levels of liver transaminase levels; R63.4 Abnormal weight loss; Z68.20 Body mass index [BMI] 20.0-20.9, adult; Z86.718 Personal history of other venous thrombosis and embolism; Z85.46 Personal history of malignant neoplasm of prostate; Z85.89 Personal history of malignant neoplasm of other organs and systems; Z90.79 Acquired absence of other genital organ(s); Z86.11 Personal history of tuberculosis; Z91.013 Allergy to seafood
CPT/HCPCS: 36415; 71046-TC-FY; 80053; 84132; 84450; 84460; 85027; 86780; C9803; J8999; U0003; U0005

== ENCOUNTER 2021-04-29 10:14 | Inpatient (IN) | payer OTHER ==
[2021-04-29] MEDS ORDERED: ONDANSETRON *ODT* 4 MG TABLET SL PRN (11:30)
[2021-04-29] MEDS ORDERED: MAGNESIUM CITRATE 300 ML BOTTLE PO PRN (11:30)
[2021-04-29] MEDS ORDERED: MAGNESIUM HYDROX 2400MG/30ML ORAL SUSPENSION 30 ML CUP PO PRN (11:30)
[2021-04-29] MEDS ORDERED: IBUPROFEN 400 MG TABLET (FP) PO PRN (11:30)
[2021-04-29] MEDS ORDERED: MENTHOL/PHENOL 1 EACH UD MM PRN (11:30)
[2021-04-29] MEDS ORDERED: NICOTINE 10 MG CARTRIDGE (INHALER) IH PRN (11:30)
[2021-04-29] MEDS ORDERED: chlordiazePOXIDE HCL 25 MG CAPSULE PO PRN (11:30)
[2021-04-29] MEDS ORDERED: ACETAMINOPHEN 325 MG TABLET (FP) PO PRN (11:30)
[2021-04-29] MEDS ORDERED: MAG HYDROX/AL HYDROX/SIMETH 30 ML UNIT-DOSE CUP PO PRN (11:30)
[2021-04-29] MEDS ORDERED: BISMUTH SUBSALICYLATE 262 MG/15 ML BTL PO PRN (11:30)
[2021-04-29] MEDS ORDERED: METHOCARBAMOL 500 MG TABLET PO PRN (11:30)
[2021-04-29 11:47] VITALS: BMI 18.7
[2021-04-29] MEDS ORDERED: LORazepam 1 MG TABLET PO PRN (15:36)
[2021-04-29] MEDS ORDERED: chlordiazePOXIDE HCL 25 MG CAPSULE PO SCH (17:00)
[2021-04-29] MEDS: LORazepam 2 MG TABLET PO SCH ×2 (19:16→22:49)
[2021-04-29] MEDS: hydrOXYzine PAMOATE 25 MG CAPSULE (FP) PO SCH ×3 (19:16→22:49)
[2021-04-29] MEDS: ACETAMINOPHEN 325 MG TABLET (FP) PO PRN (19:18)
[2021-04-29] MEDS ORDERED: MELATONIN 5 MG TABLETS PO SCH (22:00)
[2021-04-29] MEDS: THIAMINE HCL 100 MG TABLET (FP) PO SCH (22:49)
[2021-04-30] MEDS: LORazepam 2 MG TABLET PO SCH ×4 (06:20→23:23)
[2021-04-30] MEDS: hydrOXYzine PAMOATE 25 MG CAPSULE (FP) PO SCH ×5 (06:20→23:24)
[2021-04-30] MEDS: PRENATAL VITAMINS W/ FOLIC ACID TABLET (FP) PO SCH (10:34)
[2021-04-30 11:14] LABS: HEMOGLOBIN 12.5 GM/dL (11.7-16.9); MCH 32.6 pg (25.7-33.7); MEAN CELL VOLUME 98.7 fl (80-96); MEAN PLT VOLUME 7.5 fl (7.5-11.1); PLATELET COUNT 251 10^3/uL (134-434); RBC 3.84 M/mm3 (4.00-5.60); RDW 13.6 % (11.9-15.9); WHITE BLOOD COUNT 4.4 K/mm3 (4.0-10.0)
[2021-04-30 11:45] LABS: CALCIUM 8.5 mg/dL (8.5-10.1)
[2021-04-30 11:46] LABS: BLOOD UREA NITROGEN 7.4 mg/dL (7-18)
[2021-04-30 11:48] LABS: CREATININE 0.9 mg/dL (0.55-1.3)
[2021-04-30 11:49] LABS: TOT PROT 6.5 g/dl (6.4-8.2)
[2021-04-30 11:50] LABS: BILIRUBIN,TOTAL 0.5 mg/dL (0.2-1)
[2021-04-30] MEDS: traZODone HCL 100 MG TABLET (FP) PO SCH (23:22)
[2021-04-30] MEDS: THIAMINE HCL 100 MG TABLET (FP) PO SCH (23:22)
[2021-05-01] MEDS ORDERED: chlordiazePOXIDE HCL 25 MG CAPSULE PO SCH (05:00)
[2021-05-01] MEDS: LORazepam 1 MG TABLET PO SCH ×4 (06:38→22:49)
[2021-05-01] MEDS: hydrOXYzine PAMOATE 25 MG CAPSULE (FP) PO SCH ×5 (06:39→22:49)
[2021-05-01] MEDS: PRENATAL VITAMINS W/ FOLIC ACID TABLET (FP) PO SCH (11:08)
[2021-05-01] MEDS: ACETAMINOPHEN 325 MG TABLET (FP) PO PRN (11:31)
[2021-05-01] MEDS: traZODone HCL 100 MG TABLET (FP) PO SCH (22:49)
[2021-05-01] MEDS: THIAMINE HCL 100 MG TABLET (FP) PO SCH (22:49)
[2021-05-02] MEDS ORDERED: LORazepam 0.5 MG TABLET PO PRN
[2021-05-02] MEDS ORDERED: chlordiazePOXIDE HCL 10 MG CAPSULE PO PRN
[2021-05-02] MEDS ORDERED: chlordiazePOXIDE HCL 10 MG CAPSULE PO SCH (05:00)
[2021-05-02] MEDS: LORazepam 0.5 MG TABLET PO SCH ×3 (05:51→17:05)
[2021-05-02] MEDS: hydrOXYzine PAMOATE 25 MG CAPSULE (FP) PO SCH ×5 (05:51→23:12)
[2021-05-02] MEDS: PRENATAL VITAMINS W/ FOLIC ACID TABLET (FP) PO SCH (11:02)
[2021-05-02] MEDS: traZODone HCL 100 MG TABLET (FP) PO SCH (22:42)
[2021-05-02] MEDS: THIAMINE HCL 100 MG TABLET (FP) PO SCH (23:12)
[2021-05-03] MEDS: LORazepam 0.5 MG TABLET PO SCH (00:07)
[2021-05-03] MEDS ORDERED: chlordiazePOXIDE HCL 10 MG CAPSULE PO SCH (05:00)
[2021-05-03] MEDS ORDERED: LORazepam 0.5 MG TABLET PO ONE (05:00)
[2021-05-03] MEDS: hydrOXYzine PAMOATE 25 MG CAPSULE (FP) PO SCH ×2 (06:34→10:07)
[2021-05-03 09:24] VITALS: BP 119/52; PULSE 73; TEMP 97.8
[2021-05-03] MEDS: PRENATAL VITAMINS W/ FOLIC ACID TABLET (FP) PO SCH (10:07)
[2021-05-04] MEDS ORDERED: chlordiazePOXIDE HCL 10 MG CAPSULE PO ONE (05:00)
== END 2021-05-03 09:11 | disposition home or self-care (01) | DRG 897 ==
LOC: YASAS 10:14 → Y6N 16:54
PROVIDERS: ADMIT Allergy & Immunology; ATTEND Allergy & Immunology
PROC: HZ2ZZZZ Detoxification Services for Substance Abuse Treatment (ICD-10-PCS; principal; 2021-04-29)
DX: F10.230 Alcohol dependence with withdrawal, uncomplicated (principal); F14.20 Cocaine dependence, uncomplicated; F19.282 Other psychoactive substance dependence with psychoactive substance-induced sleep disorder; Z68.1 Body mass index [BMI] 19.9 or less, adult; C77.0 Secondary and unspecified malignant neoplasm of lymph nodes of head, face and neck; F17.213 Nicotine dependence, cigarettes, with withdrawal; F19.24 Other psychoactive substance dependence with psychoactive substance-induced mood disorder; F43.10 Post-traumatic stress disorder, unspecified; J43.9 Emphysema, unspecified; J45.20 Mild intermittent asthma, uncomplicated; K21.9 Gastro-esophageal reflux disease without esophagitis; M54.50 Low back pain, unspecified; G89.29 Other chronic pain; R63.4 Abnormal weight loss; Z85.46 Personal history of malignant neoplasm of prostate; Z86.718 Personal history of other venous thrombosis and embolism; Z90.79 Acquired absence of other genital organ(s); Z86.11 Personal history of tuberculosis; Z91.013 Allergy to seafood
CPT/HCPCS: 36415; 80053; 85027; 86780; C9803-CS; U0003; U0005

== ENCOUNTER 2021-07-01 10:49 | Inpatient (IN) | payer OTHER ==
[2021-07-01 11:33] VITALS: BMI 18.1
[2021-07-01] MEDS ORDERED: NICOTINE 10 MG CARTRIDGE (INHALER) IH PRN (12:54)
[2021-07-01] MEDS ORDERED: ONDANSETRON *ODT* 4 MG TABLET SL PRN (12:54)
[2021-07-01] MEDS ORDERED: LOPERAMIDE HCL 2 MG CAPSULE PO PRN (12:54)
[2021-07-01] MEDS ORDERED: BISMUTH SUBSALICYLATE 524 MG/30 ML PO PRN (12:54)
[2021-07-01] MEDS ORDERED: MAGNESIUM HYDROX 2400MG/30ML ORAL SUSPENSION 30 ML CUP PO PRN (12:54)
[2021-07-01] MEDS ORDERED: ACETAMINOPHEN 325 MG TABLET (FP) PO PRN ×2 (12:54)
[2021-07-01] MEDS ORDERED: MAG HYDROX/AL HYDROX/SIMETH 30 ML UNIT-DOSE CUP PO PRN (12:54)
[2021-07-01] MEDS ORDERED: MENTHOL/PHENOL 1 EACH UD MM PRN (12:54)
[2021-07-01] MEDS ORDERED: MAGNESIUM CITRATE 300 ML BOTTLE PO PRN (12:54)
[2021-07-01] MEDS ORDERED: chlordiazePOXIDE HCL 25 MG CAPSULE PO PRN (12:54)
[2021-07-01] MEDS ORDERED: METHOCARBAMOL 500 MG TABLET PO PRN (12:54)
[2021-07-01] MEDS ORDERED: IBUPROFEN 400 MG TABLET (FP) PO PRN (12:54)
[2021-07-01] MEDS ORDERED: ALBUTEROL SO4 HFA INHALER IH PRN (12:57)
[2021-07-01] MEDS: PRENATAL VITAMINS W/ FOLIC ACID TABLET (FP) PO SCH (15:45)
[2021-07-01] MEDS: hydrOXYzine PAMOATE 25 MG CAPSULE (FP) PO SCH ×3 (15:47→22:14)
[2021-07-01 17:18] LABS: ALBUMIN 3.8 g/dl (3.4-5.0); CALCIUM 8.8 mg/dL (8.5-10.1)
[2021-07-01 17:22] LABS: BILIRUBIN,TOTAL 0.6 mg/dL (0.2-1); HEMATOCRIT 38.2 % (35.4-49); HEMOGLOBIN 13.1 GM/dL (11.7-16.9); MCH 33.2 pg (25.7-33.7); MCHC 34.4 g/dl (32.0-35.9); MEAN CELL VOLUME 96.6 fl (80-96); MEAN PLT VOLUME 7.1 fl (7.5-11.1); PLATELET COUNT 265 10^3/uL (134-434); RBC 3.96 M/mm3 (4.00-5.60); RDW 13.7 % (11.9-15.9); TOT PROT 7.8 g/dl (6.4-8.2); WHITE BLOOD COUNT 5.7 K/mm3 (4.0-10.0)
[2021-07-01] MEDS: chlordiazePOXIDE HCL 25 MG CAPSULE PO SCH ×3 (18:48→23:11)
[2021-07-01] MEDS: THIAMINE HCL 100 MG TABLET (FP) PO SCH (22:14)
[2021-07-01] MEDS: MELATONIN 5 MG TABLETS PO SCH (22:14)
[2021-07-01] MEDS: busPIRone HCL 10 MG TABLET (FP) PO SCH (22:14)
[2021-07-01] MEDS: traZODone HCL 50 MG TABLET (FP) PO SCH (22:15)
[2021-07-02] MEDS: hydrOXYzine PAMOATE 25 MG CAPSULE (FP) PO SCH ×5 (07:24→22:51)
[2021-07-02] MEDS: chlordiazePOXIDE HCL 25 MG CAPSULE PO SCH ×4 (07:24→22:51)
[2021-07-02] MEDS: POTASSIUM CHLORIDE TABS 20 MEQ TABLET.ER (FP) PO SCH ×2 (12:32→22:51)
[2021-07-02] MEDS: busPIRone HCL 10 MG TABLET (FP) PO SCH ×2 (12:35→22:51)
[2021-07-02] MEDS: PRENATAL VITAMINS W/ FOLIC ACID TABLET (FP) PO SCH (12:36)
[2021-07-02] MEDS: MELATONIN 5 MG TABLETS PO SCH (22:51)
[2021-07-02] MEDS: traZODone HCL 50 MG TABLET (FP) PO SCH (22:51)
[2021-07-02] MEDS: THIAMINE HCL 100 MG TABLET (FP) PO SCH (22:51)
[2021-07-03] MEDS: hydrOXYzine PAMOATE 25 MG CAPSULE (FP) PO SCH ×5 (06:36→23:08)
[2021-07-03] MEDS: chlordiazePOXIDE HCL 25 MG CAPSULE PO SCH ×4 (06:37→23:06)
[2021-07-03] MEDS: busPIRone HCL 10 MG TABLET (FP) PO SCH ×2 (12:02→23:08)
[2021-07-03] MEDS: POTASSIUM CHLORIDE TABS 20 MEQ TABLET.ER (FP) PO SCH (12:02)
[2021-07-03] MEDS: PRENATAL VITAMINS W/ FOLIC ACID TABLET (FP) PO SCH (12:03)
[2021-07-03] MEDS ORDERED: POTASSIUM CHLORIDE TABS 20 MEQ TABLET.ER (FP) PO ONE (17:00)
[2021-07-03] MEDS: traZODone HCL 50 MG TABLET (FP) PO SCH (23:07)
[2021-07-03] MEDS: MELATONIN 5 MG TABLETS PO SCH (23:07)
[2021-07-03] MEDS: THIAMINE HCL 100 MG TABLET (FP) PO SCH (23:08)
[2021-07-04] MEDS ORDERED: chlordiazePOXIDE HCL 10 MG CAPSULE PO PRN
[2021-07-04] MEDS: chlordiazePOXIDE HCL 10 MG CAPSULE PO SCH ×2 (06:12→10:20)
[2021-07-04] MEDS: hydrOXYzine PAMOATE 25 MG CAPSULE (FP) PO SCH (06:12)
[2021-07-04] MEDS ORDERED: hydrOXYzine PAMOATE 25 MG CAPSULE (FP) PO PRN (09:04)
[2021-07-04] MEDS: PRENATAL VITAMINS W/ FOLIC ACID TABLET (FP) PO SCH (10:21)
[2021-07-04] MEDS: busPIRone HCL 10 MG TABLET (FP) PO SCH (10:21)
[2021-07-04 18:33] VITALS: BP 103/62; PULSE 103; TEMP 97.7
[2021-07-05] MEDS ORDERED: chlordiazePOXIDE HCL 10 MG CAPSULE PO SCH (05:00)
[2021-07-05 14:07] LABS: SARS-CoV-2 NAA Not Detected (Not Detected)
[2021-07-06] MEDS ORDERED: chlordiazePOXIDE HCL 10 MG CAPSULE PO ONE (05:00)
== END 2021-07-04 17:08 | disposition left against medical advice (07) | DRG 894 ==
LOC: YASAS 10:49 → Y3N 14:49
PROVIDERS: ADMIT Allergy & Immunology; ATTEND Allergy & Immunology
PROC: HZ2ZZZZ Detoxification Services for Substance Abuse Treatment (ICD-10-PCS; principal; 2021-07-01)
DX: F10.230 Alcohol dependence with withdrawal, uncomplicated (principal); F13.20 Sedative, hypnotic or anxiolytic dependence, uncomplicated; F14.20 Cocaine dependence, uncomplicated; Z68.1 Body mass index [BMI] 19.9 or less, adult; F12.20 Cannabis dependence, uncomplicated; F17.210 Nicotine dependence, cigarettes, uncomplicated; F32.A Depression, unspecified; F43.10 Post-traumatic stress disorder, unspecified; E87.6 Hypokalemia; G47.00 Insomnia, unspecified; J43.9 Emphysema, unspecified; J45.20 Mild intermittent asthma, uncomplicated; R63.4 Abnormal weight loss; Z85.46 Personal history of malignant neoplasm of prostate; Z85.72 Personal history of non-Hodgkin lymphomas; Z86.11 Personal history of tuberculosis; Z91.013 Allergy to seafood
CPT/HCPCS: 36415; 80053; 85027; 86780; C9803; U0003; U0005

== ENCOUNTER 2021-07-17 12:49 | Inpatient (IN) | payer OTHER ==
[2021-07-17 13:14] VITALS: BMI 19.5
[2021-07-17] MEDS ORDERED: LOPERAMIDE HCL 2 MG CAPSULE PO PRN (14:44)
[2021-07-17] MEDS ORDERED: guaiFENesin 200 MG/10 ML 10 ML UNIT-DOSE CUPS PO PRN (14:44)
[2021-07-17] MEDS ORDERED: NICOTINE 10 MG CARTRIDGE (INHALER) IH PRN (14:44)
[2021-07-17] MEDS ORDERED: MAGNESIUM HYDROX 2400MG/30ML ORAL SUSPENSION 30 ML CUP PO PRN (14:44)
[2021-07-17] MEDS ORDERED: IBUPROFEN 400 MG TABLET (FP) PO PRN (14:44)
[2021-07-17] MEDS ORDERED: MAG HYDROX/AL HYDROX/SIMETH 30 ML UNIT-DOSE CUP PO PRN (14:44)
[2021-07-17] MEDS ORDERED: MAGNESIUM CITRATE 300 ML BOTTLE PO PRN (14:44)
[2021-07-17] MEDS ORDERED: P-EPHED 60MG/TRIPROLIDI 2.5MG TABLET PO PRN (14:44)
[2021-07-17] MEDS ORDERED: ALBUTEROL SO4 HFA INHALER IH PRN (14:47)
[2021-07-17] MEDS: LIDOCAINE 5% TOPICAL PATCH TP SCH (22:06)
[2021-07-17] MEDS: THIAMINE HCL 100 MG TABLET (FP) PO SCH (22:06)
[2021-07-17] MEDS: MELATONIN 5 MG TABLETS PO SCH (22:06)
[2021-07-17] MEDS: ACETAMINOPHEN 325 MG TABLET (FP) PO PRN (22:08)
[2021-07-17] MEDS: hydrOXYzine PAMOATE 25 MG CAPSULE (FP) PO SCH ×2 (22:11→22:12)
[2021-07-17] MEDS: MEGESTROL ACETATE 400 MG/10 ML UNIT DOSE CUP PO SCH (22:11)
[2021-07-17] MEDS: LIDOCAINE PATCH REMOVAL MC SCH (22:12)
[2021-07-18] MEDS: hydrOXYzine PAMOATE 25 MG CAPSULE (FP) PO SCH ×5 (06:41→21:48)
[2021-07-18] MEDS: PRENATAL VITAMINS W/ FOLIC ACID TABLET (FP) PO SCH (11:19)
[2021-07-18] MEDS: LIDOCAINE 5% TOPICAL PATCH TP SCH (11:19)
[2021-07-18] MEDS: ACETAMINOPHEN 325 MG TABLET (FP) PO PRN ×3 (11:21→21:47)
[2021-07-18 11:52] LABS: ALBUMIN 3.2 g/dl (3.4-5.0); BLOOD UREA NITROGEN 11.4 mg/dL (7-18); CALCIUM 8.2 mg/dL (8.5-10.1)
[2021-07-18 11:57] LABS: BILIRUBIN,TOTAL 0.4 mg/dL (0.2-1); TOT PROT 6.9 g/dl (6.4-8.2)
[2021-07-18 11:58] LABS: BASO % 0.7 % (0-2.0); EOS % 3.2 % (0-4.5); HEMATOCRIT 36.2 % (35.4-49); HEMOGLOBIN 11.8 GM/dL (11.7-16.9); LYMPH % 26.4 % (8-40); MCH 32.8 pg (25.7-33.7); MCHC 32.7 g/dl (32.0-35.9); MEAN CELL VOLUME 100.3 fl (80-96); MEAN PLT VOLUME 7.6 fl (7.5-11.1); MONO % 11.3 % (3.8-10.2); NEUT % 58.4 % (42.8-82.8); PLATELET COUNT 273 10^3/uL (134-434); RBC 3.61 M/mm3 (4.00-5.60); RDW 14.4 % (11.9-15.9); WHITE BLOOD COUNT 7.1 K/mm3 (4.0-10.0)
[2021-07-18] MEDS: MEGESTROL ACETATE 400 MG/10 ML UNIT DOSE CUP PO SCH (13:38)
[2021-07-18] MEDS: THIAMINE HCL 100 MG TABLET (FP) PO SCH (21:47)
[2021-07-18] MEDS: traZODone HCL 100 MG TABLET (FP) PO SCH (21:47)
[2021-07-18] MEDS: LIDOCAINE PATCH REMOVAL MC SCH (21:47)
[2021-07-18] MEDS: MELATONIN 5 MG TABLETS PO SCH (21:48)
[2021-07-18 22:32] LABS: URINE APPEARANCE CLEAR; URINE BILIRUBIN NEGATIVE (NEGATIVE); URINE COLOR YELLOW; URINE GLUCOSE (UA) NEGATIVE (NEGATIVE); URINE KETONE NEGATIVE (NEGATIVE); URINE LEUK ESTERASE NEGATIVE (NEGATIVE); URINE NITRITE NEGATIVE (NEGATIVE); URINE PROTEIN NEGATIVE (NEGATIVE)
[2021-07-19] MEDS: hydrOXYzine PAMOATE 25 MG CAPSULE (FP) PO SCH ×5 (06:43→21:53)
[2021-07-19] MEDS: LIDOCAINE 5% TOPICAL PATCH TP SCH (10:11)
[2021-07-19] MEDS: PRENATAL VITAMINS W/ FOLIC ACID TABLET (FP) PO SCH (10:11)
[2021-07-19] MEDS: MEGESTROL ACETATE 400 MG/10 ML UNIT DOSE CUP PO SCH (10:12)
[2021-07-19] MEDS: ACETAMINOPHEN 325 MG TABLET (FP) PO PRN (10:15)
[2021-07-19] MEDS: LIDOCAINE PATCH REMOVAL MC SCH (21:51)
[2021-07-19] MEDS: traZODone HCL 100 MG TABLET (FP) PO SCH (21:52)
[2021-07-19] MEDS: MELATONIN 5 MG TABLETS PO SCH (21:53)
[2021-07-19] MEDS: THIAMINE HCL 100 MG TABLET (FP) PO SCH (21:54)
[2021-07-20] MEDS: ACETAMINOPHEN 325 MG TABLET (FP) PO PRN (04:17)
[2021-07-20 06:09] LABS: SARS-CoV-2 NAA Not Detected (Not Detected)
[2021-07-20] MEDS: hydrOXYzine PAMOATE 25 MG CAPSULE (FP) PO SCH (06:22)
[2021-07-20] MEDS ORDERED: hydrOXYzine PAMOATE 25 MG CAPSULE (FP) PO PRN (09:29)
[2021-07-20] MEDS: PRENATAL VITAMINS W/ FOLIC ACID TABLET (FP) PO SCH (10:06)
[2021-07-20] MEDS: LIDOCAINE 5% TOPICAL PATCH TP SCH (10:06)
[2021-07-20] MEDS: MEGESTROL ACETATE 400 MG/10 ML UNIT DOSE CUP PO SCH (10:07)
[2021-07-20] MEDS: predniSONE 20 MG TABLET (UD) PO SCH (15:02)
[2021-07-20] MEDS: traZODone HCL 100 MG TABLET (FP) PO SCH (21:37)
[2021-07-20] MEDS: LIDOCAINE PATCH REMOVAL MC SCH (21:38)
[2021-07-20] MEDS: MELATONIN 5 MG TABLETS PO SCH (21:38)
[2021-07-20] MEDS: THIAMINE HCL 100 MG TABLET (FP) PO SCH (21:38)
[2021-07-21] MEDS: PRENATAL VITAMINS W/ FOLIC ACID TABLET (FP) PO SCH (10:14)
[2021-07-21] MEDS: predniSONE 20 MG TABLET (UD) PO SCH (10:15)
[2021-07-21] MEDS: LIDOCAINE 5% TOPICAL PATCH TP SCH (10:15)
[2021-07-21] MEDS: MEGESTROL ACETATE 400 MG/10 ML UNIT DOSE CUP PO SCH (10:17)
[2021-07-21] MEDS: ACETAMINOPHEN 325 MG TABLET (FP) PO PRN (14:25)
[2021-07-21] MEDS: LIDOCAINE PATCH REMOVAL MC SCH (21:48)
[2021-07-21] MEDS: traZODone HCL 100 MG TABLET (FP) PO SCH (21:48)
[2021-07-21] MEDS: MELATONIN 5 MG TABLETS PO SCH (21:49)
[2021-07-21] MEDS: THIAMINE HCL 100 MG TABLET (FP) PO SCH (21:49)
[2021-07-22] MEDS: PRENATAL VITAMINS W/ FOLIC ACID TABLET (FP) PO SCH (09:54)
[2021-07-22] MEDS: MEGESTROL ACETATE 400 MG/10 ML UNIT DOSE CUP PO SCH (09:55)
[2021-07-22] MEDS: LIDOCAINE 5% TOPICAL PATCH TP SCH (09:56)
[2021-07-22] MEDS: ACETAMINOPHEN 325 MG TABLET (FP) PO PRN (09:57)
[2021-07-22] MEDS: predniSONE 20 MG TABLET (UD) PO SCH (12:12)
[2021-07-22] MEDS: traZODone HCL 100 MG TABLET (FP) PO SCH (21:42)
[2021-07-22] MEDS: LIDOCAINE PATCH REMOVAL MC SCH (21:43)
[2021-07-22] MEDS: THIAMINE HCL 100 MG TABLET (FP) PO SCH (21:43)
[2021-07-22] MEDS: MELATONIN 5 MG TABLETS PO SCH (21:43)
[2021-07-23 07:48] VITALS: BP 125/77; PULSE 69; TEMP 98.2
[2021-07-23] MEDS ORDERED: predniSONE 20 MG TABLET (UD) PO ONE (09:00)
[2021-07-25] MEDS ORDERED: predniSONE 10 MG TABLET (UD) PO ONE (10:00)
[2021-07-26] MEDS ORDERED: predniSONE 20 MG TABLET (UD) PO ONE (10:00)
[2021-07-27] MEDS ORDERED: predniSONE 10 MG TABLET (UD) PO ONE (10:00)
[2021-07-28] MEDS ORDERED: predniSONE 20 MG TABLET (UD) PO ONE (10:00)
[2021-07-29] MEDS ORDERED: predniSONE 10 MG TABLET (UD) PO ONE (10:00)
== END 2021-07-23 09:00 | disposition home or self-care (01) | DRG 895 ==
LOC: YASAS 12:49 → Y5N 14:35 → UNDOADMIN 14:35 → Y5N 15:54
PROVIDERS: ADMIT Allergy & Immunology; ATTEND Allergy & Immunology
PROC: HZ42ZZZ Group Counseling for Substance Abuse Treatment, Cognitive-Behavioral (ICD-10-PCS; principal; 2021-07-17)
DX: F10.20 Alcohol dependence, uncomplicated (principal); F14.20 Cocaine dependence, uncomplicated; F19.282 Other psychoactive substance dependence with psychoactive substance-induced sleep disorder; Z68.1 Body mass index [BMI] 19.9 or less, adult; C79.9 Secondary malignant neoplasm of unspecified site; F12.20 Cannabis dependence, uncomplicated; F17.210 Nicotine dependence, cigarettes, uncomplicated; F43.10 Post-traumatic stress disorder, unspecified; F32.A Depression, unspecified; J43.9 Emphysema, unspecified; J45.20 Mild intermittent asthma, uncomplicated; M10.9 Gout, unspecified; M79.672 Pain in left foot; M79.671 Pain in right foot; R63.4 Abnormal weight loss; Z85.46 Personal history of malignant neoplasm of prostate; Z90.79 Acquired absence of other genital organ(s); Z86.11 Personal history of tuberculosis; Z91.013 Allergy to seafood
CPT/HCPCS: 36415; 80053; 81003; 85025; 86780; 86803; 87811; C9803-CS; U0003; U0005

== ENCOUNTER 2021-08-04 10:00 | Inpatient (IN) | payer OTHER ==
[2021-08-04 11:08] VITALS: BMI 19.3
[2021-08-04] MEDS ORDERED: ONDANSETRON *ODT* 4 MG TABLET SL PRN (11:25)
[2021-08-04] MEDS ORDERED: BENZOCAINE/MENTHOL (CHLORASEPTIC ) LOZENGE MM PRN (11:25)
[2021-08-04] MEDS ORDERED: diazePAM 5 MG TABLET PO PRN (11:25)
[2021-08-04] MEDS ORDERED: BISMUTH SUBSALICYLATE 524 MG/30 ML PO PRN (11:25)
[2021-08-04] MEDS ORDERED: ACETAMINOPHEN 325 MG TABLET (FP) PO PRN ×2 (11:25)
[2021-08-04] MEDS ORDERED: MAGNESIUM HYDROX 2400MG/30ML ORAL SUSPENSION 30 ML CUP PO PRN (11:25)
[2021-08-04] MEDS ORDERED: IBUPROFEN 400 MG TABLET (FP) PO PRN (11:25)
[2021-08-04] MEDS ORDERED: NICOTINE 10 MG CARTRIDGE (INHALER) IH PRN (11:25)
[2021-08-04] MEDS ORDERED: METHOCARBAMOL 500 MG TABLET PO PRN (11:25)
[2021-08-04] MEDS ORDERED: MAGNESIUM CITRATE 300 ML BOTTLE PO PRN (11:25)
[2021-08-04] MEDS ORDERED: DICYCLOMINE HCL 10 MG CAPSULE PO PRN (11:25)
[2021-08-04] MEDS ORDERED: LOPERAMIDE HCL 2 MG CAPSULE PO PRN (11:25)
[2021-08-04] MEDS ORDERED: ALBUTEROL SO4 HFA INHALER IH PRN (11:40)
[2021-08-04] MEDS: diazePAM 5 MG TABLET PO SCH ×3 (12:45→22:34)
[2021-08-04] MEDS: PRENATAL VITAMINS W/ FOLIC ACID TABLET (FP) PO SCH (12:45)
[2021-08-04] MEDS: COLCHICINE 0.6 MG CAPSULE PO SCH (12:45)
[2021-08-04] MEDS: NICOTINE 7 MG/24 HOURS TOPICAL PATCH TD SCH (12:46)
[2021-08-04] MEDS ORDERED: MEGESTROL ACETATE 40 MG TABLET PO SCH (13:30)
[2021-08-04 14:33] LABS: HEMATOCRIT 37.2 % (35.4-49); HEMOGLOBIN 12.4 GM/dL (11.7-16.9); MCHC 33.4 g/dl (32.0-35.9); MEAN CELL VOLUME 98.9 fl (80-96); MEAN PLT VOLUME 7.5 fl (7.5-11.1); PLATELET COUNT 271 10^3/uL (134-434); RBC 3.76 M/mm3 (4.00-5.60); RDW 13.3 % (11.9-15.9); WHITE BLOOD COUNT 5.4 K/mm3 (4.0-10.0)
[2021-08-04 14:49] LABS: ALBUMIN 3.2 g/dl (3.4-5.0); CALCIUM 8.9 mg/dL (8.5-10.1)
[2021-08-04 14:50] LABS: BLOOD UREA NITROGEN 12.1 mg/dL (7-18)
[2021-08-04 14:54] LABS: BILIRUBIN,TOTAL 0.3 mg/dL (0.2-1); TOT PROT 7.4 g/dl (6.4-8.2)
[2021-08-04] MEDS: hydrOXYzine PAMOATE 25 MG CAPSULE (FP) PO SCH ×3 (15:26→23:01)
[2021-08-04] MEDS: BUPRENORPHINE/NALOXONE 8 MG/2 MG FILM PACKET SL SCH ×2 (17:39→22:36)
[2021-08-04] MEDS: traZODone HCL 50 MG TABLET (FP) PO SCH (22:35)
[2021-08-04] MEDS: THIAMINE HCL 100 MG TABLET (FP) PO SCH (22:35)
[2021-08-04] MEDS: MELATONIN 5 MG TABLETS PO SCH (22:35)
[2021-08-05] MEDS: BUPRENORPHINE/NALOXONE 8 MG/2 MG FILM PACKET SL SCH ×3 (07:31→22:25)
[2021-08-05] MEDS: hydrOXYzine PAMOATE 25 MG CAPSULE (FP) PO SCH ×5 (07:31→22:26)
[2021-08-05] MEDS: diazePAM 5 MG TABLET PO SCH ×4 (07:31→22:25)
[2021-08-05] MEDS: COLCHICINE 0.6 MG CAPSULE PO SCH (10:24)
[2021-08-05] MEDS: NICOTINE 7 MG/24 HOURS TOPICAL PATCH TD SCH (10:24)
[2021-08-05] MEDS: predniSONE 20 MG TABLET (UD) PO SCH (10:24)
[2021-08-05] MEDS: MEGESTROL ACETATE 400 MG/10 ML UNIT DOSE CUP PO SCH (10:24)
[2021-08-05] MEDS: PRENATAL VITAMINS W/ FOLIC ACID TABLET (FP) PO SCH (10:27)
[2021-08-05] MEDS: MELATONIN 5 MG TABLETS PO SCH (22:24)
[2021-08-05] MEDS: THIAMINE HCL 100 MG TABLET (FP) PO SCH (22:27)
[2021-08-05] MEDS: MAG HYDROX/AL HYDROX/SIMETH 30 ML UNIT-DOSE CUP PO PRN (22:53)
[2021-08-05] MEDS: traZODone HCL 50 MG TABLET (FP) PO SCH (22:53)
[2021-08-06] MEDS: diazePAM 5 MG TABLET PO SCH ×3 (07:00→23:19)
[2021-08-06] MEDS: BUPRENORPHINE/NALOXONE 8 MG/2 MG FILM PACKET SL SCH ×3 (07:01→23:04)
[2021-08-06] MEDS: hydrOXYzine PAMOATE 25 MG CAPSULE (FP) PO SCH ×5 (07:01→23:05)
[2021-08-06] MEDS: NICOTINE 7 MG/24 HOURS TOPICAL PATCH TD SCH (10:36)
[2021-08-06] MEDS: MEGESTROL ACETATE 400 MG/10 ML UNIT DOSE CUP PO SCH (10:37)
[2021-08-06] MEDS: PRENATAL VITAMINS W/ FOLIC ACID TABLET (FP) PO SCH (10:37)
[2021-08-06] MEDS: predniSONE 20 MG TABLET (UD) PO SCH (10:37)
[2021-08-06] MEDS: COLCHICINE 0.6 MG CAPSULE PO SCH (10:39)
[2021-08-06 14:08] LABS: SARS-CoV-2 NAA Not Detected (Not Detected)
[2021-08-06] MEDS: MELATONIN 5 MG TABLETS PO SCH (23:18)
[2021-08-06] MEDS: traZODone HCL 50 MG TABLET (FP) PO SCH (23:18)
[2021-08-06] MEDS: THIAMINE HCL 100 MG TABLET (FP) PO SCH (23:19)
[2021-08-07] MEDS: MAG HYDROX/AL HYDROX/SIMETH 30 ML UNIT-DOSE CUP PO PRN (02:57)
[2021-08-07] MEDS ORDERED: diazePAM 5 MG TABLET PO SCH (06:00)
[2021-08-07] MEDS: BUPRENORPHINE/NALOXONE 8 MG/2 MG FILM PACKET SL SCH (07:02)
[2021-08-07] MEDS: hydrOXYzine PAMOATE 25 MG CAPSULE (FP) PO SCH (07:03)
[2021-08-07 08:49] VITALS: BP 116/66; PULSE 74; TEMP 97.7
[2021-08-08] MEDS ORDERED: diazePAM 5 MG TABLET PO ONE (06:00)
== END 2021-08-07 09:55 | disposition home or self-care (01) | DRG 897 ==
LOC: YASAS 10:00 → Y3N 11:51
PROVIDERS: ADMIT Allergy & Immunology; ATTEND Allergy & Immunology
PROC: HZ2ZZZZ Detoxification Services for Substance Abuse Treatment (ICD-10-PCS; principal; 2021-08-04)
DX: F10.230 Alcohol dependence with withdrawal, uncomplicated (principal); F13.20 Sedative, hypnotic or anxiolytic dependence, uncomplicated; F14.20 Cocaine dependence, uncomplicated; C85.90 Non-Hodgkin lymphoma, unspecified, unspecified site; F17.210 Nicotine dependence, cigarettes, uncomplicated; F19.24 Other psychoactive substance dependence with psychoactive substance-induced mood disorder; F32.A Depression, unspecified; J44.9 Chronic obstructive pulmonary disease, unspecified; J45.20 Mild intermittent asthma, uncomplicated; M10.9 Gout, unspecified; Z85.46 Personal history of malignant neoplasm of prostate; Z86.11 Personal history of tuberculosis; Z86.59 Personal history of other mental and behavioral disorders; Z91.010 Allergy to peanuts; Z91.013 Allergy to seafood
CPT/HCPCS: 36415; 80053; 85027; 86780; 87811; C9803-CS; U0003; U0005

== ENCOUNTER 2021-08-26 17:46 | Inpatient (IN) | payer OTHER ==
[2021-08-26 18:40] VITALS: BMI 19.0
[2021-08-26] MEDS ORDERED: MAG HYDROX/AL HYDROX/SIMETH 30 ML UNIT-DOSE CUP PO PRN (20:08)
[2021-08-26] MEDS ORDERED: NICOTINE 10 MG CARTRIDGE (INHALER) IH PRN (20:08)
[2021-08-26] MEDS ORDERED: IBUPROFEN 400 MG TABLET (FP) PO PRN (20:08)
[2021-08-26] MEDS ORDERED: ACETAMINOPHEN 325 MG TABLET (FP) PO PRN (20:08)
[2021-08-26] MEDS ORDERED: guaiFENesin 200 MG/10 ML 10 ML UNIT-DOSE CUPS PO PRN (20:08)
[2021-08-26] MEDS ORDERED: MAGNESIUM CITRATE 300 ML BOTTLE PO PRN (20:08)
[2021-08-26] MEDS ORDERED: P-EPHED 60MG/TRIPROLIDI 2.5MG TABLET PO PRN (20:08)
[2021-08-26] MEDS ORDERED: LOPERAMIDE HCL 2 MG CAPSULE PO PRN (20:08)
[2021-08-26] MEDS ORDERED: MAGNESIUM HYDROX 2400MG/30ML ORAL SUSPENSION 30 ML CUP PO PRN (20:08)
[2021-08-26] MEDS ORDERED: MELATONIN 5 MG TABLETS PO SCH (22:00)
[2021-08-27] MEDS: THIAMINE HCL 100 MG TABLET (FP) PO SCH ×2 (01:16→21:52)
[2021-08-27 09:49] LABS: HEMATOCRIT 36.2 % (35.4-49); HEMOGLOBIN 12.3 GM/dL (11.7-16.9); MCH 33.3 pg (25.7-33.7); MEAN CELL VOLUME 97.9 fl (80-96); MEAN PLT VOLUME 7.2 fl (7.5-11.1); PLATELET COUNT 210 10^3/uL (134-434); RDW 13.5 % (11.9-15.9); WHITE BLOOD COUNT 7.7 K/mm3 (4.0-10.0)
[2021-08-27 10:24] LABS: CALCIUM 8.4 mg/dL (8.5-10.1)
[2021-08-27 10:25] LABS: ALBUMIN 3.2 g/dl (3.4-5.0); BLOOD UREA NITROGEN 10.3 mg/dL (7-18)
[2021-08-27 10:30] LABS: BILIRUBIN,TOTAL 0.3 mg/dL (0.2-1); TOT PROT 6.5 g/dl (6.4-8.2)
[2021-08-27] MEDS: PRENATAL VITAMINS W/ FOLIC ACID TABLET (FP) PO SCH (11:29)
[2021-08-27] MEDS: NICOTINE 14 MG/24 HOURS TOPICAL PATCH TD SCH (11:29)
[2021-08-27] MEDS: traZODone HCL 100 MG TABLET (FP) PO SCH (21:52)
[2021-08-28] MEDS: PRENATAL VITAMINS W/ FOLIC ACID TABLET (FP) PO SCH (12:55)
[2021-08-28] MEDS: NICOTINE 14 MG/24 HOURS TOPICAL PATCH TD SCH (12:55)
[2021-08-28 14:00] LABS: URINE APPEARANCE CLEAR; URINE BILIRUBIN NEGATIVE (NEGATIVE); URINE COLOR YELLOW; URINE GLUCOSE (UA) NEGATIVE (NEGATIVE); URINE KETONE NEGATIVE (NEGATIVE); URINE LEUK ESTERASE NEGATIVE (NEGATIVE); URINE NITRITE NEGATIVE (NEGATIVE); URINE PROTEIN NEGATIVE (NEGATIVE); URINE UROBILINOGEN 0.2 mg/dL (0.2-1.0)
[2021-08-28] MEDS: THIAMINE HCL 100 MG TABLET (FP) PO SCH (21:23)
[2021-08-28] MEDS: traZODone HCL 100 MG TABLET (FP) PO SCH (21:23)
[2021-08-29] MEDS: PRENATAL VITAMINS W/ FOLIC ACID TABLET (FP) PO SCH (11:29)
[2021-08-29] MEDS: NICOTINE 14 MG/24 HOURS TOPICAL PATCH TD SCH (11:29)
[2021-08-29] MEDS: traZODone HCL 100 MG TABLET (FP) PO SCH (21:47)
[2021-08-29] MEDS: THIAMINE HCL 100 MG TABLET (FP) PO SCH (21:47)
[2021-08-30] MEDS: NICOTINE 14 MG/24 HOURS TOPICAL PATCH TD SCH (13:10)
[2021-08-30] MEDS: PRENATAL VITAMINS W/ FOLIC ACID TABLET (FP) PO SCH (13:10)
[2021-08-30] MEDS: THIAMINE HCL 100 MG TABLET (FP) PO SCH (21:15)
[2021-08-30] MEDS: traZODone HCL 100 MG TABLET (FP) PO SCH (21:15)
[2021-08-31] MEDS ORDERED: ALBUTEROL SO4 HFA INHALER IH PRN (08:44)
[2021-08-31] MEDS: NICOTINE 14 MG/24 HOURS TOPICAL PATCH TD SCH (11:01)
[2021-08-31] MEDS: PRENATAL VITAMINS W/ FOLIC ACID TABLET (FP) PO SCH (11:01)
[2021-08-31] MEDS: THIAMINE HCL 100 MG TABLET (FP) PO SCH (21:32)
[2021-08-31] MEDS: traZODone HCL 100 MG TABLET (FP) PO SCH (21:32)
[2021-09-01 06:55] VITALS: BP 122/71; PULSE 67; TEMP 97.7
== END 2021-09-01 08:53 | disposition home or self-care (01) | DRG 895 ==
LOC: YASAS 17:46 → Y3W 08-27 00:37
PROVIDERS: ADMIT Allergy & Immunology; ATTEND Allergy & Immunology
PROC: HZ42ZZZ Group Counseling for Substance Abuse Treatment, Cognitive-Behavioral (ICD-10-PCS; principal; 2021-08-27)
DX: F10.20 Alcohol dependence, uncomplicated (principal); F14.20 Cocaine dependence, uncomplicated; F13.20 Sedative, hypnotic or anxiolytic dependence, uncomplicated; C85.90 Non-Hodgkin lymphoma, unspecified, unspecified site; F12.20 Cannabis dependence, uncomplicated; F43.10 Post-traumatic stress disorder, unspecified; F90.9 Attention-deficit hyperactivity disorder, unspecified type; F32.A Depression, unspecified; F17.210 Nicotine dependence, cigarettes, uncomplicated; K21.9 Gastro-esophageal reflux disease without esophagitis; J44.9 Chronic obstructive pulmonary disease, unspecified; H91.92 Unspecified hearing loss, left ear; M10.9 Gout, unspecified; M54.50 Low back pain, unspecified; G89.29 Other chronic pain; Z85.46 Personal history of malignant neoplasm of prostate; Z86.718 Personal history of other venous thrombosis and embolism; Z86.711 Personal history of pulmonary embolism; Z86.11 Personal history of tuberculosis
CPT/HCPCS: 36415; 80053; 81003; 85027; 86780; C9803-CS; U0003; U0005

== ENCOUNTER 2021-09-07 10:56 | Inpatient (IN) | payer OTHER ==
[2021-09-07] MEDS ORDERED: BENZOCAINE/MENTHOL (CHLORASEPTIC ) LOZENGE MM PRN (12:02)
[2021-09-07] MEDS ORDERED: BISMUTH SUBSALICYLATE 524 MG/30 ML PO PRN (12:02)
[2021-09-07] MEDS ORDERED: DICYCLOMINE HCL 10 MG CAPSULE PO PRN (12:02)
[2021-09-07] MEDS ORDERED: METHOCARBAMOL 500 MG TABLET PO PRN (12:02)
[2021-09-07] MEDS ORDERED: chlordiazePOXIDE HCL 25 MG CAPSULE PO PRN (12:02)
[2021-09-07] MEDS ORDERED: MAGNESIUM CITRATE 300 ML BOTTLE PO PRN (12:02)
[2021-09-07] MEDS ORDERED: MAGNESIUM HYDROX 2400MG/30ML ORAL SUSPENSION 30 ML CUP PO PRN (12:02)
[2021-09-07] MEDS ORDERED: MAG HYDROX/AL HYDROX/SIMETH 30 ML UNIT-DOSE CUP PO PRN (12:02)
[2021-09-07] MEDS ORDERED: ACETAMINOPHEN 325 MG TABLET (FP) PO PRN ×2 (12:02)
[2021-09-07] MEDS ORDERED: LOPERAMIDE HCL 2 MG CAPSULE PO PRN (12:02)
[2021-09-07] MEDS ORDERED: ONDANSETRON *ODT* 4 MG TABLET SL PRN (12:02)
[2021-09-07] MEDS ORDERED: NICOTINE 10 MG CARTRIDGE (INHALER) IH PRN (12:02)
[2021-09-07 12:36] VITALS: BMI 19.5
[2021-09-07] MEDS: PRENATAL VITAMINS W/ FOLIC ACID TABLET (FP) PO SCH (14:11)
[2021-09-07] MEDS: hydrOXYzine PAMOATE 25 MG CAPSULE (FP) PO SCH ×3 (14:13→23:22)
[2021-09-07] MEDS ORDERED: ALBUTEROL SO4 HFA INHALER IH PRN (14:28)
[2021-09-07] MEDS: chlordiazePOXIDE HCL 25 MG CAPSULE PO SCH ×2 (18:02→23:23)
[2021-09-07] MEDS ORDERED: MELATONIN 5 MG TABLETS PO SCH (22:00)
[2021-09-07] MEDS: THIAMINE HCL 100 MG TABLET (FP) PO SCH (23:22)
[2021-09-08] MEDS: chlordiazePOXIDE HCL 25 MG CAPSULE PO SCH ×4 (05:40→22:37)
[2021-09-08] MEDS: hydrOXYzine PAMOATE 25 MG CAPSULE (FP) PO SCH ×5 (05:41→22:38)
[2021-09-08 09:40] LABS: HEMATOCRIT 38.7 % (35.4-49); HEMOGLOBIN 13.3 GM/dL (11.7-16.9); MCH 33.6 pg (25.7-33.7); MCHC 34.2 g/dl (32.0-35.9); MEAN CELL VOLUME 98.2 fl (80-96); MEAN PLT VOLUME 7.4 fl (7.5-11.1); PLATELET COUNT 226 10^3/uL (134-434); RBC 3.95 M/mm3 (4.00-5.60); RDW 13.4 % (11.9-15.9); WHITE BLOOD COUNT 5.3 K/mm3 (4.0-10.0)
[2021-09-08 09:57] LABS: ALBUMIN 3.8 g/dl (3.4-5.0); BLOOD UREA NITROGEN 12.1 mg/dL (7-18); CALCIUM 9.2 mg/dL (8.5-10.1)
[2021-09-08 10:01] LABS: BILIRUBIN,TOTAL 0.6 mg/dL (0.2-1); TOT PROT 7.9 g/dl (6.4-8.2)
[2021-09-08] MEDS: PRENATAL VITAMINS W/ FOLIC ACID TABLET (FP) PO SCH (10:39)
[2021-09-08] MEDS: THIAMINE HCL 100 MG TABLET (FP) PO SCH (22:37)
[2021-09-08] MEDS: traZODone HCL 100 MG TABLET (FP) PO SCH (22:37)
[2021-09-09] MEDS: chlordiazePOXIDE HCL 25 MG CAPSULE PO SCH ×4 (05:29→22:14)
[2021-09-09] MEDS: hydrOXYzine PAMOATE 25 MG CAPSULE (FP) PO SCH ×5 (05:29→23:17)
[2021-09-09] MEDS: PRENATAL VITAMINS W/ FOLIC ACID TABLET (FP) PO SCH (10:37)
[2021-09-09] MEDS: IBUPROFEN 400 MG TABLET (FP) PO PRN (10:37)
[2021-09-09 16:10] LABS: SARS-CoV-2 NAA Not Detected (Not Detected)
[2021-09-09] MEDS: traZODone HCL 100 MG TABLET (FP) PO SCH (22:13)
[2021-09-09] MEDS: THIAMINE HCL 100 MG TABLET (FP) PO SCH (22:13)
[2021-09-10] MEDS ORDERED: chlordiazePOXIDE HCL 10 MG CAPSULE PO PRN
[2021-09-10] MEDS: chlordiazePOXIDE HCL 10 MG CAPSULE PO SCH ×4 (06:43→23:23)
[2021-09-10] MEDS: hydrOXYzine PAMOATE 25 MG CAPSULE (FP) PO SCH ×5 (06:47→22:24)
[2021-09-10] MEDS: PRENATAL VITAMINS W/ FOLIC ACID TABLET (FP) PO SCH (11:15)
[2021-09-10] MEDS: traZODone HCL 100 MG TABLET (FP) PO SCH (22:24)
[2021-09-10] MEDS: THIAMINE HCL 100 MG TABLET (FP) PO SCH (22:24)
[2021-09-11] MEDS: chlordiazePOXIDE HCL 10 MG CAPSULE PO SCH ×2 (05:23→18:20)
[2021-09-11] MEDS: hydrOXYzine PAMOATE 25 MG CAPSULE (FP) PO SCH ×5 (05:23→23:51)
[2021-09-11] MEDS: PRENATAL VITAMINS W/ FOLIC ACID TABLET (FP) PO SCH (10:34)
[2021-09-11] MEDS: IBUPROFEN 400 MG TABLET (FP) PO PRN (16:14)
[2021-09-11] MEDS: traZODone HCL 100 MG TABLET (FP) PO SCH (22:18)
[2021-09-11] MEDS: THIAMINE HCL 100 MG TABLET (FP) PO SCH (22:18)
[2021-09-12] MEDS ORDERED: chlordiazePOXIDE HCL 10 MG CAPSULE PO ONE (05:00)
[2021-09-12] MEDS: hydrOXYzine PAMOATE 25 MG CAPSULE (FP) PO SCH ×2 (05:18→10:21)
[2021-09-12 09:19] VITALS: BP 119/57; PULSE 76; TEMP 98.3
[2021-09-12] MEDS: PRENATAL VITAMINS W/ FOLIC ACID TABLET (FP) PO SCH (10:21)
== END 2021-09-12 11:43 | disposition home or self-care (01) | DRG 897 ==
LOC: YASAS 10:56 → Y6N 13:16
PROVIDERS: ADMIT Allergy & Immunology; ATTEND Surgery
PROC: HZ2ZZZZ Detoxification Services for Substance Abuse Treatment (ICD-10-PCS; principal; 2021-09-07)
DX: F10.230 Alcohol dependence with withdrawal, uncomplicated (principal); F19.280 Other psychoactive substance dependence with psychoactive substance-induced anxiety disorder; Z68.1 Body mass index [BMI] 19.9 or less, adult; C85.91 Non-Hodgkin lymphoma, unspecified, lymph nodes of head, face, and neck; F13.230 Sedative, hypnotic or anxiolytic dependence with withdrawal, uncomplicated; F14.10 Cocaine abuse, uncomplicated; F12.20 Cannabis dependence, uncomplicated; F17.213 Nicotine dependence, cigarettes, with withdrawal; F90.9 Attention-deficit hyperactivity disorder, unspecified type; F41.9 Anxiety disorder, unspecified; F32.A Depression, unspecified; J44.9 Chronic obstructive pulmonary disease, unspecified; R63.4 Abnormal weight loss; G47.00 Insomnia, unspecified; M10.9 Gout, unspecified; M54.50 Low back pain, unspecified; G89.29 Other chronic pain; Z85.46 Personal history of malignant neoplasm of prostate; Z86.718 Personal history of other venous thrombosis and embolism; Z86.711 Personal history of pulmonary embolism; Z91.013 Allergy to seafood; Z86.11 Personal history of tuberculosis; Z91.010 Allergy to peanuts
CPT/HCPCS: 36415; 80053; 82962; 85027; 86780; C9803-CS; U0003; U0005

== ENCOUNTER 2021-09-14 10:36 | Inpatient (IN) | payer OTHER ==
[2021-09-14] MEDS ORDERED: MAG HYDROX/AL HYDROX/SIMETH 30 ML UNIT-DOSE CUP PO PRN (11:23)
[2021-09-14] MEDS ORDERED: NICOTINE 10 MG CARTRIDGE (INHALER) IH PRN (11:23)
[2021-09-14] MEDS ORDERED: guaiFENesin 200 MG/10 ML 10 ML UNIT-DOSE CUPS PO PRN (11:23)
[2021-09-14] MEDS ORDERED: ACETAMINOPHEN 325 MG TABLET (FP) PO PRN (11:23)
[2021-09-14] MEDS ORDERED: MAGNESIUM CITRATE 300 ML BOTTLE PO PRN (11:23)
[2021-09-14] MEDS ORDERED: MAGNESIUM HYDROX 2400MG/30ML ORAL SUSPENSION 30 ML CUP PO PRN (11:23)
[2021-09-14] MEDS ORDERED: LOPERAMIDE HCL 2 MG CAPSULE PO PRN (11:23)
[2021-09-14] MEDS ORDERED: IBUPROFEN 400 MG TABLET (FP) PO PRN (11:23)
[2021-09-14] MEDS ORDERED: P-EPHED 60MG/TRIPROLIDI 2.5MG TABLET PO PRN (11:23)
[2021-09-14] MEDS ORDERED: ALBUTEROL SO4 HFA INHALER IH PRN (11:25)
[2021-09-14 15:30] LABS: HEMATOCRIT 38.9 % (35.4-49); HEMOGLOBIN 13.1 GM/dL (11.7-16.9); MCH 33.1 pg (25.7-33.7); MCHC 33.7 g/dl (32.0-35.9); MEAN CELL VOLUME 98.3 fl (80-96); MEAN PLT VOLUME 7.4 fl (7.5-11.1); PLATELET COUNT 244 10^3/uL (134-434); RBC 3.96 M/mm3 (4.00-5.60); RDW 13.6 % (11.9-15.9); WHITE BLOOD COUNT 8.6 K/mm3 (4.0-10.0)
[2021-09-14 15:43] LABS: ALBUMIN 3.9 g/dl (3.4-5.0); BLOOD UREA NITROGEN 13.5 mg/dL (7-18); CALCIUM 9.6 mg/dL (8.5-10.1)
[2021-09-14 15:48] LABS: TOT PROT 8.1 g/dl (6.4-8.2)
[2021-09-14 15:49] LABS: BILIRUBIN,TOTAL 0.4 mg/dL (0.2-1)
[2021-09-14 15:59] LABS: SYPHILIS W/ RPR CONF NON-REACTIVE (NONREACTIVE)
[2021-09-14 17:22] VITALS: BMI 19.2
[2021-09-14] MEDS: ALLOPURINOL 100 MG TABLET (FP) PO SCH (19:17)
[2021-09-14] MEDS: PRENATAL VITAMINS W/ FOLIC ACID TABLET (FP) PO SCH (19:17)
[2021-09-14] MEDS: NICOTINE 7 MG/24 HOURS TOPICAL PATCH TD SCH (19:17)
[2021-09-14] MEDS: hydrOXYzine PAMOATE 25 MG CAPSULE (FP) PO SCH ×2 (19:17→21:54)
[2021-09-14] MEDS: traZODone HCL 100 MG TABLET (FP) PO SCH (21:53)
[2021-09-14] MEDS: THIAMINE HCL 100 MG TABLET (FP) PO SCH (21:54)
[2021-09-14] MEDS ORDERED: MELATONIN 5 MG TABLETS PO SCH (22:00)
[2021-09-15] MEDS: hydrOXYzine PAMOATE 25 MG CAPSULE (FP) PO SCH (06:26)
[2021-09-15] MEDS: PRENATAL VITAMINS W/ FOLIC ACID TABLET (FP) PO SCH (10:40)
[2021-09-15] MEDS: NICOTINE 7 MG/24 HOURS TOPICAL PATCH TD SCH (10:40)
[2021-09-15] MEDS: ALLOPURINOL 100 MG TABLET (FP) PO SCH (10:40)
[2021-09-15] MEDS: traZODone HCL 100 MG TABLET (FP) PO SCH (21:26)
[2021-09-15] MEDS: THIAMINE HCL 100 MG TABLET (FP) PO SCH (21:57)
[2021-09-16] MEDS: ALLOPURINOL 100 MG TABLET (FP) PO SCH ×2 (11:00→21:27)
[2021-09-16] MEDS: NICOTINE 7 MG/24 HOURS TOPICAL PATCH TD SCH (11:00)
[2021-09-16] MEDS: PRENATAL VITAMINS W/ FOLIC ACID TABLET (FP) PO SCH (11:00)
[2021-09-16 15:16] LABS: URINE APPEARANCE CLEAR; URINE BILIRUBIN NEGATIVE (NEGATIVE); URINE COLOR YELLOW; URINE GLUCOSE (UA) NEGATIVE (NEGATIVE); URINE KETONE NEGATIVE (NEGATIVE); URINE LEUK ESTERASE NEGATIVE (NEGATIVE); URINE NITRITE NEGATIVE (NEGATIVE); URINE PROTEIN NEGATIVE (NEGATIVE); URINE UROBILINOGEN 0.2 mg/dL (0.2-1.0)
[2021-09-16] MEDS: traZODone HCL 100 MG TABLET (FP) PO SCH (21:26)
[2021-09-16] MEDS: THIAMINE HCL 100 MG TABLET (FP) PO SCH (21:26)
[2021-09-17] MEDS: PRENATAL VITAMINS W/ FOLIC ACID TABLET (FP) PO SCH (10:19)
[2021-09-17] MEDS: NICOTINE 7 MG/24 HOURS TOPICAL PATCH TD SCH (10:19)
[2021-09-17] MEDS: THIAMINE HCL 100 MG TABLET (FP) PO SCH (21:53)
[2021-09-17] MEDS: traZODone HCL 100 MG TABLET (FP) PO SCH (21:54)
[2021-09-17] MEDS: ALLOPURINOL 100 MG TABLET (FP) PO SCH (21:54)
[2021-09-18] MEDS: PRENATAL VITAMINS W/ FOLIC ACID TABLET (FP) PO SCH (09:40)
[2021-09-18] MEDS: NICOTINE 7 MG/24 HOURS TOPICAL PATCH TD SCH (09:40)
[2021-09-18] MEDS: ALLOPURINOL 100 MG TABLET (FP) PO SCH (21:07)
[2021-09-18] MEDS: THIAMINE HCL 100 MG TABLET (FP) PO SCH (21:07)
[2021-09-18] MEDS: traZODone HCL 100 MG TABLET (FP) PO SCH (21:07)
[2021-09-19] MEDS: PRENATAL VITAMINS W/ FOLIC ACID TABLET (FP) PO SCH (09:23)
[2021-09-19] MEDS: NICOTINE 7 MG/24 HOURS TOPICAL PATCH TD SCH (09:23)
[2021-09-19] MEDS: traZODone HCL 100 MG TABLET (FP) PO SCH (21:10)
[2021-09-19] MEDS: ALLOPURINOL 100 MG TABLET (FP) PO SCH (21:10)
[2021-09-19] MEDS: THIAMINE HCL 100 MG TABLET (FP) PO SCH (21:11)
[2021-09-20 06:34] VITALS: TEMP 97.3
[2021-09-20] MEDS: PRENATAL VITAMINS W/ FOLIC ACID TABLET (FP) PO SCH (10:35)
[2021-09-20] MEDS: NICOTINE 7 MG/24 HOURS TOPICAL PATCH TD SCH (10:35)
[2021-09-20] MEDS: traZODone HCL 100 MG TABLET (FP) PO SCH (21:21)
[2021-09-20] MEDS: THIAMINE HCL 100 MG TABLET (FP) PO SCH (21:22)
[2021-09-20] MEDS: ALLOPURINOL 100 MG TABLET (FP) PO SCH (21:22)
[2021-09-21 06:48] VITALS: BP 101/67; PULSE 87
== END 2021-09-21 09:07 | disposition home or self-care (01) | DRG 895 ==
LOC: YASAS 10:36 → Y3W 16:10 → Y3E 17:52
PROVIDERS: ADMIT Allergy & Immunology; ATTEND Psychiatry & Neurology Pain Medicine
PROC: HZ42ZZZ Group Counseling for Substance Abuse Treatment, Cognitive-Behavioral (ICD-10-PCS; principal; 2021-09-14)
DX: F10.20 Alcohol dependence, uncomplicated (principal); F14.20 Cocaine dependence, uncomplicated; F13.20 Sedative, hypnotic or anxiolytic dependence, uncomplicated; C85.88 Other specified types of non-Hodgkin lymphoma, lymph nodes of multiple sites; Z68.1 Body mass index [BMI] 19.9 or less, adult; F17.210 Nicotine dependence, cigarettes, uncomplicated; F41.9 Anxiety disorder, unspecified; F32.A Depression, unspecified; J44.9 Chronic obstructive pulmonary disease, unspecified; G47.00 Insomnia, unspecified; M25.59 Pain in other specified joint; R63.4 Abnormal weight loss; Z85.46 Personal history of malignant neoplasm of prostate; Z86.11 Personal history of tuberculosis; Z86.718 Personal history of other venous thrombosis and embolism; Z86.711 Personal history of pulmonary embolism
CPT/HCPCS: 36415; 80053; 81003; 84550; 85027; 86780; 86803; C9803-CS; U0003; U0005

== ENCOUNTER 2022-04-08 11:07 | Inpatient (IN) | payer OTHER ==
[2022-04-08 12:19] VITALS: BMI 19.3
[2022-04-08] MEDS ORDERED: ALBUTEROL SO4 HFA INHALER IH PRN (12:50)
[2022-04-08] MEDS ORDERED: IBUPROFEN 400 MG TABLET (FP) PO PRN (13:04)
[2022-04-08] MEDS ORDERED: BISMUTH SUBSALICYLATE 524 MG/30 ML PO PRN (13:04)
[2022-04-08] MEDS ORDERED: METHOCARBAMOL 500 MG TABLET PO PRN (13:04)
[2022-04-08] MEDS ORDERED: POLYETHYLENE GLYCOL (HEALTHYLAX) 3350 17 GM PACKET PO PRN (13:04)
[2022-04-08] MEDS ORDERED: LOPERAMIDE HCL 2 MG CAPSULE PO PRN (13:04)
[2022-04-08] MEDS ORDERED: MAGNESIUM HYDROX 2400MG/30ML ORAL SUSPENSION 30 ML CUP PO PRN (13:04)
[2022-04-08] MEDS ORDERED: BENZOCAINE/MENTHOL (CHLORASEPTIC ) LOZENGE MM PRN (13:04)
[2022-04-08] MEDS ORDERED: NALOXONE HCL (KLOXXADO) 8 MG SPRAY NS PRN (13:04)
[2022-04-08] MEDS ORDERED: ACETAMINOPHEN 325 MG TABLET (FP) PO PRN ×2 (13:04)
[2022-04-08] MEDS ORDERED: NICOTINE 10 MG CARTRIDGE (INHALER) IH PRN (13:04)
[2022-04-08] MEDS ORDERED: IBUPROFEN 600 MG TABLET (FP) PO PRN (13:04)
[2022-04-08] MEDS ORDERED: MAG HYDROX/AL HYDROX/SIMETH 30 ML UNIT-DOSE CUP PO PRN (13:04)
[2022-04-08] MEDS ORDERED: ONDANSETRON *ODT* 4 MG TABLET SL PRN (13:04)
[2022-04-08] MEDS ORDERED: hydrOXYzine PAMOATE 25 MG CAPSULE (FP) PO PRN (13:04)
[2022-04-08] MEDS ORDERED: DICYCLOMINE HCL 10 MG CAPSULE PO PRN (13:04)
[2022-04-08] MEDS ORDERED: chlordiazePOXIDE HCL 25 MG CAPSULE PO PRN (13:08)
[2022-04-08] MEDS ORDERED: MEGESTROL ACETATE 40 MG TABLET PO SCH (14:00)
[2022-04-08] MEDS: chlordiazePOXIDE HCL 25 MG CAPSULE PO SCH ×2 (17:28→22:33)
[2022-04-08 18:02] LABS: HEMATOCRIT 39.3 % (35.4-49); HEMOGLOBIN 12.7 GM/dL (11.7-16.9); MCHC 32.4 g/dl (32.0-35.9); MEAN CELL VOLUME 98.8 fl (80-96); MEAN PLT VOLUME 7.4 fl (7.5-11.1); PLATELET COUNT 256 10^3/uL (134-434); RBC 3.98 M/mm3 (4.00-5.60); RDW 13.5 % (11.9-15.9); WHITE BLOOD COUNT 8.3 K/mm3 (4.0-10.0)
[2022-04-08 18:07] LABS: ALBUMIN 3.5 g/dl (3.4-5.0); CALCIUM 8.9 mg/dL (8.5-10.1)
[2022-04-08 18:08] LABS: BLOOD UREA NITROGEN 12.8 mg/dL (7-18)
[2022-04-08 18:11] LABS: CREATININE 0.9 mg/dL (0.55-1.3)
[2022-04-08 18:13] LABS: BILIRUBIN,TOTAL 0.4 mg/dL (0.2-1); TOT PROT 7.2 g/dl (6.4-8.2)
[2022-04-08] MEDS ORDERED: MELATONIN 5 MG TABLETS PO SCH (22:00)
[2022-04-08] MEDS: busPIRone HCL 5 MG TABLET PO SCH (22:33)
[2022-04-08] MEDS: THIAMINE HCL 100 MG TABLET (FP) PO SCH (22:33)
[2022-04-08] MEDS: traZODone HCL 50 MG TABLET (FP) PO SCH (22:33)
[2022-04-09] MEDS: chlordiazePOXIDE HCL 25 MG CAPSULE PO SCH ×4 (06:57→22:32)
[2022-04-09] MEDS: MEGESTROL ACETATE 400 MG/10 ML UNIT DOSE CUP PO SCH (08:19)
[2022-04-09] MEDS: busPIRone HCL 5 MG TABLET PO SCH ×2 (10:35→22:35)
[2022-04-09] MEDS: PRENATAL VITAMINS W/ FOLIC ACID TABLET (FP) PO SCH (10:35)
[2022-04-09] MEDS: THIAMINE HCL 100 MG TABLET (FP) PO SCH (22:29)
[2022-04-09] MEDS: traZODone HCL 50 MG TABLET (FP) PO SCH (22:31)
[2022-04-10] MEDS: chlordiazePOXIDE HCL 25 MG CAPSULE PO SCH ×2 (06:03→10:14)
[2022-04-10] MEDS: MEGESTROL ACETATE 400 MG/10 ML UNIT DOSE CUP PO SCH (08:10)
[2022-04-10 09:17] VITALS: BP 101/64; PULSE 78; RESP 16; TEMP 97.5
[2022-04-10] MEDS: busPIRone HCL 5 MG TABLET PO SCH (10:13)
[2022-04-10] MEDS: PRENATAL VITAMINS W/ FOLIC ACID TABLET (FP) PO SCH (10:14)
[2022-04-11] MEDS ORDERED: chlordiazePOXIDE HCL 10 MG CAPSULE PO PRN
[2022-04-11] MEDS ORDERED: chlordiazePOXIDE HCL 10 MG CAPSULE PO SCH (05:00)
[2022-04-12] MEDS ORDERED: chlordiazePOXIDE HCL 10 MG CAPSULE PO SCH (05:00)
[2022-04-13] MEDS ORDERED: chlordiazePOXIDE HCL 10 MG CAPSULE PO ONE (05:00)
== END 2022-04-10 09:04 | disposition left against medical advice (07) | DRG 894 ==
LOC: YASAS 11:07 → Y3N 13:34
PROVIDERS: ADMIT Allergy & Immunology; ATTEND Surgery
PROC: HZ2ZZZZ Detoxification Services for Substance Abuse Treatment (ICD-10-PCS; principal; 2022-04-08)
DX: F10.230 Alcohol dependence with withdrawal, uncomplicated (principal); F14.20 Cocaine dependence, uncomplicated; Z68.1 Body mass index [BMI] 19.9 or less, adult; F17.210 Nicotine dependence, cigarettes, uncomplicated; F43.10 Post-traumatic stress disorder, unspecified; F41.9 Anxiety disorder, unspecified; J45.20 Mild intermittent asthma, uncomplicated; J44.9 Chronic obstructive pulmonary disease, unspecified; G47.00 Insomnia, unspecified; R63.4 Abnormal weight loss; Z85.46 Personal history of malignant neoplasm of prostate; Z86.711 Personal history of pulmonary embolism; Z91.010 Allergy to peanuts; Z91.013 Allergy to seafood; Z91.199 Patient's noncompliance with other medical treatment and regimen due to unspecified reason; Z86.59 Personal history of other mental and behavioral disorders; Z92.21 Personal history of antineoplastic chemotherapy; Z86.11 Personal history of tuberculosis; Z56.0 Unemployment, unspecified
CPT/HCPCS: 36415; 80053; 85027; 86780; 87811; C9803-CS; U0003; U0005

== ENCOUNTER 2022-05-13 15:50 | Inpatient (IN) | payer OTHER ==
[2022-05-13 17:05] VITALS: BMI 18.3
[2022-05-13] MEDS ORDERED: ONDANSETRON *ODT* 4 MG TABLET SL PRN (19:39)
[2022-05-13] MEDS ORDERED: METHOCARBAMOL 500 MG TABLET PO PRN (19:39)
[2022-05-13] MEDS ORDERED: hydrOXYzine PAMOATE 25 MG CAPSULE (FP) PO PRN (19:39)
[2022-05-13] MEDS ORDERED: BENZOCAINE/MENTHOL (CHLORASEPTIC ) LOZENGE MM PRN (19:39)
[2022-05-13] MEDS ORDERED: ACETAMINOPHEN 325 MG TABLET (FP) PO PRN ×2 (19:39)
[2022-05-13] MEDS ORDERED: NICOTINE 10 MG CARTRIDGE (INHALER) IH PRN (19:39)
[2022-05-13] MEDS ORDERED: MAGNESIUM HYDROX 2400MG/30ML ORAL SUSPENSION 30 ML CUP PO PRN (19:39)
[2022-05-13] MEDS ORDERED: POLYETHYLENE GLYCOL (HEALTHYLAX) 3350 17 GM PACKET PO PRN (19:39)
[2022-05-13] MEDS ORDERED: IBUPROFEN 400 MG TABLET (FP) PO PRN (19:39)
[2022-05-13] MEDS ORDERED: DICYCLOMINE HCL 10 MG CAPSULE PO PRN (19:39)
[2022-05-13] MEDS ORDERED: IBUPROFEN 600 MG TABLET (FP) PO PRN (19:39)
[2022-05-13] MEDS ORDERED: BISMUTH SUBSALICYLATE 524 MG/30 ML PO PRN (19:39)
[2022-05-13] MEDS ORDERED: MAG HYDROX/AL HYDROX/SIMETH 30 ML UNIT-DOSE CUP PO PRN (19:39)
[2022-05-13] MEDS ORDERED: NALOXONE HCL (KLOXXADO) 8 MG SPRAY NS PRN (19:39)
[2022-05-13] MEDS ORDERED: LOPERAMIDE HCL 2 MG CAPSULE PO PRN (19:39)
[2022-05-13] MEDS ORDERED: traZODone HCL 100 MG TABLET (FP) PO ONE (22:00)
[2022-05-13] MEDS: THIAMINE HCL 100 MG TABLET (FP) PO SCH (22:25)
[2022-05-13] MEDS ORDERED: ALBUTEROL SO4 HFA INHALER IH ONE (22:30)
[2022-05-13] MEDS ORDERED: ALBUTEROL SO4 HFA INHALER IH PRN (22:38)
[2022-05-13] MEDS: MELATONIN 5 MG TABLETS PO SCH (23:31)
[2022-05-14] MEDS ORDERED: diazePAM 5 MG TABLET PO PRN (10:09)
[2022-05-14] MEDS: PRENATAL VITAMINS W/ FOLIC ACID TABLET (FP) PO SCH (10:52)
[2022-05-14] MEDS: diazePAM 5 MG TABLET PO SCH ×3 (10:52→22:30)
[2022-05-14] MEDS ORDERED: ALBUTEROL SO4 HFA INHALER IH PRN (15:30)
[2022-05-14] MEDS: THIAMINE HCL 100 MG TABLET (FP) PO SCH (22:30)
[2022-05-14] MEDS: MELATONIN 5 MG TABLETS PO SCH (22:33)
[2022-05-15] MEDS: diazePAM 5 MG TABLET PO SCH ×2 (06:06→14:12)
[2022-05-15] MEDS: PRENATAL VITAMINS W/ FOLIC ACID TABLET (FP) PO SCH (10:19)
[2022-05-15 13:20] VITALS: BP 136/72; PULSE 85; RESP 19; TEMP 97.8
[2022-05-15] MEDS ORDERED: traZODone HCL 50 MG TABLET (FP) PO SCH (22:00)
[2022-05-16] MEDS ORDERED: diazePAM 5 MG TABLET PO SCH (06:00)
[2022-05-17] MEDS ORDERED: diazePAM 5 MG TABLET PO ONE (06:00)
== END 2022-05-15 13:10 | disposition left against medical advice (07) | DRG 894 ==
LOC: YASAS 15:50 → Y6N 20:15
PROVIDERS: ADMIT Allergy & Immunology; ATTEND Family Medicine
PROC: HZ2ZZZZ Detoxification Services for Substance Abuse Treatment (ICD-10-PCS; principal; 2022-05-13)
DX: F10.230 Alcohol dependence with withdrawal, uncomplicated (principal); F13.20 Sedative, hypnotic or anxiolytic dependence, uncomplicated; F14.20 Cocaine dependence, uncomplicated; F19.282 Other psychoactive substance dependence with psychoactive substance-induced sleep disorder; F30.9 Manic episode, unspecified; F12.20 Cannabis dependence, uncomplicated; F17.210 Nicotine dependence, cigarettes, uncomplicated; J44.9 Chronic obstructive pulmonary disease, unspecified; J45.20 Mild intermittent asthma, uncomplicated; K21.9 Gastro-esophageal reflux disease without esophagitis; H91.92 Unspecified hearing loss, left ear; M10.071 Idiopathic gout, right ankle and foot; F19.24 Other psychoactive substance dependence with psychoactive substance-induced mood disorder; F32.9 Major depressive disorder, single episode, unspecified; M54.50 Low back pain, unspecified; G89.29 Other chronic pain; Z85.46 Personal history of malignant neoplasm of prostate; Z86.711 Personal history of pulmonary embolism; Z86.718 Personal history of other venous thrombosis and embolism
CPT/HCPCS: 87811; C9803-CS; U0003; U0005

== ENCOUNTER 2022-09-13 09:23 | Inpatient (IN) | payer OTHER ==
[2022-09-13 09:56] VITALS: BMI 18.0
[2022-09-13] MEDS ORDERED: METHOCARBAMOL 500 MG TABLET PO PRN (10:53)
[2022-09-13] MEDS ORDERED: BISMUTH SUBSALICYLATE 524 MG/30 ML PO PRN (10:53)
[2022-09-13] MEDS ORDERED: NALOXONE HCL (KLOXXADO) 8 MG SPRAY NS PRN (10:53)
[2022-09-13] MEDS ORDERED: LOPERAMIDE HCL 2 MG CAPSULE PO PRN (10:53)
[2022-09-13] MEDS ORDERED: MAG HYDROX/AL HYDROX/SIMETH 30 ML UNIT-DOSE CUP PO PRN (10:53)
[2022-09-13] MEDS ORDERED: IBUPROFEN 600 MG TABLET (FP) PO PRN (10:53)
[2022-09-13] MEDS ORDERED: IBUPROFEN 400 MG TABLET (FP) PO PRN (10:53)
[2022-09-13] MEDS ORDERED: DICYCLOMINE HCL 10 MG CAPSULE PO PRN (10:53)
[2022-09-13] MEDS ORDERED: hydrOXYzine PAMOATE 25 MG CAPSULE (FP) PO PRN (10:53)
[2022-09-13] MEDS ORDERED: NICOTINE 10 MG CARTRIDGE (INHALER) IH PRN (10:53)
[2022-09-13] MEDS ORDERED: guaiFENesin 600 MG TABLET.ER (FP) PO PRN (10:53)
[2022-09-13] MEDS ORDERED: ACETAMINOPHEN 325 MG TABLET (FP) PO PRN (10:53)
[2022-09-13] MEDS ORDERED: ONDANSETRON *ODT* 4 MG TABLET SL PRN (10:53)
[2022-09-13] MEDS ORDERED: POLYETHYLENE GLYCOL (HEALTHYLAX) 3350 17 GM PACKET PO PRN (10:53)
[2022-09-13] MEDS ORDERED: BENZOCAINE/MENTHOL (CHLORASEPTIC ) LOZENGE MM PRN (10:53)
[2022-09-13] MEDS ORDERED: MAGNESIUM HYDROX 2400MG/30ML ORAL SUSPENSION 30 ML CUP PO PRN (10:53)
[2022-09-13] MEDS ORDERED: BENZONATATE 200 MG CAPSULE PO PRN (10:53)
[2022-09-13] MEDS ORDERED: NALOXONE HCL 0.4 MG/ML VIAL IM PRN (10:53)
[2022-09-13] MEDS ORDERED: chlordiazePOXIDE HCL 25 MG CAPSULE PO PRN (10:58)
[2022-09-13] MEDS ORDERED: ALBUTEROL SO4 HFA INHALER IH PRN (11:02)
[2022-09-13] MEDS ORDERED: METHOCARBAMOL 500 MG TABLET ONE (11:29)
[2022-09-13] MEDS ORDERED: MEGESTROL ACETATE 400 MG/10 ML UNIT DOSE CUP PO SCH (14:00)
[2022-09-13] MEDS: MEGESTROL ACETATE 400 MG/10 ML UNIT DOSE CUP PO SCH (15:23)
[2022-09-13] MEDS: chlordiazePOXIDE HCL 25 MG CAPSULE PO SCH ×2 (17:18→22:33)
[2022-09-13] MEDS: THIAMINE HCL 100 MG TABLET (FP) PO SCH (22:33)
[2022-09-13] MEDS: traZODone HCL 100 MG TABLET (FP) PO SCH (22:33)
[2022-09-13] MEDS: BUDESONIDE/FORMETEROL FUMARATE 160/4.5 mcg INHALER IH SCH (22:33)
[2022-09-13] MEDS: MELATONIN 5 MG TABLETS PO SCH (22:33)
[2022-09-14] MEDS: chlordiazePOXIDE HCL 25 MG CAPSULE PO SCH ×4 (06:14→22:27)
[2022-09-14] MEDS ORDERED: DEXTROAMPHETAMINE/AMPHETAMINE 10 MG CAP.ER.24H PO SCH (10:00)
[2022-09-14] MEDS ORDERED: PRENATAL VITAMINS W/ FOLIC ACID TABLET (FP) PO SCH (10:00)
[2022-09-14] MEDS: MEGESTROL ACETATE 400 MG/10 ML UNIT DOSE CUP PO SCH (10:40)
[2022-09-14] MEDS: BUDESONIDE/FORMETEROL FUMARATE 160/4.5 mcg INHALER IH SCH ×2 (10:44→22:27)
[2022-09-14 11:43] LABS: HEMATOCRIT 35.7 % (35.4-49); HEMOGLOBIN 12.1 GM/dL (11.7-16.9); MCH 32.9 pg (25.7-33.7); MCHC 33.9 g/dl (32.0-35.9); MEAN PLT VOLUME 7.9 fl (7.5-11.1); PLATELET COUNT 228 10^3/uL (134-434); RBC 3.68 M/mm3 (4.00-5.60); RDW 13.2 % (11.9-15.9); WHITE BLOOD COUNT 7.3 K/mm3 (4.0-10.0)
[2022-09-14 12:00] LABS: POTASSIUM 3.8 mmol/L (3.5-5.1)
[2022-09-14 12:10] LABS: BLOOD UREA NITROGEN 9.6 mg/dL (7-18)
[2022-09-14 12:12] LABS: CREATININE 0.7 mg/dL (0.55-1.3)
[2022-09-14 12:14] LABS: TOT PROT 6.5 g/dl (6.4-8.2)
[2022-09-14 12:19] LABS: BILIRUBIN,TOTAL 0.3 mg/dL (0.2-1)
[2022-09-14] MEDS: THIAMINE HCL 100 MG TABLET (FP) PO SCH (22:27)
[2022-09-14] MEDS: traZODone HCL 100 MG TABLET (FP) PO SCH (22:27)
[2022-09-14] MEDS: MELATONIN 5 MG TABLETS PO SCH (22:27)
[2022-09-15] MEDS ORDERED: chlordiazePOXIDE HCL 25 MG CAPSULE PO SCH (05:00)
[2022-09-15 09:32] VITALS: BP 105/63; PULSE 87; RESP 17; TEMP 98.6
[2022-09-16] MEDS ORDERED: chlordiazePOXIDE HCL 10 MG CAPSULE PO PRN
[2022-09-16] MEDS ORDERED: chlordiazePOXIDE HCL 10 MG CAPSULE PO SCH (05:00)
[2022-09-17] MEDS ORDERED: chlordiazePOXIDE HCL 10 MG CAPSULE PO SCH (05:00)
[2022-09-18] MEDS ORDERED: chlordiazePOXIDE HCL 10 MG CAPSULE PO ONE (05:00)
== END 2022-09-15 10:58 | disposition left against medical advice (07) | DRG 894 ==
LOC: YASAS 09:23 → Y3N 11:30
PROVIDERS: ADMIT Allergy & Immunology; ATTEND Surgery
PROC: HZ2ZZZZ Detoxification Services for Substance Abuse Treatment (ICD-10-PCS; principal; 2022-09-13)
DX: F10.230 Alcohol dependence with withdrawal, uncomplicated (principal); F14.20 Cocaine dependence, uncomplicated; F12.20 Cannabis dependence, uncomplicated; F17.210 Nicotine dependence, cigarettes, uncomplicated; F19.24 Other psychoactive substance dependence with psychoactive substance-induced mood disorder; F43.10 Post-traumatic stress disorder, unspecified; J43.9 Emphysema, unspecified; K21.9 Gastro-esophageal reflux disease without esophagitis; M25.59 Pain in other specified joint; M54.50 Low back pain, unspecified; Z86.11 Personal history of tuberculosis; Z85.46 Personal history of malignant neoplasm of prostate
CPT/HCPCS: 36415; 80053; 82140; 85027; 86780; C9803-CS; U0003; U0005

== ENCOUNTER 2022-11-14 10:28 | Inpatient (IN) | payer OTHER ==
[2022-11-14 11:09] VITALS: BMI 18.4
[2022-11-14] MEDS ORDERED: MAGNESIUM HYDROX 2400MG/30ML ORAL SUSPENSION 30 ML CUP PO PRN ×2 (12:19→12:26)
[2022-11-14] MEDS ORDERED: METHOCARBAMOL 500 MG TABLET PO PRN ×2 (12:19→12:26)
[2022-11-14] MEDS ORDERED: IBUPROFEN 600 MG TABLET (FP) PO PRN ×2 (12:19→12:26)
[2022-11-14] MEDS ORDERED: LOPERAMIDE HCL 2 MG CAPSULE PO PRN ×2 (12:19→12:26)
[2022-11-14] MEDS ORDERED: MAG HYDROX/AL HYDROX/SIMETH 30 ML UNIT-DOSE CUP PO PRN ×2 (12:19→12:26)
[2022-11-14] MEDS ORDERED: BENZOCAINE/MENTHOL (CHLORASEPTIC ) LOZENGE MM PRN ×2 (12:19→12:26)
[2022-11-14] MEDS ORDERED: NALOXONE HCL 0.4 MG/ML VIAL IM PRN ×2 (12:19→12:26)
[2022-11-14] MEDS ORDERED: hydrOXYzine PAMOATE 25 MG CAPSULE (FP) PO PRN (12:19)
[2022-11-14] MEDS ORDERED: BISMUTH SUBSALICYLATE 524 MG/30 ML PO PRN ×2 (12:19→12:26)
[2022-11-14] MEDS ORDERED: ACETAMINOPHEN 325 MG TABLET (FP) PO PRN ×2 (12:19→12:26)
[2022-11-14] MEDS ORDERED: NALOXONE HCL (KLOXXADO) 8 MG SPRAY NS PRN ×2 (12:19→12:26)
[2022-11-14] MEDS ORDERED: POLYETHYLENE GLYCOL (HEALTHYLAX) 3350 17 GM PACKET PO PRN ×2 (12:19→12:26)
[2022-11-14] MEDS ORDERED: ONDANSETRON *ODT* 4 MG TABLET SL PRN ×2 (12:19→12:26)
[2022-11-14] MEDS ORDERED: guaiFENesin 600 MG TABLET.ER (FP) PO PRN ×2 (12:19→12:26)
[2022-11-14] MEDS ORDERED: IBUPROFEN 400 MG TABLET (FP) PO PRN ×2 (12:19→12:26)
[2022-11-14] MEDS ORDERED: BENZONATATE 200 MG CAPSULE PO PRN ×2 (12:19→12:26)
[2022-11-14] MEDS ORDERED: NICOTINE POLACRILEX 2 MG GUM BUC PRN (12:19)
[2022-11-14] MEDS ORDERED: DICYCLOMINE HCL 10 MG CAPSULE PO PRN ×2 (12:19→12:26)
[2022-11-14] MEDS ORDERED: ACETAMINOPHEN 325 MG TABLET (FP) ONE (12:51)
[2022-11-14] MEDS ORDERED: chlordiazePOXIDE HCL 25 MG CAPSULE PO PRN (13:05)
[2022-11-14] MEDS ORDERED: diazePAM 5 MG TABLET PO PRN (13:11)
[2022-11-14] MEDS ORDERED: chlordiazePOXIDE HCL 25 MG CAPSULE PO SCH (17:00)
[2022-11-14] MEDS: diazePAM 5 MG TABLET PO SCH ×2 (17:35→22:13)
[2022-11-14] MEDS ORDERED: MELATONIN 5 MG TABLETS PO SCH (22:00)
[2022-11-14] MEDS ORDERED: THIAMINE HCL 100 MG TABLET (FP) PO SCH (22:00)
[2022-11-14] MEDS: THIAMINE HCL 100 MG TABLET (FP) PO SCH (22:13)
[2022-11-14] MEDS: MELATONIN 5 MG TABLETS PO SCH (22:14)
[2022-11-15] MEDS: diazePAM 5 MG TABLET PO SCH ×4 (05:28→22:35)
[2022-11-15] MEDS ORDERED: ALBUTEROL SO4 HFA INHALER IH PRN (08:41)
[2022-11-15] MEDS ORDERED: PRENATAL VITAMINS W/ FOLIC ACID TABLET (FP) PO SCH (10:00)
[2022-11-15] MEDS: PRENATAL VITAMINS W/ FOLIC ACID TABLET (FP) PO SCH (10:49)
[2022-11-15] MEDS: NICOTINE 14 MG/24 HOURS TOPICAL PATCH TD SCH (10:49)
[2022-11-15] MEDS: BUDESONIDE/FORMETEROL FUMARATE 160/4.5 mcg INHALER IH SCH ×2 (10:49→22:36)
[2022-11-15 11:28] LABS: HEMATOCRIT 37.5 % (35.4-49); HEMOGLOBIN 12.5 GM/dL (11.7-16.9); MCH 32.6 pg (25.7-33.7); MCHC 33.3 g/dl (32.0-35.9); MEAN CELL VOLUME 97.9 fl (80-96); MEAN PLT VOLUME 7.7 fl (7.5-11.1); PLATELET COUNT 178 10^3/uL (134-434); RBC 3.83 M/mm3 (4.00-5.60); RDW 12.6 % (11.9-15.9); WHITE BLOOD COUNT 2.3 K/mm3 (4.0-10.0)
[2022-11-15 11:33] LABS: POTASSIUM 3.9 mmol/L (3.5-5.1)
[2022-11-15 11:46] LABS: ALBUMIN 3.4 g/dl (3.4-5.0); BLOOD UREA NITROGEN 11.9 mg/dL (7-18)
[2022-11-15 11:49] LABS: CREATININE 1.2 mg/dL (0.55-1.3)
[2022-11-15 11:50] LABS: TOT PROT 7.6 g/dl (6.4-8.2)
[2022-11-15 11:51] LABS: BILIRUBIN,TOTAL 0.4 mg/dL (0.2-1)
[2022-11-15] MEDS ORDERED: busPIRone HCL 5 MG TABLET PO SCH (22:00)
[2022-11-15] MEDS: THIAMINE HCL 100 MG TABLET (FP) PO SCH (22:35)
[2022-11-15] MEDS: traZODone HCL 100 MG TABLET (FP) PO SCH (22:35)
[2022-11-15] MEDS: MELATONIN 5 MG TABLETS PO SCH (22:37)
[2022-11-16] MEDS ORDERED: chlordiazePOXIDE HCL 25 MG CAPSULE PO SCH (05:00)
[2022-11-16] MEDS: diazePAM 5 MG TABLET PO SCH ×3 (05:59→22:16)
[2022-11-16] MEDS: NICOTINE 14 MG/24 HOURS TOPICAL PATCH TD SCH (09:35)
[2022-11-16] MEDS: PRENATAL VITAMINS W/ FOLIC ACID TABLET (FP) PO SCH (09:35)
[2022-11-16] MEDS: BUDESONIDE/FORMETEROL FUMARATE 160/4.5 mcg INHALER IH SCH ×2 (09:35→22:17)
[2022-11-16] MEDS: THIAMINE HCL 100 MG TABLET (FP) PO SCH (22:16)
[2022-11-16] MEDS: traZODone HCL 100 MG TABLET (FP) PO SCH (22:16)
[2022-11-16] MEDS: MELATONIN 5 MG TABLETS PO SCH (22:18)
[2022-11-17] MEDS ORDERED: chlordiazePOXIDE HCL 10 MG CAPSULE PO PRN
[2022-11-17] MEDS ORDERED: chlordiazePOXIDE HCL 10 MG CAPSULE PO SCH (05:00)
[2022-11-17] MEDS ORDERED: diazePAM 5 MG TABLET PO SCH ×2 (06:00→18:00)
[2022-11-17] MEDS: BUDESONIDE/FORMETEROL FUMARATE 160/4.5 mcg INHALER IH SCH ×2 (10:23→22:23)
[2022-11-17] MEDS: PRENATAL VITAMINS W/ FOLIC ACID TABLET (FP) PO SCH (10:23)
[2022-11-17] MEDS: NICOTINE 14 MG/24 HOURS TOPICAL PATCH TD SCH (10:23)
[2022-11-17] MEDS: THIAMINE HCL 100 MG TABLET (FP) PO SCH (22:23)
[2022-11-17] MEDS: traZODone HCL 100 MG TABLET (FP) PO SCH (22:23)
[2022-11-17] MEDS: MELATONIN 5 MG TABLETS PO SCH (23:18)
[2022-11-18] MEDS ORDERED: chlordiazePOXIDE HCL 10 MG CAPSULE PO SCH (05:00)
[2022-11-18] MEDS ORDERED: diazePAM 5 MG TABLET PO ONE ×2 (06:00)
[2022-11-18 09:21] VITALS: BP 115/63; PULSE 67; RESP 18; TEMP 97.8
[2022-11-18] MEDS: PRENATAL VITAMINS W/ FOLIC ACID TABLET (FP) PO SCH (11:06)
[2022-11-18] MEDS: NICOTINE 14 MG/24 HOURS TOPICAL PATCH TD SCH (11:06)
[2022-11-18] MEDS: BUDESONIDE/FORMETEROL FUMARATE 160/4.5 mcg INHALER IH SCH (11:06)
[2022-11-19] MEDS ORDERED: chlordiazePOXIDE HCL 10 MG CAPSULE PO ONE (05:00)
== END 2022-11-18 12:15 | disposition home or self-care (01) | DRG 897 ==
LOC: YASAS 10:28 → Y6N 12:45
PROVIDERS: ADMIT Allergy & Immunology; ATTEND Surgery
PROC: HZ2ZZZZ Detoxification Services for Substance Abuse Treatment (ICD-10-PCS; principal; 2022-11-14)
DX: F10.230 Alcohol dependence with withdrawal, uncomplicated (principal); F14.20 Cocaine dependence, uncomplicated; C85.90 Non-Hodgkin lymphoma, unspecified, unspecified site; Z68.1 Body mass index [BMI] 19.9 or less, adult; F13.230 Sedative, hypnotic or anxiolytic dependence with withdrawal, uncomplicated; F12.20 Cannabis dependence, uncomplicated; F17.210 Nicotine dependence, cigarettes, uncomplicated; F90.9 Attention-deficit hyperactivity disorder, unspecified type; F43.10 Post-traumatic stress disorder, unspecified; F32.9 Major depressive disorder, single episode, unspecified; H91.92 Unspecified hearing loss, left ear; J45.909 Unspecified asthma, uncomplicated; K21.9 Gastro-esophageal reflux disease without esophagitis; M10.071 Idiopathic gout, right ankle and foot; R63.4 Abnormal weight loss; Z85.46 Personal history of malignant neoplasm of prostate; Z86.718 Personal history of other venous thrombosis and embolism; Z86.711 Personal history of pulmonary embolism
CPT/HCPCS: 36415; 80053; 80305; 83036; 85027; 86780; 87635; 93005; 93010

== ENCOUNTER 2023-02-06 09:29 | Inpatient (IN) | payer OTHER ==
[2023-02-06 09:52] VITALS: BMI 18.7
[2023-02-06] MEDS ORDERED: DICYCLOMINE HCL 10 MG CAPSULE PO PRN (10:29)
[2023-02-06] MEDS ORDERED: IBUPROFEN 600 MG TABLET (FP) PO PRN (10:29)
[2023-02-06] MEDS ORDERED: BISMUTH SUBSALICYLATE 524 MG/30 ML PO PRN (10:29)
[2023-02-06] MEDS ORDERED: MAG HYDROX/AL HYDROX/SIMETH 30 ML UNIT-DOSE CUP PO PRN (10:29)
[2023-02-06] MEDS ORDERED: MAGNESIUM HYDROX 2400MG/30ML ORAL SUSPENSION 30 ML CUP PO PRN (10:29)
[2023-02-06] MEDS ORDERED: ACETAMINOPHEN 325 MG TABLET (FP) PO PRN (10:29)
[2023-02-06] MEDS ORDERED: POLYETHYLENE GLYCOL (HEALTHYLAX) 3350 17 GM PACKET PO PRN (10:29)
[2023-02-06] MEDS ORDERED: diazePAM 5 MG TABLET PO PRN (10:29)
[2023-02-06] MEDS ORDERED: ONDANSETRON *ODT* 4 MG TABLET SL PRN (10:29)
[2023-02-06] MEDS ORDERED: BENZONATATE 200 MG CAPSULE PO PRN (10:29)
[2023-02-06] MEDS ORDERED: BENZOCAINE/MENTHOL (CHLORASEPTIC ) LOZENGE MM PRN (10:29)
[2023-02-06] MEDS ORDERED: IBUPROFEN 400 MG TABLET (FP) PO PRN (10:29)
[2023-02-06] MEDS ORDERED: hydrOXYzine PAMOATE 25 MG CAPSULE (FP) PO PRN (10:29)
[2023-02-06] MEDS ORDERED: NALOXONE HCL (KLOXXADO) 8 MG SPRAY NS PRN (10:29)
[2023-02-06] MEDS ORDERED: guaiFENesin 600 MG TABLET.ER (FP) PO PRN (10:29)
[2023-02-06] MEDS ORDERED: NALOXONE HCL 0.4 MG/ML VIAL IM PRN (10:29)
[2023-02-06] MEDS ORDERED: LOPERAMIDE HCL 2 MG CAPSULE PO PRN (10:29)
[2023-02-06] MEDS ORDERED: TRIMETHOBENZAMIDE HCL 200MG/2ML INJ IM ONE (10:30)
[2023-02-06] MEDS ORDERED: ACETAMINOPHEN 325 MG TABLET (FP) PO ONE (10:30)
[2023-02-06] MEDS ORDERED: IBUPROFEN 600 MG TABLET (FP) PO ONE (11:00)
[2023-02-06] MEDS: PRENATAL VITAMINS W/ FOLIC ACID TABLET (FP) PO SCH (11:01)
[2023-02-06] MEDS: diazePAM 5 MG TABLET PO SCH ×3 (12:14→22:00)
[2023-02-06] MEDS ORDERED: diazePAM 5 MG TABLET ONE (12:14)
[2023-02-06] MEDS ORDERED: ALBUTEROL SO4 HFA INHALER IH PRN (12:18)
[2023-02-06 15:18] LABS: HEMATOCRIT 40.6 % (35.4-49); HEMOGLOBIN 13.8 GM/dL (11.7-16.9); MCH 32.6 pg (25.7-33.7); MEAN CELL VOLUME 96.1 fl (80-96); MEAN PLT VOLUME 7.2 fl (7.5-11.1); PLATELET COUNT 327 10^3/uL (134-434); RBC 4.22 M/mm3 (4.00-5.60); RDW 13.7 % (11.9-15.9)
[2023-02-06 15:19] LABS: POTASSIUM 3.9 mmol/L (3.5-5.1)
[2023-02-06 15:21] LABS: CALCIUM 9.7 mg/dL (8.5-10.1)
[2023-02-06 15:22] LABS: ALBUMIN 4.1 g/dl (3.4-5.0); BLOOD UREA NITROGEN 10.2 mg/dL (7-18)
[2023-02-06 15:25] LABS: CREATININE 0.8 mg/dL (0.55-1.3)
[2023-02-06 15:27] LABS: BILIRUBIN,TOTAL 0.6 mg/dL (0.2-1); TOT PROT 8.3 g/dl (6.4-8.2)
[2023-02-06] MEDS: MEGESTROL ACETATE 40 MG TABLET PO SCH ×2 (17:10→21:54)
[2023-02-06] MEDS: THIAMINE HCL 100 MG TABLET (FP) PO SCH (21:53)
[2023-02-06] MEDS: METHOCARBAMOL 500 MG TABLET PO PRN (21:53)
[2023-02-06] MEDS: MELATONIN 5 MG TABLETS PO SCH (21:54)
[2023-02-06] MEDS: BUDESONIDE/FORMETEROL FUMARATE 160/4.5 mcg INHALER IH SCH (21:55)
[2023-02-07] MEDS: diazePAM 5 MG TABLET PO SCH ×4 (05:30→22:34)
[2023-02-07] MEDS: PRENATAL VITAMINS W/ FOLIC ACID TABLET (FP) PO SCH (10:00)
[2023-02-07] MEDS: METHOCARBAMOL 500 MG TABLET PO PRN (10:00)
[2023-02-07] MEDS: BUDESONIDE/FORMETEROL FUMARATE 160/4.5 mcg INHALER IH SCH ×2 (10:01→22:30)
[2023-02-07] MEDS: MEGESTROL ACETATE 40 MG TABLET PO SCH ×5 (10:02→22:32)
[2023-02-07] MEDS: THIAMINE HCL 100 MG TABLET (FP) PO SCH (22:30)
[2023-02-07] MEDS: traZODone HCL 100 MG TABLET (FP) PO SCH (22:30)
[2023-02-07] MEDS: MELATONIN 5 MG TABLETS PO SCH (22:32)
[2023-02-08] MEDS ORDERED: diazePAM 5 MG TABLET PO SCH (06:00)
[2023-02-08] MEDS: MEGESTROL ACETATE 40 MG TABLET PO SCH ×4 (10:08→22:19)
[2023-02-08] MEDS: PRENATAL VITAMINS W/ FOLIC ACID TABLET (FP) PO SCH (10:08)
[2023-02-08] MEDS: BUDESONIDE/FORMETEROL FUMARATE 160/4.5 mcg INHALER IH SCH ×2 (10:08→22:20)
[2023-02-08] MEDS ORDERED: chlordiazePOXIDE HCL 25 MG CAPSULE PO ONE (11:54)
[2023-02-08] MEDS: chlordiazePOXIDE HCL 25 MG CAPSULE PO SCH ×3 (12:13→22:18)
[2023-02-08] MEDS ORDERED: chlordiazePOXIDE HCL 10 MG CAPSULE PO PRN (13:00)
[2023-02-08] MEDS: LACTULOSE 20 GM/30 ML UDC (FOR ORAL USE ONLY) PO SCH ×2 (13:10→22:22)
[2023-02-08 17:18] LABS: PH,URINE 5.5 (5.0-8.0); URINE APPEARANCE CLEAR; URINE BILIRUBIN NEGATIVE (NEGATIVE); URINE COLOR YELLOW; URINE GLUCOSE (UA) NEGATIVE (NEGATIVE); URINE KETONE TRACE (NEGATIVE); URINE LEUK ESTERASE NEGATIVE (NEGATIVE); URINE NITRITE NEGATIVE (NEGATIVE); URINE PROTEIN NEGATIVE (NEGATIVE); URINE UROBILINOGEN 0.2 mg/dL (0.2-1.0)
[2023-02-08] MEDS: traZODone HCL 100 MG TABLET (FP) PO SCH (22:19)
[2023-02-08] MEDS: THIAMINE HCL 100 MG TABLET (FP) PO SCH (22:19)
[2023-02-08] MEDS: MELATONIN 5 MG TABLETS PO SCH (22:20)
[2023-02-09] MEDS: chlordiazePOXIDE HCL 10 MG CAPSULE PO SCH ×2 (05:36→10:34)
[2023-02-09] MEDS: LACTULOSE 20 GM/30 ML UDC (FOR ORAL USE ONLY) PO SCH (05:37)
[2023-02-09] MEDS ORDERED: diazePAM 5 MG TABLET PO SCH (06:00)
[2023-02-09] MEDS: PRENATAL VITAMINS W/ FOLIC ACID TABLET (FP) PO SCH (09:15)
[2023-02-09] MEDS: BUDESONIDE/FORMETEROL FUMARATE 160/4.5 mcg INHALER IH SCH (09:15)
[2023-02-09] MEDS: MEGESTROL ACETATE 40 MG TABLET PO SCH (09:15)
[2023-02-09 09:24] LABS: BASO % 0.4 % (0-2.0); HEMATOCRIT 38.1 % (35.4-49); HEMOGLOBIN 13.3 GM/dL (11.7-16.9); LYMPH % 30.4 % (8-40); MCH 33.5 pg (25.7-33.7); MCHC 34.8 g/dl (32.0-35.9); MEAN CELL VOLUME 96.1 fl (80-96); NEUT % 57.2 % (42.8-82.8); PLATELET COUNT 279 10^3/uL (134-434); RBC 3.96 M/mm3 (4.00-5.60); RDW 13.8 % (11.9-15.9); WHITE BLOOD COUNT 7.2 K/mm3 (4.0-10.0)
[2023-02-09 09:39] VITALS: BP 124/69; PULSE 104; RESP 19; TEMP 98
[2023-02-10] MEDS ORDERED: chlordiazePOXIDE HCL 10 MG CAPSULE PO SCH (05:00)
[2023-02-10] MEDS ORDERED: diazePAM 5 MG TABLET PO ONE (06:00)
[2023-02-11] MEDS ORDERED: chlordiazePOXIDE HCL 10 MG CAPSULE PO ONE (05:00)
== END 2023-02-09 08:50 | disposition home or self-care (01) | DRG 897 ==
LOC: YASAS 09:29 → Y3N 12:02 → Y6N 12:44
PROVIDERS: ADMIT Allergy & Immunology; ATTEND Surgery
PROC: HZ2ZZZZ Detoxification Services for Substance Abuse Treatment (ICD-10-PCS; principal; 2023-02-06)
DX: F10.230 Alcohol dependence with withdrawal, uncomplicated (principal); F14.20 Cocaine dependence, uncomplicated; E72.20 Disorder of urea cycle metabolism, unspecified; E87.1 Hypo-osmolality and hyponatremia; C79.51 Secondary malignant neoplasm of bone; F13.230 Sedative, hypnotic or anxiolytic dependence with withdrawal, uncomplicated; F12.20 Cannabis dependence, uncomplicated; F17.210 Nicotine dependence, cigarettes, uncomplicated; J44.9 Chronic obstructive pulmonary disease, unspecified; J45.20 Mild intermittent asthma, uncomplicated; C61 Malignant neoplasm of prostate; D72.829 Elevated white blood cell count, unspecified; Z86.11 Personal history of tuberculosis
CPT/HCPCS: 36415; 80053; 81003; 82140; 84295; 85025; 85027; 86780; 87040; 87635; J8999

== ENCOUNTER 2023-05-06 09:02 | Inpatient (IN) | payer OTHER ==
[2023-05-06 09:33] VITALS: BMI 19.5
[2023-05-06] MEDS ORDERED: hydrOXYzine PAMOATE 25 MG CAPSULE (FP) PO PRN (10:32)
[2023-05-06] MEDS ORDERED: NALOXONE HCL 0.4 MG/ML VIAL IM PRN (10:32)
[2023-05-06] MEDS ORDERED: LOPERAMIDE HCL 2 MG CAPSULE PO PRN (10:32)
[2023-05-06] MEDS ORDERED: NICOTINE 14 MG/24 HOURS TOPICAL PATCH TD PRN (10:32)
[2023-05-06] MEDS ORDERED: ONDANSETRON *ODT* 4 MG TABLET SL PRN (10:32)
[2023-05-06] MEDS ORDERED: BISMUTH SUBSALICYLATE 524 MG/30 ML PO PRN (10:32)
[2023-05-06] MEDS ORDERED: ACETAMINOPHEN 325 MG TABLET (FP) PO PRN (10:32)
[2023-05-06] MEDS ORDERED: BENZOCAINE/MENTHOL (CHLORASEPTIC ) LOZENGE MM PRN (10:32)
[2023-05-06] MEDS ORDERED: IBUPROFEN 400 MG TABLET (FP) PO PRN (10:32)
[2023-05-06] MEDS ORDERED: BENZONATATE 200 MG CAPSULE PO PRN (10:32)
[2023-05-06] MEDS ORDERED: POLYETHYLENE GLYCOL (HEALTHYLAX) 3350 17 GM PACKET PO PRN (10:32)
[2023-05-06] MEDS ORDERED: IBUPROFEN 600 MG TABLET (FP) PO PRN (10:32)
[2023-05-06] MEDS ORDERED: NALOXONE HCL (KLOXXADO) 8 MG SPRAY NS PRN (10:32)
[2023-05-06] MEDS ORDERED: MAG HYDROX/AL HYDROX/SIMETH 30 ML UNIT-DOSE CUP PO PRN (10:32)
[2023-05-06] MEDS ORDERED: MAGNESIUM HYDROX 2400MG/30ML ORAL SUSPENSION 30 ML CUP PO PRN (10:32)
[2023-05-06] MEDS ORDERED: guaiFENesin 600 MG TABLET.ER (FP) PO PRN (10:32)
[2023-05-06] MEDS ORDERED: METHOCARBAMOL 500 MG TABLET PO PRN (10:32)
[2023-05-06] MEDS ORDERED: DICYCLOMINE HCL 10 MG CAPSULE PO PRN (10:32)
[2023-05-06] MEDS ORDERED: NICOTINE POLACRILEX 2 MG GUM BUC PRN (10:32)
[2023-05-06] MEDS ORDERED: ALBUTEROL SO4 HFA INHALER IH PRN (10:36)
[2023-05-06] MEDS: BUDESONIDE/FORMETEROL FUMARATE 160/4.5 mcg INHALER IH SCH ×2 (12:18→22:00)
[2023-05-06] MEDS ORDERED: COLCHICINE 0.6 MG TAB PO SCH (16:45)
[2023-05-06] MEDS ORDERED: predniSONE 20 MG TABLET (UD) PO SCH (16:45)
[2023-05-06] MEDS: predniSONE 20 MG TABLET (UD) PO SCH (18:24)
[2023-05-06] MEDS: THIAMINE HCL 100 MG TABLET (FP) PO SCH (21:58)
[2023-05-06] MEDS: MELATONIN 5 MG TABLETS PO SCH (21:58)
[2023-05-06] MEDS: COLCHICINE 0.6 MG TAB PO SCH (23:08)
[2023-05-07] MEDS: predniSONE 20 MG TABLET (UD) PO SCH (10:31)
[2023-05-07] MEDS: COLCHICINE 0.6 MG TAB PO SCH (10:31)
[2023-05-07] MEDS: PRENATAL VITAMINS W/ FOLIC ACID TABLET (FP) PO SCH (10:31)
[2023-05-07] MEDS: BUDESONIDE/FORMETEROL FUMARATE 160/4.5 mcg INHALER IH SCH ×2 (10:32→23:19)
[2023-05-07] MEDS ORDERED: chlordiazePOXIDE HCL 25 MG CAPSULE PO PRN (10:53)
[2023-05-07] MEDS: chlordiazePOXIDE HCL 25 MG CAPSULE PO SCH ×3 (11:55→23:20)
[2023-05-07 20:57] VITALS: BP 109/73; PULSE 78; RESP 18; TEMP 97.6
[2023-05-07] MEDS ORDERED: traZODone HCL 100 MG TABLET (FP) PO SCH (22:00)
[2023-05-07] MEDS: THIAMINE HCL 100 MG TABLET (FP) PO SCH (23:09)
[2023-05-07] MEDS: MELATONIN 5 MG TABLETS PO SCH (23:09)
[2023-05-08] MEDS: chlordiazePOXIDE HCL 25 MG CAPSULE PO SCH ×2 (05:57→10:09)
[2023-05-08] MEDS: BUDESONIDE/FORMETEROL FUMARATE 160/4.5 mcg INHALER IH SCH (10:09)
[2023-05-08] MEDS: predniSONE 20 MG TABLET (UD) PO SCH (10:09)
[2023-05-08] MEDS: COLCHICINE 0.6 MG TAB PO SCH (10:09)
[2023-05-08] MEDS: PRENATAL VITAMINS W/ FOLIC ACID TABLET (FP) PO SCH (10:09)
[2023-05-09] MEDS ORDERED: chlordiazePOXIDE HCL 25 MG CAPSULE PO SCH (05:00)
[2023-05-10] MEDS ORDERED: chlordiazePOXIDE HCL 10 MG CAPSULE PO PRN
[2023-05-10] MEDS ORDERED: chlordiazePOXIDE HCL 10 MG CAPSULE PO SCH (05:00)
[2023-05-11] MEDS ORDERED: chlordiazePOXIDE HCL 10 MG CAPSULE PO SCH (05:00)
[2023-05-12] MEDS ORDERED: chlordiazePOXIDE HCL 10 MG CAPSULE PO ONE (05:00)
== END 2023-05-08 10:39 | disposition left against medical advice (07) | DRG 894 ==
LOC: YASAS 09:02 → Y3N 11:12
PROVIDERS: ADMIT Allergy & Immunology; ATTEND Allergy & Immunology
PROC: HZ2ZZZZ Detoxification Services for Substance Abuse Treatment (ICD-10-PCS; principal; 2023-05-06)
DX: F10.230 Alcohol dependence with withdrawal, uncomplicated (principal); F14.20 Cocaine dependence, uncomplicated; C85.90 Non-Hodgkin lymphoma, unspecified, unspecified site; F13.230 Sedative, hypnotic or anxiolytic dependence with withdrawal, uncomplicated; F17.210 Nicotine dependence, cigarettes, uncomplicated; H91.92 Unspecified hearing loss, left ear; J44.9 Chronic obstructive pulmonary disease, unspecified; M10.9 Gout, unspecified; M54.50 Low back pain, unspecified; G89.29 Other chronic pain; Z99.89 Dependence on other enabling machines and devices; Z86.11 Personal history of tuberculosis; Z86.59 Personal history of other mental and behavioral disorders; Z85.46 Personal history of malignant neoplasm of prostate; Z86.718 Personal history of other venous thrombosis and embolism; Z86.711 Personal history of pulmonary embolism
CPT/HCPCS: 87635; 87811

== ENCOUNTER 2023-06-11 10:46 | Inpatient (IN) | payer OTHER ==
[2023-06-11 11:15] VITALS: BMI 19.2
[2023-06-11] MEDS ORDERED: chlordiazePOXIDE HCL 25 MG CAPSULE PO PRN (12:04)
[2023-06-11] MEDS ORDERED: BENZOCAINE/MENTHOL (CHLORASEPTIC ) LOZENGE MM PRN (12:04)
[2023-06-11] MEDS ORDERED: NALOXONE HCL (KLOXXADO) 8 MG SPRAY NS PRN (12:04)
[2023-06-11] MEDS ORDERED: IBUPROFEN 400 MG TABLET (FP) PO PRN (12:04)
[2023-06-11] MEDS ORDERED: NICOTINE POLACRILEX 2 MG GUM BUC PRN (12:04)
[2023-06-11] MEDS ORDERED: ONDANSETRON *ODT* 4 MG TABLET SL PRN (12:04)
[2023-06-11] MEDS ORDERED: MAG HYDROX/AL HYDROX/SIMETH 30 ML UNIT-DOSE CUP PO PRN (12:04)
[2023-06-11] MEDS ORDERED: guaiFENesin 600 MG TABLET.ER (FP) PO PRN (12:04)
[2023-06-11] MEDS ORDERED: BISMUTH SUBSALICYLATE 524 MG/30 ML PO PRN (12:04)
[2023-06-11] MEDS ORDERED: IBUPROFEN 600 MG TABLET (FP) PO PRN (12:04)
[2023-06-11] MEDS ORDERED: POLYETHYLENE GLYCOL (HEALTHYLAX) 3350 17 GM PACKET PO PRN (12:04)
[2023-06-11] MEDS ORDERED: NALOXONE HCL 0.4 MG/ML VIAL IM PRN (12:04)
[2023-06-11] MEDS ORDERED: DICYCLOMINE HCL 10 MG CAPSULE PO PRN (12:04)
[2023-06-11] MEDS ORDERED: BENZONATATE 200 MG CAPSULE PO PRN (12:04)
[2023-06-11] MEDS ORDERED: LOPERAMIDE HCL 2 MG CAPSULE PO PRN (12:04)
[2023-06-11] MEDS ORDERED: MAGNESIUM HYDROX 2400MG/30ML ORAL SUSPENSION 30 ML CUP PO PRN (12:04)
[2023-06-11] MEDS ORDERED: ACETAMINOPHEN 325 MG TABLET (FP) PO PRN (12:04)
[2023-06-11] MEDS ORDERED: ALBUTEROL SO4 HFA INHALER IH PRN (13:13)
[2023-06-11] MEDS: METHOCARBAMOL 500 MG TABLET PO PRN (13:47)
[2023-06-11] MEDS ORDERED: METHOCARBAMOL 500 MG TABLET ONE (13:50)
[2023-06-11] MEDS: chlordiazePOXIDE HCL 25 MG CAPSULE PO SCH (17:31)
[2023-06-11] MEDS ORDERED: BUDESONIDE/FORMETEROL FUMARATE 160/4.5 mcg INHALER IH SCH (22:00)
[2023-06-11] MEDS: MELATONIN 5 MG TABLETS PO SCH (22:26)
[2023-06-11] MEDS: THIAMINE HCL 100 MG TABLET (FP) PO SCH (22:26)
[2023-06-11] MEDS: [UNRECOGNIZED DRUG - OTHER] IH SCH (22:26)
[2023-06-11] MEDS: APIXABAN 5 MG TABLET PO SCH (22:26)
[2023-06-12] MEDS: PRENATAL VITAMINS W/ FOLIC ACID TABLET (FP) PO SCH (10:32)
[2023-06-12 13:18] VITALS: RESP 18
[2023-06-12] MEDS: EMTRICITABINE/TENOFOV ALAFENAM (DESCOVY) TABLET PO SCH (13:43)
[2023-06-12] MEDS: hydrOXYzine PAMOATE 25 MG CAPSULE (FP) PO PRN (13:43)
[2023-06-12] MEDS: traZODone HCL 100 MG TABLET (FP) PO SCH (22:20)
[2023-06-12 22:21] VITALS: BP 90/60; PULSE 77; TEMP 98.4
[2023-06-12] MEDS: busPIRone HCL 10 MG TABLET (FP) PO SCH (22:22)
[2023-06-13] MEDS: chlordiazePOXIDE HCL 25 MG CAPSULE PO SCH (06:15)
[2023-06-14] MEDS ORDERED: chlordiazePOXIDE HCL 10 MG CAPSULE PO PRN
[2023-06-14] MEDS ORDERED: chlordiazePOXIDE HCL 10 MG CAPSULE PO SCH (05:00)
[2023-06-15] MEDS ORDERED: chlordiazePOXIDE HCL 10 MG CAPSULE PO SCH (05:00)
[2023-06-16] MEDS ORDERED: chlordiazePOXIDE HCL 10 MG CAPSULE PO ONE (05:00)
== END 2023-06-13 08:42 | disposition left against medical advice (07) | DRG 894 ==
LOC: YASAS 10:46 → Y3N 13:32
PROVIDERS: ADMIT Allergy & Immunology; ATTEND Allergy & Immunology
PROC: HZ2ZZZZ Detoxification Services for Substance Abuse Treatment (ICD-10-PCS; principal; 2023-06-11)
DX: F10.230 Alcohol dependence with withdrawal, uncomplicated (principal); F14.20 Cocaine dependence, uncomplicated; F13.20 Sedative, hypnotic or anxiolytic dependence, uncomplicated; F17.210 Nicotine dependence, cigarettes, uncomplicated; K21.9 Gastro-esophageal reflux disease without esophagitis; M15.9 Polyosteoarthritis, unspecified; M54.50 Low back pain, unspecified; G89.29 Other chronic pain; Z86.59 Personal history of other mental and behavioral disorders; Z85.46 Personal history of malignant neoplasm of prostate; Z86.11 Personal history of tuberculosis
CPT/HCPCS: 80305; 87635

== ENCOUNTER 2023-09-03 12:52 | Inpatient (IN) | payer OTHER ==
[2023-09-03 14:34] VITALS: BMI 19.2
[2023-09-03] MEDS ORDERED: guaiFENesin 600 MG TABLET.ER (FP) PO PRN (17:25)
[2023-09-03] MEDS ORDERED: MAGNESIUM HYDROX 2400MG/30ML ORAL SUSPENSION 30 ML CUP PO PRN (17:25)
[2023-09-03] MEDS ORDERED: ACETAMINOPHEN 325 MG TABLET (FP) PO PRN (17:25)
[2023-09-03] MEDS ORDERED: BENZONATATE 200 MG CAPSULE PO PRN (17:25)
[2023-09-03] MEDS ORDERED: NICOTINE POLACRILEX 2 MG LOZENGE BC PRN (17:25)
[2023-09-03] MEDS ORDERED: hydrOXYzine PAMOATE 25 MG CAPSULE (FP) PO PRN (17:25)
[2023-09-03] MEDS ORDERED: P-EPHED 60MG/TRIPROLIDI 2.5MG TABLET PO PRN (17:25)
[2023-09-03] MEDS ORDERED: MAG HYDROX/AL HYDROX/SIMETH 30 ML UNIT-DOSE CUP PO PRN (17:25)
[2023-09-03] MEDS ORDERED: BENZOCAINE/MENTHOL (CHLORASEPTIC ) LOZENGE MM PRN (17:25)
[2023-09-03] MEDS ORDERED: NICOTINE POLACRILEX 2 MG GUM BUC PRN (17:25)
[2023-09-03] MEDS ORDERED: POLYETHYLENE GLYCOL (HEALTHYLAX) 3350 17 GM PACKET PO PRN (17:25)
[2023-09-03] MEDS ORDERED: LOPERAMIDE HCL 2 MG CAPSULE PO PRN (17:25)
[2023-09-03] MEDS: FAMOTIDINE 20 MG TABLET PO SCH ×2 (19:01→19:04)
[2023-09-03] MEDS ORDERED: METHOCARBAMOL 500 MG TABLET PO PRN (20:00)
[2023-09-03] MEDS: AMOX TR/POT CLAV 875MG/125MG TABLETS (FP) PO SCH (22:57)
[2023-09-03] MEDS: APIXABAN 5 MG TABLET PO SCH (22:57)
[2023-09-03] MEDS: MELATONIN 5 MG TABLETS PO SCH (22:58)
[2023-09-03] MEDS: BUDESONIDE/FORMOTEROL FUMARATE 80-4.5 MCG (10.3 GM INHALER) IH SCH (22:58)
[2023-09-03] MEDS: THIAMINE 100 MG TABLET PO SCH (22:58)
[2023-09-04 06:29] VITALS: BP 108/63; PULSE 71; RESP 16; TEMP 97.6
[2023-09-04] MEDS: FOLIC ACID 1 MG TABLET (FP) PO SCH (10:23)
[2023-09-04] MEDS: PRENATAL VITAMINS W/ FOLIC ACID TABLET (FP) PO SCH (10:23)
[2023-09-04] MEDS: TIOTROPIUM BROMIDE 2.5 MCG (SPIRIVA) RESPIMAT INHALER IH SCH (10:23)
[2023-09-04] MEDS: ALBUTEROL SO4 HFA INHALER IH PRN (10:23)
[2023-09-04] MEDS: EMTRICITABINE/TENOFOV ALAFENAM (DESCOVY) TABLET PO SCH (10:24)
[2023-09-04 11:51] LABS: HEMATOCRIT 37.5 % (35.4-49); HEMOGLOBIN 12.6 GM/dL (11.7-16.9); MCH 31.6 pg (25.7-33.7); MCHC 33.6 g/dl (32.0-35.9); MEAN PLT VOLUME 7.6 fl (7.5-11.1); PLATELET COUNT 219 10^3/uL (134-434); RBC 3.99 M/mm3 (4.00-5.60); RDW 14.6 % (11.9-15.9); WHITE BLOOD COUNT 5.1 K/mm3 (4.0-10.0)
[2023-09-04 12:22] LABS: BLOOD UREA NITROGEN 14.5 mg/dL (7-18); CALCIUM 8.2 mg/dL (8.5-10.1)
[2023-09-04 12:25] LABS: CREATININE 0.8 mg/dL (0.55-1.3)
[2023-09-04 12:27] LABS: BILIRUBIN,TOTAL 0.4 mg/dL (0.2-1); TOT PROT 6.6 g/dl (6.4-8.2)
== END 2023-09-04 15:31 | disposition left against medical advice (07) | DRG 894 ==
LOC: YASAS 12:52 → Y3NR 17:09
PROVIDERS: ADMIT Allergy & Immunology; ATTEND Psychiatry & Neurology Pain Medicine
PROC: HZ42ZZZ Group Counseling for Substance Abuse Treatment, Cognitive-Behavioral (ICD-10-PCS; principal; 2023-09-03)
DX: F13.20 Sedative, hypnotic or anxiolytic dependence, uncomplicated (principal); F14.20 Cocaine dependence, uncomplicated; F12.20 Cannabis dependence, uncomplicated; F19.94 Other psychoactive substance use, unspecified with psychoactive substance-induced mood disorder; F90.9 Attention-deficit hyperactivity disorder, unspecified type; G47.00 Insomnia, unspecified; K21.9 Gastro-esophageal reflux disease without esophagitis; M10.9 Gout, unspecified; Z21 Asymptomatic human immunodeficiency virus [HIV] infection status; M54.59 Other low back pain; G89.29 Other chronic pain; H91.92 Unspecified hearing loss, left ear; Z85.46 Personal history of malignant neoplasm of prostate; Z91.013 Allergy to seafood; Z86.11 Personal history of tuberculosis; Z92.21 Personal history of antineoplastic chemotherapy; Z91.010 Allergy to peanuts; Z91.018 Allergy to other foods; Z56.0 Unemployment, unspecified
CPT/HCPCS: 36415; 80053; 80305; 85027; 86780; 87811; 93005; 93010